=== PATIENT | male | born 1950 | race Two or more races ===

== ENCOUNTER → 2020-09-03 08:54 | Outpatient (BNVA) | payer MEDICARE, SELFPAY | PROVIDERS: PCP Internal Medicine; Referring Provider Internal Medicine; Visit Provider Internal Medicine | DX: I48.0 Paroxysmal atrial fibrillation (principal); Z51.81 Encounter for therapeutic drug level monitoring; Z79.01 Long term (current) use of anticoagulants | CPT/HCPCS: 85610 ==

== ENCOUNTER 2020-09-26 08:20 | Outpatient (REF) | payer MEDICARE, SELFPAY ==
[2020-09-26 09:14] LABS: MANUAL DIFF FLAG NO
[2020-09-26 09:18] LABS: Basophils Percent Auto 0.3 % (0-2); Eosinophils Absolute Auto 0.4 X10*3/uL (0.0-0.4); Eosinophils Percent Auto 4.9 % (0-4); Hematocrit 44.6 % (42-52); Hemoglobin 14.6 g/dl (14.0-18.0); Imm Gran Abs Auto 0.01 X10*3/uL (0.00-0.03); Imm Gran Pct Auto 0.1 % (0.0-0.4); Lymphocytes Absolute Auto 3.2 X10*3/uL (1.2-4.9); Lymphocytes Percent Auto 44.6 % (20-40); Mean Corpuscular HGB Conc 32.7 g/dl (31.0-36.0); Mean Corpuscular Hemoglobin 27.2 pg (27.0-33.0); Mean Corpuscular Volume 83.1 fL (80-98); Mean Platelet Volume 11.1 fL (9.4-12.4); Monocytes Absolute Auto 0.5 X10*3/uL (0.1-1.2); Monocytes Percent Auto 7.1 % (2-11); Neutrophils Absolute Auto 3.1 X10*3/uL (2.0-8.3); Platelet Count 200 X10*3/uL (160-400); Red Blood Count 5.37 X10*6/uL (4.60-5.80); Red Cell Distribution Width 12.7 % (11.0-16.0); White Blood Count 7.2 X10*3/uL (4.8-10.8)
[2020-09-26 09:30] LABS: Glucose Urine UA NEG (NEG); Leukocyte Esterase Urine NEG (NEG); Nitrite Urine NEG (NEG); Urine Blood TRACE (NEG); Urine Ketones NEG (NEG); Urine Protein NEG (NEG-TRACE)
[2020-09-26 09:32] LABS: Appearance Urine HAZY; Color Urine YELLOW
[2020-09-26 09:39] LABS: RBC Urine 0-2 /HPF (0); Squamous Epithelial Cell Urine TRACE /LPF; WBC Urine 0 /HPF (0-4)
[2020-09-26 09:53] LABS: Alanine Aminotransferase 16 U/L (0-40); Albumin Level 4.1 g/dL (3.5-5.0); Alkaline Phosphatase 46 U/L (39-117); Anion Gap 13 (12-20); Aspartate Amino Transferase 18 U/L (5-37); Bilirubin Total 0.6 mg/dL (0.0-1.0); Blood Urea Nitrogen 11 mg/dL (9-16); Carbon Dioxide 27 mmol/L (22-29); Chloride 99 mmol/L (96-108); Cholesterol 171 mg/dL; Estimated Glomerular Filt Rate > 60; Glucose Fasting 129 mg/dL (60-99); HDL Cholesterol 35 mg/dL; LDL Cholesterol Calculated 97 mg/dl; Potassium 3.9 mmol/l (3.3-5.1); Sodium 135 mmol/L (135-145); Total Protein 7.2 g/dL (6.5-8.0); Triglycerides 197 mg/dL; Uric Acid 4.8 mg/dL (3.4-7.0)
[2020-09-26 09:58] LABS: Creatinine Urine 131.08 mg/dL; Microalbum/Creatinine Ratio Ur 3.8 ug/mg cr
[2020-09-26 13:22] LABS: Thyroid Stimulating Hormone 1.38 uIU/mL (0.32-4.0); Vitamin D 25-OH Total 32.5 ng/mL (>30)
== END 2020-09-26 08:21 | disposition home or self-care (01) ==
LOC: HO.LAB 08:20
PROVIDERS: PCP Internal Medicine; Visit Provider Internal Medicine
DX: E78.5 Hyperlipidemia, unspecified (principal); E11.9 Type 2 diabetes mellitus without complications; I10 Essential (primary) hypertension; M10.9 Gout, unspecified; E03.9 Hypothyroidism, unspecified; E66.9 Obesity, unspecified; E55.9 Vitamin D deficiency, unspecified; K21.9 Gastro-esophageal reflux disease without esophagitis
CPT/HCPCS: 36415; 80053; 80061; 81001; 82043; 82306; 84439; 84443; 84550; 85025

== ENCOUNTER → 2020-10-01 08:58 | Outpatient (BNVA) | payer MEDICARE, SELFPAY | PROVIDERS: PCP Internal Medicine; Visit Provider Internal Medicine | DX: I48.0 Paroxysmal atrial fibrillation (principal); Z51.81 Encounter for therapeutic drug level monitoring; Z79.01 Long term (current) use of anticoagulants | CPT/HCPCS: 85610; 99211 ==

== ENCOUNTER → 2020-10-04 08:36 | Outpatient (BNVA) | payer MEDICARE, SELFPAY | PROVIDERS: PCP Internal Medicine; Visit Provider Internal Medicine | DX: I48.0 Paroxysmal atrial fibrillation (principal); Z51.81 Encounter for therapeutic drug level monitoring; Z79.01 Long term (current) use of anticoagulants | CPT/HCPCS: 85610; 99211 ==

== ENCOUNTER → 2020-10-10 09:39 | Outpatient (BNVA) | payer MEDICARE, SELFPAY | PROVIDERS: PCP Internal Medicine; Visit Provider Internal Medicine | DX: I48.0 Paroxysmal atrial fibrillation (principal); Z51.81 Encounter for therapeutic drug level monitoring; Z79.01 Long term (current) use of anticoagulants | CPT/HCPCS: 85610; 99211 ==

== ENCOUNTER → 2020-10-24 08:41 | Outpatient (BNVA) | payer MEDICARE, SELFPAY | PROVIDERS: PCP Internal Medicine; Visit Provider Internal Medicine | DX: I48.0 Paroxysmal atrial fibrillation (principal); Z51.81 Encounter for therapeutic drug level monitoring; Z79.01 Long term (current) use of anticoagulants | CPT/HCPCS: 85610; 99211 ==

== ENCOUNTER → 2020-11-13 09:08 | Outpatient (BNVA) | payer MEDICARE, SELFPAY | PROVIDERS: PCP Internal Medicine; Visit Provider Internal Medicine | DX: I48.0 Paroxysmal atrial fibrillation (principal); Z51.81 Encounter for therapeutic drug level monitoring; Z79.01 Long term (current) use of anticoagulants | CPT/HCPCS: 85610; 99211 ==

== ENCOUNTER → 2020-12-11 08:36 | Outpatient (BNVA) | payer MEDICARE, SELFPAY | PROVIDERS: PCP Internal Medicine; Visit Provider Internal Medicine | DX: I48.0 Paroxysmal atrial fibrillation (principal); Z51.81 Encounter for therapeutic drug level monitoring; Z79.01 Long term (current) use of anticoagulants | CPT/HCPCS: 85610; 99211 ==

== ENCOUNTER 2020-12-25 08:26 | Outpatient (REF) | payer MEDICARE, SELFPAY ==
[2020-12-25 09:19] LABS: MANUAL DIFF FLAG NO
[2020-12-25 09:41] LABS: Glucose Urine UA NEG (NEG); Leukocyte Esterase Urine NEG (NEG); Nitrite Urine NEG (NEG); PH 5.5 (5.0-8.0); Specific Gravity - Urine 1.025 (1.005-1.025); Urine Blood TRACE (NEG); Urine Ketones NEG (NEG); Urine Protein NEG (NEG-TRACE)
[2020-12-25 09:43] LABS: Basophils Percent Auto 0.6 % (0-2); Eosinophils Absolute Auto 0.4 X10*3/uL (0.0-0.4); Eosinophils Percent Auto 5.4 % (0-4); Hematocrit 44.7 % (42-52); Hemoglobin 13.9 g/dl (14.0-18.0); Imm Gran Abs Auto 0.02 X10*3/uL (0.00-0.03); Imm Gran Pct Auto 0.3 % (0.0-0.4); Lymphocytes Absolute Auto 3.2 X10*3/uL (1.2-4.9); Lymphocytes Percent Auto 45.6 % (20-40); Mean Corpuscular HGB Conc 31.1 g/dl (31.0-36.0); Mean Corpuscular Hemoglobin 25.8 pg (27.0-33.0); Mean Corpuscular Volume 82.9 fL (80-98); Mean Platelet Volume 11.2 fL (9.4-12.4); Monocytes Absolute Auto 0.5 X10*3/uL (0.1-1.2); Monocytes Percent Auto 7.6 % (2-11); Neutrophils Absolute Auto 2.8 X10*3/uL (2.0-8.3); Neutrophils Percent Auto 40.5 % (45-73); Platelet Count 229 X10*3/uL (160-400); Red Blood Count 5.39 X10*6/uL (4.60-5.80); Red Cell Distribution Width 13.2 % (11.0-16.0)
[2020-12-25 09:44] LABS: Appearance Urine CLEAR; Color Urine YELLOW
[2020-12-25 10:01] LABS: RBC Urine 0-2 /HPF (0); Squamous Epithelial Cell Urine TRACE /LPF; WBC Urine 0 /HPF (0-4)
[2020-12-25 10:09] LABS: Alanine Aminotransferase 14 U/L (0-40); Albumin Level 4.3 g/dL (3.5-5.0); Alkaline Phosphatase 47 U/L (39-117); Anion Gap 14 (12-20); Aspartate Amino Transferase 18 U/L (5-37); Bilirubin Total 0.6 mg/dL (0.0-1.0); Blood Urea Nitrogen 13 mg/dL (9-16); Calcium 8.9 mg/dL (8.4-10.2); Carbon Dioxide 27 mmol/L (22-29); Chloride 102 mmol/L (96-108); Cholesterol 164 mg/dL; Estimated Glomerular Filt Rate > 60; Glucose Fasting 123 mg/dL (60-99); HDL Cholesterol 36 mg/dL; LDL Cholesterol Calculated 101 mg/dl; Potassium 4.2 mmol/L (3.3-5.1); Sodium 139 mmol/L (135-145); Total Protein 7.4 g/dL (6.5-8.0); Triglycerides 137 mg/dL; Uric Acid 5.2 mg/dL (3.4-7.0)
[2020-12-25 10:11] LABS: Creatinine Urine 173.45 mg/dL
[2020-12-25 10:31] LABS: Free T4 (Free Thyroxine) 1.06 ng/dL (0.71-1.85); Thyroid Stimulating Hormone 0.41 uIU/mL (0.32-4.0); Vitamin D 25-OH Total 41.7 ng/mL (>30)
== END 2020-12-25 08:27 | disposition home or self-care (01) ==
LOC: HO.LAB 08:26
PROVIDERS: PCP Internal Medicine; Visit Provider Internal Medicine
DX: E55.9 Vitamin D deficiency, unspecified (principal); M10.9 Gout, unspecified; E66.9 Obesity, unspecified; E03.9 Hypothyroidism, unspecified; E78.00 Pure hypercholesterolemia, unspecified; I48.0 Paroxysmal atrial fibrillation; K29.30 Chronic superficial gastritis without bleeding; I10 Essential (primary) hypertension; E11.9 Type 2 diabetes mellitus without complications
CPT/HCPCS: 36415; 80053; 80061; 81001; 82043; 82306; 84439; 84443; 84550; 85025

== ENCOUNTER → 2021-01-08 08:40 | Outpatient (BNVA) | payer MEDICARE, SELFPAY | PROVIDERS: PCP Internal Medicine; Visit Provider Internal Medicine | DX: I48.0 Paroxysmal atrial fibrillation (principal); Z51.81 Encounter for therapeutic drug level monitoring; Z79.01 Long term (current) use of anticoagulants | CPT/HCPCS: 85610; 99211 ==

== ENCOUNTER → 2021-02-05 08:40 | Outpatient (BNVA) | payer MEDICARE, SELFPAY | PROVIDERS: PCP Internal Medicine; Visit Provider Internal Medicine | DX: I48.0 Paroxysmal atrial fibrillation (principal); Z51.81 Encounter for therapeutic drug level monitoring; Z79.01 Long term (current) use of anticoagulants | CPT/HCPCS: 85610; 99211 ==

== ENCOUNTER → 2021-03-05 09:20 | Outpatient (BNVA) | payer MEDICARE, SELFPAY | PROVIDERS: PCP Internal Medicine; Visit Provider Internal Medicine | DX: I48.0 Paroxysmal atrial fibrillation (principal); Z79.01 Long term (current) use of anticoagulants; Z51.81 Encounter for therapeutic drug level monitoring | CPT/HCPCS: 85610; 99211 ==

== ENCOUNTER → 2021-04-02 08:57 | Outpatient (BNVA) | payer MEDICARE, SELFPAY | PROVIDERS: PCP Internal Medicine; Visit Provider Internal Medicine | DX: I48.0 Paroxysmal atrial fibrillation (principal); Z51.81 Encounter for therapeutic drug level monitoring; Z79.01 Long term (current) use of anticoagulants | CPT/HCPCS: 85610; 99211 ==

== ENCOUNTER 2021-04-09 08:58 | Outpatient (REF) | payer MEDICARE, SELFPAY ==
[2021-04-09 09:34] LABS: MANUAL DIFF FLAG NO
[2021-04-09 09:54] LABS: Basophils Percent Auto 0.5 % (0-2); Eosinophils Absolute Auto 0.3 X10*3/uL (0.0-0.4); Eosinophils Percent Auto 4.9 % (0-4); Glucose Urine UA NEG (NEG); Imm Gran Abs Auto 0.02 X10*3/uL (0.00-0.03); Imm Gran Pct Auto 0.3 % (0.0-0.4); Leukocyte Esterase Urine NEG (NEG); Lymphocytes Absolute Auto 2.9 X10*3/uL (1.2-4.9); Mean Corpuscular HGB Conc 31.8 g/dl (31.0-36.0); Mean Corpuscular Hemoglobin 26.3 pg (27.0-33.0); Mean Corpuscular Volume 82.6 fL (80-98); Mean Platelet Volume 10.6 fL (9.4-12.4); Monocytes Absolute Auto 0.4 X10*3/uL (0.1-1.2); Monocytes Percent Auto 6.4 % (2-11); Neutrophils Absolute Auto 2.4 X10*3/uL (2.0-8.3); Neutrophils Percent Auto 39.9 % (45-73); Nitrite Urine NEG (NEG); Platelet Count 223 X10*3/uL (160-400); Red Blood Count 5.33 X10*6/uL (4.60-5.80); Red Cell Distribution Width 13.2 % (11.0-16.0); Urine Blood TRACE (NEG); Urine Ketones NEG (NEG); Urine Protein NEG (NEG-TRACE); White Blood Count 6.1 X10*3/uL (4.8-10.8)
[2021-04-09 09:55] LABS: Appearance Urine CLEAR; Color Urine YELLOW
[2021-04-09 10:10] LABS: RBC Urine 0-2 /HPF (0); Squamous Epithelial Cell Urine TRACE /LPF; WBC Urine 0 /HPF (0-4)
[2021-04-09 10:18] LABS: Alanine Aminotransferase 18 U/L (0-40); Albumin Level 4.2 g/dL (3.5-5.0); Alkaline Phosphatase 43 U/L (39-117); Anion Gap 12 (12-20); Aspartate Amino Transferase 17 U/L (5-37); Bilirubin Total 0.6 mg/dL (0.0-1.0); Blood Urea Nitrogen 12 mg/dL (9-16); Calcium 9.1 mg/dL (8.4-10.2); Carbon Dioxide 27 mmol/L (22-29); Chloride 102 mmol/L (96-108); Cholesterol 168 mg/dL; Estimated Glomerular Filt Rate > 60; Glucose Fasting 131 mg/dL (60-99); HDL Cholesterol 43 mg/dL; LDL Cholesterol Calculated 102 mg/dl; Potassium 4.1 mmol/L (3.3-5.1); Sodium 137 mmol/L (135-145); Total Protein 7.2 g/dL (6.5-8.0); Triglycerides 115 mg/dL; Uric Acid 4.7 mg/dL (3.4-7.0)
[2021-04-09 10:25] LABS: Creatinine Urine 147.72 mg/dL; Microalbum/Creatinine Ratio Ur 5.4 ug/mg cr
[2021-04-09 10:39] LABS: Free T4 (Free Thyroxine) 1.01 ng/dL (0.71-1.85); Thyroid Stimulating Hormone 0.77 uIU/mL (0.32-4.0); Vitamin D 25-OH Total 42.8 ng/mL (>30)
== END 2021-04-09 08:59 | disposition home or self-care (01) ==
LOC: HO.LAB 08:58
PROVIDERS: PCP Internal Medicine; Visit Provider Internal Medicine
DX: E78.00 Pure hypercholesterolemia, unspecified (principal); E11.9 Type 2 diabetes mellitus without complications; I10 Essential (primary) hypertension; I48.0 Paroxysmal atrial fibrillation; E03.9 Hypothyroidism, unspecified; E66.9 Obesity, unspecified; E55.9 Vitamin D deficiency, unspecified; M10.9 Gout, unspecified; K29.30 Chronic superficial gastritis without bleeding
CPT/HCPCS: 36415; 80053; 80061; 81001; 82043; 82306; 84439; 84443; 84550; 85025

== ENCOUNTER → 2021-04-30 09:18 | Outpatient (BNVA) | payer MEDICARE, SELFPAY | PROVIDERS: PCP Internal Medicine; Visit Provider Internal Medicine | DX: I48.0 Paroxysmal atrial fibrillation (principal); Z51.81 Encounter for therapeutic drug level monitoring; Z79.01 Long term (current) use of anticoagulants | CPT/HCPCS: 85610; 99211 ==

== ENCOUNTER → 2021-05-28 08:52 | Outpatient (BNVA) | payer MEDICARE, SELFPAY | PROVIDERS: PCP Internal Medicine; Visit Provider Internal Medicine | DX: I48.0 Paroxysmal atrial fibrillation (principal); Z51.81 Encounter for therapeutic drug level monitoring; Z79.01 Long term (current) use of anticoagulants | CPT/HCPCS: 85610; 99211 ==

== ENCOUNTER → 2021-06-25 08:49 | Outpatient (BNVA) | payer MEDICARE, SELFPAY | PROVIDERS: PCP Internal Medicine; Visit Provider Internal Medicine | DX: I48.0 Paroxysmal atrial fibrillation (principal); Z79.01 Long term (current) use of anticoagulants; Z51.81 Encounter for therapeutic drug level monitoring | CPT/HCPCS: 85610; 99211 ==

== ENCOUNTER 2021-07-09 08:56 | Outpatient (REF) | payer MEDICARE, SELFPAY ==
[2021-07-09 09:41] LABS: MANUAL DIFF FLAG NO
[2021-07-09 09:46] LABS: Glucose Urine UA NEG (NEG); Leukocyte Esterase Urine NEG (NEG); Nitrite Urine NEG (NEG); UACC Culture Trigger NO; Urine Blood TRACE (NEG); Urine Ketones NEG (NEG); Urine Protein NEG (NEG-TRACE)
[2021-07-09 09:49] LABS: Appearance Urine CLEAR; Basophils Percent Auto 0.6 % (0-2); Color Urine YELLOW; Eosinophils Absolute Auto 0.4 X10*3/uL (0.0-0.4); Eosinophils Percent Auto 5.3 % (0-4); Hematocrit 42.7 % (42-52); Hemoglobin 13.4 g/dl (14.0-18.0); Imm Gran Abs Auto 0.02 X10*3/uL (0.00-0.03); Imm Gran Pct Auto 0.3 % (0.0-0.4); Lymphocytes Absolute Auto 2.9 X10*3/uL (1.2-4.9); Lymphocytes Percent Auto 43.8 % (20-40); Mean Corpuscular HGB Conc 31.4 g/dl (31.0-36.0); Mean Corpuscular Hemoglobin 25.5 pg (27.0-33.0); Mean Corpuscular Volume 81.3 fL (80-98); Mean Platelet Volume 10.5 fL (9.4-12.4); Monocytes Absolute Auto 0.5 X10*3/uL (0.1-1.2); Monocytes Percent Auto 6.8 % (2-11); Neutrophils Absolute Auto 2.8 X10*3/uL (2.0-8.3); Neutrophils Percent Auto 43.2 % (45-73); Platelet Count 201 X10*3/uL (160-400); Red Blood Count 5.25 X10*6/uL (4.60-5.80); Red Cell Distribution Width 13.4 % (11.0-16.0); White Blood Count 6.6 X10*3/uL (4.8-10.8)
[2021-07-09 10:03] LABS: Estimated Average Glucose 146 mg/dL; Hemoglobin A1c % 6.7 %
[2021-07-09 10:11] LABS: RBC Urine 0-2 /HPF (0); Squamous Epithelial Cell Urine 1+ /LPF; WBC Urine 0 /HPF (0-4)
[2021-07-09 10:23] LABS: Alanine Aminotransferase 19 U/L (0-40); Albumin Level 4.3 g/dL (3.5-5.0); Alkaline Phosphatase 39 U/L (39-117); Anion Gap 14 (12-20); Aspartate Amino Transferase 24 U/L (5-37); Bilirubin Total 0.6 mg/dL (0.0-1.0); Blood Urea Nitrogen 13 mg/dL (9-16); Calcium 9.3 mg/dL (8.4-10.2); Carbon Dioxide 25 mmol/L (22-29); Chloride 105 mmol/L (96-108); Cholesterol 157 mg/dL; Estimated Glomerular Filt Rate > 60; Glucose Fasting 117 mg/dL (60-99); HDL Cholesterol 40 mg/dL; LDL Cholesterol Calculated 94 mg/dl; Potassium 4.1 mmol/L (3.3-5.1); Sodium 140 mmol/L (135-145); Total Protein 7.1 g/dL (6.5-8.0); Triglycerides 116 mg/dL; Uric Acid 5.3 mg/dL (3.4-7.0)
[2021-07-09 10:27] LABS: Creatinine Urine 123.06 mg/dL; Microalbum/Creatinine Ratio Ur 4.8 ug/mg cr
[2021-07-09 10:47] LABS: Free T4 (Free Thyroxine) 1.02 ng/dL (0.71-1.85); Thyroid Stimulating Hormone 2.05 uIU/mL (0.32-4.0); Vitamin D 25-OH Total 44.5 ng/mL (>30)
== END 2021-07-09 08:57 | disposition home or self-care (01) ==
LOC: HO.LAB 08:56
PROVIDERS: PCP Internal Medicine; Visit Provider Internal Medicine
DX: I10 Essential (primary) hypertension (principal); E55.9 Vitamin D deficiency, unspecified; M10.9 Gout, unspecified; E11.9 Type 2 diabetes mellitus without complications; E03.9 Hypothyroidism, unspecified; E78.00 Pure hypercholesterolemia, unspecified; E66.9 Obesity, unspecified; K29.30 Chronic superficial gastritis without bleeding
CPT/HCPCS: 36415; 80053; 80061; 81001; 82043; 82306; 83036; 84439; 84443; 84550; 85025

== ENCOUNTER → 2021-07-23 09:01 | Outpatient (BNVA) | payer MEDICARE, SELFPAY | PROVIDERS: PCP Internal Medicine; Visit Provider Internal Medicine | DX: I48.0 Paroxysmal atrial fibrillation (principal); Z51.81 Encounter for therapeutic drug level monitoring; Z79.01 Long term (current) use of anticoagulants | CPT/HCPCS: 85610; 99211 ==

== ENCOUNTER → 2021-08-06 08:59 | Outpatient (BNVA) | payer MEDICARE, SELFPAY | PROVIDERS: PCP Internal Medicine; Visit Provider Internal Medicine | DX: I48.0 Paroxysmal atrial fibrillation (principal); Z51.81 Encounter for therapeutic drug level monitoring; Z79.01 Long term (current) use of anticoagulants | CPT/HCPCS: 85610; 99211 ==

== ENCOUNTER → 2021-08-20 08:53 | Outpatient (BNVA) | payer MEDICARE, SELFPAY | PROVIDERS: PCP Internal Medicine; Visit Provider Internal Medicine | DX: I48.0 Paroxysmal atrial fibrillation (principal); Z51.81 Encounter for therapeutic drug level monitoring; Z79.01 Long term (current) use of anticoagulants | CPT/HCPCS: 85610; 99211 ==

== ENCOUNTER 2021-09-10 08:39 | Outpatient (REF) | payer MEDICARE, SELFPAY ==
[2021-09-10 09:18] LABS: Prothrombin Time 87.6 SEC (9.9-13.0)
[2021-09-10 09:20] LABS: INTERNATIONAL NORM RATIO 7.4 (0.9-1.1)
== END 2021-09-10 08:40 | disposition home or self-care (01) ==
LOC: HO.LAB 08:39
PROVIDERS: PCP Internal Medicine; Visit Provider Internal Medicine
DX: Z79.01 Long term (current) use of anticoagulants (principal)
CPT/HCPCS: 36415; 85610; 99212

== ENCOUNTER → 2021-09-11 08:34 | Outpatient (BNVA) | payer MEDICARE, SELFPAY | PROVIDERS: PCP Internal Medicine; Visit Provider Internal Medicine | DX: I48.0 Paroxysmal atrial fibrillation (principal); Z51.81 Encounter for therapeutic drug level monitoring; Z79.01 Long term (current) use of anticoagulants | CPT/HCPCS: 85610; 99211 ==

== ENCOUNTER → 2021-09-12 09:24 | Outpatient (BNVA) | payer MEDICARE, SELFPAY | PROVIDERS: PCP Internal Medicine; Visit Provider Internal Medicine | DX: I48.0 Paroxysmal atrial fibrillation (principal); Z51.81 Encounter for therapeutic drug level monitoring; Z79.01 Long term (current) use of anticoagulants | CPT/HCPCS: 85610; 99211 ==

== ENCOUNTER → 2021-09-17 09:11 | Outpatient (BNVA) | payer MEDICARE, SELFPAY | PROVIDERS: PCP Internal Medicine; Visit Provider Internal Medicine | DX: I48.0 Paroxysmal atrial fibrillation (principal); Z51.81 Encounter for therapeutic drug level monitoring; Z79.01 Long term (current) use of anticoagulants | CPT/HCPCS: 85610; 99211 ==

== ENCOUNTER → 2021-09-23 09:14 | Outpatient (BNVA) | payer MEDICARE, SELFPAY | PROVIDERS: PCP Internal Medicine; Visit Provider Internal Medicine | DX: I48.0 Paroxysmal atrial fibrillation (principal); Z51.81 Encounter for therapeutic drug level monitoring; Z79.01 Long term (current) use of anticoagulants | CPT/HCPCS: 85610; 99211 ==

== ENCOUNTER → 2021-10-08 09:28 | Outpatient (BNVA) | payer MEDICARE, SELFPAY | PROVIDERS: PCP Internal Medicine; Visit Provider Internal Medicine | DX: I48.0 Paroxysmal atrial fibrillation (principal); Z51.81 Encounter for therapeutic drug level monitoring; Z79.01 Long term (current) use of anticoagulants | CPT/HCPCS: 85610; 99211 ==

== ENCOUNTER 2021-10-12 08:57 | Outpatient (REF) | payer MEDICARE, SELFPAY ==
[2021-10-12 09:08] LABS: MANUAL DIFF FLAG NO
[2021-10-12 09:28] LABS: Basophils Percent Auto 0.3 % (0-2); Eosinophils Absolute Auto 0.2 X10*3/uL (0.0-0.4); Eosinophils Percent Auto 1.7 % (0-4); Hemoglobin 14.9 g/dl (14.0-18.0); Imm Gran Abs Auto 0.04 X10*3/uL (0.00-0.03); Imm Gran Pct Auto 0.4 % (0.0-0.4); Lymphocytes Absolute Auto 3.9 X10*3/uL (1.2-4.9); Lymphocytes Percent Auto 36.8 % (20-40); Mean Corpuscular HGB Conc 32.4 g/dl (31.0-36.0); Mean Corpuscular Hemoglobin 26.5 pg (27.0-33.0); Mean Corpuscular Volume 81.7 fL (80.0-98.0); Mean Platelet Volume 10.1 fL (9.4-12.4); Monocytes Absolute Auto 0.7 X10*3/uL (0.1-1.2); Monocytes Percent Auto 6.9 % (2-11); Neutrophils Absolute Auto 5.7 x10*3/uL (2.0-8.3); Neutrophils Percent Auto 53.9 % (45-73); Platelet Count 222 X10*3/uL (160-400); Red Blood Count 5.63 X10*6/uL (4.60-5.80); Red Cell Distribution Width 13.3 % (11.0-16.0); White Blood Count 10.5 X10*3/uL (4.8-10.8)
[2021-10-12 09:42] LABS: Estimated Average Glucose 157 mg/dL; Hemoglobin A1c % 7.1 %
[2021-10-12 09:47] LABS: Appearance Urine CLEAR; Color Urine YELLOW; Glucose Urine UA NEG (NEG); Leukocyte Esterase Urine NEG (NEG); Nitrite Urine NEG (NEG); UACC Culture Trigger NO; Urine Blood TRACE (NEG); Urine Ketones NEG (NEG); Urine Protein NEG (NEG-TRACE)
[2021-10-12 09:48] LABS: Creatinine Urine 195.89 mg/dL; Microalbum/Creatinine Ratio Ur 9.6 ug/mg cr
[2021-10-12 09:56] LABS: Alanine Aminotransferase 21 U/L (0-40); Albumin Level 4.5 g/dL (3.5-5.0); Alkaline Phosphatase 47 U/L (39-117); Anion Gap 11 (12-20); Aspartate Amino Transferase 20 U/L (5-37); Bilirubin Total 0.5 mg/dL (0.0-1.0); Blood Urea Nitrogen 13 mg/dL (9-16); Calcium 9.6 mg/dL (8.4-10.2); Carbon Dioxide 32 mmol/L (22-29); Chloride 103 mmol/L (96-108); Cholesterol 190 mg/dL; Estimated Glomerular Filt Rate > 60; Glucose Fasting 99 mg/dL (60-99); HDL Cholesterol 44 mg/dL; LDL Cholesterol Calculated 109 mg/dl; Potassium 3.9 mmol/L (3.3-5.1); Sodium 142 mmol/L (135-145); Total Protein 7.8 g/dL (6.5-8.0); Triglycerides 187 mg/dL
[2021-10-12 10:09] LABS: Uric Acid 4.8 mg/dL (3.4-7.0)
[2021-10-12 10:15] LABS: Free T4 (Free Thyroxine) 0.96 ng/dL (0.71-1.85); Thyroid Stimulating Hormone 2.49 uIU/mL (0.32-4.0); Vitamin D 25-OH Total 43.4 ng/mL (>30)
[2021-10-12 10:59] LABS: WBC Urine 0 /HPF (0-4)
[2021-10-15 13:57] LABS: Testosterone, Free 40.4 pg/mL (30.0-135.0); Testosterone, Total 439 ng/dL (250-1100)
== END 2021-10-12 08:58 | disposition home or self-care (01) ==
LOC: HO.LAB 08:57
PROVIDERS: PCP Internal Medicine; Visit Provider Internal Medicine
DX: I10 Essential (primary) hypertension (principal); E55.9 Vitamin D deficiency, unspecified; E11.9 Type 2 diabetes mellitus without complications; E03.9 Hypothyroidism, unspecified; E78.00 Pure hypercholesterolemia, unspecified; N52.9 Male erectile dysfunction, unspecified; M10.9 Gout, unspecified
CPT/HCPCS: 36415; 80053; 80061; 81001; 82043; 82306; 83036; 84402; 84403; 84439; 84443; 84550; 85025

== ENCOUNTER 2021-10-19 09:35 | Outpatient (REF) | payer MEDICARE, SELFPAY ==
--- NOTE | ~2021-10-19 | XR_ITS ---
EXAMINATION: XR FOOT, LEFT CLINICAL INFORMATION: Pain in the left foot COMPARISON: None TECHNIQUE: AP, lateral, and oblique views of the left foot. FINDINGS: No fracture or dislocation. Alignment is anatomic. Joint spaces are maintained with small marginal osteophytes seen at the first metatarsophalangeal joint. There is moderate hypertrophic spurring at the plantar aponeurosis and Achilles insertion to the calcaneus. No ankle joint effusion. Small osteophytes at the talonavicular joint. XR/XR foot LT min 3V IMPRESSION: Mild degenerative changes with heel spurs noted.
== END 2021-10-19 09:36 | disposition home or self-care (01) ==
LOC: HO.XRAY 09:35
PROVIDERS: PCP Internal Medicine; Visit Provider Internal Medicine
DX: M79.672 Pain in left foot (principal)
CPT/HCPCS: 73630

== ENCOUNTER → 2021-10-29 09:30 | Outpatient (BNVA) | payer MEDICARE, SELFPAY | PROVIDERS: PCP Internal Medicine; Visit Provider Internal Medicine | DX: I48.0 Paroxysmal atrial fibrillation (principal); Z51.81 Encounter for therapeutic drug level monitoring; Z79.01 Long term (current) use of anticoagulants | CPT/HCPCS: 85610; 99211 ==

== ENCOUNTER → 2021-11-12 09:52 | Outpatient (BNVA) | payer MEDICARE, SELFPAY | PROVIDERS: PCP Internal Medicine; Visit Provider Internal Medicine | DX: I48.0 Paroxysmal atrial fibrillation (principal); Z51.81 Encounter for therapeutic drug level monitoring; Z79.01 Long term (current) use of anticoagulants | CPT/HCPCS: 85610; 99211 ==

== ENCOUNTER → 2021-12-10 09:53 | Outpatient (BNVA) | payer MEDICARE, SELFPAY | PROVIDERS: PCP Internal Medicine; Visit Provider Internal Medicine | DX: I48.0 Paroxysmal atrial fibrillation (principal); Z51.81 Encounter for therapeutic drug level monitoring; Z79.01 Long term (current) use of anticoagulants | CPT/HCPCS: 85610; 99211 ==

== ENCOUNTER → 2021-12-31 10:06 | Outpatient (BNVA) | payer MEDICARE, SELFPAY | PROVIDERS: PCP Internal Medicine; Visit Provider Internal Medicine | DX: I48.0 Paroxysmal atrial fibrillation (principal); Z51.81 Encounter for therapeutic drug level monitoring; Z79.01 Long term (current) use of anticoagulants | CPT/HCPCS: 85610; 99211 ==

== ENCOUNTER → 2022-01-28 10:01 | Outpatient (BNVA) | payer MEDICARE, SELFPAY | PROVIDERS: PCP Internal Medicine; Visit Provider Internal Medicine | DX: I48.0 Paroxysmal atrial fibrillation (principal); Z51.81 Encounter for therapeutic drug level monitoring; Z79.01 Long term (current) use of anticoagulants | CPT/HCPCS: 85610; 99211 ==

== ENCOUNTER 2022-02-08 09:45 | Outpatient (REF) | payer MEDICARE, SELFPAY ==
[2022-02-08 10:02] LABS: MANUAL DIFF FLAG NO
[2022-02-08 10:26] LABS: Basophils Percent Auto 0.6 % (0-2); Eosinophils Absolute Auto 0.4 X10*3/uL (0.0-0.4); Eosinophils Percent Auto 5.6 % (0-4); Hematocrit 44.4 % (42.0-52.0); Hemoglobin 13.8 g/dl (14.0-18.0); Imm Gran Abs Auto 0.02 X10*3/uL (0.00-0.03); Imm Gran Pct Auto 0.3 % (0.0-0.4); Lymphocytes Absolute Auto 2.9 X10*3/uL (1.2-4.9); Lymphocytes Percent Auto 42.4 % (20-40); Mean Corpuscular HGB Conc 31.1 g/dl (31.0-36.0); Mean Corpuscular Hemoglobin 25.7 pg (27.0-33.0); Mean Corpuscular Volume 82.8 fL (80.0-98.0); Mean Platelet Volume 10.4 fL (9.4-12.4); Monocytes Absolute Auto 0.5 X10*3/uL (0.1-1.2); Monocytes Percent Auto 6.8 % (2-11); Neutrophils Absolute Auto 3.1 x10*3/uL (2.0-8.3); Neutrophils Percent Auto 44.3 % (45-73); Platelet Count 207 X10*3/uL (160-400); Red Blood Count 5.36 X10*6/uL (4.60-5.80); Red Cell Distribution Width 13.1 % (11.0-16.0); White Blood Count 6.9 X10*3/uL (4.8-10.8)
[2022-02-08 10:37] LABS: Estimated Average Glucose 154 mg/dL
[2022-02-08 10:39] LABS: Alanine Aminotransferase 18 U/L (0-40); Albumin Level 4.2 g/dL (3.5-5.0); Alkaline Phosphatase 45 U/L (39-117); Anion Gap 13 (12-20); Aspartate Amino Transferase 17 U/L (5-37); Bilirubin Total 0.5 mg/dL (0.0-1.0); Blood Urea Nitrogen 11 mg/dL (9-16); Calcium 9.3 mg/dL (8.4-10.2); Carbon Dioxide 29 mmol/L (22-29); Chloride 105 mmol/L (96-108); Cholesterol 157 mg/dL; Estimated Glomerular Filt Rate > 60; Glucose Fasting 135 mg/dL (60-99); HDL Cholesterol 36 mg/dL; LDL Cholesterol Calculated 100 mg/dl; Potassium 4.5 mmol/L (3.3-5.1); Sodium 142 mmol/L (135-145); Total Protein 7.2 g/dL (6.5-8.0); Triglycerides 106 mg/dL
[2022-02-08 11:01] LABS: Free T4 (Free Thyroxine) 1.15 ng/dL (0.71-1.85); Thyroid Stimulating Hormone 0.58 uIU/mL (0.32-4.0); Vitamin D 25-OH Total 43.5 ng/mL (>30)
[2022-02-08 11:26] LABS: Appearance Urine CLEAR; Color Urine YELLOW; Glucose Urine UA NEG (NEG); Leukocyte Esterase Urine NEG (NEG); Nitrite Urine NEG (NEG); PH 5.5 (5.0-8.0); Specific Gravity - Urine 1.025 (1.005-1.025); UACC Culture Trigger NO; Urine Blood TRACE (NEG); Urine Ketones NEG (NEG); Urine Protein NEG (NEG-TRACE)
[2022-02-08 11:38] LABS: RBC Urine 0-2 /HPF (0); WBC Urine 0-2 /HPF (0-4)
[2022-02-08 11:39] LABS: Squamous Epithelial Cell Urine TRACE /LPF
[2022-02-08 11:44] LABS: Creatinine Urine 189.62 mg/dL; Microalbum/Creatinine Ratio Ur 3.6 ug/mg cr
== END 2022-02-08 09:46 | disposition home or self-care (01) ==
LOC: HO.LAB 09:45
PROVIDERS: PCP Internal Medicine; Visit Provider Internal Medicine
DX: I10 Essential (primary) hypertension (principal); E78.00 Pure hypercholesterolemia, unspecified; E03.9 Hypothyroidism, unspecified; E11.9 Type 2 diabetes mellitus without complications; E55.9 Vitamin D deficiency, unspecified
CPT/HCPCS: 36415; 80053; 80061; 81001; 81003; 82043; 82306; 83036; 84439; 84443; 85025

== ENCOUNTER → 2022-02-25 10:27 | Outpatient (BNVA) | payer MEDICARE, SELFPAY | PROVIDERS: PCP Internal Medicine; Visit Provider Internal Medicine | DX: I48.0 Paroxysmal atrial fibrillation (principal); Z51.81 Encounter for therapeutic drug level monitoring; Z79.01 Long term (current) use of anticoagulants | CPT/HCPCS: 85610; 99211 ==

== ENCOUNTER → 2022-03-18 09:31 | Outpatient (BNVA) | payer MEDICARE, SELFPAY | PROVIDERS: PCP Internal Medicine; Visit Provider Internal Medicine | DX: I48.0 Paroxysmal atrial fibrillation (principal); Z79.01 Long term (current) use of anticoagulants; Z51.81 Encounter for therapeutic drug level monitoring | CPT/HCPCS: 85610; 99211 ==

== ENCOUNTER → 2022-04-08 09:06 | Outpatient (BNVA) | payer MEDICARE, SELFPAY | PROVIDERS: PCP Internal Medicine; Visit Provider Internal Medicine | DX: I48.0 Paroxysmal atrial fibrillation (principal); Z79.01 Long term (current) use of anticoagulants; Z51.81 Encounter for therapeutic drug level monitoring | CPT/HCPCS: 85610; 99211 ==

== ENCOUNTER 2022-04-12 08:56 | Outpatient (REF) | payer OTHER, SELFPAY ==
[2022-04-12 09:10] LABS: MANUAL DIFF FLAG NO
[2022-04-12 09:48] LABS: Basophils Percent Auto 0.6 % (0-2); Eosinophils Absolute Auto 0.3 X10*3/uL (0.0-0.4); Eosinophils Percent Auto 4.4 % (0-4); Hemoglobin 13.3 g/dl (14.0-18.0); Imm Gran Abs Auto 0.02 X10*3/uL (0.00-0.03); Imm Gran Pct Auto 0.3 % (0.0-0.4); Lymphocytes Absolute Auto 2.7 X10*3/uL (1.2-4.9); Lymphocytes Percent Auto 37.8 % (20-40); Mean Corpuscular HGB Conc 31.7 g/dl (31.0-36.0); Mean Corpuscular Hemoglobin 25.8 pg (27.0-33.0); Mean Corpuscular Volume 81.6 fL (80.0-98.0); Monocytes Absolute Auto 0.5 X10*3/uL (0.1-1.2); Monocytes Percent Auto 7.1 % (2-11); Neutrophils Absolute Auto 3.5 x10*3/uL (2.0-8.3); Neutrophils Percent Auto 49.8 % (45-73); Platelet Count 219 X10*3/uL (160-400); Red Blood Count 5.15 X10*6/uL (4.60-5.80); Red Cell Distribution Width 13.3 % (11.0-16.0)
[2022-04-12 09:56] LABS: Appearance Urine CLEAR; Color Urine YELLOW; Glucose Urine UA NEG (NEG); Leukocyte Esterase Urine NEG (NEG); Nitrite Urine NEG (NEG); Specific Gravity - Urine 1.025 (1.005-1.025); UACC Culture Trigger NO; Urine Blood 1+ (NEG); Urine Ketones NEG (NEG); Urine Protein NEG (NEG-TRACE)
[2022-04-12 10:10] LABS: Estimated Average Glucose 157 mg/dL; Hemoglobin A1c % 7.1 %
[2022-04-12 10:14] LABS: Squamous Epithelial Cell Urine TRACE /LPF
[2022-04-12 10:14] LABS: Alanine Aminotransferase 13 U/L (0-40); Albumin Level 4.1 g/dL (3.5-5.0); Alkaline Phosphatase 45 U/L (39-117); Anion Gap 12 (12-20); Aspartate Amino Transferase 15 U/L (5-37); Bilirubin Total 0.5 mg/dL (0.0-1.0); Blood Urea Nitrogen 11 mg/dL (9-16); Calcium 9.5 mg/dL (8.4-10.2); Carbon Dioxide 27 mmol/L (22-29); Chloride 104 mmol/L (96-108); Cholesterol 155 mg/dL; Estimated Glomerular Filt Rate > 60; Glucose Fasting 124 mg/dL (60-99); HDL Cholesterol 37 mg/dL; LDL Cholesterol Calculated 96 mg/dl; Potassium 4.2 mmol/L (3.3-5.1); Sodium 139 mmol/L (135-145); Total Protein 7.3 g/dL (6.5-8.0); Triglycerides 114 mg/dL
[2022-04-12 10:22] LABS: Creatinine Urine 183.94 mg/dL; Microalbum/Creatinine Ratio Ur 5.9 ug/mg cr
[2022-04-12 10:30] LABS: Uric Acid 5.3 mg/dL (3.4-7.0)
[2022-04-12 10:35] LABS: Free T4 (Free Thyroxine) 1.03 ng/dL (0.71-1.85); Vitamin D 25-OH Total 45.1 ng/mL (>30)
== END 2022-04-12 08:57 | disposition home or self-care (01) ==
LOC: HO.LAB 08:56
PROVIDERS: PCP Internal Medicine; Visit Provider Internal Medicine
DX: E03.9 Hypothyroidism, unspecified (principal); M10.9 Gout, unspecified; E78.00 Pure hypercholesterolemia, unspecified; E11.9 Type 2 diabetes mellitus without complications; E55.9 Vitamin D deficiency, unspecified; I10 Essential (primary) hypertension
CPT/HCPCS: 36415; 80053; 80061; 81001; 82043; 82306; 83036; 84439; 84443; 84550; 85025

== ENCOUNTER → 2022-04-23 13:23 | Outpatient (BNVA) | payer OTHER, SELFPAY | PROVIDERS: PCP Internal Medicine; Referring Provider Internal Medicine; Visit Provider Internal Medicine Cardiovascular Disease | DX: I48.0 Paroxysmal atrial fibrillation (principal); I10 Essential (primary) hypertension | CPT/HCPCS: 93005; 99202 ==

== ENCOUNTER → 2022-05-06 09:16 | Outpatient (BNVA) | payer OTHER, SELFPAY | PROVIDERS: PCP Internal Medicine; Visit Provider Internal Medicine | DX: I48.0 Paroxysmal atrial fibrillation (principal); Z79.01 Long term (current) use of anticoagulants; Z51.81 Encounter for therapeutic drug level monitoring | CPT/HCPCS: 85610; 99211 ==

== ENCOUNTER → 2022-06-03 09:09 | Outpatient (BNVA) | payer OTHER, SELFPAY | PROVIDERS: PCP Internal Medicine; Visit Provider Internal Medicine | DX: I48.0 Paroxysmal atrial fibrillation (principal); Z79.01 Long term (current) use of anticoagulants; Z51.81 Encounter for therapeutic drug level monitoring | CPT/HCPCS: 85610; 99211 ==

== ENCOUNTER → 2022-06-05 08:56 | Outpatient (BNVA) | payer OTHER, SELFPAY | PROVIDERS: PCP Internal Medicine; Visit Provider Nurse Practitioner | DX: Z12.11 Encounter for screening for malignant neoplasm of colon (principal); R14.0 Abdominal distension (gaseous); D12.6 Benign neoplasm of colon, unspecified; I48.0 Paroxysmal atrial fibrillation; Z79.01 Long term (current) use of anticoagulants | CPT/HCPCS: 99202 ==

== ENCOUNTER → 2022-06-20 07:09 | Outpatient (REF) | payer OTHER, SELFPAY ==
--- NOTE | 2022-06-20 07:15 | CA_ITS ---
Transthoracic Echocardiogram Patient (Last, First, Middle): Corey Cornejo, Gender: Male Date of : 1950 Age: 72 Procedure Date: 06/20/2022 Procedure Type: Transthoracic Echocardiogram Location: OP Height: 157.48 cm Weight: 92.99 kg BSA: 1.93 m2 Heart Rate: bpm BP: 110 / 65 mmHg [place] Tier: TO Referring MD: Rakan Rosenbaum MD Invoice Machine Operator: Julien Shay MD Symptoms: I48.0 - Paroxysmal atrial fibrillation Study Quality: Adequate ECG Rhythm: Sinus with frequent PACs Conclusions: - 1. Normal LV systolic function 2. Mild mitral regurgitation 3. Normal RV systolic pressure 4. No pericardial effusion Findings Left Ventricle Normal left ventricular size, thickness, and systolic function. The visually estimated ejection fraction is between 60-65%. Spectral Doppler is indicative of a pseudonormal filling pattern. Right Ventricle Normal right ventricular cavity size and systolic function. Atria The left atrium is likely dilated. Interatrial shunt cannot be excluded. The right atrium is normal in size. Aortic Valve Normal aortic valve structure and function. There is no aortic valve stenosis. There is no aortic valve regurgitation. Mitral Valve There is mild anterior mitral leaflet thickening. There is mild mitral valve regurgitation. There is no mitral valve stenosis. Pulmonic Valve The pulmonic valve is likely normal. There is trace pulmonic valve regurgitation. Tricuspid Valve Normal tricuspid valve structure. There is trace tricuspid valve regurgitation. The right ventricular systolic pressure is normal. The right ventricular systolic pressure is 25 mmHg. Normal right atrial pressure. There is no evidence of pulmonary hypertension. Great Vessels All visible segments of the aorta are normal in size. The pulmonary artery was not well visualized. Venous The inferior vena cava is normal in size and collapses greater than 50% with inspiration. Pericardium/Pleural There is no evidence of pericardial effusion. Prior Study Comparison No significant change compared to prior study dated: 03/18/2016. Measurements 2D Linear Measurements IVSd: 0.95 0.6-0.9/0.6-1.0 cm LVIDd: 4.78 3.9-5.3/4.2-5.9 cm LVIDd Index: 2.48 2.4-3.2/2.2-3.1 cm/m2 LVIDs: 2.94 2.0-3.6 cm LVPWd: 0.99 0.7-1.1 cm LA Diam: 3.80 2.7-3.8/3.0-4.0 cm LAIDs Index: 1.97 1.5-2.3 cm/m2 LV Mass: 200.61 67-162/88-224 g LV Mass Index: 103.94 43-95/49-115 g/m2 LVOT Diam: 2.30 3.0+(-)1.3 cm 2D Systolic Function EF 4C: 55.30 >55% EF 2C: 58.20 >55% EF BiP: 55.50 >55% Mitral Valve MV Pk E: 0.80 MV PK A: 0.70 MV Decel Time: 276.00 E/A: 1.10 E'Lateral: 10.70 E'Medial: 8.49 E/E' Med: 9.40 E/E' Lat: 7.50 PHT: 81.00 MVA PHT: 2.72 Decel Dare: 2.90 Aortic Valve AoV Pk Chacho: 0.95 AoV Mn Chacho: 0.64 AoV VTI: 0.20 AoV Pk Grad: 4.00 Aov Mn Grad: 2.00 YARELI Cont.VTI: 3.62 LVOT LVOT Pk Chacho: 0.82 LVOT Mn [place]acho: 0.51 LVOT VTI: 0.18 LVOT Pk Grad: 3.00 LVOT Mn Grad: 1.00 LVOT Diam: 2.30 LVOT Area: 4.15 Diastolic Function MV Pk E: 0.80 MV Pk A: 0.70 E/A: 1.10 E'Medial: 8.49 E/E' Med: 9.40 E' Laterial: 10.70 E/E' Lat: 7.50 Right Ventricle TAPSE (mm): 31.70 TVS' Chacho: 12.20 Tricuspid Valve TR Pk Chacho: 2.35 TR Pk Grad: 22.00 RA Press: 3.00 RVSP: 25.00 Great Vessels Aorta Sinus of Valsalva: 3.47 2.0-3.[address] [place]: 2.32 1.7-3.4 cm Ao Asc: 3.10 2.1-3.4 cm Updated in Other Vendor System with Status of Final Julien Shay MD electronically signed on 06/21/2022 1:19:27 PM with status of Final
--- NOTE | 2022-06-20 07:15 | HM_ITS ---
* Total monitoring time 7 days. * Underlying rhythm is sinus. Average rate 72/Min. Range 52 to 110/Min. * About 0.9% the time, rhythm was atrial fibrillation. Longest episode 29 minutes. During atrial fibrillation, fastest rate about 126/Min. * No significant pauses/AV blocks. * Frequent supraventricular ectopy. Crawley of 9%. * Occasional ventricular ectopy. Crawley of less than 1%. * No patient events. MTDD
== END ==
LOC: HO.CARD 07:09
PROVIDERS: Visit Provider Internal Medicine Cardiovascular Disease
DX: I48.0 Paroxysmal atrial fibrillation (principal)
CPT/HCPCS: 93242; 93306

== ENCOUNTER → 2022-07-01 09:15 | Outpatient (BNVA) | payer OTHER, SELFPAY | PROVIDERS: PCP Internal Medicine; Visit Provider Internal Medicine | DX: I48.0 Paroxysmal atrial fibrillation (principal); Z79.01 Long term (current) use of anticoagulants; Z51.81 Encounter for therapeutic drug level monitoring | CPT/HCPCS: 85610; 99211 ==

== ENCOUNTER 2022-07-28 08:51 | Outpatient (REF) | payer OTHER, SELFPAY ==
[2022-07-28 09:15] LABS: MANUAL DIFF FLAG NO
[2022-07-28 09:37] LABS: Basophils Percent Auto 0.4 % (0-2); Eosinophils Absolute Auto 0.5 X10*3/uL (0.0-0.4); Eosinophils Percent Auto 5.8 % (0-4); Hematocrit 43.9 % (42.0-52.0); Hemoglobin 13.9 g/dl (14.0-18.0); Imm Gran Abs Auto 0.03 X10*3/uL (0.00-0.03); Imm Gran Pct Auto 0.4 % (0.0-0.4); Lymphocytes Absolute Auto 3.1 X10*3/uL (1.2-4.9); Lymphocytes Percent Auto 39.8 % (20-40); Mean Corpuscular HGB Conc 31.7 g/dl (31.0-36.0); Mean Corpuscular Hemoglobin 25.5 pg (27.0-33.0); Mean Corpuscular Volume 80.6 fL (80.0-98.0); Mean Platelet Volume 10.3 fL (9.4-12.4); Monocytes Absolute Auto 0.6 X10*3/uL (0.1-1.2); Neutrophils Absolute Auto 3.6 x10*3/uL (2.0-8.3); Neutrophils Percent Auto 46.6 % (45-73); Platelet Count 211 X10*3/uL (160-400); Red Blood Count 5.45 X10*6/uL (4.60-5.80); Red Cell Distribution Width 13.6 % (11.0-16.0); White Blood Count 7.8 X10*3/uL (4.8-10.8)
[2022-07-28 09:40] LABS: Appearance Urine Clear; Color Urine Yellow; Glucose Urine UA Negative (Negative); Leukocyte Esterase Urine Negative (Negative); Nitrite Urine Negative (Negative); PH 5.5 (5.0-9.0); Specific Gravity - Urine 1.025 (1.005-1.025); Urine Blood Negative (Negative); Urine Ketones Trace mg/dL (Negative); Urine Protein Negative (Neg-Trace)
[2022-07-28 10:04] LABS: Alanine Aminotransferase 18 U/L (0-40); Albumin Level 4.4 g/dL (3.5-5.0); Alkaline Phosphatase 48 U/L (39-117); Anion Gap 15 (12-20); Aspartate Amino Transferase 21 U/L (5-37); Bilirubin Total 0.6 mg/dL (0.0-1.0); Blood Urea Nitrogen 15 mg/dL (9-16); Calcium 9.3 mg/dL (8.4-10.2); Carbon Dioxide 26 mmol/L (22-29); Chloride 103 mmol/L (96-108); Cholesterol 161 mg/dL; Estimated Glomerular Filt Rate > 60; Glucose Fasting 125 mg/dL (60-99); HDL Cholesterol 38 mg/dL; LDL Cholesterol Calculated 98 mg/dl; Potassium 4.4 mmol/L (3.3-5.1); Sodium 140 mmol/L (135-145); Total Protein 7.4 g/dL (6.5-8.0); Triglycerides 126 mg/dL; Uric Acid 5.5 mg/dL (3.4-7.0)
[2022-07-28 10:12] LABS: Creatinine Urine 229.26 mg/dL; Microalbum/Creatinine Ratio Ur 4.7 ug/mg cr
[2022-07-28 10:15] LABS: Estimated Average Glucose 143 mg/dL; Hemoglobin A1c % 6.6 %
[2022-07-28 10:30] LABS: Free T4 (Free Thyroxine) 1.11 ng/dL (0.71-1.85); Prostate Specific Antigen 0.43 ng/mL (<0.05-4.0)
[2022-07-28 11:01] LABS: Thyroid Stimulating Hormone 1.05 uIU/mL (0.32-4.0); Vitamin D 25-OH Total 56.8 ng/mL (>30)
== END 2022-07-28 08:52 | disposition home or self-care (01) ==
LOC: HO.LAB 08:51
PROVIDERS: PCP Internal Medicine; Visit Provider Internal Medicine
DX: Z12.5 Encounter for screening for malignant neoplasm of prostate (principal); E78.00 Pure hypercholesterolemia, unspecified; E03.9 Hypothyroidism, unspecified; M10.9 Gout, unspecified; N40.0 Benign prostatic hyperplasia without lower urinary tract symptoms; R35.1 Nocturia; E11.9 Type 2 diabetes mellitus without complications; I10 Essential (primary) hypertension; E55.9 Vitamin D deficiency, unspecified
CPT/HCPCS: 36415; 80053; 80061; 81003; 82043; 82306; 83036; 84153; 84439; 84443; 84550; 85025

== ENCOUNTER → 2022-07-29 09:05 | Outpatient (BNVA) | payer OTHER, SELFPAY | PROVIDERS: PCP Internal Medicine; Visit Provider Internal Medicine | DX: I48.0 Paroxysmal atrial fibrillation (principal); Z79.01 Long term (current) use of anticoagulants; Z51.81 Encounter for therapeutic drug level monitoring | CPT/HCPCS: 85610; 99211 ==

== ENCOUNTER → 2022-08-20 15:00 | Outpatient (BNVA) | payer OTHER, SELFPAY | PROVIDERS: PCP Internal Medicine; Referring Provider Internal Medicine; Visit Provider Internal Medicine Cardiovascular Disease | DX: I48.0 Paroxysmal atrial fibrillation (principal); I10 Essential (primary) hypertension; G47.30 Sleep apnea, unspecified; Z79.01 Long term (current) use of anticoagulants | CPT/HCPCS: 99212 ==

== ENCOUNTER → 2022-08-26 09:14 | Outpatient (BNVA) | payer OTHER, SELFPAY | PROVIDERS: PCP Internal Medicine; Visit Provider Internal Medicine | DX: I48.0 Paroxysmal atrial fibrillation (principal); Z79.01 Long term (current) use of anticoagulants; Z51.81 Encounter for therapeutic drug level monitoring | CPT/HCPCS: 85610; 99211 ==

== ENCOUNTER 2022-09-18 12:57 | Outpatient (REF) | payer OTHER, SELFPAY ==
[2022-09-18 14:36] LABS: Vitamin B12 451 pg/mL (200-900)
== END 2022-09-18 12:58 | disposition home or self-care (01) ==
LOC: HO.LAB 12:57
PROVIDERS: PCP Internal Medicine; Visit Provider Psychiatry & Neurology Neurology
DX: G31.84 Mild cognitive impairment of uncertain or unknown etiology (principal)
CPT/HCPCS: 36415; 82607

== ENCOUNTER → 2022-09-24 19:30 | Outpatient (REF) | payer OTHER, SELFPAY | LOC: HO.SL 19:30 | PROVIDERS: PCP Internal Medicine; Visit Provider Internal Medicine Cardiovascular Disease | DX: G47.30 Sleep apnea, unspecified (principal) | CPT/HCPCS: 95810 ==

== ENCOUNTER → 2022-10-02 09:17 | Outpatient (BNVA) | payer OTHER, SELFPAY | PROVIDERS: PCP Internal Medicine; Visit Provider Internal Medicine | DX: I48.0 Paroxysmal atrial fibrillation (principal); Z79.01 Long term (current) use of anticoagulants; Z51.81 Encounter for therapeutic drug level monitoring | CPT/HCPCS: 85610; 99211 ==

== ENCOUNTER → 2022-10-28 08:55 | Outpatient (BNVA) | payer OTHER, SELFPAY | PROVIDERS: PCP Internal Medicine; Visit Provider Internal Medicine | DX: I48.0 Paroxysmal atrial fibrillation (principal); Z79.01 Long term (current) use of anticoagulants; Z51.81 Encounter for therapeutic drug level monitoring | CPT/HCPCS: 85610; 99211 ==

== ENCOUNTER 2022-11-05 08:43 | Outpatient (REF) | payer OTHER, SELFPAY ==
[2022-11-05 08:55] LABS: MANUAL DIFF FLAG NO
[2022-11-05 09:26] LABS: Basophils Percent Auto 0.4 % (0-2); Eosinophils Absolute Auto 0.5 X10*3/uL (0.0-0.4); Eosinophils Percent Auto 6.9 % (0-4); Hematocrit 43.3 % (42.0-52.0); Hemoglobin 13.8 g/dl (14.0-18.0); Imm Gran Abs Auto 0.01 X10*3/uL (0.00-0.03); Imm Gran Pct Auto 0.1 % (0.0-0.4); Lymphocytes Absolute Auto 3.5 X10*3/uL (1.2-4.9); Lymphocytes Percent Auto 47.8 % (20-40); Mean Corpuscular HGB Conc 31.9 g/dl (31.0-36.0); Mean Corpuscular Hemoglobin 26.3 pg (27.0-33.0); Mean Corpuscular Volume 82.5 fL (80.0-98.0); Mean Platelet Volume 10.6 fL (9.4-12.4); Monocytes Absolute Auto 0.6 X10*3/uL (0.1-1.2); Monocytes Percent Auto 8.1 % (2-11); Neutrophils Absolute Auto 2.7 x10*3/uL (2.0-8.3); Neutrophils Percent Auto 36.7 % (45-73); Platelet Count 235 X10*3/uL (160-400); Red Blood Count 5.25 X10*6/uL (4.60-5.80); Red Cell Distribution Width 13.4 % (11.0-16.0); White Blood Count 7.3 X10*3/uL (4.8-10.8)
[2022-11-05 09:37] LABS: Estimated Average Glucose 157 mg/dL; Hemoglobin A1c % 7.1 %
[2022-11-05 09:48] LABS: Appearance Urine Clear; Color Urine Yellow; Glucose Urine UA Negative (Negative); Leukocyte Esterase Urine Negative (Negative); Nitrite Urine Negative (Negative); Specific Gravity - Urine 1.025 (1.005-1.025); Urine Blood Negative (Negative); Urine Ketones Trace mg/dL (Negative); Urine Protein Negative (Neg-Trace)
[2022-11-05 10:23] LABS: Alanine Aminotransferase 16 U/L (0-40); Albumin Level 4.2 g/dL (3.5-5.0); Alkaline Phosphatase 51 U/L (39-117); Anion Gap 11 (12-20); Aspartate Amino Transferase 19 U/L (5-37); Bilirubin Total 0.5 mg/dL (0.0-1.0); Blood Urea Nitrogen 17 mg/dL (9-16); Calcium 9.3 mg/dL (8.4-10.2); Carbon Dioxide 29 mmol/L (22-29); Chloride 103 mmol/L (96-108); Cholesterol 166 mg/dL; Estimated Glomerular Filt Rate > 60; Free T4 (Free Thyroxine) 1.06 ng/dL (0.71-1.85); Glucose Fasting 114 mg/dL (60-99); HDL Cholesterol 35 mg/dL; LDL Cholesterol Calculated 100 mg/dl; Potassium 4.4 mmol/L (3.3-5.1); Sodium 139 mmol/L (135-145); Thyroid Stimulating Hormone 1.53 uIU/mL (0.32-4.0); Total Protein 7.2 g/dL (6.5-8.0); Triglycerides 155 mg/dL; Uric Acid 5.6 mg/dL (3.4-7.0); Vitamin D 25-OH Total 44.4 ng/mL (>30)
[2022-11-05 10:26] LABS: Creatinine Urine 229.95 mg/dL; Microalbum/Creatinine Ratio Ur 3.9 ug/mg cr
== END 2022-11-05 08:44 | disposition home or self-care (01) ==
LOC: HO.LAB 08:43
PROVIDERS: PCP Internal Medicine; Visit Provider Internal Medicine
DX: M10.9 Gout, unspecified (principal); E55.9 Vitamin D deficiency, unspecified; E78.00 Pure hypercholesterolemia, unspecified; E11.9 Type 2 diabetes mellitus without complications; E03.9 Hypothyroidism, unspecified; I10 Essential (primary) hypertension
CPT/HCPCS: 36415; 80053; 80061; 81003; 82043; 82306; 83036; 84439; 84443; 84550; 85025

== ENCOUNTER → 2022-11-13 09:26 | Outpatient (BNVA) | payer OTHER, SELFPAY | PROVIDERS: PCP Internal Medicine; Visit Provider Internal Medicine | DX: I48.0 Paroxysmal atrial fibrillation (principal); Z79.01 Long term (current) use of anticoagulants; Z51.81 Encounter for therapeutic drug level monitoring | CPT/HCPCS: 85610; 99211 ==

== ENCOUNTER → 2022-12-02 09:21 | Outpatient (BNVA) | payer OTHER, MEDICAID, SELFPAY | PROVIDERS: PCP Internal Medicine; Visit Provider Internal Medicine | DX: I48.0 Paroxysmal atrial fibrillation (principal); Z79.01 Long term (current) use of anticoagulants; Z51.81 Encounter for therapeutic drug level monitoring | CPT/HCPCS: 85610; 99211 ==

== ENCOUNTER → 2022-12-30 09:14 | Outpatient (BNVA) | payer OTHER, MEDICAID, SELFPAY | PROVIDERS: PCP Internal Medicine; Visit Provider Internal Medicine | DX: I48.0 Paroxysmal atrial fibrillation (principal); Z51.81 Encounter for therapeutic drug level monitoring; Z79.01 Long term (current) use of anticoagulants | CPT/HCPCS: 85610; 99211 ==

== ENCOUNTER → 2023-01-28 10:41 | Outpatient (BNVA) | payer OTHER, MEDICAID, SELFPAY | PROVIDERS: PCP Internal Medicine; Visit Provider Internal Medicine | DX: I48.0 Paroxysmal atrial fibrillation (principal); Z79.01 Long term (current) use of anticoagulants; Z51.81 Encounter for therapeutic drug level monitoring | CPT/HCPCS: 85610; 99211 ==

== ENCOUNTER 2023-02-07 08:53 | Outpatient (REF) | payer OTHER, MEDICAID, SELFPAY ==
[2023-02-07 09:09] LABS: MANUAL DIFF FLAG NO
[2023-02-07 09:30] LABS: Basophils Percent Auto 0.6 % (0-2); Eosinophils Absolute Auto 0.4 X10*3/uL (0.0-0.4); Eosinophils Percent Auto 6.2 % (0-4); Hematocrit 43.1 % (42.0-52.0); Hemoglobin 13.7 g/dl (14.0-18.0); Imm Gran Abs Auto 0.01 X10*3/uL (0.00-0.03); Imm Gran Pct Auto 0.2 % (0.0-0.4); Lymphocytes Absolute Auto 3.1 X10*3/uL (1.2-4.9); Lymphocytes Percent Auto 46.6 % (20-40); Mean Corpuscular HGB Conc 31.8 g/dl (31.0-36.0); Mean Corpuscular Volume 81.9 fL (80.0-98.0); Mean Platelet Volume 10.5 fL (9.4-12.4); Monocytes Absolute Auto 0.6 X10*3/uL (0.1-1.2); Monocytes Percent Auto 8.5 % (2-11); Neutrophils Absolute Auto 2.5 x10*3/uL (2.0-8.3); Neutrophils Percent Auto 37.9 % (45-73); Platelet Count 229 X10*3/uL (160-400); Red Blood Count 5.26 X10*6/uL (4.60-5.80); Red Cell Distribution Width 13.4 % (11.0-16.0); White Blood Count 6.6 X10*3/uL (4.8-10.8)
[2023-02-07 10:04] LABS: Appearance Urine Clear; Color Urine Yellow; Glucose Urine UA Negative (Negative); Leukocyte Esterase Urine Negative (Negative); Nitrite Urine Negative (Negative); PH 5.5 (5.0-9.0); Urine Blood Negative (Negative); Urine Ketones Trace mg/dL (Negative); Urine Protein Negative (Neg-Trace)
[2023-02-07 10:06] LABS: Estimated Average Glucose 169 mg/dL; Hemoglobin A1c % 7.5 %
[2023-02-07 10:10] LABS: Alanine Aminotransferase 18 U/L (0-40); Albumin Level 4.1 g/dL (3.5-5.0); Alkaline Phosphatase 47 U/L (39-117); Anion Gap 12 (12-20); Aspartate Amino Transferase 20 U/L (5-37); Bilirubin Total 0.5 mg/dL (0.0-1.0); Blood Urea Nitrogen 9 mg/dL (9-16); Carbon Dioxide 28 mmol/L (22-29); Chloride 104 mmol/L (96-108); Cholesterol 153 mg/dL; Estimated Glomerular Filt Rate > 60; Glucose Fasting 123 mg/dL (60-99); HDL Cholesterol 36 mg/dL; LDL Cholesterol Calculated 93 mg/dl; Potassium 4.3 mmol/L (3.3-5.1); Sodium 140 mmol/L (135-145); Total Protein 6.9 g/dL (6.5-8.0); Triglycerides 122 mg/dL
[2023-02-07 10:30] LABS: Free T4 (Free Thyroxine) 1.31 ng/dL (0.71-1.85); Thyroid Stimulating Hormone 1.21 uIU/mL (0.32-4.0); Vitamin D 25-OH Total 47.1 ng/mL (>30)
[2023-02-07 11:02] LABS: Creatinine Urine 217.41 mg/dL; Microalbum/Creatinine Ratio Ur 5.9 ug/mg cr
== END 2023-02-07 08:54 | disposition home or self-care (01) ==
LOC: HO.LAB 08:53
PROVIDERS: PCP Internal Medicine; Visit Provider Internal Medicine
DX: I10 Essential (primary) hypertension (principal); E11.9 Type 2 diabetes mellitus without complications; E03.9 Hypothyroidism, unspecified; E55.9 Vitamin D deficiency, unspecified; R30.0 Dysuria; E78.00 Pure hypercholesterolemia, unspecified
CPT/HCPCS: 36415; 80053; 80061; 81003; 82043; 82306; 83036; 84439; 84443; 85025

== ENCOUNTER → 2023-02-11 12:58 | Outpatient (BNVA) | payer OTHER, MEDICAID, SELFPAY | PROVIDERS: PCP Internal Medicine; Referring Provider Internal Medicine; Visit Provider Internal Medicine Cardiovascular Disease | DX: I10 Essential (primary) hypertension (principal); I48.0 Paroxysmal atrial fibrillation; E78.00 Pure hypercholesterolemia, unspecified | CPT/HCPCS: 93005; 99212 ==

== ENCOUNTER → 2023-02-12 09:49 | Outpatient (BNVA) | payer OTHER, MEDICAID, SELFPAY | PROVIDERS: PCP Internal Medicine; Visit Provider Internal Medicine | DX: I48.0 Paroxysmal atrial fibrillation (principal); Z79.01 Long term (current) use of anticoagulants; Z51.81 Encounter for therapeutic drug level monitoring | CPT/HCPCS: 85610; 99211 ==

== ENCOUNTER → 2023-02-13 10:32 | Outpatient (BNVA) | payer OTHER, MEDICAID, SELFPAY | PROVIDERS: PCP Internal Medicine; Visit Provider Internal Medicine | DX: I48.0 Paroxysmal atrial fibrillation (principal); Z79.01 Long term (current) use of anticoagulants; Z51.81 Encounter for therapeutic drug level monitoring | CPT/HCPCS: 85610; 99211 ==

== ENCOUNTER → 2023-02-19 12:45 | Outpatient (REF) | payer OTHER, MEDICAID, SELFPAY ==
--- NOTE | 2023-02-19 12:48 | HM_ITS ---
Conclusion: 1. Patient was monitored for total period of 6 days and 23 hours 2. Baseline was normal sinus rhythm with average heart of 74 beats per minute 3. Intermittent atrial fibrillation with total burden of 7.9% with longest episode of 1 hour and 47 minutes with fastest at 131 beats per minute 4. Total of 16,582 PACs accounting for 2.7% total beats account for frequent PACs 5. Total of 8968 PVCs accounting for 1.5% of total beats account for frequent PVCs 6. No significant pauses 7. No patient reported events MTDD
== END ==
LOC: HO.CARD 12:45
PROVIDERS: PCP Internal Medicine; Visit Provider Internal Medicine Cardiovascular Disease
DX: I48.0 Paroxysmal atrial fibrillation (principal)
CPT/HCPCS: 93242

== ENCOUNTER → 2023-02-27 09:20 | Outpatient (BNVA) | payer OTHER, MEDICAID, SELFPAY | PROVIDERS: PCP Internal Medicine; Visit Provider Internal Medicine | DX: I48.0 Paroxysmal atrial fibrillation (principal); Z79.01 Long term (current) use of anticoagulants; Z51.81 Encounter for therapeutic drug level monitoring | CPT/HCPCS: 85610; 99211 ==

== ENCOUNTER → 2023-03-11 15:49 | Outpatient (BNVA) | payer OTHER, MEDICAID, SELFPAY | PROVIDERS: PCP Internal Medicine; Visit Provider Internal Medicine ==

== ENCOUNTER → 2023-03-16 09:58 | Outpatient (BNVA) | payer OTHER, MEDICAID, SELFPAY | PROVIDERS: PCP Internal Medicine; Visit Provider Internal Medicine | DX: I48.0 Paroxysmal atrial fibrillation (principal); Z79.01 Long term (current) use of anticoagulants; Z51.81 Encounter for therapeutic drug level monitoring | CPT/HCPCS: 85610; 99211 ==

== ENCOUNTER → 2023-03-23 08:48 | Outpatient (BNVA) | payer OTHER, MEDICAID, SELFPAY | PROVIDERS: PCP Internal Medicine; Visit Provider Internal Medicine | DX: I48.0 Paroxysmal atrial fibrillation (principal); Z79.01 Long term (current) use of anticoagulants; Z51.81 Encounter for therapeutic drug level monitoring | CPT/HCPCS: 85610; 99211 ==

== ENCOUNTER → 2023-03-31 09:07 | Outpatient (BNVA) | payer OTHER, MEDICAID, SELFPAY | PROVIDERS: PCP Internal Medicine; Visit Provider Internal Medicine | DX: I48.0 Paroxysmal atrial fibrillation (principal); Z79.01 Long term (current) use of anticoagulants; Z51.81 Encounter for therapeutic drug level monitoring | CPT/HCPCS: 85610; 99211 ==

== ENCOUNTER → 2023-04-01 08:57 | Outpatient (BNVA) | payer OTHER, MEDICAID, SELFPAY | PROVIDERS: PCP Internal Medicine; Referring Provider Internal Medicine; Visit Provider Internal Medicine Cardiovascular Disease | DX: I48.91 Unspecified atrial fibrillation (principal); Z79.01 Long term (current) use of anticoagulants; Z79.899 Other long term (current) drug therapy | CPT/HCPCS: 93005 ==

== ENCOUNTER → 2023-04-07 09:25 | Outpatient (BNVA) | payer OTHER, MEDICAID, SELFPAY | PROVIDERS: PCP Internal Medicine; Visit Provider Internal Medicine | DX: I48.0 Paroxysmal atrial fibrillation (principal); Z79.01 Long term (current) use of anticoagulants; Z51.81 Encounter for therapeutic drug level monitoring | CPT/HCPCS: 85610; 99211 ==

== ENCOUNTER → 2023-04-14 08:59 | Outpatient (BNVA) | payer OTHER, MEDICAID, SELFPAY | PROVIDERS: PCP Internal Medicine; Visit Provider Internal Medicine | DX: I48.0 Paroxysmal atrial fibrillation (principal); Z79.01 Long term (current) use of anticoagulants; Z51.81 Encounter for therapeutic drug level monitoring | CPT/HCPCS: 85610; 99211 ==

== ENCOUNTER 2023-04-18 08:38 | Outpatient (REF) | payer MEDICARE, MEDICAID, SELFPAY ==
[2023-04-18 09:01] LABS: MANUAL DIFF FLAG NO
[2023-04-18 09:34] LABS: Basophils Percent Auto 0.4 % (0-2); Eosinophils Absolute Auto 0.5 X10*3/uL (0.0-0.4); Eosinophils Percent Auto 6.3 % (0-4); Hemoglobin 13.1 g/dl (14.0-18.0); Imm Gran Abs Auto 0.01 X10*3/uL (0.00-0.03); Imm Gran Pct Auto 0.1 % (0.0-0.4); Lymphocytes Absolute Auto 2.7 X10*3/uL (1.2-4.9); Lymphocytes Percent Auto 37.9 % (20-40); Mean Corpuscular HGB Conc 31.2 g/dl (31.0-36.0); Mean Corpuscular Hemoglobin 26.3 pg (27.0-33.0); Mean Corpuscular Volume 84.2 fL (80.0-98.0); Mean Platelet Volume 10.9 fL (9.4-12.4); Monocytes Absolute Auto 0.5 X10*3/uL (0.1-1.2); Monocytes Percent Auto 6.6 % (2-11); Neutrophils Absolute Auto 3.5 x10*3/uL (2.0-8.3); Neutrophils Percent Auto 48.7 % (45-73); Platelet Count 230 X10*3/uL (160-400); Red Blood Count 4.99 X10*6/uL (4.60-5.80); Red Cell Distribution Width 13.6 % (11.0-16.0); White Blood Count 7.2 X10*3/uL (4.8-10.8)
[2023-04-18 09:54] LABS: Estimated Average Glucose 151 mg/dL; Hemoglobin A1c % 6.9 %
[2023-04-18 10:12] LABS: Alanine Aminotransferase 21 U/L (0-40); Albumin Level 4.1 g/dL (3.5-5.0); Alkaline Phosphatase 49 U/L (39-117); Anion Gap 12 (12-20); Aspartate Amino Transferase 17 U/L (5-37); Bilirubin Total 1.2 mg/dL (0.0-1.0); Blood Urea Nitrogen 12 mg/dL (9-16); Calcium 9.2 mg/dL (8.4-10.2); Carbon Dioxide 27 mmol/L (22-29); Chloride 106 mmol/L (96-108); Cholesterol 114 mg/dL; Estimated Glomerular Filt Rate > 60; Glucose Fasting 114 mg/dL (60-99); HDL Cholesterol 30 mg/dL; LDL Cholesterol Calculated 69 mg/dl; Potassium 4.3 mmol/L (3.3-5.1); Sodium 141 mmol/L (135-145); Triglycerides 79 mg/dL
[2023-04-18 10:18] LABS: Appearance Urine Clear; Color Urine Yellow; Glucose Urine UA Negative (Negative); Leukocyte Esterase Urine Negative (Negative); Nitrite Urine Negative (Negative); PH 5.5 (5.0-9.0); Urine Blood Negative (Negative); Urine Ketones Trace mg/dL (Negative); Urine Protein Negative (Neg-Trace)
[2023-04-18 10:28] LABS: Creatinine Urine 206.63 mg/dL; Microalbum/Creatinine Ratio Ur 3.8 ug/mg cr
[2023-04-18 10:29] LABS: Free T4 (Free Thyroxine) 0.96 ng/dL (0.71-1.85); Thyroid Stimulating Hormone 1.23 uIU/mL (0.32-4.0); Vitamin D 25-OH Total 48.3 ng/mL (>30)
== END 2023-04-18 08:39 | disposition home or self-care (01) ==
LOC: HO.LAB 08:38
PROVIDERS: PCP Internal Medicine; Visit Provider Internal Medicine
DX: E03.9 Hypothyroidism, unspecified (principal); E11.9 Type 2 diabetes mellitus without complications; I10 Essential (primary) hypertension; R30.0 Dysuria; E55.9 Vitamin D deficiency, unspecified; E78.00 Pure hypercholesterolemia, unspecified
CPT/HCPCS: 36415; 80053; 80061; 81003; 82043; 82306; 83036; 84439; 84443; 85025

== ENCOUNTER 2023-04-23 08:02 | Day surgery (SDC) | payer MEDICARE, MEDICAID, SELFPAY ==
[2023-04-22 08:31] VITALS: BMI 36.0
--- NOTE | 2023-04-22 12:02 | HO.ANESPROP2 ---
Documented by User: Ambika Higgins NP 04/22/23 12:05 HPI - Anesthesia Eval Consult details Narrative: 73yo M for Colonoscopy Coumadin for afib PMFSH Active Problems Active Problems: All Active Problems (Updated 08/20/22 @ 15:46 by Rakan Rosenbaum MD) Sleep disorder breathing (Acute) Memory impairment (Acute) Abdominal bloating (Acute) Tubulovillous adenoma of colon (Acute) Colon cancer screening (Acute) Benign prostatic hyperplasia with nocturia (Acute) Nocturia (Acute) Pain of left heel (Acute) Annual physical exam (Acute) Lumbar degenerative disc disease (Acute) Obesity (BMI 30-39.9) (Acute) Vitamin D deficiency (Acute) Gout (Acute) Superficial gastritis (Acute) GERD without esophagitis (Acute) Acquired hypothyroidism (Acute) Pure hypercholesterolemia (Acute) Benign essential hypertension (Acute) Diabetes mellitus (Acute) Paroxysmal atrial fibrillation (Acute) Current use of anticoagulant therapy (Acute) Past Medical History Medical History Acquired hypothyroidism Benign essential hypertension Benign prostatic hyperplasia with nocturia Diabetes mellitus Gastric ulcer GERD without esophagitis Gout Lumbar degenerative disc disease Obesity (BMI 30-39.9) Paroxysmal atrial fibrillation Pure hypercholesterolemia Superficial gastritis Vitamin D deficiency Family History Family History Father Medical history unknown Mother Medical history unknown Surgical History Surgical History (Updated 04/21/23 @ 09:34 by Matheus Salgado MD) History of appendectomy History of esophagogastroduodenoscopy (EGD) Hx of colonoscopy Social History Social History Housing: House Alcohol intake: former Patient Tobacco Use Status: Former Tobacco user e-Cigarette/Vaping Use: Never Used Second Hand Smoke Exposure: Yes Advance Directives: No Advance Directives Information Provided: Yes service: No Current occupational status: disabled Cognitive needs: No Hearing needs: No Vision needs: No Meds Allergies Allergy/AdvReac Type Severity Reaction Status Date / Time No Known Allergies Allergy Unknown U Verified 04/21/23 09:12 [No Known Allergies*] Home Medications Medication Instructions Recorded Confirmed Last Taken Type tizanidine 4 mg tablet 4 mg PO Q8H PRN Muscle Spasm 09/28/20 04/22/23 Unknown History fluoxetine 20 mg capsule 20 mg PO DAILY 10/28/22 04/22/23 Unknown History Exam Exam Date and Time: April 22, 2023 1202 Height,Weight and Vital Signs: Height 5 ft 3 in Weight 92.079 kg Pertinent Lab Results Pertinent Lab Results: Laboratory Tests 04/18/23 04/18/23 09:00 09:00 WBC 7.2 Hgb 13.1 L Hct 42.0 Plt Count 230 Sodium 141 Potassium 4.3 Chloride 106 Carbon Dioxide 27 BUN 12 Creatinine 0.87 Narrative Narrative: Holter 01/2023 Conclusion: 1. Patient was monitored for total period of 6 days and 23 hours 2. Baseline was normal sinus rhythm with average heart of 74 beats per minute 3. Intermittent atrial fibrillation with total burden of 7.9% with longest episode of 1 hour and 47 minutes with fastest at 131 beats per minute 4. Total of 16,582 PACs accounting for 2.7% total beats account for frequent PACs 5. Total of 8968 PVCs accounting for 1.5% of total beats account for frequent PVCs 6. No significant pauses 7. No patient reported events EKG 01/2023 SB 1st degree AV block ECHO 06/2022 Conclusions: - 1.? Normal LV systolic function? 2.? Mild mitral regurgitation? 3.? Normal RV systolic pressure? 4.? No pericardial effusion?? Assessment and Plan Assessment Anesthesia Assessment: Chart Reviewed Documented by User: Wayne Gonzalez MD 04/23/23 10:11 [facility] Past Medical History Medical History Acquired hypothyroidism Benign essential hypertension Benign prostatic hyperplasia with nocturia Diabetes mellitus Gastric ulcer GERD without esophagitis Gout Lumbar degenerative disc disease Obesity (BMI 30-39.9) Paroxysmal atrial fibrillation Pure hypercholesterolemia Superficial gastritis Vitamin D deficiency Functional capacity: independent ambulation Family History Family History Father Medical history unknown Mother Medical history unknown Family history of problems with anesthesia: No Surgical History Surgical History (Updated 04/21/23 @ 09:34 by Matheus Salgado MD) History of appendectomy History of esophagogastroduodenoscopy (EGD) Hx of colonoscopy History of Problems with Anesthesia: No Social History Social History Housing: House Alcohol intake: former Patient Tobacco Use Status: Former Tobacco user e-Cigarette/Vaping Use: Never Used Second Hand Smoke Exposure: Yes Advance Directives: No Advance Directives Information Provided: Yes service: No Current occupational status: disabled Cognitive needs: No Hearing needs: No Vision needs: No Meds Allergies Allergy/AdvReac Type Severity Reaction Status Date / Time No Known Allergies Allergy Unknown U Verified 04/21/23 09:12 [No Known Allergies*] Home Medications Medication Instructions Recorded Confirmed Last Taken Type tizanidine 4 mg tablet 4 mg PO Q8H PRN Muscle Spasm 09/28/20 04/22/23 Unknown History fluoxetine 20 mg capsule 20 mg PO DAILY 10/28/22 04/22/23 Unknown History Exam Airway Mallampati Class: I TM Dist: >3cm Neck ROM: Full Denture: Upper and Lower Loose/Missing/Broken Teeth: Yes Heart: ok Lungs: ok Assessment and Plan Assessment Anesthesia Assessment: Anesthesia Plan Discussed Final Anesthetic Review Family History of Problems with Anesthesia: No History of Problems with Anesthesia: No NPO: Yes ASA Class: III Final Preanesthetic Review: No Changes in Pt Med Stat, Meds/Allgs Chart Reviewed, Consent Obtained/Reviewed and Anes Risks/Benef Reviewed Patient Risk: Intermediate Procedure Risk: Low Anesthetic Plan Anesthetic Plan: MAC: and Agree w/ Assess. and Plan Disposition: Standard PACU
[2023-04-23] MEDS: Lactated Ringers 1,000 ML 100 ML IVCONT (09:22)
[2023-04-23 09:30] VITALS: BP 153/68; PULSE 63; RESP 18; TEMP 36.2; O2SAT 95
[2023-04-23 09:37] LABS: Glucose, Whole Blood 124 mg/dL (60-115)
[2023-04-23 09:38] LABS: INTERNATIONAL NORM RATIO 1.2 (0.9-1.1); Prothrombin Time 13.8 SEC (10.0-13.1)
--- NOTE | 2023-04-23 09:49 | P.HPSUR_ITS ---
Pre-Procedural Eval Section A Date of Service: 04/23/23 Section B Chief Complaint: Abdominal distension (gaseous) Relevant Family History (Specify if Yes): No Relevant Social History: None Present Medications: see Short Stay Collaborative assessment Medical History: Significant History (Acquired hypothyroidism Benign essential hypertension Benign prostatic hyperplasia with nocturia Diabetes mellitus [place] ulcer GERD without esophagitis Gout Lumbar degenerative disc disease Obesity (BMI 30-39.9) Paroxysmal atrial fibrillation Pure hypercholesterolemia Superficial gastritis Vitamin) History of Previous Operations: Relevant previous surgery/procedure and date(s) (Appendectomy) Allergies: Allergies Allergy/AdvReac Type Severity Reaction Status Date / Time No Known Allergies Allergy Unknown U Verified 04/21/23 09:12 [No Known Allergies*] Review of Systems Sugical H&P ROS: Negative: Constitution, Cardiovascular, Respiratory, Neurological, Psychiatric, Hem-Onc, Allergic/Immunologic, Gastrointestinal, Genitourinary, Musculoskeletal, Integumentary, Endocrine and Eyes/Ears/Nose/Throat Exam Surgical H&P Exam: Normal: HEENT, Normal: Heart, Normal: Lungs, Normal: Extremities, Normal: Abdomen, Normal: Skin and Normal: Neurological Plan Diagnosis/Plan: Unchanged I have reviewed the history and physical and performed a pertinent physical examination on my patient. No changes have occurred unless specified. Time Spent With Patient Time: Total time managing care of this patient today ____ minutes.
--- NOTE | 2023-04-23 10:34 | P.OP_ITS ---
Operative Note Operative Note Date of Service: 04/23/23 Narrative: Operative Information Procedure Description: Colonoscopy Indication: screening, hx of colon polyps Anesthesia: MAC COLONOSCOPY Instrument: Olympus variable stiffness pediatric scope 190L Colonoscopy Monitoring: Vital signs and clinical assessment, continuous EKG monitoring, Pulse oximetry, Carbon Dioxide monitoring and blood pressure monitoring were done throughout the procedure. Colon withdrawal time was 8 minutes. Procedure: The patient was placed in the left lateral decubitis position and pre-procedure medications were administered. After a digital rectal examination of the ano-rectum, the video colonoscope was inserted into the rectum and advanced through the colon to the cecum/TI. The colonoscope was slowly withdrawn in a retrograde panoramic fashion and the colon mucosa was carefully examined including a retroflexed view of the rectum. Findings and interventions are described below. Procedure Difficulty: moderate Findings: Terminal Ileum-normal Cecum:normal Ascending Colon: normal Hepatic flexure- 5-7 mm sessile polyp removed with cold snare Transverse Colon -normal Descending Colon:normal Sigmoid Colon: moderate diverticulosis Rectum: Retroflexion with moderate sized internal hemorrhoids, grade I Anorectum - normal Colon preparation: [place] Bowel Preparation Scale Right colon; 3 Transverse colon: 3 Left colon; 3 (0 = Unprepared colon segment with mucosa not seen due to solid stool that cannot be cleared. 1 = Portion of mucosa of the colon segment seen, but other areas of the colon segment not well seen due to staining, residual stool and/or opaque liquid. 2 = Minor amount of residual staining, small fragments of stool and/or opaque liquid, but mucosa of colon segment seen well. 3 = Entire mucosa of colon segment seen well with no residual staining, small f ragments of stool or opaque liquid) Impression and Post Procedure Diagnosis: polyp internal hemorrhoids diverticular disease redundant colon Plan: High fiber diet leaflet Avoid straining at stool, epsom salts and sitz bath, anusol supps or cream Repeat Colonoscopy in 5 years or earlier if clinically indicated Above findings were reviewed with the patient and relevant handouts were provided if indicated.
[2023-04-23 10:41] VITALS: BP 144/78; PULSE 60; RESP 18; TEMP 36.1; O2SAT 94
[2023-04-23 10:56] VITALS: BP 150/84; PULSE 66; RESP 18; TEMP 36.7; O2SAT 96
== END 2023-04-23 11:31 | disposition home or self-care (01) ==
PROVIDERS: Nurse Practitioner; PCP Internal Medicine; Visit Provider Internal Medicine Gastroenterology
PROC: 0DJD8ZZ Inspection of Lower Intestinal Tract, Via Natural or Artificial Opening Endoscopic (ICD-10-PCS; CPT 45378; principal; 2023-04-23 10:10)
DX: R14.0 Abdominal distension (gaseous) (principal); Z86.010 Personal history of colon polyps; K63.5 Polyp of colon; K57.30 Diverticulosis of large intestine without perforation or abscess without bleeding; K64.0 First degree hemorrhoids; Q43.8 Other specified congenital malformations of intestine; K21.9 Gastro-esophageal reflux disease without esophagitis; K25.9 Gastric ulcer, unspecified as acute or chronic, without hemorrhage or perforation; K29.30 Chronic superficial gastritis without bleeding; I10 Essential (primary) hypertension; I48.0 Paroxysmal atrial fibrillation; E66.9 Obesity, unspecified; Z68.36 Body mass index [BMI] 36.0-36.9, adult; E78.00 Pure hypercholesterolemia, unspecified; N40.1 Benign prostatic hyperplasia with lower urinary tract symptoms; R35.1 Nocturia; E03.9 Hypothyroidism, unspecified; E11.9 Type 2 diabetes mellitus without complications; Z79.01 Long term (current) use of anticoagulants; Z79.899 Other long term (current) drug therapy; Z87.891 Personal history of nicotine dependence
CPT/HCPCS: 45385; 36415; 82947; 85610; 88305

== ENCOUNTER → 2023-04-28 09:23 | Outpatient (BNVA) | payer MEDICARE, MEDICAID, SELFPAY | PROVIDERS: PCP Internal Medicine; Visit Provider Internal Medicine | DX: I48.0 Paroxysmal atrial fibrillation (principal); Z79.01 Long term (current) use of anticoagulants; Z51.81 Encounter for therapeutic drug level monitoring | CPT/HCPCS: 85610; 99211 ==

== ENCOUNTER → 2023-05-01 10:34 | Outpatient (BNVA) | payer MEDICARE, MEDICAID, SELFPAY | PROVIDERS: PCP Internal Medicine; Visit Provider Internal Medicine | DX: I48.0 Paroxysmal atrial fibrillation (principal); Z79.01 Long term (current) use of anticoagulants; Z51.81 Encounter for therapeutic drug level monitoring | CPT/HCPCS: 85610; 99211 ==

== ENCOUNTER → 2023-05-05 11:29 | Outpatient (BNVA) | payer OTHER, MEDICAID, SELFPAY | PROVIDERS: PCP Internal Medicine; Visit Provider Nurse Practitioner | DX: D12.6 Benign neoplasm of colon, unspecified (principal); K57.30 Diverticulosis of large intestine without perforation or abscess without bleeding; K64.0 First degree hemorrhoids; Z98.890 Other specified postprocedural states | CPT/HCPCS: 99212 ==

== ENCOUNTER → 2023-05-12 08:57 | Outpatient (BNVA) | payer OTHER, MEDICAID, SELFPAY | PROVIDERS: PCP Internal Medicine; Visit Provider Internal Medicine | DX: I48.0 Paroxysmal atrial fibrillation (principal); Z51.81 Encounter for therapeutic drug level monitoring; Z79.01 Long term (current) use of anticoagulants | CPT/HCPCS: 85610; 99211 ==

== ENCOUNTER → 2023-05-18 14:23 | Outpatient (BNVA) | payer OTHER, MEDICAID, SELFPAY | PROVIDERS: Visit Provider Internal Medicine Cardiovascular Disease | DX: I48.0 Paroxysmal atrial fibrillation (principal); I10 Essential (primary) hypertension; E78.00 Pure hypercholesterolemia, unspecified | CPT/HCPCS: 93005; 99212 ==

== ENCOUNTER 2023-05-26 09:22 | Outpatient (AMB) | payer OTHER, MEDICAID, SELFPAY ==
[2023-05-26 09:44] LABS: Prothrombin Time Whole Bld POC 36.1 sec (11.1-13.5)
--- NOTE | 2023-05-26 09:46 | MHC.OFFVISCO ---
Intake Intake Visit Reasons: Anticoagulation Allergies No Known Allergies [No Known Allergies*] Allergy (Unknown, Verified 05/26/23 09:39) U Medication List - Last Reconciled 05/26/23 by Genet Hough RN allopurinol TAKE 2 TABLETS IN THE MORNING AND 1 TABLET IN THE EVENING atorvastatin 80 mg PO BEDTIME blood sugar diagnostic ([employer] Ultra Test strips) 1 strip miscellaneous DAILY blood-glucose meter ([employer] Ultra2 Meter kit) As directed daily cholecalciferol (vitamin D3) (Vitamin D3) 50 mcg PO DAILY 90 days cyanocobalamin (vitamin B-12) 1,000 mcg PO DAILY 90 days dronedarone (Multaq) 400 mg PO BID fluoxetine 20 mg PO DAILY indomethacin 50 mg PO TID PRN lancets (iLumen UltraSoft Lancets) As directed levothyroxine 100 mcg PO DAILY 90 days losartan 50 mg PO DAILY metformin ER 500 mg PO BID 90 days metoprolol succinate ER 25 mg PO DAILY 90 days omeprazole 20 mg PO DAILY 90 days oxycodone-acetaminophen 5-325 mg 1 tab PO Q6H PRN 28 days simethicone 180 mg PO BID 30 days tamsulosin 0.4 mg PO BEDTIME 90 days tizanidine 4 mg PO Q8H PRN warfarin 3.75 mg See Protocol PO DAILY Nursing Note DELAYED VISIT DUE TO INTERFACING RESULT INR: 3.0 in therapeutic range Medications and supplements reviewed No changes in health, diet, medications, or supplements, Denies any signs and symptoms of bleeding or bruising or clotting. Bleeding, bruising, clotting discussed Nutritional guidance given GREENKarena TODAY AND WEEKLY Dose: 3.75MG DAILY F/U INR: 3 WEEKS Patient verbalizes understanding of instructions given Anti-Coag Initial Assessment Social Hx Patient Tobacco Use Status: Former Tobacco user alcohol intake: former Coding Level of Care Code Est Patient Level 1 Diagnoses Current use of anticoagulant therapy Z79.01 Results AMB INR Fingerstick AMB INR Fingerstick 3.0 Last Edit by Genet Hough RN on 05/26/23 09:47 INTERFACING DELAY ONGOING Assessment & Plan Assessment & Plan (1) Current use of anticoagulant therapy: Code(s): 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
== END 2023-05-26 09:58 | disposition home or self-care (01) ==
LOC: HO.ACS 09:22
PROVIDERS: PCP Internal Medicine; Visit Provider Internal Medicine
DX: Z79.01 Long term (current) use of anticoagulants (principal)

== ENCOUNTER → 2023-05-26 09:22 | Outpatient (BNVA) | payer OTHER, MEDICAID, SELFPAY | PROVIDERS: PCP Internal Medicine; Visit Provider Internal Medicine | DX: I48.0 Paroxysmal atrial fibrillation (principal); Z79.01 Long term (current) use of anticoagulants; Z51.81 Encounter for therapeutic drug level monitoring | CPT/HCPCS: 85610; 99211 ==

== ENCOUNTER 2023-06-16 09:08 | Outpatient (AMB) | payer OTHER, MEDICAID, SELFPAY ==
--- NOTE | 2023-06-16 09:33 | MHC.OFFVISCO ---
Intake Intake Visit Reasons: Anticoagulation Allergies No Known Allergies [No Known Allergies*] Allergy (Unknown, Verified 06/16/23 09:30) U Medication List - Last Reconciled 06/16/23 by Yesica Spencer RN allopurinol TAKE 2 TABLETS IN THE MORNING AND 1 TABLET IN THE EVENING atorvastatin 80 mg PO BEDTIME blood sugar diagnostic (Fur and Mask Ultra Test strips) 1 strip miscellaneous DAILY blood-glucose meter (Fur and Mask Ultra2 Meter kit) As directed daily cholecalciferol (vitamin D3) (Vitamin D3) 50 mcg PO DAILY 90 days cyanocobalamin (vitamin B-12) 1,000 mcg PO DAILY 90 days dronedarone (Multaq) 400 mg PO BID fluoxetine 20 mg PO DAILY indomethacin 50 mg PO TID PRN lancets (Fur and Mask UltraSoft Lancets) As directed levothyroxine 100 mcg PO DAILY 90 days losartan 50 mg PO DAILY metformin ER 500 mg PO BID 90 days metoprolol succinate ER 25 mg PO DAILY 90 days omeprazole 20 mg PO DAILY 90 days oxycodone-acetaminophen 5-325 mg 1 tab PO Q6H PRN 28 days simethicone 180 mg PO BID 30 days tamsulosin 0.4 mg PO BEDTIME 90 days tizanidine 4 mg PO Q8H PRN warfarin 3.75 mg See Protocol PO DAILY Nursing Note INR: 2.3- in therapeutic range Medications and supplements reviewed No changes in health, diet, medications, or supplements, Denies any signs and symptoms of bleeding or bruising or clotting. 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
[2023-06-16 09:34] LABS: ~PT, ~INR - Anti Coag Clinic 2.3 (0.9-1.1)
== END 2023-06-16 09:39 | disposition home or self-care (01) ==
LOC: HO.ACS 09:08
PROVIDERS: PCP Internal Medicine; Visit Provider Internal Medicine
DX: Z79.01 Long term (current) use of anticoagulants (principal)

== ENCOUNTER → 2023-06-16 09:08 | Outpatient (BNVA) | payer OTHER, MEDICAID, SELFPAY | PROVIDERS: PCP Internal Medicine; Visit Provider Internal Medicine | DX: I48.0 Paroxysmal atrial fibrillation (principal); Z51.81 Encounter for therapeutic drug level monitoring; Z79.01 Long term (current) use of anticoagulants | CPT/HCPCS: 85610; 99211 ==

== ENCOUNTER 2023-07-07 09:03 | Outpatient (AMB) | payer OTHER, MEDICAID, SELFPAY ==
[2023-07-07 09:28] LABS: Prothrombin Time Whole Bld POC 34.7 sec (11.1-13.5); ~PT, ~INR - Anti Coag Clinic 2.9 (0.9-1.1)
--- NOTE | 2023-07-07 09:32 | MHC.OFFVISCO ---
Intake Intake Visit Reasons: Anticoagulation Allergies No Known Allergies [No Known Allergies*] Allergy (Unknown, Verified 07/07/23 09:21) U Medication List - Last Reconciled 07/07/23 by Genet Hough RN allopurinol TAKE 2 TABLETS IN THE MORNING AND 1 TABLET IN THE EVENING atorvastatin 80 mg PO BEDTIME blood sugar diagnostic ([employer] Ultra Test strips) 1 strip miscellaneous DAILY blood-glucose meter ([employer] Ultra2 Meter kit) As directed daily cholecalciferol (vitamin D3) (Vitamin D3) 50 mcg PO DAILY 90 days cyanocobalamin (vitamin B-12) 1,000 mcg PO DAILY 90 days dronedarone (Multaq) 400 mg PO BID fluoxetine 20 mg PO DAILY indomethacin 50 mg PO TID PRN lancets ([employer] UltraSoft Lancets) As directed levothyroxine 100 mcg PO DAILY 90 days losartan 50 mg PO DAILY metformin ER 500 mg PO BID 90 days metoprolol succinate ER 25 mg PO DAILY 90 days omeprazole 20 mg PO DAILY 90 days oxycodone-acetaminophen 5-325 mg 1 tab PO Q6H PRN 28 days simethicone 180 mg PO BID 30 days tamsulosin 0.4 mg PO BEDTIME 90 days tizanidine 4 mg PO Q8H PRN warfarin 3.75 mg See Protocol PO DAILY Nursing Note INR: 2.9 in therapeutic range Medications and supplements reviewed No changes in health, diet, medications, or supplements, Denies any signs and symptoms of bleeding or bruising or clotting. Bleeding, bruising, clotting discussed Nutritional guidance given - EAT A MIX OF FRUITS AND VEGETABLES AND REMEMBER YOUR GREENS Dose: 3.75MG DAILY F/U INR: 1 MONTH Patient verbalizes understanding of instructions given Anti-Coag Initial Assessment Social Hx Patient Tobacco Use Status: Former Tobacco user alcohol intake: former Coding Level of Care Code Est Patient Level 1 Diagnoses Current use of anticoagulant therapy Z79.01 Assessment & Plan Assessment & Plan (1) Current use of anticoagulant therapy: Code(s): Z79.01 - half-way (current) use of anticoagulants Category: Medical
== END 2023-07-07 09:36 | disposition home or self-care (01) ==
LOC: HO.ACS 09:03
PROVIDERS: PCP Internal Medicine; Visit Provider Internal Medicine
DX: Z79.01 Long term (current) use of anticoagulants (principal)

== ENCOUNTER → 2023-07-07 09:03 | Outpatient (BNVA) | payer OTHER, MEDICAID, SELFPAY | PROVIDERS: PCP Internal Medicine; Visit Provider Internal Medicine | DX: I48.0 Paroxysmal atrial fibrillation (principal); Z79.01 Long term (current) use of anticoagulants; Z51.81 Encounter for therapeutic drug level monitoring | CPT/HCPCS: 85610; 99211 ==

== ENCOUNTER 2023-08-04 09:23 | Outpatient (AMB) | payer OTHER, MEDICAID, SELFPAY ==
--- NOTE | 2023-08-04 09:36 | MHC.OFFVISCO ---
Intake Intake Visit Reasons: Anticoagulation Allergies No Known Allergies [No Known Allergies*] Allergy (Unknown, Verified 08/04/23 09:32) U Medication List - Last Reconciled 08/04/23 by Yesica Spencer RN allopurinol TAKE 2 TABLETS IN THE MORNING AND 1 TABLET IN THE EVENING atorvastatin 80 mg PO BEDTIME blood sugar diagnostic ([employer] Ultra Test strips) 1 strip miscellaneous DAILY blood-glucose meter ([employer] Ultra2 Meter kit) As directed daily cholecalciferol (vitamin D3) (Vitamin D3) 50 mcg PO DAILY 90 days cyanocobalamin (vitamin B-12) 1,000 mcg PO DAILY 90 days dronedarone (Multaq) 400 mg PO BID fluoxetine 20 mg PO DAILY indomethacin 50 mg PO TID PRN lancets ([employer] UltraSoft Lancets) As directed levothyroxine 100 mcg PO DAILY 90 days losartan 50 mg PO DAILY metformin ER 500 mg PO BID 90 days metoprolol succinate ER 25 mg PO DAILY 90 days omeprazole 20 mg PO DAILY 90 days oxycodone-acetaminophen 5-325 mg 1 tab PO Q6H PRN 28 days simethicone 180 mg PO BID 30 days tamsulosin 0.4 mg PO BEDTIME 90 days tizanidine 4 mg PO Q8H PRN warfarin 3.75 mg See Protocol PO DAILY Nursing Note INR: 2.2- in therapeutic range Medications and supplements reviewed- no changes No changes in health, diet, medications, or supplements, Denies any signs and symptoms of bleeding or bruising or clotting. 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
[2023-08-04 09:37] LABS: Prothrombin Time Whole Bld POC 26.4 sec (11.1-13.5); ~PT, ~INR - Anti Coag Clinic 2.2 (0.9-1.1)
== END 2023-08-04 10:40 | disposition home or self-care (01) ==
LOC: HO.ACS 09:23
PROVIDERS: PCP Internal Medicine; Visit Provider Internal Medicine
DX: Z79.01 Long term (current) use of anticoagulants (principal)

== ENCOUNTER → 2023-08-04 09:23 | Outpatient (BNVA) | payer OTHER, MEDICAID, SELFPAY | PROVIDERS: PCP Internal Medicine; Visit Provider Internal Medicine | DX: I48.0 Paroxysmal atrial fibrillation (principal); Z79.01 Long term (current) use of anticoagulants; Z51.81 Encounter for therapeutic drug level monitoring | CPT/HCPCS: 85610; 99211 ==

== ENCOUNTER 2023-08-15 08:54 | Outpatient (REF) | payer OTHER, SELFPAY ==
[2023-08-15 09:19] LABS: MANUAL DIFF FLAG NO
[2023-08-15 09:44] LABS: Basophils Absolute Auto 0.1 X10*3/uL (0.0-0.2); Basophils Percent Auto 0.6 % (0-2); Eosinophils Absolute Auto 0.4 X10*3/uL (0.0-0.4); Eosinophils Percent Auto 4.2 % (0-4); Hematocrit 45.5 % (42.0-52.0); Hemoglobin 14.5 g/dl (14.0-18.0); Imm Gran Abs Auto 0.02 X10*3/uL (0.00-0.03); Imm Gran Pct Auto 0.2 % (0.0-0.4); Lymphocytes Absolute Auto 2.6 X10*3/uL (1.2-4.9); Lymphocytes Percent Auto 30.2 % (20-40); Mean Corpuscular HGB Conc 31.9 g/dl (31.0-36.0); Mean Corpuscular Hemoglobin 26.4 pg (27.0-33.0); Mean Corpuscular Volume 82.7 fL (80.0-98.0); Monocytes Absolute Auto 0.5 X10*3/uL (0.1-1.2); Neutrophils Absolute Auto 5.1 x10*3/uL (2.0-8.3); Neutrophils Percent Auto 58.8 % (45-73); Platelet Count 215 X10*3/uL (160-400); Red Cell Distribution Width 14.5 % (11.0-16.0); White Blood Count 8.7 X10*3/uL (4.8-10.8)
[2023-08-15 09:45] LABS: Estimated Average Glucose 134 mg/dL; Hemoglobin A1C 148.3873 umol/L; Hemoglobin A1c % 6.3 % (<6.0)
[2023-08-15 10:06] LABS: Appearance Urine Clear; Color Urine Dark Yellow; Glucose Urine UA Negative (Negative); Leukocyte Esterase Urine Trace (Negative); Nitrite Urine Negative (Negative); PH 5.5 (5.0-9.0); Specific Gravity - Urine 1.025 (1.005-1.025); UMIC TRIGGER UACC YES; Urine Blood Negative (Negative); Urine Ketones Trace mg/dL (Negative); Urine Protein Negative (Neg-Trace)
[2023-08-15 10:12] LABS: Bacteria Urine None Seen (None Seen); Hyaline Casts Urine 0-2 /LPF (0-2); Squamous Epithelial Cell Urine 0-2 /HPF (0-2); WBC Urine 0-5 /HPF (0-5)
[2023-08-15 10:36] LABS: Creatinine Urine 274.98 mg/dL; Microalbum/Creatinine Ratio Ur 6.1 ug/mg cr (<30)
[2023-08-15 10:43] LABS: Alanine Aminotransferase 35 U/L (0-40); Albumin Level 4.3 g/dL (3.5-5.0); Alkaline Phosphatase 51 U/L (39-117); Anion Gap 14 (12-20); Aspartate Amino Transferase 32 U/L (5-37); Bilirubin Total 1.3 mg/dL (0.0-1.0); Blood Urea Nitrogen 11 mg/dL (9-16); Calcium 9.2 mg/dL (8.4-10.2); Chloride 103 mmol/L (96-108); Cholesterol 148 mg/dL (<200); Estimated Glomerular Filt Rate > 60; Glucose Fasting 124 mg/dL (60-99); HDL Cholesterol 49 mg/dL (>40); LDL Cholesterol Calculated 78 mg/dL (<100); Potassium 4.2 mmol/L (3.3-5.1); Sodium 140 mmol/L (135-145); Total Protein 7.7 g/dL (6.5-8.0); Triglycerides 107 mg/dL (<150); Uric Acid 5.2 mg/dL (3.4-7.0)
[2023-08-15 11:11] LABS: Carbon Dioxide 27 mmol/L (22-29)
[2023-08-15 13:47] LABS: Folate 14.2 ng/mL (> or = 4.0); Prostate Specific Antigen 0.44 ng/mL (<0.05-4.0); Vitamin B12 694 pg/mL (200-900)
== END 2023-08-15 08:55 | disposition home or self-care (01) ==
LOC: HO.LAB 08:54
PROVIDERS: PCP Internal Medicine; Visit Provider Internal Medicine
DX: Z00.00 Encounter for general adult medical examination without abnormal findings (principal); Z12.5 Encounter for screening for malignant neoplasm of prostate; E55.9 Vitamin D deficiency, unspecified; M10.9 Gout, unspecified; I10 Essential (primary) hypertension; I48.0 Paroxysmal atrial fibrillation; E11.9 Type 2 diabetes mellitus without complications; E53.8 Deficiency of other specified B group vitamins; N40.0 Benign prostatic hyperplasia without lower urinary tract symptoms; E78.00 Pure hypercholesterolemia, unspecified
CPT/HCPCS: 36415; 80053; 80061; 81001; 81003; 82043; 82306; 82570; 82607; 82746; 83036; 84153; 84443; 84550; 85025

== ENCOUNTER 2023-08-19 11:19 | Outpatient (AMB) | payer OTHER, MEDICAID, SELFPAY ==
[2023-08-19 12:44] VITALS: BP 130/82; PULSE 100; O2SAT 96; BMI 35.8
--- NOTE | 2023-08-19 12:44 | MHC.PC.OV ---
Vital Signs 08/19/23 12:44 Height 5 ft 3 in Weight 202 lb BMI 35.8 BP 130/82 Blood Pressure Location Lt brachial Position Sitting Pulse 100 Pulse Source Pulse Oximeter Pulse Oximetry (%) 96 Oxygen Delivery Method Room Air Intake Visit Reasons: PAF, hyperlipidemia, DM, lumbar DDD Event Marketing Representative Required: No Accompanied by: Self / Same As Patient Allergies No Known Allergies [No Known Allergies*] Allergy (Unknown, Verified 08/19/23 13:25) U Medication List - Last Reconciled 08/19/23 by Matheus Salgado MD allopurinol TAKE 2 TABLETS IN THE MORNING AND 1 TABLET IN THE EVENING atorvastatin 80 mg PO BEDTIME blood sugar diagnostic ([employer] Ultra Test strips) 1 strip miscellaneous DAILY blood-glucose meter ([employer] Ultra2 Meter kit) As directed daily cholecalciferol (vitamin D3) (Vitamin D3) 50 mcg PO DAILY 90 days cyanocobalamin (vitamin B-12) 1,000 mcg PO DAILY 90 days dronedarone (Multaq) 400 mg PO BID fluoxetine 20 mg PO DAILY indomethacin 50 mg PO TID PRN lancets ([employer] UltraSoft Lancets) As directed levothyroxine 100 mcg PO DAILY 90 days losartan 50 mg PO DAILY metformin ER 500 mg PO BID 90 days metoprolol succinate ER 25 mg PO DAILY 90 days omeprazole 20 mg PO DAILY 90 days oxycodone-acetaminophen 5-325 mg 1 tab PO Q6H PRN 28 days simethicone 180 mg PO BID 30 days tamsulosin 0.4 mg PO BEDTIME 90 days tizanidine 4 mg PO Q8H PRN warfarin 3.75 mg See Protocol PO DAILY Tobacco use date assessed: 08/19/23 Fall risk assessment: No Falls in past year Last assessed Fall Risk: 08/19/23 Dental Screening Dental Screen Date: 08/19/23 Did you have a dental visit in the last 12 months?: Yes Did you have a dental problem in the last 6 months where you did not have access to dental care?: No Was dental information given to patient?: Patient has dentist HPI PAF, hyperlipidemia, DM, lumbar DDD HPI Details Patient comes in today for his follow up visit States that he feels okay He denies any headaches or dizziness Denies any chest pains, no SOB No nausea/vomiting, no abdominal pain No change in bowel habits noted States that his chronic low back pain and joint pains remain adequately controlled on his current medications Had his follow up labs done a few days ago - to discuss his results [facility] Medical History Benign prostatic hyperplasia with nocturia Lumbar degenerative disc disease Obesity (BMI 30-39.9) Vitamin D deficiency Gout Gastric ulcer Superficial gastritis GERD without esophagitis Acquired hypothyroidism Pure hypercholesterolemia Benign essential hypertension Diabetes mellitus Paroxysmal atrial fibrillation Surgical History Hx of colonoscopy History of esophagogastroduodenoscopy (EGD) History of appendectomy Family History Father Medical history unknown Mother Medical history unknown Social History (Reviewed 08/19/23 @ 13: by Matheus Salgado MD) Housing: House Alcohol intake: former Patient Tobacco Use Status: Former Tobacco user e-Cigarette/Vaping Use: Never Used Second Hand Smoke Exposure: Yes service: No Current occupational status: disabled Cognitive needs: No Hearing needs: No Vision needs: No Questionnaire PHQ-9 Over the last 2 weeks, how often have you been bothered by any of the following problems? 1. Little interest or pleasure in doing things: not at all 2. Feeling down, depressed, or hopeless: not at all 3. Trouble falling or staying asleep, or sleeping too much: not at all 4. Feeling tired or having little energy: not at all 5. Poor appetite or overeating: not at all 6. Feeling bad about yourself - or that you are a failure or have let yourself or your family down: not at all 7. Trouble concentrating on things, such as reading the newspaper or watching television: not at all 8. Moving or speaking so slowly that other people could have noticed. Or the opposite - being so fidgety or restless that you have been moving around a lot more than usual: not at all 9. Thoughts that you would be better off or of hurting yourself in some way: not at all Total score: 0 Depression Screening Interpretation: Negative Depression Screening Done: Yes 87120 - PHQ-9 Billing: Yes Source: Developed by Drs. Rikki Murry, Sangita Mays, Matthew Devi and colleagues, with an educational yonas from [employer]. Thrive Questionnaire Date Thrive assessed: 08/19/23 I am a: Patient What is your living situation today?: I have a steady place to live Within the past 12 months, did the food you bought not last and you didn't have the money to get more?: Never true Within the past 12 months, did you worry whether your food would run out before you got money to buy more?: Never true Do you have trouble paying for medicines?: No Do you have trouble getting transportation to medical appointments?: No Do you have trouble paying your heating and electricity bill?: No Do you have trouble taking care of your child, family member or friend?: No Do you have trouble with day-to-day activities such as bathing, preparing meals, shopping, managing finances, etc.?: No Are you currently unemployed and looking for a job?: No Are you interested in more education?: No Please select the resources that you would like help with: None Currently or been in a relationship where the following occur: no concerns reported AUDIT C Alcohol Use Questionnaire (AUDIT-C) 1. How often do you have a drink containing alcohol?: Never 3. How often do you have six or more drinks on one occasion?: Never Total Score: 0 Score Reviewed/Action Taken: Yes ZAY-7 AMB Questionnaire ZAY-7 Date ZAY - 7 assessed: 08/19/23 Feeling nervous, anxious, or on edge: 0 = Not at all Not being able to stop or control worryin = Not at all Worrying too much about different things: 0 = Not at all Trouble relaxin = Not at all Being so restless that it is hard to sit still: 0 = Not at all Becoming easily annoyed or irritable: 0 = Not at all Feeling afraid as if something awful might happen: 0 = Not at all Total ZAY-7 score (0-4 normal; 5-9 mild; 10-14 moderate; 15-21 severe): 0 Source: Developed by Drs. Rikki Murry, Sangita Mays, Matthew Devi and colleagues, with an educational yonas from [employer]. Review of Systems Const Denies chills, Denies fatigue, Denies fever(s) and Denies headache(s) ENT Denies dysphagia, Denies dizziness, Denies otalgia, Denies headache(s), Denies neck pain, Denies odynophagia and Denies sore throat Card Denies chest pain, Denies irregular heart rhythm, Denies palpitations and Denies dyspnea Resp Denies chest congestion, Denies cough, Denies dyspnea and Denies wheezing GI Denies abdominal pain, Denies constipation, Denies dysphagia, Denies heartburn, Denies diarrhea, Denies nausea, Denies odynophagia and Denies vomiting Denies hematuria, Denies difficulty urinating, Denies dysuria, Denies urinary frequency and Denies urinary urgency Musc Reports back pain (over the lower back - chronic), Reports arthralgias (involving multiple joints, on and off, including shoulder and knees), Denies joint swelling and Denies neck pain Skin/Breast Denies lesions and Denies rash Neuro Denies dizziness, Denies headache(s) and Denies paresthesias Endo Denies fatigue and Denies palpitations Aller/Immun Denies wheezing Physical exam (Primary Care) Vital Signs: Last Vital Signs Pulse 100 08/19/23 12:44 BP 130/82 08/19/23 12:44 Pulse Ox 96 08/19/23 12:44 Oxygen Delivery Method Room Air 08/19/23 12:44 BMI result Body Mass Index 35.8 Tobacco/Smoking Status: Tobacco use Status Tobacco use date assessed 08/19/23 08/19/23 12:52 Patient Tobacco Use Status Former Tobacco user 08/19/23 12:52 e-Cigarette/Vaping Use Never Used 08/19/23 12:52 PHQ-9: PHQ-9 Score PHQ-9: Total score 0 08/19/23 13:31 Depression Screening Interpretation: Negative Thrive Assessment: Date of Thrive Assessment Date Thrive assessed 08/19/23 08/19/23 12:52 Currently or been in a relationship where the following occur: no concerns reported Const General: no acute distress and alert HENMT Ears: TM's normal bilaterally and EAC's normal Throat: Yes posterior oropharynx normal and Yes tonsils normal (no TP congestion) Neck Neck: Yes no lymphadenopathy and Yes supple Thyroid: Thyroid normal Resp Auscultation: clear to auscultation bilaterally, no rales and no wheezes Cardio Rate: regular rate Rhythm: regular rhythm Heart sounds: no murmurs GI Palpation (GI): Soft to palpation and nontender Auscultation: normal bowel sounds General: Yes no CVA tenderness Back/Spine/Pelvis Back: no CVA tenderness Thoracic/Lumbar Spine: lumbar spinal tenderness Skin Rashes: no rashes Extrem General: Yes no clubbing, cyanosis or edema Results Reviewed Results Reviewed: Laboratory Tests 08/15/23 08/15/23 08/15/23 09:13 09:18 09:18 WBC 8.7 Hgb 14.5 Hct 45.5 Plt Count 215 Sodium 140 Potassium 4.2 Creatinine 0.78 Estimated GFR > 60 Fasting Glucose 124 H Hemoglobin A1c % 6.3 H Uric Acid 5.2 Calcium 9.2 AST 32 ALT 35 Triglycerides 107 Cholesterol 148 LDL Cholesterol, Calc 78 HDL Cholesterol 49 Prostate Specific Ag 0.44 Vitamin B12 694 25-OH Vitamin D Total 56.0 Folate 14.2 TSH 1.90 Urine pH 5.5 Ur Specific [place] 1.025 Urine Protein Negative Urine Glucose (UA) Negative Urine Blood Negative Microalb/Creat Ratio 6.1 Assessment and Plan Assessment & Plan (1) Paroxysmal atrial fibrillation: Code(s): I48.0 - Paroxysmal atrial fibrillation Plan: Patient currently remains in sinus rhythm and is anticoagulated on Coumadin - follow up with the Coumadin clinic as scheduled for PT/INR monitoring Continue Metoprolol ER 25 mg QD and Multaq 400 mg BID - was started on Multaq by Dr. Rosenbaum a few months ago Follow up with cardiology as scheduled (2) Diabetes mellitus: Code(s): E11.9 - Type 2 diabetes mellitus without complications Qualifiers: Diabetes mellitus complication status: without complication Diabetes mellitus extermination supervisor insulin use: without extermination supervisor use Diabetes mellitus type: type 2 Qualified Code(s): E11.9 - Type 2 diabetes mellitus without complications Plan: HgbA1c was at 6.3% on his labs done a few days ago (was at 6.9% previously) - goal is <7.0% Reinforced diabetic diet Continue Metformin ER 500 mg BID (3) Benign essential hypertension: Code(s): I10 - Essential (primary) hypertension Plan: Reinforced low sodium diet - goal is systolic BP of at least 130 to 140 mm or less Continue Metoprolol ER 25 mg QD and Losartan 50 mg QD (4) Pure hypercholesterolemia: Code(s): E78.00 - Pure hypercholesterolemia, unspecified Plan: Results of his labs done a few days ago reviewed and discussed with patient Reinforced low cholesterol diet Continue Atorvastatin 80 mg QD Will recheck his labs and fasting lipids in 3 months for follow-up (5) Acquired hypothyroidism: Code(s): E03.9 - Hypothyroidism, unspecified Plan: TFTs remain normal on his recent labs Continue Levothyroxine 100 mcg QD (6) Superficial gastritis: Comment: seen on EGD on 06/23/2017 Code(s): K29.60 - Other gastritis without bleeding Qualifiers: Chronicity: unspecified Gastritis bleeding: without bleeding Qualified Code(s): K29.30 - Chronic superficial gastritis without bleeding Plan: Dietary restrictions reinforced Continue Prilosec OTC 20 mg 2 tablets QD He had repeat colonoscopy done in April 2023 - recommend repeat colonoscopy in 5 years Follow up with GI as scheduled (7) Lumbar degenerative disc disease: Code(s): M51.36 - Other intervertebral disc degeneration, lumbar region Plan: Reinforced activity and weight-lifting restrictions Continue Oxycodone-acetaminophen 5-325 mg every 6 hours as needed for pain (8) Gout: Code(s): M10.9 - Gout, unspecified Qualifiers: Chronicity: unspecified Gout etiology: idiopathic Gout site: unspecified site Qualified Code(s): M10.00 - Idiopathic gout, unspecified site Plan: Asymptomatic with no acute gout flare ups since his last visit Serum uric acid level remains normal on his recent labs Reinforced low purine diet (9) Vitamin D deficiency: Code(s): E55.9 - Vitamin D deficiency, unspecified Plan: Continue Vitamin D3 2000 units QD (10) Benign prostatic hyperplasia with nocturia: Code(s): N40.1 - Benign prostatic hyperplasia with lower urinary tract symptoms; R35.1 - Nocturia Plan: PSA was normal on his labs done a few days ago Continue Tamsulosin 0.4 mg Q HS - Rx has helped a lot with his nocturia (11) Memory impairment: Code(s): R41.3 - Other amnesia Plan: Was seen by neurology a few months ago and started on Fluoxetine for MCI and depression but patient could not tolerate Rx at 20 mg QD Follow up with neurology as scheduled (12) Obesity (BMI 30-39.9): Code(s): E66.9 - Obesity, unspecified Plan: Reinforced diet/exercise as tolerated/lose weight Plan Follow up in 3 months Orders: Orders Complete Blood Count Auto Diff 3 Months I10 - Essential (primary) hypertension Comprehensive [place]. Panel Fast 3 Months E78.00 - Pure hypercholesterolemia, unspecified Microalbumin, Random (w Creat) 3 Months E11.9 - Type 2 diabetes mellitus without complications Thyroid Stimulating Hormone 3 Months E03.9 - Hypothyroidism, unspecified Uric Acid 3 Months M10.9 - Gout, unspecified Hemoglobin A1c 3 Months E11.9 - Type 2 diabetes mellitus without complications Lipid Panel 3 Months E78.00 - Pure hypercholesterolemia, unspecified Free T4 (Free Thyroxine) 3 Months E03.9 - Hypothyroidism, unspecified UA CC w/rflx Micro + Cult 3 Months R30.0 - Dysuria Vitamin D 25-OH Total 3 Months E55.9 - Vitamin D deficiency, unspecified Coding Level of Care Code Est Pt Level 4 (65655) Diagnoses Paroxysmal atrial fibrillation I48.0 Type 2 diabetes mellitus without complication, without long-term current use of insulin E11.9 Diabetes mellitus complication status: without complication Diabetes mellitus fdc insulin use: without extermination supervisor use Diabetes mellitus type: type 2 Benign essential hypertension I10 Pure hypercholesterolemia E78.00 Acquired hypothyroidism E03.9 Superficial gastritis without hemorrhage, unspecified chronicity K29.30 Chronicity: unspecified Gastritis bleeding: without bleeding Lumbar degenerative disc disease M51.36 Idiopathic gout, unspecified chronicity, unspecified site M10.00 Chronicity: unspecified Gout etiology: idiopathic Gout site: unspecified site Vitamin D deficiency E55.9 Benign prostatic hyperplasia with nocturia N40.1; R35.1 Memory impairment R41.3 Obesity (BMI 30-39.9) E66.9
== END 2023-08-19 13:36 | disposition home or self-care (01) ==
PROVIDERS: PCP Internal Medicine; Visit Provider Internal Medicine
DX: I48.0 Paroxysmal atrial fibrillation (principal); E11.9 Type 2 diabetes mellitus without complications; I10 Essential (primary) hypertension; E78.00 Pure hypercholesterolemia, unspecified; E03.9 Hypothyroidism, unspecified; K29.30 Chronic superficial gastritis without bleeding; M51.36 Other intervertebral disc degeneration, lumbar region; M10.00 Idiopathic gout, unspecified site; E55.9 Vitamin D deficiency, unspecified; N40.1 Benign prostatic hyperplasia with lower urinary tract symptoms; R35.1 Nocturia; R41.3 Other amnesia
CPT/HCPCS: 99214

== ENCOUNTER 2023-09-01 09:12 | Outpatient (AMB) | payer OTHER, SELFPAY ==
--- NOTE | 2023-09-01 09:18 | MHC.OFFVISCO ---
Intake Intake Visit Reasons: Anticoagulation Allergies No Known Allergies [No Known Allergies*] Allergy (Unknown, Verified 09/01/23 09:14) U Medication List - Last Reconciled 09/01/23 by Yesica Spencer RN allopurinol TAKE 2 TABLETS IN THE MORNING AND 1 TABLET IN THE EVENING atorvastatin 80 mg PO BEDTIME blood sugar diagnostic ([employer] Ultra Test strips) 1 strip miscellaneous DAILY blood-glucose meter ([employer] Ultra2 Meter kit) As directed daily cholecalciferol (vitamin D3) (Vitamin D3) 50 mcg PO DAILY 90 days cyanocobalamin (vitamin B-12) 1,000 mcg PO DAILY 90 days dronedarone (Multaq) 400 mg PO BID fluoxetine 20 mg PO DAILY indomethacin 50 mg PO TID PRN lancets ([employer] UltraSoft Lancets) As directed levothyroxine 100 mcg PO DAILY 90 days losartan 50 mg PO DAILY metformin ER 500 mg PO BID 90 days metoprolol succinate ER 25 mg PO DAILY 90 days omeprazole 20 mg PO DAILY 90 days oxycodone-acetaminophen 5-325 mg 1 tab PO Q6H PRN 28 days simethicone 180 mg PO BID 30 days tamsulosin 0.4 mg PO BEDTIME 90 days tizanidine 4 mg PO Q8H PRN warfarin 3.75 mg See Protocol PO DAILY Nursing Note INR 4.2-?? out of therapeutic range Medications and supplements reviewed Patient status: pt states cut middle finger left with knife- pt states significant bleeding, none at present. s/o states pt ref to go to ed or call md. frias to report to pcp and to monitor area for redness/edema Medications or supplements: no changes Diet: same Denies any signs and symptoms of bleeding or clotting or unusual bruising Bleeding, bruising, clotting discussed - aware at risk for bleeding Nutritional guidance given: eat greens for 2-3 days, no reds for 3 days Dose: already took warfarin today so hold tomm then cont 3.75mg x 7 pt states he took 7.5mg on thursday in error F/U INR Date : 1 week? Patient verbalizing understanding of instructions given. s/o present for visit Anti-Coag Initial Assessment Social Hx Patient Tobacco Use Status: Former Tobacco user alcohol intake: former Coding Level of Care Code Est Patient Level 1 Diagnoses Current use of anticoagulant therapy Z79.01 Assessment & Plan Assessment & Plan (1) Current use of anticoagulant therapy: Code(s): Z79.01 - residential (current) use of anticoagulants Category: Medical
[2023-09-01 09:19] LABS: Prothrombin Time Whole Bld POC 49.8 sec (11.1-13.5); ~PT, ~INR - Anti Coag Clinic 4.2 (0.9-1.1)
== END 2023-09-01 09:39 | disposition home or self-care (01) ==
LOC: HO.ACS 09:12
PROVIDERS: PCP Internal Medicine; Visit Provider Internal Medicine
DX: Z79.01 Long term (current) use of anticoagulants (principal)

== ENCOUNTER → 2023-09-01 09:12 | Outpatient (BNVA) | payer OTHER, SELFPAY | PROVIDERS: PCP Internal Medicine; Visit Provider Internal Medicine | DX: I48.0 Paroxysmal atrial fibrillation (principal); Z79.01 Long term (current) use of anticoagulants; Z51.81 Encounter for therapeutic drug level monitoring | CPT/HCPCS: 85610; 99211 ==

== ENCOUNTER 2023-09-06 07:17 | Emergency (ER) | payer OTHER, SELFPAY ==
--- NOTE | ~2023-09-06 | XR_ITS ---
EXAMINATION: XR RIBS, LEFT CLINICAL INFORMATION: Fall pain COMPARISON: Chest radiograph from 09/07/2017 TECHNIQUE: 4 views of the left ribs were obtained. FINDINGS: Stable elevation the right hemidiaphragm. Left basilar radiopacity may reflect atelectasis versus evolving infectious/inflammatory etiology. Slight right basilar atelectasis. No pneumothorax. Trachea is midline. Cardiac mediastinal silhouette is not enlarged. Aorta demonstrates atherosclerotic calcifications. No large pleural effusion. Soft tissues are unremarkable. Degenerative changes of the thoracolumbar spine. No acute visualized left-sided rib fractures. XR/XR ribs LT min 3V w CXR1V IMPRESSION: 1. Stable elevation the right hemidiaphragm. 2. Left basilar radiopacity may reflect atelectasis versus evolving infectious/inflammatory etiology. 3. Slight right basilar atelectasis. 4. No acute visualized left-sided rib fractures.
--- NOTE | ~2023-09-06 | CT_ITS ---
EXAMINATION: CT CHEST WITH CONTRAST CLINICAL INFORMATION: Question inflammatory/infectious process left lung. COMPARISON: Rib x-ray 07/07/2023. CT chest 08/06/2015. TECHNIQUE: Multidetector volumetric CT imaging of the chest was obtained after the administration of 65 mL of Omnipaque 350 intravenous contrast without immediate adverse reactions. Axial MIP volume rendering provided. Sagittal and coronal reformatted images were obtained. This CT examination was performed using dose optimization techniques as appropriate, variously including the following: *Automated exposure control *Adjustment of mA and/or kV according to patient size (this includes techniques or standardized protocols for targeted exams where dose is matched to indication/reason for exam; i.e. extremities or head) *Use of iterative reconstruction technique DLP: 370 mGy-cm FINDINGS: LUNGS: No suspicious lung nodules. Mild atelectasis in the middle lobe, lingula, and bilateral lower lobes. No consolidative disease. There is airway wall thickening and mosaic attenuation consistent with air trapping. MEDIASTINUM: No adenopathy. No pericardial effusion. No aortic aneurysm. PLEURA: There is no pleural effusion. No pleural mass or thickening. AXILLA: No adenopathy. No chest wall mass. UPPER ABDOMEN: Simple cysts in the left kidney. No follow-up imaging is recommended. OSSEOUS STRUCTURES: No rib fractures. Degenerative changes in the spine. CT/CT chest w IV con IMPRESSION: Mild atelectasis corresponds to the finding on recent rib series. No suspicious pulmonary nodule. No rib fracture, pleural effusion, or pneumothorax. Fleischner guidelines were followed.
[2023-09-06 07:22] VITALS: BP 140/79; PULSE 61; RESP 16; TEMP 35.9; O2SAT 97; BMI 33.5
--- NOTE | 2023-09-06 08:59 | ED.FALL ---
HPI - Fall General Chief Complaint: Fall Stated Complaint: Fall L rib pain Time Seen by Provider: 09/06/23 08:56 Source: patient and family Mode of arrival: ambulatory Limitations: no limitations History of Present Illness HPI Narrative: 73 year old male with pmhx significant for paroxysmal afib (on coumadin), diabetes, HTN, HDL, hypothyroidism, GERD, gastritis, gout, DDD, BPH presents to the ED today with complaint of left rib pain s/p mechanical fall 2 days ago. States he was doing laundry in his basement when he slipped on water, causing him to fall forward into his washing machine, hitting his left ribs. Denies fall to ground, head strike, or LOC. Patient reports pain onset yesterday. Pain is described as an aching sensation, worse with deep inspiration. No radiation of pain. Denies fever, chills, dizziness, headache, chest pain, SOB, abdominal pain, N/V, diarrhea, constipation, LE pain/ swealling. Related Data Home Medications Medication Instructions Recorded Confirmed tizanidine 4 mg tablet 4 mg PO Q8H PRN Muscle Spasm 09/28/20 08/19/23 fluoxetine 20 mg capsule 20 mg PO DAILY 10/28/22 08/19/23 Previous Rx's Medication Instructions Recorded blood-glucose meter (OneTouch #1 ea 10/31/20 Ultra2 Meter kit) lancets (OneTouch UltraSoft #100 ea 10/31/20 Lancets) indomethacin 50 mg capsule 50 mg PO TID PRN pain #10 caps 10/16/21 blood sugar diagnostic (OneTouch 1 strip miscellaneous DAILY #50 03/26/22 Ultra Test strips) strips simethicone 180 mg capsule 180 mg PO BID 30 days #60 caps 06/05/22 cyanocobalamin (vitamin B-12) 1,000 mcg PO DAILY 90 days #90 tabs 01/12/23 1,000 mcg tablet atorvastatin 80 mg tablet 80 mg PO BEDTIME #60 tabs 02/11/23 allopurinol 100 mg tablet 100 mg PO .COMPLEX #270 tabs 04/08/23 tamsulosin 0.4 mg capsule 0.4 mg PO BEDTIME 90 days #90 caps 04/14/23 cholecalciferol (vitamin D3) 50 50 mcg PO DAILY 90 days #90 caps 04/21/23 mcg (2,000 unit) capsule (Vitamin D3) omeprazole 20 mg capsule,delayed 20 mg PO DAILY 90 days #90 caps 04/21/23 release metoprolol succinate 25 mg 25 mg PO DAILY 90 days #90 tabs 04/22/23 tablet,extended release 24 hr warfarin 7.5 mg tablet 3.75 mg PO DAILY #45 tabs 05/08/23 dronedarone 400 mg tablet (Multaq) 400 mg PO BID #60 tabs 05/18/23 metformin 500 mg tablet,extended 500 mg PO BID 90 days #180 tabs 05/26/23 release 24 hr levothyroxine 100 mcg tablet 100 mcg PO DAILY 90 days #90 tabs 08/07/23 oxycodone-acetaminophen 5 mg-325 1 tab PO Q6H PRN pain 28 days #112 08/07/23 mg tablet tabs losartan 50 mg tablet 50 mg PO DAILY #90 tabs 08/31/23 lidocaine 5 % topical patch 1 patch topical DAILY #15 ea 09/06/23 (Lidoderm) Allergies Allergy/AdvReac Type Severity Reaction Status Date / Time No Known Allergies Allergy Unknown U Verified 09/01/23 09:14 [No Known Allergies*] Review of Systems Review of Systems: Constitutional: No fever, chills, fatigue, night sweats, weight changes ENT/Mouth: No ear pain, hearing loss, nasal congestion, sinus pain, rhinorrhea, sore throat Eyes: No eye pain, swelling, redness, vision changes, discharge Cardio: No chest pain, palpitations, LUGO, orthopnea, peripheral edema Pulm: No SOB, cough, sputum, wheezing, dyspnea, hemoptysis GI: No nausea, vomiting, hematemesis, abdominal pain, diarrhea, constipation, hematochezia, melena : No irregular bleeding, dysuria, frequency, urgency, hesitancy, hematuria, flank pain, urinary flow changes MSK: No back pain, neck pain, joint pain, myalgias, +left rib pain Skin: No lesions, rashes Neuro: No weakness, numbness, paresthesias, LOC, dizziness, headache All other systems reviewed and are negative. [facility] Past Medical History Attestation statement: The following information was validated with the patient. Source: old records reviewed and nursing notes reviewed Medical History Benign prostatic hyperplasia with nocturia Lumbar degenerative disc disease Obesity (BMI 30-39.9) Vitamin D deficiency Gout Gastric ulcer Superficial gastritis GERD without esophagitis Acquired hypothyroidism Pure hypercholesterolemia Benign essential hypertension Diabetes mellitus Paroxysmal atrial fibrillation Surgical History Hx of colonoscopy History of esophagogastroduodenoscopy (EGD) History of appendectomy Family History Family History Father Medical history unknown Mother Medical history unknown Social History Social History Housing: House Alcohol intake: former Patient Tobacco Use Status: Former Tobacco user e-Cigarette/Vaping Use: Never Used Second Hand Smoke Exposure: Yes Advance Directives: No Advance Directives Information Provided: Yes service: No Current occupational status: disabled Cognitive needs: No Hearing needs: No Vision needs: No Physical Exam Vital Signs: Vital Signs: Last Vital Signs Temp 96.7 F L 09/06/23 07:22 Pulse 61 09/06/23 07:22 Resp 16 09/06/23 07:22 BP 140/79 H 09/06/23 07:22 Pulse Ox 97 09/06/23 07:22 O2 Del Method Room Air 09/06/23 07:22 BMI result Body Mass Index 33.5 Vital signs stable. Const: General: cooperative, comfortable, no acute distress, alert and awake Orientation/consciousness: patient oriented x3 Limitations: no limitations HEENT: Head: Yes normal to inspection, Yes No palpable skull fracture present, Yes normocephalic, Yes atraumatic, No Perkins's sign, No raccoon eyes and No periorbital ecchymosis Ears: hearing grossly normal bilaterally General nose exam: Normal external nose present and Normal septum present Mouth: Normal oral and palatal mucosa present Eyes: General: appearance normal, both eyes and all related structures Conjunctivae: conjunctivae normal Sclerae: sclerae normal Pupils: Equal, round and reactive pupils present EOM: EOMs intact bilaterally Neck: Neck: Yes normal visual inspection, Yes no lymphadenopathy and Yes no meningeal signs Chest: Other: There is no overlying rash or ecchymosis noted to the anterior, lateral or posterior chest wall. + Tender to palpation over the 8th, 9th, and 10th left ribs without crepitus or palpable deformity. Chest palpation & inspection: normal inspection of the chest Resp: Other: No respiratory distress. There is symmetric chest movement. There is no segmental paradoxical chest wall movement to suggest flail chest + Crackles to bilateral lung bases. No rales, rhonchi or wheezes. Effort & Inspection: normal respiratory effort and able to speak in complete sentences Cardio: Jugular venous distension: no JVD Rate: regular rate Rhythm: regular rhythm Peripheral pulses: radial pulses present, posterior tibial pulses present and dorsalis pedis present GI: Other: + Abdomen is soft, nondistended, midly tender to palpation of LUQ, no rebound tenderness or guarding. Normoactive BS x4. Inspection: Yes normal to inspection and No abdominal wall ecchymosis Palpation (GI): No hepatosplenomegaly present : General: Yes no CVA tenderness Back/Spine/Pelvis: Back: no CVA tenderness and No Taylor-Moe sign present Skin: General skin exam: no rashes or lesions noted Neuro: General: patient oriented x3, gait normal, moves all extremities and no meningeal signs Cranial nerves: Yes CN's II-XII intact bilaterally and Yes Equal, round and reactive pupils present Extrem: General: Yes normal to inspection and Yes no clubbing, cyanosis or edema Course Course Course Narrative: 929-- XR of left ribs without acute fracture. There is atelectasis noted to b/l lung bases likely secondary to contusion however there is question of an infectious/inflammatory process of the left lung base. As the patient is on Coumadin, CT chest with contrast will be ordered to rule out hemothorax vs pneumonia vs atelectasis. Labs will be obtained to check renal function. IV fluids are ordered. Tylenol given for pain control. Plan for re-evaluation. 1050-- CBC without leukocytosis or anemia. Chemistry without acute electrolyte abnormalities requiring intervention. Renal function wnl. Liver enzymes wnl. Pending CT chest. 1330-- Chest CT showing mild atelectasis corresponding to findings on rib series. No acute rib fracture. No hemothorax. No suspicious pulmonary nodules, consolidations or infiltrates to suggest pneumonia. I personally reviewed chest CT and note an enlarged liver causing elevation of the right diaphragm. I discussed this finding with my attending, Dr. Henry who does not appreciate any liver mass. Liver enzymes are within normal limits. I also compared today's cxr to cxr from 2017. Both show elevation of the right diaphragm, likely chronically enlarged liver. > I had a discussion with the patient and his family using lithographic press feeder. I informed them of unremarkable workup. Atelectasis is likely secondary to contusion. I also informed patient of the enlarged liver noted on CT scan and advised him to follow-up with his primary care provider. Will provide him with additional referral to GI specialist for follow up. Patient expresses understanding of discussion and findings. > Discussed strict return precautions. All questions answered at this time. Patient is agreeable disposition and stable for discharge. Medications Administered Discontinued Medications Generic Name Dose Route Start Last Admin Trade Name Freq PRN Reason Stop Dose Admin Acetaminophen 975 mg 09/06/23 09:36 09/06/23 09:54 Acetaminophen 325 Mg Tablet PO 09/06/23 09:37 975 mg ONCE ONE Administration Sodium Chloride 1,000 mls @ 999 mls/hr 09/06/23 09:30 09/06/23 12:35 Ns IV 09/06/23 10:30 Infused .Q1H1M TAWNYA Infusion Iohexol 100 ml 09/06/23 11:36 09/06/23 11:36 Iohexol 350 Mg/Ml 100 Ml Infus..Btl IV 09/06/23 11:37 65 ml ONCE ONE Administration Medical Decision Making Medical Decision Making [facility] Narrative: 73 year old male with pmhx significant for paroxysmal afib (on coumadin), diabetes, HTN, HDL, hypothyroidism, GERD, gastritis, gout, DDD, BPH presents to the ED today with complaint of left rib pain s/p mechanical fall 2 days ago. Vital signs are stable. Patient is nontoxic appearing and in NAD. There is no overlying rash or ecchymosis noted to the chest wall. There is tenderness to palpation over the 8th, 9th, and 10th left ribs without crepitus or palpable deformity. RRR. No JVD. Crackles to bilateral lung bases. Abdomen soft, nondistended, mildly tender to palpation of the left upper quadrant. No splenomegaly. Clinical concern for rib fracture, pneumothorax, hemothorax, msk spran/ strain. Unlikely intra-abdominal bleeding/ pathology, splenic laceration. No concern for intracranial hemorrhage, CVA / TIA / cerebellar stroke. X-ray ordered by morning provider. Will plan for CT chest with contrast, labs, IV fluids and pain control. Differential Diagnosis Differential Diagnoses: The differential diagnosis associated with the presentation includes As above. Admission/Observation Consideration of admission/observation: Escalation of care including admission/observation considered In this 73 yo patient on anticoagulation s/p mechanical fall, admission was considered. Lab Data MDM Lab Attestation statement: I reviewed the patient's lab results. As above. 09/06/23 10:00 09/06/23 10:00 Labs: Lab Results 09/06/23 Range/Units 10:00 WBC 10.1 (4.8-10.8) X10*3/uL RBC 5.11 (4.60-5.80) X10*6/uL Hgb 13.9 L (14.0-18.0) g/dl Hct 43.4 (42.0-52.0) % MCV 84.9 (80.0-98.0) fL MCH 27.2 (27.0-33.0) pg MCHC 32.0 (31.0-36.0) g/dl RDW 14.5 (11.0-16.0) % Plt Count 220 (160-400) X10*3/uL MPV 10.6 (9.4-12.4) fL Immature Gran % (Auto) 0.3 (0.0-0.4) % Neut % (Auto) 63.0 (45-73) % Lymph % (Auto) 26.3 (20-40) % [place] % (Auto) 6.0 (2-11) % Eos % (Auto) 4.0 (0-4) % Baso % (Auto) 0.4 (0-2) % Lymph # (Auto) 2.7 (1.2-4.9) X10*3/uL [place] # (Auto) 0.6 (0.1-1.2) X10*3/uL Eos # (Auto) 0.4 (0.0-0.4) X10*3/uL Baso # (Auto) 0.0 (0.0-0.2) X10*3/uL Abs Immat Gran (auto) 0.03 (0.00-0.03) X10*3/uL Absolute Neuts (auto) 6.4 (2.0-8.3) x10*3/uL Absolute Nucleated RBC 0.000 (0.0-0.012) X10*3/uL Nucleated RBC % (auto) 0.0 (0.0-0.2) /100WBC PT 14.6 H (11.1-13.3) SEC INR 1.2 H (0.9-1.1) Sodium 140 (135-145) mmol/L Potassium 4.5 (3.3-5.1) mmol/L Chloride 102 (96-108) mmol/L Carbon Dioxide 28 (22-29) mmol/L Anion Gap 15 (12-20) BUN 11 (9-16) mg/dL Creatinine 0.76 (0.5-1.4) mg/dL Estim Creat Clear Calc 94.3 Estimated GFR > 60 Random Glucose 126 H (60-115) mg/dL Calcium 9.7 (8.4-10.2) mg/dL Magnesium 1.7 (1.6-2.6) mg/dL Total Bilirubin 0.8 (0.0-1.0) mg/dL AST 30 (5-37) U/L ALT 28 (0-40) U/L Alkaline Phosphatase 49 (39-117) U/L Total Protein 7.7 (6.5-8.0) g/dL Albumin 4.3 (3.5-5.0) g/dL Lipase 17 (8-78) U/L Independent Interpretation I performed an independent interpretation of an: Plain X-Ray Interpretation: X-ray of the left ribs without acute fracture, agree with radiologist's interpretation. CT chest showing bibasilar atelectasis, no consolidation or infiltrate to suggest pneumonia. Liver is enlarged causing elevation of the right diaphragm. Findings compared to chest x-ray 2017 show elevation of the right diaphragm, likely chronic in nature. Radiology Impression Discussion of test interpretation with radiology: I have reviewed the radiologist's reading. Radiologist Impression: XR ribs LT min 3V w CXR1V IMPRESSION: 1. Stable elevation the right hemidiaphragm. 2. Left basilar radiopacity may reflect atelectasis versus evolving infectious/inflammatory etiology. 3. Slight right basilar atelectasis. 4. No acute visualized left-sided rib fractures. CT chest w IV con IMPRESSION: Mild atelectasis corresponds to the finding on recent rib series. No suspicious pulmonary nodule. No rib fracture, pleural effusion, or pneumothorax. Fleischner guidelines were followed. Independent Historian Clinical information obtained from an independent historian. History obtained from or confirmed by: Spouse External Record Review External record reviewed: Inpatient record Prescription Management I considered prescription management with: Pain Medication Chronic Conditions Patient?s care impacted by: Diabetes, Hypertension and Other (afib, gastritis) Social Determinants Patient?s care significantly limited by Social Determinants of Health including: Other Social Determinant of Health Critical Care Time Critical Care Time Critical Care Time: No Discharge Plan Discharge Clinical Impression: Atelectasis of both lungs Patient Disposition: Home, Self-Care Instructions: Atelectasis (ED) Additional Instructions: The x-ray of her ribs did not show acute fracture. The CT scan of your chest showed atelectasis of both lungs, more prominent on the left side. This is likely secondary to contusion to your left ribs. You may take Tylenol and ibuprofen as needed for pain and discomfort. Additionally I sent Lidoderm patches to your pharmacy. You can apply these to your left rib area to relieve pain. Please follow-up with your primary care provider for findings of enlarged liver on CT scan. I have also provided your referral to a GI specialist for follow-up. Return to the emergency department if symptoms persist or worsen. The case of an emergency call 911. La radiograf?a de felicity costillas no mostr? fractura aguda. La tomograf?a computarizada de wallace t?rax mostr? atelectasia de ambos pulmones, m?s prominente en el lado sushila. Es probable que esto sea secundario a jocelin contusi?n en las costillas izquierdas. Puede radha Tylenol e ibuprofeno seg?n sea necesario para el dolor y el malestar. Adem?s envi? parches de Lidoderm a wallace farmacia. Puede aplicarlos en el ?jarrett de la heaven izquierda para aliviar el dolor. Britany un seguimiento con wallace proveedor de atenci?n primaria para detectar hallazgos de agrandamiento del h?gado en la tomograf?a computarizada. Tambi?n le proporcion? wallace derivaci?n a un especialista gastrointestinal para seguimiento. Regrese al departamento de emergencias si los s?ntomas persisten o empeoran. El adelina de jocelin llamada de emergencia al 91. Prescriptions: New lidocaine [Lidoderm] 5 % adhesive patch,medicated 1 patch topical DAILY Qty: 15 0RF Rx Instructions: leave on most painful area for up to 12 hrs No Action (DME) blood-glucose meter [OneTouch Ultra2 Meter] Kit See Rx Instructions .ROUTE .MEDSUPPLY Qty: 1 0RF Rx Instructions: As directed daily (DME) lancets [OneTouch UltraSoft Lancets] Misc See Rx Instructions .ROUTE .MEDSUPPLY Qty: 100 3RF Rx Instructions: As directed OneTouch Ultra Test Strip 1 strip miscellaneous DAILY Qty: 50 4RF cyanocobalamin (vitamin B-12) 1,000 mcg tablet 1,000 mcg PO DAILY 90 Days Qty: 90 3RF allopurinol 100 mg tablet 100 mg PO .COMPLEX Qty: 270 1RF Rx Instructions: TAKE 2 TABLETS IN THE MORNING AND 1 TABLET IN THE EVENING tamsulosin 0.4 mg capsule 0.4 mg PO BEDTIME 90 Days Qty: 90 1RF metoprolol succinate 25 mg tablet extended release 24 hr 25 mg PO DAILY 90 Days Qty: 90 1RF warfarin 7.5 mg tablet 3.75 mg PO DAILY Qty: 45 7RF Protocol: Dose Management Condition: Thursday (Week One) Dose/Route: 7.5 mg Instruction: 1 x 7.5 mg tablet Condition: Thursday Dose/Route: 3.75 mg Instruction: 0.5 x 7.5 mg tablets Condition: Thursday Dose/Route: 3.75 mg Instruction: 0.5 x 7.5 mg tablets Condition: Thursday Dose/Route: 0 mg Instruction: 0 tablets Condition: Dose/Route: 3.75 mg Instruction: 0.5 x 7.5 mg tablets Condition: Thursday Dose/Route: 3.75 mg Instruction: 0.5 x 7.5 mg tablets Condition: Thursday Dose/Route: 3.75 mg Instruction: 0.5 x 7.5 mg tablets Condition: Thursday (Week Two) Dose/Route: 3.75 mg Instruction: 0.5 x 7.5 mg tablets Condition: Thursday Dose/Route: 3.75 mg Instruction: 0.5 x 7.5 mg tablets Condition: Thursday Dose/Route: 3.75 mg Instruction: 0.5 x 7.5 mg tablets Condition: Thursday Dose/Route: 3.75 mg Instruction: 0.5 x 7.5 mg tablets Condition: Dose/Route: 3.75 mg Instruction: 0.5 x 7.5 mg tablets Condition: Thursday Dose/Route: 3.75 mg Instruction: 0.5 x 7.5 mg tablets Condition: Thursday Dose/Route: 3.75 mg Instruction: 0.5 x 7.5 mg tablets Protocol Text: Adjustment Start Date: Thursday09/01/23 INR Value: 4.2 INR Date: 09/01/23 Recheck Date: 09/08/23 Additional Instructions: hold warfarin tomm eat greens to lower inr, no reds for 2 days metformin 500 mg tablet extended release 24 hr 500 mg PO BID 90 Days Qty: 180 1RF levothyroxine 100 mcg tablet 100 mcg PO DAILY 90 Days Qty: 90 1RF oxycodone-acetaminophen 5-325 mg tablet 1 tab PO Q6H PRN (Reason: pain) 28 Days Qty: 112 0RF Rx Instructions: partial refill upon request losartan 50 mg tablet 50 mg PO DAILY Qty: 90 1RF indomethacin 50 mg capsule 50 mg PO TID PRN (Reason: pain) Qty: 10 0RF Rx Instructions: administer with food or milk tizanidine 4 mg tablet 4 mg PO Q8H PRN (Reason: Muscle Spasm) cholecalciferol (vitamin D3) [Vitamin D3] 50 mcg (2,000 unit) capsule 50 mcg PO DAILY 90 Days Qty: 90 3RF omeprazole 20 mg capsule,delayed release(DR/EC) 20 mg PO DAILY 90 Days Qty: 90 3RF fluoxetine 20 mg capsule 20 mg PO DAILY simethicone 180 mg capsule 180 mg PO BID 30 Days Qty: 60 3RF Rx Instructions: after meals atorvastatin 80 mg tablet 80 mg PO BEDTIME Qty: 60 3RF Multaq 400 mg tablet 400 mg PO BID Qty: 60 4RF Rx Instructions: must administer with a meal/food Referrals: [facility] [Provider Group] Matheus Salgado MD [Primary Care Provider] - Interventions: ED Discharge Assessment Last Done: 09/06/23 14:44 Discharge Date/Time: 09/06/23 14:45 Print Language: Croatian
[2023-09-06] MEDS: Acetaminophen 325 MG TABLET 975 MG PO (09:54)
[2023-09-06] MEDS: 0.9 % Sodium Chloride 1,000 ML 999 ML IV (10:03)
--- NOTE | 2023-09-06 10:08 | PC.NURSE ---
labs sent. pt in bed talks w/o distress. breathing well. +CMS.
[2023-09-06 10:14] LABS: MANUAL DIFF FLAG NO
[2023-09-06 10:18] LABS: Basophils Percent Auto 0.4 % (0-2); Eosinophils Absolute Auto 0.4 X10*3/uL (0.0-0.4); Hematocrit 43.4 % (42.0-52.0); Hemoglobin 13.9 g/dl (14.0-18.0); Imm Gran Abs Auto 0.03 X10*3/uL (0.00-0.03); Imm Gran Pct Auto 0.3 % (0.0-0.4); Lymphocytes Absolute Auto 2.7 X10*3/uL (1.2-4.9); Lymphocytes Percent Auto 26.3 % (20-40); Mean Corpuscular Hemoglobin 27.2 pg (27.0-33.0); Mean Corpuscular Volume 84.9 fL (80.0-98.0); Mean Platelet Volume 10.6 fL (9.4-12.4); Monocytes Absolute Auto 0.6 X10*3/uL (0.1-1.2); Neutrophils Absolute Auto 6.4 x10*3/uL (2.0-8.3); Platelet Count 220 X10*3/uL (160-400); Red Blood Count 5.11 X10*6/uL (4.60-5.80); Red Cell Distribution Width 14.5 % (11.0-16.0); White Blood Count 10.1 X10*3/uL (4.8-10.8)
[2023-09-06 10:27] LABS: INTERNATIONAL NORM RATIO 1.2 (0.9-1.1); Prothrombin Time 14.6 SEC (11.1-13.3)
[2023-09-06 10:35] LABS: Alanine Aminotransferase 28 U/L (0-40); Albumin Level 4.3 g/dL (3.5-5.0); Alkaline Phosphatase 49 U/L (39-117); Anion Gap 15 (12-20); Aspartate Amino Transferase 30 U/L (5-37); Bilirubin Total 0.8 mg/dL (0.0-1.0); Blood Urea Nitrogen 11 mg/dL (9-16); Calcium 9.7 mg/dL (8.4-10.2); Carbon Dioxide 28 mmol/L (22-29); Chloride 102 mmol/L (96-108); Creatinine Clr Calc Pharmacy 94.3; Estimated Glomerular Filt Rate > 60; Glucose Random 126 mg/dL (60-115); Lipase 17 U/L (8-78); Magnesium 1.7 mg/dL (1.6-2.6); Potassium 4.5 mmol/L (3.3-5.1); Sodium 140 mmol/L (135-145); Total Protein 7.7 g/dL (6.5-8.0)
[2023-09-06] MEDS: iohexoL 350 MG/ML 100 ML INFUS..BTL IV (11:36)
== END 2023-09-06 14:45 | disposition home or self-care (01) ==
PROVIDERS: Physician Assistant Medical; Emergency Provider Emergency Medicine; PCP Internal Medicine
DX: J98.11 Atelectasis (principal); R07.81 Pleurodynia; M54.6 Pain in thoracic spine; I48.91 Unspecified atrial fibrillation; R10.12 Left upper quadrant pain; Z79.01 Long term (current) use of anticoagulants; Z79.899 Other long term (current) drug therapy
CPT/HCPCS: 36415; 71101; 71260; 80053; 83690; 83735; 85025; 85610; 96360; 96361; 99283; 99284; Q9967

== ENCOUNTER 2023-09-08 09:14 | Outpatient (AMB) | payer OTHER, SELFPAY ==
[2023-09-08 09:31] LABS: Prothrombin Time Whole Bld POC 17.3 sec (11.1-13.5); ~PT, ~INR - Anti Coag Clinic 1.4 (0.9-1.1)
--- NOTE | 2023-09-08 09:37 | MHC.OFFVISCO ---
Intake Intake Visit Reasons: Anticoagulation Allergies No Known Allergies [No Known Allergies*] Allergy (Unknown, Verified 09/08/23 09:16) U Medication List - Last Reconciled 09/08/23 by Genet Hough RN allopurinol TAKE 2 TABLETS IN THE MORNING AND 1 TABLET IN THE EVENING atorvastatin 80 mg PO BEDTIME blood sugar diagnostic ([employer] Ultra Test strips) 1 strip miscellaneous DAILY blood-glucose meter ([email or web address] Ultra2 Meter kit) As directed daily cholecalciferol (vitamin D3) (Vitamin D3) 50 mcg PO DAILY 90 days cyanocobalamin (vitamin B-12) 1,000 mcg PO DAILY 90 days dronedarone (Multaq) 400 mg PO BID fluoxetine 20 mg PO DAILY lancets ([email or web address] UltraSoft Lancets) As directed levothyroxine 100 mcg PO DAILY 90 days lidocaine 5% (Lidoderm) 1 patch topical DAILY losartan 50 mg PO DAILY metformin ER 500 mg PO BID 90 days metoprolol succinate ER 25 mg PO DAILY 90 days omeprazole 20 mg PO DAILY 90 days oxycodone-acetaminophen 5-325 mg 1 tab PO Q6H PRN 28 days simethicone 180 mg PO BID 30 days tamsulosin 0.4 mg PO BEDTIME 90 days tizanidine 4 mg PO Q8H PRN warfarin 3.75 mg See Protocol PO DAILY Nursing Note Pt fell at home thursday while cleaning the basement floor, it was wet and he slipped, he went to the ER. He did not hit his head, he did bruise his ribs, fracture ruled out, he was found to have fluid around bases of his lungs per his , he was given tylenol in ER and rx lidocaine patches which he has not picked up. INR 1.4 out of therapeutic range- 1.2 thursday in ER, previous INR was 4.2 on 09/01/23 possibly r/t ETOH - which he occassionaly indulges - pt aware of risks invloved Medications and supplements reviewed Patient status: s/p fall, not taking tylenol Medications or supplements: to start lidocain patch prn pain Diet: good Denies any signs and symptoms of bleeding or clotting or unusual bruising Bleeding, bruising, clotting discussed and he will go to the ER with any headaches or stroke symptoms or chest pain Nutritional guidance given: avoid greens x 3 days, eat foods to raise it but not to over compensate Dose: due to cardiac hx boost dose today 7.5mg then resume 3.75mg other days and recheck Thursday F/U INR Date: 09/11/23 ?? Patient verbalizing understanding of instructions given. call place to PCP spoke with nurse Ceja to convey msg to PCP Anti-Coag Initial Assessment Social Hx Patient Tobacco Use Status: Former Tobacco user alcohol intake: former Coding Level of Care Code Est Patient Level 1 Diagnoses Current use of anticoagulant therapy Z79.01 Results AMB INR Fingerstick AMB INR Fingerstick 1.4 Last Edit by Genet Hough RN on 09/08/23 09:30 delayed interfacing manual entry Assessment & Plan Assessment & Plan (1) Current use of anticoagulant therapy: Code(s): Z79.01 - pin or clip fastener (current) use of anticoagulants Category: Medical
== END 2023-09-08 09:49 | disposition home or self-care (01) ==
LOC: HO.ACS 09:14
PROVIDERS: PCP Internal Medicine; Visit Provider Internal Medicine
DX: Z79.01 Long term (current) use of anticoagulants (principal)

== ENCOUNTER → 2023-09-08 09:14 | Outpatient (BNVA) | payer OTHER, SELFPAY | PROVIDERS: PCP Internal Medicine; Visit Provider Internal Medicine | DX: I48.0 Paroxysmal atrial fibrillation (principal); Z79.01 Long term (current) use of anticoagulants; Z51.81 Encounter for therapeutic drug level monitoring | CPT/HCPCS: 85610; 99211 ==

== ENCOUNTER 2023-09-11 09:18 | Outpatient (AMB) | payer OTHER, SELFPAY ==
[2023-09-11 09:34] LABS: ~PT, ~INR - Anti Coag Clinic 2.3 (0.9-1.1)
--- NOTE | 2023-09-11 09:38 | MHC.OFFVISCO ---
Intake Intake Visit Reasons: Anticoagulation Allergies No Known Allergies [No Known Allergies*] Allergy (Unknown, Verified 09/11/23 09:30) U Medication List - Last Reconciled 09/11/23 by Simi Leon RN allopurinol TAKE 2 TABLETS IN THE MORNING AND 1 TABLET IN THE EVENING atorvastatin 80 mg PO BEDTIME blood sugar diagnostic ([employer] Ultra Test strips) 1 strip miscellaneous DAILY blood-glucose meter ([employer] Ultra2 Meter kit) As directed daily cholecalciferol (vitamin D3) (Vitamin D3) 50 mcg PO DAILY 90 days cyanocobalamin (vitamin B-12) 1,000 mcg PO DAILY 90 days dronedarone (Multaq) 400 mg PO BID fluoxetine 20 mg PO DAILY lancets ([employer] UltraSoft Lancets) As directed levothyroxine 100 mcg PO DAILY 90 days lidocaine 5% (Lidoderm) 1 patch topical DAILY losartan 50 mg PO DAILY metformin ER 500 mg PO BID 90 days metoprolol succinate ER 25 mg PO DAILY 90 days omeprazole 20 mg PO DAILY 90 days oxycodone-acetaminophen 5-325 mg 1 tab PO Q6H PRN 28 days simethicone 180 mg PO BID 30 days tamsulosin 0.4 mg PO BEDTIME 90 days tizanidine 4 mg PO Q8H PRN warfarin 3.75 mg See Protocol PO DAILY Nursing Note NO CP,SOB,DIET/MED CHANGES,FALLS OR SX OF BLEEDING. PT.STATES THAT RIB PAIN IS IMPROVING. CONTINUE 3.75MGM DAILY AND FOLLOW-UP IN 2 WEEKS. GOOD UNDERSTANDING OF DOSING INSTR. Anti-Coag Initial Assessment Social Hx Patient Tobacco Use Status: Former Tobacco user alcohol intake: former Coding Level of Care Code Est Patient Level 1 Diagnoses Current use of anticoagulant therapy Z79.01 Assessment & Plan Assessment & Plan (1) Current use of anticoagulant therapy: Code(s): Z79.01 - residential (current) use of anticoagulants Category: Medical
== END 2023-09-11 09:41 | disposition home or self-care (01) ==
LOC: HO.ACS 09:18
PROVIDERS: PCP Internal Medicine; Visit Provider Internal Medicine
DX: Z79.01 Long term (current) use of anticoagulants (principal)

== ENCOUNTER → 2023-09-11 09:18 | Outpatient (BNVA) | payer OTHER, SELFPAY | PROVIDERS: PCP Internal Medicine; Visit Provider Internal Medicine | DX: I48.0 Paroxysmal atrial fibrillation (principal); Z79.01 Long term (current) use of anticoagulants; Z51.81 Encounter for therapeutic drug level monitoring | CPT/HCPCS: 85610; 99211 ==

== ENCOUNTER 2023-09-25 09:03 | Outpatient (AMB) | payer OTHER, SELFPAY ==
--- NOTE | 2023-09-25 09:20 | MHC.OFFVISCO ---
Intake Intake Visit Reasons: Anticoagulation Allergies No Known Allergies [No Known Allergies*] Allergy (Unknown, Verified 09/25/23 09:07) U Medication List - Last Reconciled 09/25/23 by Genet Hough RN allopurinol TAKE 2 TABLETS IN THE MORNING AND 1 TABLET IN THE EVENING atorvastatin 80 mg PO BEDTIME blood sugar diagnostic ([employer] Ultra Test strips) 1 strip miscellaneous DAILY blood-glucose meter ([employer] Ultra2 Meter kit) As directed daily cholecalciferol (vitamin D3) (Vitamin D3) 50 mcg PO DAILY 90 days cyanocobalamin (vitamin B-12) 1,000 mcg PO DAILY 90 days dronedarone (Multaq) 400 mg PO BID fluoxetine 20 mg PO DAILY lancets ([employer] UltraSoft Lancets) As directed levothyroxine 100 mcg PO DAILY 90 days lidocaine 5% (Lidoderm) 1 patch topical DAILY losartan 50 mg PO DAILY metformin ER 500 mg PO BID 90 days metoprolol succinate ER 25 mg PO DAILY 90 days omeprazole 20 mg PO DAILY 90 days oxycodone-acetaminophen 5-325 mg 1 tab PO Q6H PRN 28 days simethicone 180 mg PO BID 30 days tamsulosin 0.4 mg PO BEDTIME 90 days tizanidine 4 mg PO Q8H PRN warfarin 3.75 mg See Protocol PO DAILY Nursing Note INR: 2.2 in therapeutic range Medications and supplements reviewed No changes in health, diet, medications, or supplements, Denies any signs and symptoms of bleeding or bruising or clotting. Bleeding, bruising, clotting discussed Nutritional guidance given EAT A BALANCE Dose: 3.75MG DAILY F/U INR: 10/13/23 Patient verbalizes understanding of instructions given Anti-Coag Initial Assessment Social Hx Patient Tobacco Use Status: Former Tobacco user alcohol intake: former Coding Level of Care Code Est Patient Level 1 Diagnoses Current use of anticoagulant therapy Z79.01 Results AMB INR Fingerstick AMB INR Fingerstick 2.2 Last Edit by Genet Hough RN on 09/25/23 09:17 POOR INTERFACE WITH EXPANSE AND METER MAJOSE M YENIE CONTINUE TO DELAY PT CARE Assessment & Plan Assessment & Plan (1) Current use of anticoagulant therapy: Code(s): Z79.01 - extermination supervisor (current) use of anticoagulants Category: Medical
[2023-09-25 09:36] LABS: Prothrombin Time Whole Bld POC 26.7 sec (11.1-13.5); ~PT, ~INR - Anti Coag Clinic 2.2 (0.9-1.1)
== END 2023-09-25 09:22 | disposition home or self-care (01) ==
LOC: HO.ACS 09:03
PROVIDERS: PCP Internal Medicine; Visit Provider Internal Medicine
DX: Z79.01 Long term (current) use of anticoagulants (principal)

== ENCOUNTER → 2023-09-25 09:03 | Outpatient (BNVA) | payer OTHER, SELFPAY | PROVIDERS: PCP Internal Medicine; Visit Provider Internal Medicine | DX: I48.0 Paroxysmal atrial fibrillation (principal); Z79.01 Long term (current) use of anticoagulants; Z51.81 Encounter for therapeutic drug level monitoring | CPT/HCPCS: 85610; 99211 ==

== ENCOUNTER 2023-09-28 08:54 | Outpatient (AMB) | payer OTHER, MEDICAID, SELFPAY ==
[2023-09-28 09:27] VITALS: BP 120/72; PULSE 66; BMI 32.7
--- NOTE | 2023-09-28 09:27 | A.OFFVIS_ITS ---
Intake Vital Signs 09/28/23 09:27 Height 5 ft 6 in Weight 202 lb 13.204 oz BMI 32.7 BP 120/72 Blood Pressure Location Lt brachial Position Sitting Pulse 66 Intake Visit Reasons: 4 month f/u Clinical Nutrition Manager Required: No Allergies No Known Allergies [No Known Allergies*] Allergy (Unknown, Verified 09/28/23 09:33) U Medication List - Last Reconciled 09/28/23 by Rakan Rosenbaum MD allopurinol TAKE 2 TABLETS IN THE MORNING AND 1 TABLET IN THE EVENING atorvastatin 80 mg PO BEDTIME blood sugar diagnostic ([employer] Ultra Test strips) 1 strip miscellaneous DAILY blood-glucose meter ([employer] Ultra2 Meter kit) As directed daily cholecalciferol (vitamin D3) (Vitamin D3) 50 mcg PO DAILY 90 days cyanocobalamin (vitamin B-12) 1,000 mcg PO DAILY 90 days dronedarone (Multaq) 400 mg PO BID fluoxetine 20 mg PO DAILY lancets ([employer] UltraSoft Lancets) As directed levothyroxine 100 mcg PO DAILY 90 days lidocaine 5% (Lidoderm) 1 patch topical DAILY losartan 50 mg PO DAILY metformin ER 500 mg PO BID 90 days metoprolol succinate ER 25 mg PO DAILY 90 days omeprazole 20 mg PO DAILY 90 days oxycodone-acetaminophen 5-325 mg 1 tab PO Q6H PRN 28 days simethicone 180 mg PO BID 30 days tamsulosin 0.4 mg PO BEDTIME 90 days tizanidine 4 mg PO Q8H PRN warfarin 3.75 mg See Protocol PO DAILY HPI HPI Comments History of Present Illness Details Pleasant 73-year-old gentleman who is referred to us for paroxysmal atrial fibrillation. He has known history of atrial fibrillation in the past. He has history of gout, GERD, hypothyroidism, hyperlipidemia, hypertension and diabetes. Referred him for echocardiography and Holter monitor. ECHO showed normal biventricular function. Holter showed that he had 29 minutes episodes of atrial fibrillation. His shared that he stops breathing in his sleep. He has snoring and apneic episodes. This goes along with his nighttime palpitations as sleep apnea can trigger atrial fibrillation at nighttime. He was referred for sleep study where snoring was noticed but he did not have any apneic spells. He returned for follow-up accompanied by his . He has been noticing some palpitations during the daytime. After discussion we started him on multaq. 05/18/23: He returns for follow-up. He h as been using Multaq 400 mg twice a day. He is saying he has no palpitations. He is feeling great. No other concerns currently. Taking Coumadin for anticoagulation. 09/28/2023: He returns for follow-up. Anne ortiz has been doing well. He was referred for electrophysiology assessment and will be seeing EP. He is saying he has been doing well with Multaq and has no palpitations. He was previously getting nighttime palpitations due to atrial fibrillation. Blood pressure control is good. [facility] Medical History Benign prostatic hyperplasia with nocturia Lumbar degenerative disc disease Obesity (BMI 30-39.9) Vitamin D deficiency Gout Gastric ulcer Superficial gastritis GERD without esophagitis Acquired hypothyroidism Pure hypercholesterolemia Benign essential hypertension Diabetes mellitus Paroxysmal atrial fibrillation Surgical History Hx of colonoscopy History of esophagogastroduodenoscopy (EGD) History of appendectomy Family History Father Medical history unknown Mother Medical history unknown Social History Housing: House Alcohol intake: former Patient Tobacco Use Status: Former Tobacco user e-Cigarette/Vaping Use: Never Used Second Hand Smoke Exposure: Yes service: No Current occupational status: disabled Cognitive needs: No Hearing needs: No Vision needs: No Review of Systems ENT Reports dizziness Card Denies chest pain, Denies chest pain at rest, Denies chest pain with activity, Denies rapid heart rate, Denies pedal edema, Denies edema, Denies leg edema, Denies lightheadedness, Denies palpitations, Denies dyspnea, Denies dyspnea on exertion and Denies orthopnea Resp Denies cough, Denies dyspnea and Denies dyspnea on exertion GI Denies hematochezia and Denies change in stool character Musc Denies abnormal gait, Reports limited range of motion, Reports muscle cramps, Denies muscle weakness, Denies numbness, Denies radiating pain into limb, Denies stiffness and Denies tingling Neuro Denies abnormal gait, Reports dizziness, Denies numbness and Denies tingling Endo Denies palpitations Physical Exam Vital Signs: Last Vital Signs Pulse 66 09/28/23 09:27 BP 120/72 09/28/23 09:27 BMI result Body Mass Index 32.7 GENERAL APPEARANCE: in no acute distress, pleasant. NECK: no carotid bruit, no jugular venous distention. SKIN: no suspicious lesions, warm and dry. HEART: no murmurs, regular rate and rhythm. LUNGS: clear to auscultation bilaterally. ABDOMEN: soft, nontender. EXTREMITIES: no edema. PERIPHERAL PULSES: equal. NEUROLOGIC: No gross deficits, AAO X 3 Office Procedures EKG Details: Sinus rhythm 66 beats per minute, premature atrial complexes, first-degree AV block with DE interval 224 milliseconds, normal axis, QTC 421 milliseconds. [id number], Complete Assessment & Plan Assessment & Plan (1) Benign essential hypertension: Code(s): I10 - Essential (primary) hypertension (2) Paroxysmal atrial fibrillation: Code(s): I48.0 - Paroxysmal atrial fibrillation Plan Pleasant 73 year gentleman is here for follow-up. He has background history of paroxysmal atrial fibrillation. He has been taking Multaq and is doing well. EKG in the office is again showing sinus rhythm. His denying palpitations. He is on Coumadin for anticoagulation. Blood pressure control is good. He is seeing electrophysiology for discussion about ablation. He is saying he is doing well with Multaq currently and may not consider ablation but still wants to talk to EP. Thank you for allowing me to participate in the care of your patient. Please feel free to contact me if you have any questions. Coding Level of Care Code Est Pt Level 3 (03149) Diagnoses Benign essential hypertension I10 Paroxysmal atrial fibrillation I48.0 CPT Codes EKG - CPT: 89918-[id number], Complete ([id number])
== END 2023-09-28 09:45 | disposition home or self-care (01) ==
PROVIDERS: PCP Internal Medicine; Visit Provider Internal Medicine Cardiovascular Disease
DX: I10 Essential (primary) hypertension (principal); I48.0 Paroxysmal atrial fibrillation
CPT/HCPCS: 93010; 99213

== ENCOUNTER → 2023-09-28 08:54 | Outpatient (BNVA) | payer OTHER, MEDICAID, SELFPAY | PROVIDERS: PCP Internal Medicine; Visit Provider Internal Medicine Cardiovascular Disease | DX: I48.0 Paroxysmal atrial fibrillation (principal); I10 Essential (primary) hypertension | CPT/HCPCS: 93005; 99212 ==

== ENCOUNTER 2023-09-30 10:22 | Outpatient (AMB) | payer OTHER, SELFPAY ==
[2023-09-30 10:24] VITALS: BP 138/80; PULSE 68; O2SAT 98; BMI 32.7
--- NOTE | 2023-09-30 10:24 | MHC.PC.OV ---
Vital Signs 09/30/23 10:24 Height 5 ft 6 in Weight 202 lb 6 oz BMI 32.7 BP 138/80 Blood Pressure Location Lt brachial Position Sitting Pulse 68 Pulse Source Pulse Oximeter Pulse Oximetry (%) 98 Oxygen Delivery Method Room Air Intake Visit Reasons: [facility] [place] 09/06 Fell at home Hog Worker Required: No Accompanied by: Self / Same As Patient Allergies No Known Allergies [No Known Allergies*] Allergy (Unknown, Verified 09/30/23 11:37) U Medication List - Last Reconciled 09/30/23 by Matheus Salgado MD allopurinol TAKE 2 TABLETS IN THE MORNING AND 1 TABLET IN THE EVENING atorvastatin 80 mg PO BEDTIME blood sugar diagnostic ([employer] Ultra Test strips) 1 strip miscellaneous DAILY blood-glucose meter ([employer] Ultra2 Meter kit) As directed daily cholecalciferol (vitamin D3) (Vitamin D3) 50 mcg PO DAILY 90 days cyanocobalamin (vitamin B-12) 1,000 mcg PO DAILY 90 days dronedarone (Multaq) 400 mg PO BID fluoxetine 20 mg PO DAILY lancets ([employer] UltraSoft Lancets) As directed levothyroxine 100 mcg PO DAILY 90 days lidocaine 5% (Lidoderm) 1 patch topical DAILY losartan 50 mg PO DAILY metformin ER 500 mg PO BID 90 days metoprolol succinate ER 25 mg PO DAILY 90 days omeprazole 20 mg PO DAILY 90 days oxycodone-acetaminophen 5-325 mg 1 tab PO Q6H PRN 28 days simethicone 180 mg PO BID 30 days tamsulosin 0.4 mg PO BEDTIME 90 days tizanidine 4 mg PO Q8H PRN warfarin 3.75 mg See Protocol PO DAILY Tobacco use date assessed: 09/30/23 Fall risk assessment: 1 Fall in past year Last assessed Fall Risk: 09/30/23 Dental Screening Dental Screen Date: 09/30/23 Did you have a dental visit in the last 12 months?: Yes Did you have a dental problem in the last 6 months where you did not have access to dental care?: No Was dental information given to patient?: Patient has dentist HPI [facility] [place] 09/06 Fell at home HPI Details Patient comes in today for his HDF follow up visit He went to the ER about 6 weeks ago following a fall at home that occurred 2 days prior to his arrival at the ER Recalls that he slipped on wet ground that day while doing laundry and fell onto his washing machine, hitting the left side of his chest wall/ribs on the edge of the machine States that the pain over his left chest wall/rib area first started out as a dull ache but gradually got worse over the next couple of days, prompting him to go to the ER to get this checked out He denies any head trauma or LOC or any other injuries during his fall He denies any headaches or dizziness States that the pain over his left chest wall feels worse with deep inspiration or exertion but denies any SOB Had rib x-rays and chest CT done at the ER for further evaluation, both of which revealed NO rib fractures States that his left rib/chest wall pain has gotten a lot better over the past 3 weeks and the pain is now mostly tolerable and only bothers him when he starts doing some exertional physical activity No other acute issues are noted at this time He would like to get his flu shot today and needs his Atorvastatin Rx refilled PFSH Medical History Benign prostatic hyperplasia with nocturia Lumbar degenerative disc disease Obesity (BMI 30-39.9) Vitamin D deficiency Gout Gastric ulcer Superficial gastritis GERD without esophagitis Acquired hypothyroidism Pure hypercholesterolemia Benign essential hypertension Diabetes mellitus Paroxysmal atrial fibrillation Surgical History Hx of colonoscopy History of esophagogastroduodenoscopy (EGD) History of appendectomy Family History Father Medical history unknown Mother Medical history unknown Social History Housing: House Alcohol intake: former Patient Tobacco Use Status: Former Tobacco user e-Cigarette/Vaping Use: Never Used Second Hand Smoke Exposure: Yes service: No Current occupational status: disabled Cognitive needs: No Hearing needs: No Vision needs: No Questionnaire PHQ-9 Over the last 2 weeks, how often have you been bothered by any of the following problems? 1. Little interest or pleasure in doing things: not at all 2. Feeling down, depressed, or hopeless: not at all 3. Trouble falling or staying asleep, or sleeping too much: not at all 4. Feeling tired or having little energy: not at all 5. Poor appetite or overeating: not at all 6. Feeling bad about yourself - or that you are a failure or have let yourself or your family down: not at all 7. Trouble concentrating on things, such as reading the newspaper or watching television: not at all 8. Moving or speaking so slowly that other people could have noticed. Or the opposite - being so fidgety or restless that you have been moving around a lot more than usual: not at all 9. Thoughts that you would be better off or of hurting yourself in some way: not at all Total score: 0 Depression Screening Interpretation: Negative Depression Screening Done: Yes [id number] - PHQ-9 Billing: Yes Source: Developed by Drs. Rikki Murry, Sangita Mays, Matthew Devi and colleagues, with an educational yonas from [employer]. Thrive Questionnaire Date Thrive assessed: 09/30/23 I am a: Patient What is your living situation today?: I have a steady place to live Within the past 12 months, did the food you bought not last and you didn't have the money to get more?: Never true Within the past 12 months, did you worry whether your food would run out before you got money to buy more?: Never true Do you have trouble paying for medicines?: No Do you have trouble getting transportation to medical appointments?: No Do you have trouble paying your heating and electricity bill?: No Do you have trouble taking care of your child, family member or friend?: No Do you have trouble with day-to-day activities such as bathing, preparing meals, shopping, managing finances, etc.?: No Are you currently unemployed and looking for a job?: No Are you interested in more education?: No Please select the resources that you would like help with: None Currently or been in a relationship where the following occur: no concerns reported AUDIT C Alcohol Use Questionnaire (AUDIT-C) 1. How often do you have a drink containing alcohol?: Never 3. How often do you have six or more drinks on one occasion?: Never Total Score: 0 Score Reviewed/Action Taken: Yes ZAY-7 AMB Questionnaire ZAY-7 Date ZAY - 7 assessed: 09/30/23 Feeling nervous, anxious, or on edge: 0 = Not at all Not being able to stop or control worryin = Not at all Worrying too much about different things: 0 = Not at all Trouble relaxin = Not at all Being so restless that it is hard to sit still: 0 = Not at all Becoming easily annoyed or irritable: 0 = Not at all Feeling afraid as if something awful might happen: 0 = Not at all Total ZAY-7 score (0-4 normal; 5-9 mild; 10-14 moderate; 15-21 severe): 0 Source: Developed by Drs. Rikki Murry, Sangita Mays, Matthew Devi and colleagues, with an educational yonas from [employer]. Review of Systems Const Denies fatigue, Denies fever(s) and Denies headache(s) ENT Denies dysphagia, Denies dizziness, Denies headache(s), Denies neck pain and Denies sore throat Card Reports chest pain (mild pain over the left lower ribs anterolaterally, mostly with exertion), Denies palpitations and Denies dyspnea Resp Denies cough and Denies dyspnea GI Denies abdominal pain, Denies constipation, Denies dysphagia, Denies heartburn, Denies diarrhea, Denies nausea and Denies vomiting Denies dysuria, Denies nocturia and Denies urinary frequency Musc Denies neck pain Skin/Breast Denies rash Neuro Denies dizziness and Denies headache(s) Endo Denies fatigue and Denies palpitations Physical exam (Primary Care) Vital Signs: Last Vital Signs Pulse 68 09/30/23 10:24 BP 138/80 09/30/23 10:24 Pulse Ox 98 09/30/23 10:24 Oxygen Delivery Method Room Air 09/30/23 10:24 BMI result Body Mass Index 32.7 Tobacco/Smoking Status: Tobacco use Status Tobacco use date assessed 09/30/23 09/30/23 10:27 Patient Tobacco Use Status Former Tobacco user 09/30/23 10:27 e-Cigarette/Vaping Use Never Used 09/30/23 10:27 PHQ-9: PHQ-9 Score PHQ-9: Total score 0 09/30/23 11:20 Depression Screening Interpretation: Negative Thrive Assessment: Date of Thrive Assessment Date Thrive assessed 09/30/23 09/30/23 10:27 Currently or been in a relationship where the following occur: no concerns reported Const General: no acute distress and alert Neck Neck: Yes no lymphadenopathy and Yes supple Chest Other: (+) mild tenderness on palpation over the left lower ribs anterolaterally Resp Auscultation: clear to auscultation bilaterally, no rales and no wheezes Cardio Rate: regular rate Rhythm: regular rhythm Heart sounds: no murmurs GI Palpation (GI): Soft to palpation and nontender Auscultation: normal bowel sounds Extrem General: Yes no clubbing, cyanosis or edema Office Procedures Flu Questionnaire Does the patient have a severe egg allergy?: No Does the patient have severe life threatening allergies?: No Does the patient have a fever or illness today?: No Has the patient ever had Guillain-Rose Syndrome?: No Has the patient ever had any past reaction to a flu shot?: No Immunizations flu vacc [id number] 6mos up(PF) 60 mcg(15 mcgx4)/0.5 mL IM syringe Performing Provider: Matheus Salgado MD Performing Location: [facility] Administered by: Eulalio [place] on 09/30/23 11:36 Dose Route Admin Location Dispensed Lot Number Expiration Date NDC Ship Scaler 0.5 mL IM Right Deltoid 0.5 mL [id number] 05/15/24 55700-558-08 [employer] VIS Given Date VIS Provided VIS Publication Date 09/30/23 Single Vaccine 21 Eligibility Eligibility Date Funding Source Not [facility] Eligible 09/30/23 Private Assessment and Plan Assessment & Plan (1) Rib pain on left side: Code(s): R07.81 - Pleurodynia Plan: Advised that his injuries are most likely just bruising on his ribs and chest wall and no further intervention is required, especially since his symptoms have been gradually improving lately Rib x-rays and chest CT done at the ER 3 weeks ago revealed no rib fractures CT revealed (+) mild atelectasis corresponding to the finding on recent rib series. No suspicious pulmonary nodules and no rib fracture, pleural effusion, or pneumothorax noted Is advised that based on his CT findings, he does not need any follow up chest CT Plan Flu vaccine given today, per request Follow up as scheduled in November 2023 Orders: Orders Influenza [id number] Immunization Today Z23 - Encounter for immunization Medications: Refilled atorvastatin 80 mg PO BEDTIME 60 tabs 3RF I48.0 - Paroxysmal atrial fibrillation Coding Level of Care Code Est Pt Level 3 (82546) Diagnoses Rib pain on left side R07.81
== END 2023-09-30 12:42 | disposition home or self-care (01) ==
PROVIDERS: PCP Internal Medicine; Visit Provider Internal Medicine
DX: R07.81 Pleurodynia (principal); Z23 Encounter for immunization
CPT/HCPCS: 90471; 90686; 99213

== ENCOUNTER 2023-10-10 09:20 | Emergency (ER) | payer OTHER, SELFPAY ==
--- NOTE | ~2023-10-10 | XR_ITS ---
EXAMINATION: XR CHEST CLINICAL INFORMATION: Cough and SOB. COMPARISON: None available. TECHNIQUE: 2 views of the chest were obtained. FINDINGS: The lungs are well expanded with platelike atelectasis left lung base. Rest of the lungs are clear. The heart size and pulmonary vascularity is normal. No gross bony abnormality seen. XR/XR chest 2V IMPRESSION: Unremarkable chest examination.
[2023-10-10 09:30] VITALS: BP 135/75; PULSE 89; RESP 16; TEMP 37; O2SAT 94; BMI 34.4
--- NOTE | 2023-10-10 09:37 | ED_ITS ---
HPI - URI/Sore Throat General Chief Complaint: Upper Respiratory Symptoms Stated Complaint: cough fever headache Time Seen by Provider: 10/10/23 09:35 Source: patient, RN notes reviewed and old records reviewed Mode of arrival: ambulatory History of Present Illness HPI Narrative: 73-year-old male with a past medical history of gout, gastric ulcer, GERD, HLD, diabetes, proximal AFib on Coumadin, presenting to the ED complaining of headac he, chills, dry cough, chest tightness with cough x yesterday. Admits with similar symptoms. Denies fever, chills, ear pain, sore throat, recent travel, pedal edema, SOB MD elicited complaint: cough and nasal congestion Related Data Home Medications Medication Instructions Recorded Confirmed tizanidine 4 mg tablet 4 mg PO Q8H PRN Muscle Spasm 09/28/20 09/30/23 fluoxetine 20 mg capsule 20 mg PO DAILY 10/28/22 09/30/23 Previous Rx's Medication Instructions Recorded blood-glucose meter (OneTouch #1 ea 10/31/20 Ultra2 Meter kit) lancets (OneTouch UltraSoft #100 ea 10/31/20 Lancets) blood sugar diagnostic (OneTouch 1 strip miscellaneous DAILY #50 03/26/22 Ultra Test strips) strips simethicone 180 mg capsule 180 mg PO BID 30 days #60 caps 06/05/22 cyanocobalamin (vitamin B-12) 1,000 mcg PO DAILY 90 days #90 tabs 01/12/23 1,000 mcg tablet allopurinol 100 mg tablet 100 mg PO .COMPLEX #270 tabs 04/08/23 tamsulosin 0.4 mg capsule 0.4 mg PO BEDTIME 90 days #90 caps 04/14/23 cholecalciferol (vitamin D3) 50 50 mcg PO DAILY 90 days #90 caps 04/21/23 mcg (2,000 unit) capsule (Vitamin D3) omeprazole 20 mg capsule,delayed 20 mg PO DAILY 90 days #90 caps 04/21/23 release metoprolol succinate 25 mg 25 mg PO DAILY 90 days #90 tabs 04/22/23 tablet,extended release 24 hr dronedarone 400 mg tablet (Multaq) 400 mg PO BID #60 tabs 05/18/23 metformin 500 mg tablet,extended 500 mg PO BID 90 days #180 tabs 05/26/23 release 24 hr levothyroxine 100 mcg tablet 100 mcg PO DAILY 90 days #90 tabs 08/07/23 losartan 50 mg tablet 50 mg PO DAILY #90 tabs 08/31/23 lidocaine 5 % topical patch 1 patch topical DAILY #15 ea 09/06/23 (Lidoderm) warfarin 7.5 mg tablet 3.75 mg PO DAILY #45 tabs 09/07/23 atorvastatin 80 mg tablet 80 mg PO BEDTIME #60 tabs 09/30/23 oxycodone-acetaminophen 5 mg-325 1 tab PO Q6H PRN pain 28 days #112 10/06/23 mg tablet tabs benzonatate 100 mg capsule 100 mg PO TID PRN cough #14 caps 10/10/23 fluticasone propionate 50 2 spray intranasal DAILY #16 grams 10/10/23 mcg/actuation nasal spray,suspension (Flonase Allergy Relief) Allergies Allergy/AdvReac Type Severity Reaction Status Date / Time No Known Allergies Allergy Unknown U Verified 10/10/23 09:33 [No Known Allergies*] Review of Systems Review of Systems: Constitutional: No Fever, + Chills ENT/Mouth: No Ear Pain, No Nasal Congestion, No Sinus Pain, No Hoarseness, No sore throat, + Rhinorrhea, No Swallowing Difficulty Cardiovascular: No Chest Pain, No SOB Respiratory: + Cough, No Sputum, No Wheezing Gastrointestinal: No Nausea, No Vomiting, No Diarrhea, No Constipation, No Abdominal pain Musculoskeletal: No joint pain, No Myalgias, No Joint Swelling Skin: No Skin Lesions, No rash Neuro: No Weakness, +MOORE Yes all other systems are reviewed and are negative Constitutional: Constitutional: Reports as per [facility] Past Medical History Attestation statement: The following information was validated with the patient. Source: old records reviewed Medical History Benign prostatic hyperplasia with nocturia Lumbar degenerative disc disease Obesity (BMI 30-39.9) Vitamin D deficiency Gout Gastric ulcer Superficial gastritis GERD without esophagitis Acquired hypothyroidism Pure hypercholesterolemia Benign essential hypertension Diabetes mellitus Paroxysmal atrial fibrillation Surgical History Hx of colonoscopy History of esophagogastroduodenoscopy (EGD) History of appendectomy Family History Family History Father Medical history unknown Mother Medical history unknown Social History Housing: House Alcohol intake: former Patient Tobacco Use Status: Former Tobacco user e-Cigarette/Vaping Use: Never Used Second Hand Smoke Exposure: Yes Advance Directives: Yes Advance Directives Information Provided: No Advance Directives on File: No service: No Current occupational status: disabled Cognitive needs: No Hearing needs: No Vision needs: No Physical Exam Vital Signs: Vital Signs: Last Vital Signs Temp 98.6 F 10/10/23 09:30 Pulse 89 10/10/23 09:30 Resp 16 10/10/23 09:30 BP 135/75 10/10/23 09:30 Pulse Ox 94 10/10/23 09:30 O2 Del Method Room Air 10/10/23 09:30 BMI result Body Mass Index 34.4 Const: General: cooperative, healthy appearing and no acute distress Orientation/consciousness: patient oriented x3 Limitations: no limitations HEENT: Head: Yes normal to inspection and Yes atraumatic Ears: hearing grossly normal bilaterally, external ears normal and TM's normal bilaterally General nose exam: Normal external nose present Face and sinus: Yes normal facial exam Mouth: Normal oral and palatal mucosa present Throat: Yes posterior oropharynx normal, Yes tonsils normal, Yes uvula midline, No uvula laterally displaced and No uvular edema Eyes: General: appearance normal, both eyes and all related structures EOM: EOMs intact bilaterally Neck: Neck: Yes normal visual inspection and Yes no meningeal signs Resp: Effort & Inspection: normal respiratory effort and no respiratory distress Auscultation: clear to auscultation bilaterally, no rales, no rhonchi and no wheezes Cardio: Rate: regular rate Heart sounds: S1 normal heart sound present and S2 normal heart sound present GI: Inspection: Yes normal to inspection Palpation (GI): Soft to palpation, nontender, no guarding and not rigid Skin: Rashes: no rashes Wounds: no wounds Neuro: General: patient oriented x3, tone normal and no meningeal signs Cranial nerves: Yes CN's II-XII intact bilaterally Gait exam (Neuro): Normal gait present Extrem: General: Yes normal to inspection Course Course Course Narrative: -1107--chest x-ray unremarkable. COVID/flu/RSV negative Results discussed with patient including worrisome signs and symptoms and strict return precautions, and when to return to the emergency department. They verbalized understanding and feel safe for discharge at this time. Medical Decision Making Medical Decision Making [facility] Narrative: 73-year-old male with a past medical history of gout, gastric ulcer, GERD, HLD, diabetes, proximal AFib on Coumadin, presenting to the ED complaining of headache, chills, dry cough, chest tightness with cough x yesterday. On exam vital signs stable, NAD, nontoxic appearing, lungs CTA, exam otherwise unremarkable. Concern for viral illness. Lower suspicion for pneumonia, ACS/PE or CHF Plan: Viral testing, CXR Please refer to course for remaining clinical decision making, interpretation of labs/imaging results, and discussions with consultants and/or family members. Differential Diagnosis Differential Diagnoses: The differential diagnosis associated with the presentation includes As above Admission/Observation Consideration of admission/observation: Escalation of care including admis miguel/observation considered Lab Data [facility] Lab Attestation statement: I reviewed the patient's lab results. Labs: Lab Results 10/10/23 Range/Units 09:44 Influenza Type A (PCR) NEGATIVE (Negative) Influenza Type B (PCR) NEGATIVE (Negative) RSV RNA Qual (PCR) NEGATIVE (Negative) SARS-CoV-2 RNA (RT-PCR) NEGATIVE (Negative) Independent Interpretation I performed an independent interpretation of an: Plain X-Ray Radiology Impression Discussion of test interpretation with radiology: I have reviewed the radiologist's reading. Independent Historian Clinical information obtained from an independent historian. History obtained from or confirmed by: Other (Son) External Record Review External record reviewed: Inpatient record, Office record, Outpatient record, Prior outpatient labs, Prior outpatient radiology, Primary care record and Outside ED record Tests considered The following testing was considered but not selected: As above Chronic Conditions Patient?s care impacted by: Other (AFib on Coumadin) Discharge Plan Discharge Clinical Impression: Acute viral syndrome Patient Disposition: Home, Self-Care Instructions: Viral Syndrome (ED) Additional Instructions: Your x-ray is unremarkable. He tested negative for COVID, flu, RSV Please stay hydrated Continue home prescribed medications Follow-up with your doctor Vianney Cohen for cough, take as needed Flonase 2 nasal decongestion If symptoms persist or worsen return to the ED Prescriptions: New benzonatate 100 mg capsule 100 mg PO TID PRN (Reason: cough) Qty: 14 0RF fluticasone propionate [Flonase Allergy Relief] 50 mcg/actuation spray,suspension 2 spray intranasal DAILY Qty: 16 0RF Rx Instructions: administer into each nostril No Action (DME) blood-glucose meter [[employer] Ultra2 Meter] Kit See Rx Instructions .ROUTE .MEDSUPPLY Qty: 1 0RF Rx Instructions: As directed daily (DME) lancets [OneTouch UltraSoft Lancets] Misc See Rx Instructions .ROUTE .MEDSUPPLY Qty: 100 3RF Rx Instructions: As directed [employer] Ultra Test Strip 1 strip miscellaneous DAILY Qty: 50 4RF cyanocobalamin (vitamin B-12) 1,000 mcg tablet 1,000 mcg PO DAILY 90 Days Qty: 90 3RF allopurinol 100 mg tablet 100 mg PO .COMPLEX Qty: 270 1RF Rx Instructions: TAKE 2 TABLETS IN THE MORNING AND 1 TABLET IN THE EVENING tamsulosin 0.4 mg capsule 0.4 mg PO BEDTIME 90 Days Qty: 90 1RF metoprolol succinate 25 mg tablet extended release 24 hr 25 mg PO DAILY 90 Days Qty: 90 1RF metformin 500 mg tablet extended release 24 hr 500 mg PO BID 90 Days Qty: 180 1RF levothyroxine 100 mcg tablet 100 mcg PO DAILY 90 Days Qty: 90 1RF losartan 50 mg tablet 50 mg PO DAILY Qty: 90 1RF warfarin 7.5 mg tablet 3.75 mg PO DAILY Qty: 45 7RF Protocol: Dose Management Condition: Thursday (Week One) Dose/Route: 3.75 mg Instruction: 0.5 x 7.5 mg tablets Condition: Thursday Dose/Route: 3.75 mg Instruction: 0.5 x 7.5 mg tablets Condition: Thursday Dose/Route: 3.75 mg Instruction: 0.5 x 7.5 mg tablets Condition: Thursday Dose/Route: 3.75 mg Instruction: 0.5 x 7.5 mg tablets Condition: Dose/Route: 3.75 mg Instruction: 0.5 x 7.5 mg tablets Condition: Thursday Dose/Route: 3.75 mg Instruction: 0.5 x 7.5 mg tablets Condition: Thursday Dose/Route: 3.75 mg Instruction: 0.5 x 7.5 mg tablets Condition: Thursday (Week Two) Dose/Route: 3.75 mg Instruction: 0.5 x 7.5 mg tablets Condition: Thursday Dose/Route: 3.75 mg Instruction: 0.5 x 7.5 mg tablets Condition: Thursday Dose/Route: 3.75 mg Instruction: 0.5 x 7.5 mg tablets Condition: Thursday Dose/Route: 3.75 mg Instruction: 0.5 x 7.5 mg tablets Condition: Dose/Route: 3.75 mg Instruction: 0.5 x 7.5 mg tablets Condition: Thursday Dose/Route: 3.75 mg Instruction: 0.5 x 7.5 mg tablets Condition: Thursday Dose/Route: 3.75 mg Instruction: 0.5 x 7.5 mg tablets Protocol Text: Adjustment Start Date: Thursday09/25/23 INR Value: 2.2 INR Date: 09/25/23 Recheck Date: 10/13/23 oxycodone-acetaminophen 5-325 mg tablet 1 tab PO Q6H PRN (Reason: pain) 28 Days Qty: 112 0RF Rx Instructions: partial refill upon request lidocaine [Lidoderm] 5 % adhesive patch,medicated 1 patch topical DAILY Qty: 15 0RF Rx Instructions: leave on most painful area for up to 12 hrs tizanidine 4 mg tablet 4 mg PO Q8H PRN (Reason: Muscle Spasm) cholecalciferol (vitamin D3) [Vitamin D3] 50 mcg (2,000 unit) capsule 50 mcg PO DAILY 90 Days Qty: 90 3RF omeprazole 20 mg capsule,delayed release(DR/EC) 20 mg PO DAILY 90 Days Qty: 90 3RF atorvastatin 80 mg tablet 80 mg PO BEDTIME Qty: 60 3RF fluoxetine 20 mg capsule 20 mg PO DAILY simethicone 180 mg capsule 180 mg PO BID 30 Days Qty: 60 3RF Rx Instructions: after meals Multaq 400 mg tablet 400 mg PO BID Qty: 60 4RF Rx Instructions: must administer with a meal/food Referrals: Matheus Salgado MD [Primary Care Provider] - Interventions: ED Discharge Assessment Last Done: 10/10/23 11:15 Discharge Date/Time: 10/10/23 11:16
--- NOTE | 2023-10-10 09:58 | PC.NURSE ---
awaiting results from swab, taken to xray
[2023-10-10 10:59] LABS: Influenza A PCR NEGATIVE (Negative); Influenza B PCR NEGATIVE (Negative); Resp Syncy Virus RNA Qual PCR NEGATIVE (Negative); SARS COV2 PCR INHOUSE NEGATIVE (Negative)
== END 2023-10-10 11:16 | disposition home or self-care (01) ==
PROVIDERS: Emergency Provider Emergency Medicine; PCP Internal Medicine
DX: B34.9 Viral infection, unspecified (principal); R05.9 Cough, unspecified; R51.9 Headache, unspecified; Z20.822 Contact with and (suspected) exposure to COVID-19; Z20.828 Contact with and (suspected) exposure to other viral communicable diseases; E11.9 Type 2 diabetes mellitus without complications; I10 Essential (primary) hypertension; E78.00 Pure hypercholesterolemia, unspecified; I48.0 Paroxysmal atrial fibrillation; Z79.01 Long term (current) use of anticoagulants; Z79.84 Long term (current) use of oral hypoglycemic drugs; Z79.899 Other long term (current) drug therapy; Z87.891 Personal history of nicotine dependence
CPT/HCPCS: 0241U; 71046; 99282; 99283

== ENCOUNTER 2023-10-26 09:27 | Outpatient (AMB) | payer OTHER, SELFPAY ==
[2023-10-26 10:11] LABS: Prothrombin Time Whole Bld POC 30.5 sec (11.1-13.5); ~PT, ~INR - Anti Coag Clinic 2.5 (0.9-1.1)
--- NOTE | 2023-10-26 10:15 | MHC.OFFVISCO ---
Intake Intake Visit Reasons: Anticoagulation Allergies No Known Allergies [No Known Allergies*] Allergy (Unknown, Verified 10/26/23 10:06) U Medication List - Last Reconciled 10/26/23 by Genet Hough RN allopurinol TAKE 2 TABLETS IN THE MORNING AND 1 TABLET IN THE EVENING atorvastatin 80 mg PO BEDTIME benzonatate 100 mg PO TID PRN blood sugar diagnostic ([facility] Ultra Test strips) 1 strip miscellaneous DAILY blood-glucose meter ([facility] Ultra2 Meter kit) As directed daily cholecalciferol (vitamin D3) (Vitamin D3) 50 mcg PO DAILY 90 days cyanocobalamin (vitamin B-12) 1,000 mcg PO DAILY 90 days dronedarone (Multaq) 400 mg PO BID fluoxetine 20 mg PO DAILY fluticasone propionate 50 mcg/actuation (Flonase Allergy Relief) 2 sprays intranasal DAILY lancets ([facility] UltraSoft Lancets) As directed levothyroxine 100 mcg PO DAILY 90 days lidocaine 5% (Lidoderm) 1 patch topical DAILY losartan 50 mg PO DAILY metformin ER 500 mg PO BID 90 days metoprolol succinate ER 25 mg PO DAILY 90 days omeprazole 20 mg PO DAILY 90 days oxycodone-acetaminophen 5-325 mg 1 tab PO Q6H PRN 28 days simethicone 180 mg PO BID 30 days tamsulosin 0.4 mg PO BEDTIME 90 days tizanidine 4 mg PO Q8H PRN warfarin 3.75 mg See Protocol PO DAILY Nursing Note INR: 2.5 in therapeutic range Medications and supplements reviewed recovered from upper resp virus - took tylenol - feeling better now Denies any signs and symptoms of bleeding or bruising or clotting. 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
== END 2023-10-26 10:16 | disposition home or self-care (01) ==
LOC: HO.ACS 09:27
PROVIDERS: PCP Internal Medicine; Visit Provider Internal Medicine
DX: Z79.01 Long term (current) use of anticoagulants (principal)

== ENCOUNTER → 2023-10-26 09:27 | Outpatient (BNVA) | payer OTHER, SELFPAY | PROVIDERS: PCP Internal Medicine; Visit Provider Internal Medicine | DX: I48.0 Paroxysmal atrial fibrillation (principal); Z79.01 Long term (current) use of anticoagulants; Z51.81 Encounter for therapeutic drug level monitoring | CPT/HCPCS: 85610; 99211 ==

== ENCOUNTER 2023-11-17 09:12 | Outpatient (AMB) | payer OTHER, SELFPAY ==
--- NOTE | 2023-11-17 09:33 | MHC.OFFVISCO ---
Intake Intake Visit Reasons: Anticoagulation Allergies No Known Allergies [No Known Allergies*] Allergy (Unknown, Verified 11/17/23 09:30) U Medication List - Last Reconciled 11/17/23 by Yesica Spencer RN allopurinol TAKE 2 TABLETS IN THE MORNING AND 1 TABLET IN THE EVENING atorvastatin 80 mg PO BEDTIME benzonatate 100 mg PO TID PRN blood sugar diagnostic ([facility] Ultra Test strips) 1 strip miscellaneous DAILY blood-glucose meter ([facility] Ultra2 Meter kit) As directed daily cholecalciferol (vitamin D3) (Vitamin D3) 50 mcg PO DAILY 90 days cyanocobalamin (vitamin B-12) 1,000 mcg PO DAILY 90 days dronedarone (Multaq) 400 mg PO BID fluoxetine 20 mg PO DAILY fluticasone propionate 50 mcg/actuation (Flonase Allergy Relief) 2 sprays intranasal DAILY lancets ([facility] UltraSoft Lancets) As directed levothyroxine 100 mcg PO DAILY 90 days lidocaine 5% (Lidoderm) 1 patch topical DAILY losartan 50 mg PO DAILY metformin ER 500 mg PO BID 90 days metoprolol succinate ER 25 mg PO DAILY 90 days omeprazole 20 mg PO DAILY 90 days oxycodone-acetaminophen 5-325 mg 1 tab PO Q6H PRN 28 days simethicone 180 mg PO BID 30 days tamsulosin 0.4 mg PO BEDTIME 90 days tizanidine 4 mg PO Q8H PRN warfarin 3.75 mg See Protocol PO DAILY Nursing Note INR: 2.4- in therapeutic range of 2-3 Medications and supplements reviewed- no changes No changes in health, diet, medications, or supplements, Denies any signs and symptoms of bleeding or bruising or clotting. Bleeding, bruising, clotting discussed Nutritional guidance given Dose: 3.75mg x 7 F/U INR: 3 weeks Patient verbalizes understanding of instructions given Anti-Coag Initial Assessment Social Hx Patient Tobacco Use Status: Former Tobacco user alcohol intake: former Coding Level of Care Code Est Patient Level 1 Diagnoses Current use of anticoagulant therapy Z79.01 Results AMB INR Fingerstick AMB INR Fingerstick 2.4 Last Edit by Yesica Spencer RN on 11/17/23 09:35 Assessment & Plan Assessment & Plan (1) Current use of anticoagulant therapy: Code(s): Z79.01 - [facility] (current) use of anticoagulants Category: Medical
[2023-11-17 09:34] LABS: Prothrombin Time Whole Bld POC 28.5 sec (11.1-13.5); ~PT, ~INR - Anti Coag Clinic 2.4 (0.9-1.1)
== END 2023-11-17 09:38 | disposition home or self-care (01) ==
LOC: HO.ACS 09:12
PROVIDERS: PCP Internal Medicine; Visit Provider Internal Medicine
DX: Z79.01 Long term (current) use of anticoagulants (principal)

== ENCOUNTER → 2023-11-17 09:12 | Outpatient (BNVA) | payer OTHER, SELFPAY | PROVIDERS: PCP Internal Medicine; Visit Provider Internal Medicine | DX: I48.0 Paroxysmal atrial fibrillation (principal); Z51.81 Encounter for therapeutic drug level monitoring; Z79.01 Long term (current) use of anticoagulants | CPT/HCPCS: 85610; 99211 ==

== ENCOUNTER 2023-11-30 08:37 | Outpatient (REF) | payer OTHER, SELFPAY ==
[2023-11-30 08:52] LABS: MANUAL DIFF FLAG NO
[2023-11-30 09:56] LABS: Basophils Percent Auto 0.5 % (0-2); Eosinophils Absolute Auto 0.2 X10*3/uL (0.0-0.4); Eosinophils Percent Auto 1.9 % (0-4); Hematocrit 43.2 % (42.0-52.0); Hemoglobin 13.9 g/dl (14.0-18.0); Imm Gran Abs Auto 0.03 X10*3/uL (0.00-0.03); Imm Gran Pct Auto 0.4 % (0.0-0.4); Lymphocytes Absolute Auto 2.8 X10*3/uL (1.2-4.9); Lymphocytes Percent Auto 32.2 % (20-40); Mean Corpuscular HGB Conc 32.2 g/dl (31.0-36.0); Mean Platelet Volume 10.9 fL (9.4-12.4); Monocytes Absolute Auto 0.4 X10*3/uL (0.1-1.2); Monocytes Percent Auto 5.1 % (2-11); Neutrophils Absolute Auto 5.1 x10*3/uL (2.0-8.3); Neutrophils Percent Auto 59.9 % (45-73); Platelet Count 273 X10*3/uL (160-400); Red Blood Count 5.14 X10*6/uL (4.60-5.80); Red Cell Distribution Width 13.6 % (11.0-16.0); White Blood Count 8.6 X10*3/uL (4.8-10.8)
[2023-11-30 10:01] LABS: Estimated Average Glucose 137 mg/dL; Hemoglobin A1c % 6.4 % (<6.0)
[2023-11-30 10:46] LABS: Alanine Aminotransferase 20 U/L (0-40); Albumin Level 4.1 g/dL (3.5-5.0); Alkaline Phosphatase 52 U/L (39-117); Anion Gap 12 (12-20); Aspartate Amino Transferase 20 U/L (5-37); Bilirubin Total 0.5 mg/dL (0.0-1.0); Blood Urea Nitrogen 12 mg/dL (9-16); Calcium 9.5 mg/dL (8.4-10.2); Carbon Dioxide 29 mmol/L (22-29); Chloride 103 mmol/L (96-108); Cholesterol 182 mg/dL (<200); Estimated Glomerular Filt Rate > 60; Glucose Fasting 113 mg/dL (60-99); HDL Cholesterol 35 mg/dL (>40); LDL Cholesterol Calculated 125 mg/dL (<100); Potassium 4.2 mmol/L (3.3-5.1); Sodium 140 mmol/L (135-145); Total Protein 7.7 g/dL (6.5-8.0); Triglycerides 111 mg/dL (<150); Uric Acid 5.8 mg/dL (3.4-7.0)
[2023-11-30 11:05] LABS: Thyroid Stimulating Hormone 0.84 uIU/mL (0.32-4.0); Vitamin D 25-OH Total 43.2 ng/mL (>30)
[2023-11-30 11:30] LABS: Appearance Urine Clear; Color Urine Yellow; Glucose Urine UA Negative (Negative); Leukocyte Esterase Urine Trace (Negative); Nitrite Urine Negative (Negative); PH 5.5 (5.0-9.0); UMIC TRIGGER UACC YES; Urine Blood Negative (Negative); Urine Ketones Negative (Negative); Urine Protein Negative (Neg-Trace)
[2023-11-30 11:34] LABS: Bacteria Urine None Seen (None Seen); Hyaline Casts Urine 0-2 /LPF (0-2); RBC Urine 0-2 /HPF (0-2); Squamous Epithelial Cell Urine 0-2 /HPF (0-2); WBC Urine 0-5 /HPF (0-5)
[2023-11-30 11:51] LABS: Creatinine Urine 171.74 mg/dL; Microalbum/Creatinine Ratio Ur 5.8 ug/mg cr (<30)
== END 2023-11-30 08:38 | disposition home or self-care (01) ==
LOC: HO.LAB 08:37
PROVIDERS: PCP Internal Medicine; Visit Provider Internal Medicine
DX: I10 Essential (primary) hypertension (principal); E11.9 Type 2 diabetes mellitus without complications; E03.9 Hypothyroidism, unspecified; M10.9 Gout, unspecified; E78.00 Pure hypercholesterolemia, unspecified; E55.9 Vitamin D deficiency, unspecified
CPT/HCPCS: 36415; 80053; 80061; 81001; 82043; 82306; 82570; 83036; 84439; 84443; 84550; 85025

== ENCOUNTER 2023-12-04 09:13 | Outpatient (AMB) | payer OTHER, SELFPAY ==
--- NOTE | 2023-12-04 09:17 | MHC.PC.OV ---
Vital Signs 12/04/23 09:21 Height 5 ft 6 in Weight 201 lb BMI 32.4 BP 126/66 Blood Pressure Location Lt brachial Position Sitting Pulse 102 H Pulse Source Pulse Oximeter Pulse Oximetry (%) 98 Oxygen Delivery Method Room Air Intake Visit Reasons: Follow Up Intake Note: Patient is here to follow up on DM, Lumbar degenerative disc disease, GERD, Hypothyroidism. Workforce Advisor Required: Yes Workforce Advisor Language: Husbandry Technician Name: Lyle (Spouse) Information Interpreted: non-clinical & clinical Instructional Developer: Present Accompanied by: Spouse Allergies No Known Allergies [No Known Allergies*] Allergy (Unknown, Verified 12/04/23 09:51) U Medication List - Last Reconciled 12/04/23 by Matheus Salgado MD allopurinol TAKE 2 TABLETS IN THE MORNING AND 1 TABLET IN THE EVENING atorvastatin 80 mg PO BEDTIME blood sugar diagnostic (Neofonieuch Ultra Test strips) 1 strip miscellaneous DAILY blood-glucose meter (Neof[employer]uch Ultra2 Meter kit) As directed daily cholecalciferol (vitamin D3) (Vitamin D3) 50 mcg PO DAILY 90 days cyanocobalamin (vitamin B-12) 1,000 mcg PO DAILY 90 days dronedarone (Multaq) 400 mg PO BID fluoxetine 20 mg PO DAILY fluticasone propionate 50 mcg/actuation (Flonase Allergy Relief) 2 sprays intranasal DAILY lancets ([employer] UltraSoft Lancets) As directed levothyroxine 100 mcg PO DAILY 90 days lidocaine 5% (Lidoderm) 1 patch topical DAILY losartan 50 mg PO DAILY metformin ER 500 mg PO BID 90 days metoprolol succinate ER 25 mg PO DAILY 90 days omeprazole 20 mg PO DAILY 90 days oxycodone-acetaminophen 5-325 mg 1 tab PO Q6H PRN 28 days simethicone 180 mg PO BID 30 days tamsulosin 0.4 mg PO BEDTIME 90 days tizanidine 4 mg PO Q8H PRN warfarin 3.75 mg See Protocol PO DAILY Tobacco use date assessed: 12/04/23 Fall risk assessment: No Falls in past year Last assessed Fall Risk: 12/04/23 Dental Screening Dental Screen Date: 12/04/23 Did you have a dental visit in the last 12 months?: Yes Did you have a dental problem in the last 6 months where you did not have access to dental care?: No Was dental information given to patient?: Patient has dentist HPI Follow Up HPI Details Patient comes in today for his follow up visit States that he feels okay He denies any headaches or dizziness Denies any chest pains, no SOB No nausea/vomiting, no abdominal pain No change in bowel habits noted States that his chronic low back pain and joint pains remain adequately controlled on his current Rx - needs his pain med Rx refilled Also needs his Atorvastatin Rx refilled States that he could not get his cholesterol Rx refilled for about a month and was off his med for over a month recently but he is now back on it Adds that he's had a small area of scaling and itchy rash on his left hand for a while now and would like to get something to get this cleared up Had his follow up labs done a few days ago - to discuss his results [facility] Medical History Benign prostatic hyperplasia with nocturia Lumbar degenerative disc disease Obesity (BMI 30-39.9) Vitamin D deficiency Gout Gastric ulcer Superficial gastritis GERD without esophagitis Acquired hypothyroidism Pure hypercholesterolemia Benign essential hypertension Diabetes mellitus Paroxysmal atrial fibrillation Surgical History Hx of colonoscopy History of esophagogastroduodenoscopy (EGD) History of appendectomy Family History Father Medical history unknown Mother Medical history unknown Social History Housing: House Alcohol intake: former Patient Tobacco Use Status: Former Tobacco user e-Cigarette/Vaping Use: Never Used Second Hand Smoke Exposure: Yes service: No Current occupational status: disabled Cognitive needs: No Hearing needs: No Vision needs: No Questionnaire PHQ-9 Over the last 2 weeks, how often have you been bothered by any of the following problems? 1. Little interest or pleasure in doing things: not at all 2. Feeling down, depressed, or hopeless: not at all 3. Trouble falling or staying asleep, or sleeping too much: not at all 4. Feeling tired or having little energy: not at all 5. Poor appetite or overeating: not at all 6. Feeling bad about yourself - or that you are a failure or have let yourself or your family down: not at all 7. Trouble concentrating on things, such as reading the newspaper or watching television: not at all 8. Moving or speaking so slowly that other people could have noticed. Or the opposite - being so fidgety or restless that you have been moving around a lot more than usual: not at all 9. Thoughts that you would be better off or of hurting yourself in some way: not at all Total score: 0 Depression Screening Interpretation: Negative Depression Screening Done: Yes [id number] - PHQ-9 Billing: Yes Source: Developed by Drs. Rikki Murry, Sangita Mays, Matthew Devi and colleagues, with an educational yonas from [employer]. Thrive Questionnaire Date Thrive assessed: 12/04/23 I am a: Patient What is your living situation today?: I have a steady place to live Within the past 12 months, did the food you bought not last and you didn't have the money to get more?: Never true Within the past 12 months, did you worry whether your food would run out before you got money to buy more?: Never true Do you have trouble paying for medicines?: No Do you have trouble getting transportation to medical appointments?: No Do you have trouble paying your heating and electricity bill?: No Do you have trouble taking care of your child, family member or friend?: No Do you have trouble with day-to-day activities such as bathing, preparing meals, shopping, managing finances, etc.?: No Are you currently unemployed and looking for a job?: No Are you interested in more education?: No Currently or been in a relationship where the following occur: no concerns reported THRIVE Score: 0 AUDIT C Alcohol Use Questionnaire (AUDIT-C) 1. How often do you have a drink containing alcohol?: Never Total Score: 0 Score Reviewed/Action Taken: Yes ZAY-7 AMB Questionnaire ZAY-7 Date ZAY - 7 assessed: 12/04/23 Feeling nervous, anxious, or on edge: 0 = Not at all Not being able to stop or control worryin = Not at all Worrying too much about different things: 0 = Not at all Trouble relaxin = Not at all Being so restless that it is hard to sit still: 0 = Not at all Becoming easily annoyed or irritable: 0 = Not at all Feeling afraid as if something awful might happen: 0 = Not at all Total ZAY-7 score (0-4 normal; 5-9 mild; 10-14 moderate; 15-21 severe): 0 Source: Developed by Drs. Rikki Murry, Sangita Mays, Matthew Devi and colleagues, with an educational yonas from [employer]. Review of Systems Const Denies chills, Denies fatigue, Denies fever(s) and Denies headache(s) ENT Denies dysphagia, Denies dizziness, Denies otalgia, Denies headache(s), Denies neck pain, Denies odynophagia and Denies sore throat Card Denies chest pain, Denies palpitations and Denies dyspnea Resp Denies cough, Denies dyspnea and Denies wheezing GI Denies abdominal pain, Denies constipation, Denies dysphagia, Denies heartburn, Denies diarrhea, Denies nausea, Denies odynophagia and Denies vomiting Denies dysuria, Denies nocturia and Denies urinary frequency Musc Reports back pain (over the lower back - chronic) and Denies neck pain Skin/Breast Reports rash ((+) small patch of scaling rash on the dorsum of the left hand) Neuro Denies dizziness and Denies headache(s) Endo Denies fatigue and Denies palpitations Aller/Immun Denies wheezing Physical exam (Primary Care) Vital Signs: Last Vital Signs Pulse 102 H 12/04/23 09:21 BP 126/66 12/04/23 09:21 Pulse Ox 98 12/04/23 09:21 Oxygen Delivery Method Room Air 12/04/23 09:21 BMI result Body Mass Index 32.4 Tobacco/Smoking Status: Tobacco use Status Tobacco use date assessed 12/04/23 12/04/23 09:28 Patient Tobacco Use Status Former Tobacco user 12/04/23 09:28 e-Cigarette/Vaping Use Never Used 12/04/23 09:28 PHQ-9: PHQ-9 Score PHQ-9: Total score 0 12/04/23 09:28 Depression Screening Interpretation: Negative Thrive Assessment: Date of Thrive Assessment Date Thrive assessed 12/04/23 12/04/23 09:28 Currently or been in a relationship where the following occur: no concerns reported Const General: no acute distress and alert Neck Neck: Yes no lymphadenopathy and Yes supple Resp Auscultation: clear to auscultation bilaterally, no rales and no wheezes Cardio Rate: regular rate Rhythm: regular rhythm Heart sounds: no murmurs GI Palpation (GI): Soft to palpation and nontender Auscultation: normal bowel sounds Back/Spine/Pelvis Thoracic/Lumbar Spine: lumbar spinal tenderness Skin Other: (+) small patchy scaling rash on the dorsum of the left hand near the base of the 5th finger Extrem General: Yes no clubbing, cyanosis or edema Results Reviewed Results Reviewed: Laboratory Tests 11/30/23 08:50 WBC 8.6 Hgb 13.9 L Hct 43.2 Plt Count 273 Sodium 140 Potassium 4.2 Creatinine 0.89 Estimated GFR > 60 Fasting Glucose 113 H Hemoglobin A1c % 6.4 H Uric Acid 5.8 Calcium 9.5 AST 20 ALT 20 Triglycerides 111 Cholesterol 182 LDL Cholesterol, Calc 125 H HDL Cholesterol 35 L 25-OH Vitamin D Total 43.2 TSH 0.84 Free T4 1.20 Ur Specific [place] 1.020 Urine Protein Negative Urine Glucose (UA) Negative Urine Blood Negative Urine Nitrite Negative Ur Leukocyte Esterase Trace H Microalb/Creat Ratio 5.8 Assessment and Plan Assessment & Plan (1) Paroxysmal atrial fibrillation: Code(s): I48.0 - Paroxysmal atrial fibrillation Plan: Patient currently remains in sinus rhythm and is anticoagulated on Coumadin - follows up with the Coumadin clinic regularly for PT/INR monitoring Continue Metoprolol ER 25 mg QD and Multaq 400 mg BID Follow up with cardiology as scheduled (2) Benign essential hypertension: Code(s): I10 - Essential (primary) hypertension Plan: Reinforced low sodium diet - goal is systolic BP of at least 130 to 140 mm or less Continue Metoprolol ER 25 mg QD and Losartan 50 mg QD (3) Diabetes mellitus: Code(s): E11.9 - Type 2 diabetes mellitus without complications Qualifiers: Diabetes mellitus type: type 2 Diabetes mellitus correction insulin use: without correction use Diabetes mellitus complication status: without complication Qualified Code(s): E11.9 - Type 2 diabetes mellitus without complications Plan: HgbA1c was at 6.4% on his labs done a few days ago (was at 6.3% previously) - goal is <7.0% Reinforced diabetic diet Continue Metformin ER 500 mg BID (4) Pure hypercholesterolemia: Code(s): E78.00 - Pure hypercholesterolemia, unspecified Plan: Results of his labs done a few days ago reviewed and discussed with patient - his cholesterol has gone up significantly from previous Patient relates that he was NOT taking his Atorvastatin for over a month recently as he apparently could not get his Rx refilled but is now back on it Reinforced low cholesterol diet Continue Atorvastatin 80 mg QD - Rx refilled x 3 months' supply Will recheck his labs and fasting lipids in 3 months for follow-up (5) Acquired hypothyroidism: Code(s): E03.9 - Hypothyroidism, unspecified Plan: TFTs remain normal on his recent labs Continue Levothyroxine 100 mcg QD (6) Superficial gastritis: Comment: seen on EGD on 06/23/2017 Code(s): K29.60 - Other gastritis without bleeding Qualifiers: Chronicity: unspecified Gastritis bleeding: without bleeding Qualified Code(s): K29.30 - Chronic superficial gastritis without bleeding Plan: Dietary restrictions reinforced Continue Prilosec OTC 20 mg 2 tablets QD He had repeat colonoscopy done in April 2023 - recommend repeat colonoscopy in 5 years Follow up with GI as scheduled (7) Lumbar degenerative disc disease: Code(s): M51.36 - Other intervertebral disc degeneration, lumbar region Plan: Reinforced activity and weight-lifting restrictions Continue Oxycodone-acetaminophen 5-325 mg every 6 hours as needed for pain - RX refilled (8) Gout: Code(s): M10.9 - Gout, unspecified Qualifiers: Gout site: unspecified site Gout etiology: idiopathic Chronicity: unspecified Qualified Code(s): M10.00 - Idiopathic gout, unspecified site Plan: Asymptomatic with no acute gout flare ups since his last visit Serum uric acid level remains normal on his recent labs Reinforced low purine diet (9) Vitamin D deficiency: Code(s): E55.9 - Vitamin D deficiency, unspecified Plan: Continue Vitamin D3 2000 units QD (10) Dermatitis: Code(s): L30.9 - Dermatitis, unspecified Plan: (+) rash on the dorsum of the left hand Will start patient on Mometasone 1% cream apply to rash on hand QD until rash clears up completely (11) Benign prostatic hyperplasia with nocturia: Code(s): N40.1 - Benign prostatic hyperplasia with lower urinary tract symptoms; R35.1 - Nocturia Plan: PSA was normal on his labs done a few days ago Continue Tamsulosin 0.4 mg Q HS - Rx has helped a lot with his nocturia (12) Memory impairment: Code(s): R41.3 - Other amnesia Plan: Was started on Fluoxetine for MCI and depression by neurology last year but patient could not tolerate Rx at 20 mg QD Follow up with neurology as scheduled (13) Obesity (BMI 30-39.9): Code(s): E66.9 - Obesity, unspecified Plan: Reinforced diet/exercise as tolerated/lose weight Plan Follow up in 3 months Orders: Orders Complete Blood Count Auto Diff 3 Months D64.9 - Anemia, unspecified Comprehensive [place]. Panel Fast 3 Months E78.00 - Pure hypercholesterolemia, unspecified Lipid Panel 3 Months E78.00 - Pure hypercholesterolemia, unspecified Hemoglobin A1c 3 Months E11.9 - Type 2 diabetes mellitus without complications Microalbumin, Random (w Creat) 3 Months E11.9 - Type 2 diabetes mellitus without complications Free T4 (Free Thyroxine) 3 Months E03.9 - Hypothyroidism, unspecified Vitamin D 25-OH Total 3 Months E55.9 - Vitamin D deficiency, unspecified Vitamin B12 and Folate 3 Months E53.8 - Deficiency of other specified B group vitamins UA CC w/rflx Micro + Cult 3 Months R30.0 - Dysuria Thyroid Stimulating Hormone 3 Months E03.9 - Hypothyroidism, unspecified Medications: New mometasone 0.1% 1 appl topical DAILY PRN 45 grams 1RF rash Changed From atorvastatin 80 mg PO BEDTIME 60 tabs 3RF I48.0 - Paroxysmal atrial fibrillation To atorvastatin 80 mg PO BEDTIME 90 days 90 tabs 3RF I48.0 - Paroxysmal atrial fibrillation Refilled oxycodone-acetaminophen 5-325 mg partial refill upon request 1 tab PO Q6H 28 days PRN 112 tabs 0RF pain levothyroxine 100 mcg PO DAILY 90 days 90 tabs 1RF Coding Level of Care Code Est Pt Level 4 (40052) Diagnoses Paroxysmal atrial fibrillation I48.0 Benign essential hypertension I10 Type 2 diabetes mellitus without complication, without long-term current use of insulin E11.9 Diabetes mellitus type: type 2 Diabetes mellitus terminologist insulin use: without correction use Diabetes mellitus complication status: without complication Pure hypercholesterolemia E78.00 Acquired hypothyroidism E03.9 Superficial gastritis without hemorrhage, unspecified chronicity K29.30 Chronicity: unspecified Gastritis bleeding: without bleeding Lumbar degenerative disc disease M51.36 Idiopathic gout, unspecified chronicity, unspecified site M10.00 Gout site: unspecified site Gout etiology: idiopathic Chronicity: unspecified Vitamin D deficiency E55.9 Dermatitis L30.9 Benign prostatic hyperplasia with nocturia N40.1; R35.1 Memory impairment R41.3 Obesity (BMI 30-39.9) E66.9
[2023-12-04 09:21] VITALS: BP 126/66; PULSE 102; O2SAT 98; BMI 32.4
== END 2023-12-04 10:10 | disposition home or self-care (01) ==
PROVIDERS: PCP Internal Medicine; Visit Provider Internal Medicine
DX: I48.0 Paroxysmal atrial fibrillation (principal); I10 Essential (primary) hypertension; E11.9 Type 2 diabetes mellitus without complications; E78.00 Pure hypercholesterolemia, unspecified; E03.9 Hypothyroidism, unspecified; K29.30 Chronic superficial gastritis without bleeding; M51.36 Other intervertebral disc degeneration, lumbar region; M10.00 Idiopathic gout, unspecified site; E55.9 Vitamin D deficiency, unspecified; N40.1 Benign prostatic hyperplasia with lower urinary tract symptoms; R35.1 Nocturia; R41.3 Other amnesia
CPT/HCPCS: 99214

== ENCOUNTER 2023-12-08 09:27 | Outpatient (AMB) | payer OTHER, SELFPAY ==
--- NOTE | 2023-12-08 09:36 | MHC.OFFVISCO ---
Intake Intake Visit Reasons: Anticoagulation Allergies No Known Allergies [No Known Allergies*] Allergy (Unknown, Verified 12/08/23 09:33) U Medication List - Last Reconciled 12/08/23 by Yesica Spencer RN allopurinol TAKE 2 TABLETS IN THE MORNING AND 1 TABLET IN THE EVENING atorvastatin 80 mg PO BEDTIME 90 days blood sugar diagnostic (Keduouch Ultra Test strips) 1 strip miscellaneous DAILY blood-glucose meter ([employer] Ultra2 Meter kit) As directed daily cholecalciferol (vitamin D3) (Vitamin D3) 50 mcg PO DAILY 90 days cyanocobalamin (vitamin B-12) 1,000 mcg PO DAILY 90 days dronedarone (Multaq) 400 mg PO BID fluoxetine 20 mg PO DAILY fluticasone propionate 50 mcg/actuation (Flonase Allergy Relief) 2 sprays intranasal DAILY lancets ([employer] UltraSoft Lancets) As directed levothyroxine 100 mcg PO DAILY 90 days lidocaine 5% (Lidoderm) 1 patch topical DAILY losartan 50 mg PO DAILY metformin ER 500 mg PO BID 90 days metoprolol succinate ER 25 mg PO DAILY 90 days mometasone 0.1% 1 appl topical DAILY PRN omeprazole 20 mg PO DAILY 90 days oxycodone-acetaminophen 5-325 mg 1 tab PO Q6H PRN 28 days simethicone 180 mg PO BID 30 days tamsulosin 0.4 mg PO BEDTIME 90 days tizanidine 4 mg PO Q8H PRN warfarin 3.75 mg See Protocol PO DAILY Nursing Note INR 3.2-?? out of therapeutic range Medications and supplements reviewed Patient status: no c/o Medications or supplements: no changes Diet: had more reds Denies any signs and symptoms of bleeding or clotting or unusual bruising Bleeding, bruising, clotting discussed Nutritional guidance given: eat cooked greens to lower, no reds for 2 days Dose: cont 3.75mg x 7 F/U INR Date : 2 weeks? Patient verbalizing understanding of instructions given. 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
[2023-12-08 09:37] LABS: Prothrombin Time Whole Bld POC 38.1 sec (11.1-13.5); ~PT, ~INR - Anti Coag Clinic 3.2 (0.9-1.1)
== END 2023-12-08 09:43 | disposition home or self-care (01) ==
LOC: HO.ACS 09:27
PROVIDERS: PCP Internal Medicine; Visit Provider Internal Medicine
DX: Z79.01 Long term (current) use of anticoagulants (principal)

== ENCOUNTER → 2023-12-08 09:27 | Outpatient (BNVA) | payer OTHER, SELFPAY | PROVIDERS: PCP Internal Medicine; Visit Provider Internal Medicine | DX: I48.0 Paroxysmal atrial fibrillation (principal); Z79.01 Long term (current) use of anticoagulants; Z51.81 Encounter for therapeutic drug level monitoring | CPT/HCPCS: 85610; 99211 ==

== ENCOUNTER 2023-12-22 09:09 | Outpatient (AMB) | payer OTHER, SELFPAY ==
--- NOTE | 2023-12-22 09:25 | MHC.OFFVISCO ---
Intake Intake Visit Reasons: Anticoagulation Allergies No Known Allergies [No Known Allergies*] Allergy (Unknown, Verified 12/22/23 09:17) U Medication List - Last Reconciled 12/22/23 by Dee Lin RN allopurinol TAKE 2 TABLETS IN THE MORNING AND 1 TABLET IN THE EVENING atorvastatin 80 mg PO BEDTIME 90 days blood sugar diagnostic ([employer]ouch Ultra Test strips) 1 strip miscellaneous DAILY blood-glucose meter ([employer] Ultra2 Meter kit) As directed daily cholecalciferol (vitamin D3) (Vitamin D3) 50 mcg PO DAILY 90 days cyanocobalamin (vitamin B-12) 1,000 mcg PO DAILY 90 days dronedarone (Multaq) 400 mg PO BID fluoxetine 20 mg PO DAILY fluticasone propionate 50 mcg/actuation (Flonase Allergy Relief) 2 sprays intranasal DAILY lancets ([employer] UltraSoft Lancets) As directed levothyroxine 100 mcg PO DAILY 90 days lidocaine 5% (Lidoderm) 1 patch topical DAILY losartan 50 mg PO DAILY metformin ER 500 mg PO BID 90 days metoprolol succinate ER 25 mg PO DAILY 90 days mometasone 0.1% 1 appl topical DAILY PRN omeprazole 20 mg PO DAILY 90 days oxycodone-acetaminophen 5-325 mg 1 tab PO Q6H PRN 28 days simethicone 180 mg PO BID 30 days tamsulosin 0.4 mg PO BEDTIME 90 days tizanidine 4 mg PO Q8H PRN warfarin 3.75 mg See Protocol PO DAILY Nursing Note Amb to ACS feeling well Medications and supplements reviewed No changes in health, diet, medications, or supplements Denies any unusual signs and symptoms of bruising, bleeding Denies any new Chest pain, SOB, or clotting INR: 2.2 in therapeutic range Nutritional guidance given: balance greens and reds in diet Dose: continue usual dosing;3.75mg daily F/U INR:3 weeks Patient verbalizes understanding of instructions given with accurate read back/ teach back of dosing Anti-Coag Initial Assessment Social Hx Patient Tobacco Use Status: Former Tobacco user alcohol intake: former Questionnaires HAS-BLED Does the patient had uncontrolled Hypertension?: No Does the patient have renal disease?: No Does the patient have liver disease?: No Does the patient have a history of stroke?: No Has the patient had major bleeding or predisposition to bleeding?: Yes Does the patient have labile INRs?: No Is the patient over 65 years of age?: Yes Is the patient on medications that gives them a predisposition to bleeding?: Yes Does the patient use alcohol?: No HAS-BLED Score: 3 CHADSVASC Age: 66-74 Gender: Male Does the patient have a history of CHF?: No Does the patient have a history of Hypertension?: Yes Does the patient have a history of Stroke/TIA/Thromboembolism?: No Does the patient have a history of Vascular Disease (prior CT, PAD or aortic plaque)?: Yes Does the patient have a history of Diabetes?: Yes CHADS VACS Score: 4 Stephen Prediction Score Rsk VTE Active Cancer: No Previous VTE, excluding superficial vein thrombosis: No Reduced mobility: No Already known Thrombophilic Condition: Yes With-in last month Trauma and/or Surgery: No Elderly 70 year or older: Yes Heart and/or Respiratory Failure: No Acute Myocardial infarction and/or Ischemic Stroke: No Acute Infection and/or Rheumatologic Disorder: No Obesity (BMI 30 or greater): No Ongoing Hormonal Treatment: No Score: 4 Stephen Score less than 4; Low Risk of VTE Stephen Score 4 or greater; High Risk of VTE Coding Level of Care Code Est Patient Level 1 Diagnoses Current use of anticoagulant therapy Z79.01 Time Spent (min) 15 Results AMB INR Fingerstick AMB INR Fingerstick 2.2 Last Edit by Dee Lin RN on 12/22/23 09:24 interface failure Assessment & Plan Assessment & Plan (1) Current use of anticoagulant therapy: Code(s): Z79.01 - correction (current) use of anticoagulants Category: Medical
[2023-12-23 08:16] LABS: Prothrombin Time Whole Bld POC 26.4 sec (11.1-13.5); ~PT, ~INR - Anti Coag Clinic 2.2 (0.9-1.1)
== END 2023-12-22 09:33 | disposition home or self-care (01) ==
LOC: HO.ACS 09:09
PROVIDERS: PCP Internal Medicine; Visit Provider Internal Medicine
DX: Z79.01 Long term (current) use of anticoagulants (principal)

== ENCOUNTER → 2023-12-22 09:09 | Outpatient (BNVA) | payer OTHER, SELFPAY | PROVIDERS: PCP Internal Medicine; Visit Provider Internal Medicine | DX: I48.0 Paroxysmal atrial fibrillation (principal); Z79.01 Long term (current) use of anticoagulants; Z51.81 Encounter for therapeutic drug level monitoring | CPT/HCPCS: 85610; 99211 ==

== ENCOUNTER 2024-01-12 08:47 | Outpatient (AMB) | payer OTHER, SELFPAY ==
[2024-01-12 09:02] LABS: Prothrombin Time Whole Bld POC 19.1 sec (11.1-13.5); ~PT, ~INR - Anti Coag Clinic 1.6 (0.9-1.1)
--- NOTE | 2024-01-12 09:02 | MHC.OFFVISCO ---
Intake Intake Visit Reasons: Anticoagulation Allergies No Known Allergies [No Known Allergies*] Allergy (Unknown, Verified 01/12/24 08:56) U Medication List - Last Reconciled 01/12/24 by Yesica Spencer RN allopurinol TAKE 2 TABLETS IN THE MORNING AND 1 TABLET IN THE EVENING atorvastatin 80 mg PO BEDTIME 90 days blood sugar diagnostic (ImaCorTouch Ultra Test strips) 1 strip miscellaneous DAILY blood-glucose meter ([employer] Ultra2 Meter kit) As directed daily cholecalciferol (vitamin D3) (Vitamin D3) 50 mcg PO DAILY 90 days cyanocobalamin (vitamin B-12) 1,000 mcg PO DAILY 90 days dronedarone (Multaq) 400 mg PO BID fluoxetine 20 mg PO DAILY fluticasone propionate 50 mcg/actuation (Flonase Allergy Relief) 2 sprays intranasal DAILY lancets ([employer] UltraSoft Lancets) As directed levothyroxine 100 mcg PO DAILY 90 days lidocaine 5% (Lidoderm) 1 patch topical DAILY losartan 50 mg PO DAILY metformin ER 500 mg PO BID 90 days metoprolol succinate ER 25 mg PO DAILY 90 days mometasone 0.1% 1 appl topical DAILY PRN omeprazole 20 mg PO DAILY 90 days oxycodone-acetaminophen 5-325 mg 1 tab PO Q6H PRN 28 days simethicone 180 mg PO BID 30 days tamsulosin 0.4 mg PO BEDTIME 90 days tizanidine 4 mg PO Q8H PRN warfarin 3.75 mg See Protocol PO DAILY Nursing Note INR 1.6-?? out of therapeutic range of 2-3 pt denies missed dose Medications and supplements reviewed Patient status: pt states one episode of rectal bleed approx 4 days ago, denies post BM or straining pt states history of rectal bleed but many years ago pt instructed to call acs and/or pcp with any bleeding Medications or supplements: no changes Diet: same Denies any signs and symptoms of bleeding or clotting or unusual bruising Bleeding, bruising, clotting discussed- one episode rectal bleed Nutritional guidance given: no greens for 2 days Dose: 7.5mg today then 3.75mg x 7 F/U INR Date : 1 week?? Patient and s/o desmaris verbalizing understanding of instructions given. composed note to pcp -notified of episode of rectal bleed Anti-Coag Initial Assessment Social Hx Patient Tobacco Use Status: Former Tobacco user alcohol intake: former Coding Level of Care Code Est Patient Level 1 Diagnoses Current use of anticoagulant therapy Z79.01 Assessment & Plan Assessment & Plan (1) Current use of anticoagulant therapy: Code(s): Z79.01 - jail (current) use of anticoagulants Category: Medical
== END 2024-01-12 09:27 | disposition home or self-care (01) ==
LOC: HO.ACS 08:47
PROVIDERS: PCP Internal Medicine; Visit Provider Internal Medicine
DX: Z79.01 Long term (current) use of anticoagulants (principal)

== ENCOUNTER → 2024-01-12 08:47 | Outpatient (BNVA) | payer OTHER, SELFPAY | PROVIDERS: PCP Internal Medicine; Visit Provider Internal Medicine | DX: I48.0 Paroxysmal atrial fibrillation (principal); Z79.01 Long term (current) use of anticoagulants; Z51.81 Encounter for therapeutic drug level monitoring | CPT/HCPCS: 85610; 99211 ==

== ENCOUNTER 2024-01-18 08:44 | Outpatient (AMB) | payer OTHER, SELFPAY ==
--- NOTE | 2024-01-18 08:47 | MHC.OFFVISCO ---
Intake Intake Visit Reasons: Anticoagulation Allergies No Known Allergies [No Known Allergies*] Allergy (Unknown, Verified 01/18/24 08:46) U Medication List - Last Reconciled 01/18/24 by Genet Hough RN allopurinol TAKE 2 TABLETS IN THE MORNING AND 1 TABLET IN THE EVENING atorvastatin 80 mg PO BEDTIME 90 days blood sugar diagnostic ([employer] Ultra Test strips) 1 strip miscellaneous DAILY blood-glucose meter ([employer] Ultra2 Meter kit) As directed daily cholecalciferol (vitamin D3) (Vitamin D3) 50 mcg PO DAILY 90 days cyanocobalamin (vitamin B-12) 1,000 mcg PO DAILY 90 days dronedarone (Multaq) 400 mg PO BID fluoxetine 20 mg PO DAILY fluticasone propionate 50 mcg/actuation (Flonase Allergy Relief) 2 sprays intranasal DAILY lancets ([employer]nox UltraSoft Lancets) As directed levothyroxine 100 mcg PO DAILY 90 days lidocaine 5% (Lidoderm) 1 patch topical DAILY losartan 50 mg PO DAILY metformin ER 500 mg PO BID 90 days metoprolol succinate ER 25 mg PO DAILY 90 days mometasone 0.1% 1 appl topical DAILY PRN omeprazole 20 mg PO DAILY 90 days oxycodone-acetaminophen 5-325 mg 1 tab PO Q6H PRN 28 days simethicone 180 mg PO BID 30 days tamsulosin 0.4 mg PO BEDTIME 90 days tizanidine 4 mg PO Q8H PRN warfarin 3.75 mg See Protocol PO DAILY Nursing Note INR: 2.0 in therapeutic range Pt had an episode of rectal bleeding 4 days prior to previous visit, he denies any rectal bleeding, bowels are normal color, he states he has occ contispation, he was enc to drink plenty of fluids and eat a mix of fruits and vegetables, and exercise to help prevent constipation and to discuss OTC stool softner or lazatives prn constipation Medications and supplements reviewed No changes in diet, medications, or supplements, Denies any signs and symptoms of bleeding or bruising or clotting. 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
== END 2024-01-18 09:05 | disposition home or self-care (01) ==
LOC: HO.ACS 08:44
PROVIDERS: PCP Internal Medicine; Visit Provider Internal Medicine
DX: Z79.01 Long term (current) use of anticoagulants (principal)

== ENCOUNTER → 2024-01-18 08:44 | Outpatient (BNVA) | payer OTHER, SELFPAY | PROVIDERS: PCP Internal Medicine; Visit Provider Internal Medicine | DX: I48.0 Paroxysmal atrial fibrillation (principal); Z79.01 Long term (current) use of anticoagulants; Z51.81 Encounter for therapeutic drug level monitoring | CPT/HCPCS: 85610; 99211 ==

== ENCOUNTER 2024-02-03 09:42 | Outpatient (AMB) | payer OTHER, SELFPAY ==
--- NOTE | 2024-02-03 10:17 | MHC.OFFVISCO ---
Intake Intake Visit Reasons: Anticoagulation Allergies No Known Allergies [No Known Allergies*] Allergy (Unknown, Verified 02/03/24 10:13) U Medication List - Last Reconciled 02/03/24 by Yesica Spencer RN allopurinol TAKE 2 TABLETS IN THE MORNING AND 1 TABLET IN THE EVENING atorvastatin 80 mg PO BEDTIME 90 days blood sugar diagnostic (Fwd: [employer] Ultra Test strips) 1 strip miscellaneous DAILY blood-glucose meter ([employer] Ultra2 Meter kit) As directed daily cholecalciferol (vitamin D3) (Vitamin D3) 50 mcg PO DAILY 90 days cyanocobalamin (vitamin B-12) 1,000 mcg PO DAILY 90 days dronedarone (Multaq) 400 mg PO BID fluoxetine 20 mg PO DAILY fluticasone propionate 50 mcg/actuation (Flonase Allergy Relief) 2 sprays intranasal DAILY lancets ([employer] UltraSoft Lancets) As directed levothyroxine 100 mcg PO DAILY 90 days lidocaine 5% (Lidoderm) 1 patch topical DAILY losartan 50 mg PO DAILY metformin ER 500 mg PO BID 90 days metoprolol succinate ER 25 mg PO DAILY 90 days mometasone 0.1% 1 appl topical DAILY PRN omeprazole 20 mg PO DAILY 90 days oxycodone-acetaminophen 5-325 mg 1 tab PO Q6H PRN 28 days simethicone 180 mg PO BID 30 days tamsulosin 0.4 mg PO BEDTIME 90 days tizanidine 4 mg PO Q8H PRN warfarin 3.75 mg See Protocol PO DAILY Nursing Note INR 4.8-?? out of therapeutic range of 2-3 Medications and supplements reviewed Patient status: no c.o, denies etoh Medications or supplements: no changes Diet: appetite good Denies any signs and symptoms of bleeding or clotting or unusual bruising Bleeding, bruising, clotting discussed - aware at risk for bleeding Nutritional guidance given: eat greens to lower, no reds Dose: hold dose today then cont 3.75mg daily F/U INR Date : ?thu02/08/24 Patient verbalizing understanding of instructions given. foreign language interpreter [id number] used for this acs visit, pt states took double dose of warfarin on thursday due to not feeling well Anti-Coag Initial Assessment Social Hx Patient Tobacco Use Status: Former Tobacco user alcohol intake: former Coding Level of Care Code Est Patient Level 1 Diagnoses Current use of anticoagulant therapy Z79.01 Assessment & Plan Assessment & Plan (1) Current use of anticoagulant therapy: Code(s): Z79.01 - [facility] (current) use of anticoagulants Category: Medical
[2024-02-03 10:19] LABS: ~PT, ~INR - Anti Coag Clinic 4.8 (0.9-1.1)
== END 2024-02-03 10:37 | disposition home or self-care (01) ==
LOC: HO.ACS 09:42
PROVIDERS: PCP Internal Medicine; Visit Provider Internal Medicine
DX: Z79.01 Long term (current) use of anticoagulants (principal)

== ENCOUNTER → 2024-02-03 09:42 | Outpatient (BNVA) | payer OTHER, SELFPAY | PROVIDERS: PCP Internal Medicine; Visit Provider Internal Medicine | DX: I48.0 Paroxysmal atrial fibrillation (principal); Z79.01 Long term (current) use of anticoagulants; Z51.81 Encounter for therapeutic drug level monitoring | CPT/HCPCS: 85610; 99211 ==

== ENCOUNTER 2024-02-08 09:26 | Outpatient (AMB) | payer OTHER, SELFPAY ==
[2024-02-08 09:57] LABS: Prothrombin Time Whole Bld POC 21.9 sec (11.1-13.5); ~PT, ~INR - Anti Coag Clinic 1.8 (0.9-1.1)
--- NOTE | 2024-02-08 10:10 | MHC.OFFVISCO ---
Intake Intake Visit Reasons: Anticoagulation Allergies No Known Allergies [No Known Allergies*] Allergy (Unknown, Verified 02/08/24 09:52) U Nursing Note INR: 1.8 in therapeutic range of 2-3 Medications and supplements reviewed: no changes No changes in health, diet, medications, or supplements, Denies any signs and symptoms of bleeding or bruising or clotting. 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
== END 2024-02-08 10:17 | disposition home or self-care (01) ==
LOC: HO.ACS 09:26
PROVIDERS: PCP Internal Medicine; Visit Provider Internal Medicine
DX: Z79.01 Long term (current) use of anticoagulants (principal)

== ENCOUNTER → 2024-02-08 09:26 | Outpatient (BNVA) | payer OTHER, SELFPAY | PROVIDERS: PCP Internal Medicine; Visit Provider Internal Medicine | DX: I48.0 Paroxysmal atrial fibrillation (principal); Z79.01 Long term (current) use of anticoagulants; Z51.81 Encounter for therapeutic drug level monitoring | CPT/HCPCS: 85610; 99211 ==

== ENCOUNTER 2024-02-23 09:12 | Outpatient (AMB) | payer OTHER, SELFPAY ==
[2024-02-23 09:17] LABS: Prothrombin Time Whole Bld POC 35.5 sec (11.1-13.5)
--- NOTE | 2024-02-23 09:25 | MHC.OFFVISCO ---
Intake Intake Visit Reasons: Anticoagulation Allergies No Known Allergies [No Known Allergies*] Allergy (Unknown, Verified 02/23/24 09:13) U Medication List - Last Reconciled 02/23/24 by Yesica Spencer RN allopurinol TAKE 2 TABLETS IN THE MORNING AND 1 TABLET IN THE EVENING atorvastatin 80 mg PO BEDTIME 90 days blood sugar diagnostic ([employer] Ultra Test strips) 1 strip miscellaneous DAILY blood-glucose meter ([employer] Ultra2 Meter kit) As directed daily cholecalciferol (vitamin D3) (Vitamin D3) 50 mcg PO DAILY 90 days cyanocobalamin (vitamin B-12) 1,000 mcg PO DAILY 90 days dronedarone (Multaq) 400 mg PO BID fluoxetine 20 mg PO DAILY fluticasone propionate 50 mcg/actuation (Flonase Allergy Relief) 2 sprays intranasal DAILY lancets ([employer] UltraSoft Lancets) As directed levothyroxine 100 mcg PO DAILY 90 days lidocaine 5% (Lidoderm) 1 patch topical DAILY losartan 50 mg PO DAILY metformin ER 500 mg PO BID 90 days metoprolol succinate ER 25 mg PO DAILY 90 days mometasone 0.1% 1 appl topical DAILY PRN omeprazole 20 mg PO DAILY 90 days oxycodone-acetaminophen 5-325 mg 1 tab PO Q6H PRN 28 days simethicone 180 mg PO BID 30 days tamsulosin 0.4 mg PO BEDTIME 90 days tizanidine 4 mg PO Q8H PRN warfarin 3.75 mg See Protocol PO DAILY Nursing Note INR: 3.0- in therapeutic range of 2-3 Medications and supplements reviewed No changes in health, diet, medications, or supplements, Denies any signs and symptoms of bleeding or bruising or clotting. Bleeding, bruising, clotting discussed Nutritional guidance given - eat greens to lower Dose: 3.75mg x 7 F/U INR: 2 weeks Patient verbalizes understanding of instructions given Anti-Coag Initial Assessment Social Hx Patient Tobacco Use Status: Former Tobacco user alcohol intake: former Coding Level of Care Code Est Patient Level 1 Diagnoses Current use of anticoagulant therapy Z79.01 Assessment & Plan Assessment & Plan (1) Current use of anticoagulant therapy: Code(s): Z79.01 - prison (current) use of anticoagulants Category: Medical
== END 2024-02-23 09:27 | disposition home or self-care (01) ==
LOC: HO.ACS 09:12
PROVIDERS: PCP Internal Medicine; Visit Provider Internal Medicine
DX: Z79.01 Long term (current) use of anticoagulants (principal)

== ENCOUNTER → 2024-02-23 09:12 | Outpatient (BNVA) | payer OTHER, SELFPAY | PROVIDERS: PCP Internal Medicine; Visit Provider Internal Medicine | DX: I48.0 Paroxysmal atrial fibrillation (principal); Z79.01 Long term (current) use of anticoagulants; Z51.81 Encounter for therapeutic drug level monitoring | CPT/HCPCS: 85610; 99211 ==

== ENCOUNTER 2024-03-08 09:00 | Outpatient (AMB) | payer OTHER, SELFPAY ==
--- NOTE | 2024-03-08 09:20 | MHC.OFFVISCO ---
Intake Intake Visit Reasons: Anticoagulation Allergies No Known Allergies [No Known Allergies*] Allergy (Unknown, Verified 03/08/24 09:16) U Medication List - Last Reconciled 03/08/24 by Yesica Spencer RN allopurinol TAKE 2 TABLETS IN THE MORNING AND 1 TABLET IN THE EVENING atorvastatin 80 mg PO BEDTIME 90 days blood sugar diagnostic ([employer] Ultra Test strips) 1 strip miscellaneous DAILY blood-glucose meter ([employer] Ultra2 Meter kit) As directed daily cholecalciferol (vitamin D3) (Vitamin D3) 50 mcg PO DAILY 90 days cyanocobalamin (vitamin B-12) 1,000 mcg PO DAILY 90 days dronedarone (Multaq) 400 mg PO BID fluoxetine 20 mg PO DAILY fluticasone propionate 50 mcg/actuation (Flonase Allergy Relief) 2 sprays intranasal DAILY lancets ([employer] UltraSoft Lancets) As directed levothyroxine 100 mcg PO DAILY 90 days lidocaine 5% (Lidoderm) 1 patch topical DAILY losartan 50 mg PO DAILY metformin ER 500 mg PO BID 90 days metoprolol succinate ER 25 mg PO DAILY 90 days mometasone 0.1% 1 appl topical DAILY PRN omeprazole 20 mg PO DAILY 90 days oxycodone-acetaminophen 5-325 mg 1 tab PO Q6H PRN 28 days simethicone 180 mg PO BID 30 days tamsulosin 0.4 mg PO BEDTIME 90 days tizanidine 4 mg PO Q8H PRN warfarin 3.75 mg See Protocol PO DAILY Nursing Note INR: 2.7- in therapeutic range of 2-3 Medications and supplements reviewed- no changes No changes in health, diet, medications, or supplements, Denies any signs and symptoms of bleeding or bruising or clotting. 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
[2024-03-08 09:21] LABS: Prothrombin Time Whole Bld POC 32.1 sec (11.1-13.5); ~PT, ~INR - Anti Coag Clinic 2.7 (0.9-1.1)
== END 2024-03-08 09:25 | disposition home or self-care (01) ==
LOC: HO.ACS 09:00
PROVIDERS: PCP Internal Medicine; Visit Provider Internal Medicine
DX: Z79.01 Long term (current) use of anticoagulants (principal)

== ENCOUNTER → 2024-03-08 09:00 | Outpatient (BNVA) | payer OTHER, SELFPAY | PROVIDERS: PCP Internal Medicine; Visit Provider Internal Medicine | DX: I48.0 Paroxysmal atrial fibrillation (principal); Z51.81 Encounter for therapeutic drug level monitoring; Z79.01 Long term (current) use of anticoagulants | CPT/HCPCS: 85610; 99211 ==

== ENCOUNTER 2024-03-11 08:15 | Outpatient (REF) | payer OTHER, SELFPAY ==
[2024-03-11 08:27] LABS: MANUAL DIFF FLAG NO
[2024-03-11 08:38] LABS: Basophils Percent Auto 0.5 % (0-2); Eosinophils Absolute Auto 0.4 X10*3/uL (0.0-0.4); Eosinophils Percent Auto 4.4 % (0-4); Hemoglobin 13.8 g/dl (14.0-18.0); Imm Gran Abs Auto 0.03 X10*3/uL (0.00-0.03); Imm Gran Pct Auto 0.4 % (0.0-0.4); Lymphocytes Absolute Auto 2.8 X10*3/uL (1.2-4.9); Mean Corpuscular HGB Conc 32.1 g/dl (31.0-36.0); Mean Corpuscular Hemoglobin 26.8 pg (27.0-33.0); Mean Corpuscular Volume 83.7 fL (80.0-98.0); Mean Platelet Volume 10.2 fL (9.4-12.4); Monocytes Absolute Auto 0.6 X10*3/uL (0.1-1.2); Neutrophils Absolute Auto 4.6 x10*3/uL (2.0-8.3); Neutrophils Percent Auto 54.7 % (45-73); Platelet Count 233 X10*3/uL (160-400); Red Blood Count 5.14 X10*6/uL (4.60-5.80); Red Cell Distribution Width 13.4 % (11.0-16.0); White Blood Count 8.3 X10*3/uL (4.8-10.8)
[2024-03-11 08:51] LABS: Appearance Urine Clear; Color Urine Dark Yellow; Glucose Urine UA Negative (Negative); Leukocyte Esterase Urine Trace (Negative); Nitrite Urine Negative (Negative); PH 5.5 (5.0-9.0); Specific Gravity - Urine 1.025 (1.005-1.025); UMIC TRIGGER UACC YES; Urine Blood Negative (Negative); Urine Ketones Trace mg/dL (Negative); Urine Protein Negative (Neg-Trace)
[2024-03-11 08:52] LABS: Estimated Average Glucose 146 mg/dL; Hemoglobin A1c % 6.7 % (<6.0)
[2024-03-11 08:57] LABS: Bacteria Urine None Seen (None Seen); Hyaline Casts Urine 0-2 /LPF (0-2); RBC Urine 0-2 /HPF (0-2); WBC Urine 0-5 /HPF (0-5)
[2024-03-11 09:09] LABS: Creatinine Urine 296.34 mg/dL; Microalbum/Creatinine Ratio Ur 4.3 ug/mg cr (<30)
[2024-03-11 09:18] LABS: Alanine Aminotransferase 20 U/L (0-40); Albumin Level 4.1 g/dL (3.5-5.0); Alkaline Phosphatase 48 U/L (39-117); Anion Gap 12 (12-20); Aspartate Amino Transferase 21 U/L (5-37); Bilirubin Total 0.8 mg/dL (0.0-1.0); Blood Urea Nitrogen 12 mg/dL (9-16); Calcium 9.1 mg/dL (8.4-10.2); Carbon Dioxide 30 mmol/L (22-29); Chloride 103 mmol/L (96-108); Cholesterol 125 mg/dL (<200); Estimated Glomerular Filt Rate > 60; Glucose Fasting 118 mg/dL (60-99); HDL Cholesterol 39 mg/dL (>40); LDL Cholesterol Calculated 66 mg/dL (<100); Potassium 4.4 mmol/L (3.3-5.1); Sodium 141 mmol/L (135-145); Total Protein 7.4 g/dL (6.5-8.0); Triglycerides 102 mg/dL (<150)
[2024-03-11 09:37] LABS: Free T4 (Free Thyroxine) 1.11 ng/dL (0.71-1.85); Thyroid Stimulating Hormone 0.51 uIU/mL (0.32-4.0); Vitamin D 25-OH Total 41.5 ng/mL (>30)
[2024-03-11 12:33] LABS: Folate 9.4 ng/mL (> or = 4.0); Vitamin B12 386 pg/mL (200-900)
== END 2024-03-11 08:16 | disposition home or self-care (01) ==
LOC: HO.LAB 08:15
PROVIDERS: PCP Internal Medicine; Visit Provider Internal Medicine
DX: D64.9 Anemia, unspecified (principal); E78.00 Pure hypercholesterolemia, unspecified; E53.8 Deficiency of other specified B group vitamins; E03.9 Hypothyroidism, unspecified; E11.9 Type 2 diabetes mellitus without complications; E55.9 Vitamin D deficiency, unspecified; R30.0 Dysuria
CPT/HCPCS: 36415; 80053; 80061; 81001; 82043; 82306; 82570; 82607; 82746; 83036; 84439; 84443; 85025

== ENCOUNTER 2024-03-16 09:59 | Outpatient (AMB) | payer OTHER, SELFPAY ==
[2024-03-16 10:05] VITALS: BP 126/78; PULSE 53; O2SAT 96; BMI 31.8
--- NOTE | 2024-03-16 10:05 | MHC.PC.OV ---
Vital Signs 03/16/24 10:05 Height 5 ft 6 in Weight 197 lb 0.6 oz BMI 31.8 BP 126/78 Blood Pressure Location Lt brachial Position Sitting Pulse 53 Pulse Source Pulse Oximeter Pulse Oximetry (%) 96 Oxygen Delivery Method Room Air Intake Visit Reasons: hyperlipidemia, DM, HTN, lumbar DDD Intake Note: Patient is here to follow up on hyperlipidemia, DM, HTN, lumbarDDD Tourism Radio Presenter Required: No Allergies No Known Allergies [No Known Allergies*] Allergy (Unknown, Verified 03/16/24 10:49) U Medication List - Last Reconciled 03/16/24 by Matheus Salgado MD allopurinol TAKE 2 TABLETS IN THE MORNING AND 1 TABLET IN THE EVENING atorvastatin 80 mg PO BEDTIME 90 days blood sugar diagnostic ([employer] Ultra Test strips) 1 strip miscellaneous DAILY blood-glucose meter ([employer] Ultra2 Meter kit) As directed daily cholecalciferol (vitamin D3) (Vitamin D3) 50 mcg PO DAILY 90 days cyanocobalamin (vitamin B-12) 1,000 mcg PO DAILY 90 days dronedarone (Multaq) 400 mg PO BID fluoxetine 20 mg PO DAILY fluticasone propionate 50 mcg/actuation (Flonase Allergy Relief) 2 sprays intranasal DAILY lancets ([employer] UltraSoft Lancets) As directed levothyroxine 100 mcg PO DAILY 90 days lidocaine 5% (Lidoderm) 1 patch topical DAILY losartan 50 mg PO DAILY metformin ER 500 mg PO BID 90 days metoprolol succinate ER 25 mg PO DAILY 90 days mometasone 0.1% 1 appl topical DAILY PRN omeprazole 20 mg PO DAILY 90 days oxycodone-acetaminophen 5-325 mg 1 tab PO Q6H PRN 28 days simethicone 180 mg PO BID 30 days tamsulosin 0.4 mg PO BEDTIME 90 days tizanidine 4 mg PO Q8H PRN warfarin 3.75 mg See Protocol PO DAILY Tobacco use date assessed: 03/16/24 Fall risk assessment: No Falls in past year Last assessed Fall Risk: 03/16/24 Dental Screening Dental Screen Date: 12/04/23 HPI hyperlipidemia, DM, HTN, lumbar DDD HPI Details Patient comes in today for his follow up visit States that he feels okay He denies any headaches or dizziness Denies any chest pains, no SOB No nausea/vomiting, no abdominal pain No change in bowel habits noted States that his chronic low back pain remains adequately controlled on his current Rx Had his follow up labs done a few days ago - to discuss his results [facility] Medical History Benign prostatic hyperplasia with nocturia Lumbar degenerative disc disease Obesity (BMI 30-39.9) Vitamin D deficiency Gout Gastric ulcer Superficial gastritis GERD without esophagitis Acquired hypothyroidism Pure hypercholesterolemia Benign essential hypertension Diabetes mellitus Paroxysmal atrial fibrillation Surgical History Hx of colonoscopy History of esophagogastroduodenoscopy (EGD) History of appendectomy Family History Father Medical history unknown Mother Medical history unknown Social History Housing: House Alcohol intake: former Patient Tobacco Use Status: Former Tobacco user e-Cigarette/Vaping Use: Never Used Second Hand Smoke Exposure: Yes service: No Current occupational status: disabled Cognitive needs: No Hearing needs: No Vision needs: No Questionnaire PHQ-9 Over the last 2 weeks, how often have you been bothered by any of the following problems? 1. Little interest or pleasure in doing things: not at all 2. Feeling down, depressed, or hopeless: not at all 3. Trouble falling or staying asleep, or sleeping too much: not at all 4. Feeling tired or having little energy: not at all 5. Poor appetite or overeating: not at all 6. Feeling bad about yourself - or that you are a failure or have let yourself or your family down: not at all 7. Trouble concentrating on things, such as reading the newspaper or watching television: not at all 8. Moving or speaking so slowly that other people could have noticed. Or the opposite - being so fidgety or restless that you have been moving around a lot more than usual: not at all 9. Thoughts that you would be better off or of hurting yourself in some way: not at all Total score: 0 Depression Screening Interpretation: Negative Depression Screening Done: Yes [id number] - PHQ-9 Billing: Yes Source: Developed by Drs. Rikki Murry, Sangita Mays, Matthew Devi and colleagues, with an educational yonas from [email or web address]. Thrive Questionnaire Date Thrive assessed: 12/04/23 I am a: Patient What is your living situation today?: I have a steady place to live Within the past 12 months, did the food you bought not last and you didn't have the money to get more?: Never true Within the past 12 months, did you worry whether your food would run out before you got money to buy more?: Never true Do you have trouble paying for medicines?: No Do you have trouble getting transportation to medical appointments?: No Do you have trouble paying your heating and electricity bill?: No Do you have trouble taking care of your child, family member or friend?: No Do you have trouble with day-to-day activities such as bathing, preparing meals, shopping, managing finances, etc.?: No Are you currently unemployed and looking for a job?: No Are you interested in more education?: No Currently or been in a relationship where the following occur: no concerns reported THRIVE Score: 0 AUDIT C Alcohol Use Questionnaire (AUDIT-C) 1. How often do you have a drink containing alcohol?: Never 3. How often do you have six or more drinks on one occasion?: Never Total Score: 0 Score Reviewed/Action Taken: Yes ZAY-7 AMB Questionnaire ZAY-7 Date ZAY - 7 assessed: 12/04/23 Source: Developed by Drs. Rikki Murry, Sangita Mays, Matthew Devi and colleagues, with an educational yonas from [email or web address]. Review of Systems Const Denies chills, Denies fatigue, Denies fever(s) and Denies headache(s) ENT Denies dysphagia, Denies dizziness, Denies otalgia, Denies headache(s), Denies neck pain, Denies odynophagia and Denies sore throat Card Denies chest pain, Denies palpitations and Denies dyspnea Resp Denies cough, Denies dyspnea and Denies wheezing GI Denies abdominal pain, Denies constipation, Denies dysphagia, Denies diarrhea, Denies nausea, Denies odynophagia and Denies vomiting Denies dysuria, Denies nocturia and Denies urinary frequency Musc Reports back pain (over the lower back - chronic) and Denies neck pain Skin/Breast Denies rash Neuro Denies dizziness and Denies headache(s) Endo Denies fatigue and Denies palpitations Aller/Immun Denies wheezing Physical exam (Primary Care) Vital Signs: Last Vital Signs Pulse 53 03/16/24 10:05 BP 126/78 03/16/24 10:05 Pulse Ox 96 03/16/24 10:05 Oxygen Delivery Method Room Air 03/16/24 10:05 BMI result Body Mass Index 31.8 Tobacco/Smoking Status: Tobacco use Status Tobacco use date assessed 03/16/24 03/16/24 10:07 Patient Tobacco Use Status Former Tobacco user 03/16/24 10:07 e-Cigarette/Vaping Use Never Used 03/16/24 10:07 PHQ-9: PHQ-9 Score PHQ-9: Total score 0 03/16/24 10:19 Depression Screening Interpretation: Negative Thrive Assessment: Date of Thrive Assessment Date Thrive assessed 12/04/23 03/16/24 10:07 Currently or been in a relationship where the following occur: no concerns reported Const General: no acute distress and alert HENMT Ears: TM's normal bilaterally and EAC's normal Throat: Yes posterior oropharynx normal and Yes tonsils normal Neck Neck: Yes no lymphadenopathy and Yes supple Thyroid: Thyroid normal Resp Auscultation: clear to auscultation bilaterally, no rales and no wheezes Cardio Rate: regular rate Rhythm: regular rhythm Heart sounds: no murmurs GI Palpation (GI): Soft to palpation and nontender Auscultation: normal bowel sounds General: Yes no CVA tenderness Back/Spine/Pelvis Back: no CVA tenderness Thoracic/Lumbar Spine: lumbar spinal tenderness Skin Rashes: no rashes Extrem General: Yes no clubbing, cyanosis or edema Results Reviewed Results Reviewed: Laboratory Tests 03/11/24 03/11/24 08:25 08:26 WBC 8.3 Hgb 13.8 L Hct 43.0 Plt Count 233 Sodium 141 Potassium 4.4 Creatinine 0.83 Estimated GFR > 60 Fasting Glucose 118 H Hemoglobin A1c % 6.7 H Calcium 9.1 AST 21 ALT 20 Triglycerides 102 Cholesterol 125 LDL Cholesterol, Calc 66 HDL Cholesterol 39 L Vitamin B12 386 25-OH Vitamin D Total 41.5 TSH 0.51 Free T4 1.11 Ur Specific [place] 1.025 Urine Protein Negative Urine Glucose (UA) Negative Urine Blood Negative Urine Nitrite Negative Ur Leukocyte Esterase Trace H Microalb/Creat Ratio 4.3 Assessment and Plan Assessment & Plan (1) Paroxysmal atrial fibrillation: Code(s): I48.0 - Paroxysmal atrial fibrillation Plan: Patient currently remains in sinus rhythm and is anticoagulated on Coumadin - he follows up with the Coumadin clinic regularly for PT/INR monitoring Continue Metoprolol ER 25 mg QD and Multaq 400 mg BID Follow up with cardiology as scheduled (2) Benign essential hypertension: Code(s): I10 - Essential (primary) hypertension Plan: Reinforced low sodium diet - goal is systolic BP of at least 130 to 140 mm or less Continue Metoprolol ER 25 mg QD and Losartan 50 mg QD (3) Diabetes mellitus: Code(s): E11.9 - Type 2 diabetes mellitus without complications Qualifiers: Diabetes mellitus type: type 2 Diabetes mellitus terminal carman insulin use: without residential use Diabetes mellitus complication status: without complication Qualified Code(s): E11.9 - Type 2 diabetes mellitus without complications Plan: HgbA1c was at 6.7% on his labs done a few days ago (was previously at 6.4% a few months ago) - goal is <7.0% Reinforced diabetic diet Continue Metformin ER 500 mg BID (4) Pure hypercholesterolemia: Code(s): E78.00 - Pure hypercholesterolemia, unspecified Plan: Results of his labs done a few days ago reviewed and discussed with patient Reinforced low cholesterol diet Continue Atorvastatin 80 mg QD Will recheck his labs and fasting lipids in 3 months for follow-up (5) Acquired hypothyroidism: Code(s): E03.9 - Hypothyroidism, unspecified Plan: His TFTs remain normal on his recent labs Continue Levothyroxine 100 mcg QD (6) Superficial gastritis: Comment: seen on EGD on 06/23/2017 Code(s): K29.60 - Other gastritis without bleeding Qualifiers: Chronicity: unspecified Gastritis bleeding: without bleeding Qualified Code(s): K29.30 - Chronic superficial gastritis without bleeding Plan: Dietary restrictions reinforced Continue Prilosec OTC 20 mg 2 tablets QD He had repeat colonoscopy done in April 2023 - recommend repeat colonoscopy in 5 years Follow up with GI as scheduled (7) Lumbar degenerative disc disease: Code(s): M51.36 - Other intervertebral disc degeneration, lumbar region Plan: Reinforced activity and weight-lifting restrictions Continue Oxycodone-acetaminophen 5-325 mg Q 6 hours as needed for pain (8) Gout: Code(s): M10.9 - Gout, unspecified Qualifiers: Gout site: unspecified site Gout etiology: idiopathic Chronicity: unspecified Qualified Code(s): M10.00 - Idiopathic gout, unspecified site Plan: He remains asymptomatic with no acute gout flare ups since his last visit His serum uric acid level remains normal on his recent labs Reinforced low purine diet (9) Vitamin D deficiency: Code(s): E55.9 - Vitamin D deficiency, unspecified Plan: Continue Vitamin D3 2000 units QD (10) Benign prostatic hyperplasia with nocturia: Code(s): N40.1 - Benign prostatic hyperplasia with lower urinary tract symptoms; R35.1 - Nocturia Plan: His PSA was normal when last checked in July 2023 Continue Tamsulosin 0.4 mg Q HS - states that his Rx has helped a lot with his nocturia (11) Memory impairment: Code(s): R41.3 - Other amnesia Plan: He was started on Fluoxetine for MCI and depression by neurology last year but patient could not tolerate Rx at 20 mg QD Follow up with neurology as scheduled (12) Obesity (BMI 30-39.9): Code(s): E66.9 - Obesity, unspecified Plan: Reinforced diet/exercise as tolerated/lose weight Plan Follow up in 4 months To also return as scheduled next month for his annual physical examination Orders: Orders Complete Blood Count Auto Diff 4 Months D64.9 - Anemia, unspecified Thyroid Stimulating Hormone 4 Months E03.9 - Hypothyroidism, unspecified Lipid Panel 4 Months E78.00 - Pure hypercholesterolemia, unspecified UA CC w/rflx Micro + Cult 4 Months R30.0 - Dysuria Comprehensive [place]. Panel Fast 4 Months E78.00 - Pure hypercholesterolemia, unspecified Free T4 (Free Thyroxine) 4 Months E03.9 - Hypothyroidism, unspecified Hemoglobin A1c 4 Months E11.9 - Type 2 diabetes mellitus without complications Microalbumin, Random (w Creat) 4 Months E11.9 - Type 2 diabetes mellitus without complications Coding Level of Care Code Est Pt Level 4 (03674) Diagnoses Paroxysmal atrial fibrillation I48.0 Benign essential hypertension I10 Type 2 diabetes mellitus without complication, without long-term current use of insulin E11.9 Diabetes mellitus type: type 2 Diabetes mellitus residential insulin use: without terminal carman use Diabetes mellitus complication status: without complication Pure hypercholesterolemia E78.00 Acquired hypothyroidism E03.9 Superficial gastritis without hemorrhage, unspecified chronicity K29.30 Chronicity: unspecified Gastritis bleeding: without bleeding Lumbar degenerative disc disease M51.36 Idiopathic gout, unspecified chronicity, unspecified site M10.00 Gout site: unspecified site Gout etiology: idiopathic Chronicity: unspecified Vitamin D deficiency E55.9 Benign prostatic hyperplasia with nocturia N40.1; R35.1 Memory impairment R41.3 Obesity (BMI 30-39.9) E66.9
== END 2024-03-16 11:00 | disposition home or self-care (01) ==
PROVIDERS: PCP Internal Medicine; Visit Provider Internal Medicine
DX: I48.0 Paroxysmal atrial fibrillation (principal); I10 Essential (primary) hypertension; E11.9 Type 2 diabetes mellitus without complications; E78.00 Pure hypercholesterolemia, unspecified; E03.9 Hypothyroidism, unspecified; K29.30 Chronic superficial gastritis without bleeding; M51.36 Other intervertebral disc degeneration, lumbar region; M10.00 Idiopathic gout, unspecified site; E55.9 Vitamin D deficiency, unspecified; N40.1 Benign prostatic hyperplasia with lower urinary tract symptoms; R35.1 Nocturia; R41.3 Other amnesia
CPT/HCPCS: 99214

== ENCOUNTER 2024-03-31 09:32 | Outpatient (AMB) | payer OTHER, SELFPAY ==
[2024-03-31 09:40] LABS: Prothrombin Time Whole Bld POC 31.6 sec (11.1-13.5); ~PT, ~INR - Anti Coag Clinic 2.6 (0.9-1.1)
--- NOTE | 2024-03-31 09:41 | MHC.OFFVISCO ---
Intake Intake Visit Reasons: Anticoagulation Allergies No Known Allergies [No Known Allergies*] Allergy (Unknown, Verified 03/31/24 09:33) U Medication List - Last Reconciled 03/31/24 by Dee Lin RN allopurinol TAKE 2 TABLETS IN THE MORNING AND 1 TABLET IN THE EVENING atorvastatin 80 mg PO BEDTIME 90 days blood sugar diagnostic ([employer] Ultra Test strips) 1 strip miscellaneous DAILY blood-glucose meter ([employer] Ultra2 Meter kit) As directed daily cholecalciferol (vitamin D3) (Vitamin D3) 50 mcg PO DAILY 90 days cyanocobalamin (vitamin B-12) 1,000 mcg PO DAILY 90 days dronedarone (Multaq) 400 mg PO BID fluoxetine 20 mg PO DAILY fluticasone propionate 50 mcg/actuation (Flonase Allergy Relief) 2 sprays intranasal DAILY lancets ([employer] UltraSoft Lancets) As directed levothyroxine 100 mcg PO DAILY 90 days lidocaine 5% (Lidoderm) 1 patch topical DAILY losartan 50 mg PO DAILY metformin ER 500 mg PO BID 90 days metoprolol succinate ER 25 mg PO DAILY 90 days mometasone 0.1% 1 appl topical DAILY PRN omeprazole 20 mg PO DAILY 90 days oxycodone-acetaminophen 5-325 mg 1 tab PO Q6H PRN 28 days simethicone 180 mg PO BID 30 days tamsulosin 0.4 mg PO BEDTIME 90 days tizanidine 4 mg PO Q8H PRN warfarin 3.75 mg See Protocol PO DAILY Nursing Note TC from pt SO, missed appt on 03/29 able to RS to today presents amb to [facility] feeling well Medications and supplements reviewed No changes in health, diet, medications, or supplements, Denies any signs and symptoms of bleeding or bruising or clotting. INR: 2.6 in therapeutic range continue 3.75 mg daily Nutritional guidance given, balance greens and reds in diet and be consistent F/U INR: 3 weeks on preferred Thursday Patient verbalizes understanding of instructions given Anti-Coag Initial Assessment Social Hx Patient Tobacco Use Status: Former Tobacco user alcohol intake: former Coding Level of Care Code Est Patient Level 1 Diagnoses Current use of anticoagulant therapy Z79.01 Time Spent (min) 15 Assessment & Plan Assessment & Plan (1) Current use of anticoagulant therapy: Code(s): Z79.01 - ad terminal makeup operator (current) use of anticoagulants Category: Medical
== END 2024-03-31 09:45 | disposition home or self-care (01) ==
LOC: HO.ACS 09:32
PROVIDERS: PCP Internal Medicine; Visit Provider Internal Medicine
DX: Z79.01 Long term (current) use of anticoagulants (principal)

== ENCOUNTER → 2024-03-31 09:32 | Outpatient (BNVA) | payer OTHER, SELFPAY | PROVIDERS: PCP Internal Medicine; Visit Provider Internal Medicine | DX: I48.0 Paroxysmal atrial fibrillation (principal); Z51.81 Encounter for therapeutic drug level monitoring; Z79.01 Long term (current) use of anticoagulants | CPT/HCPCS: 85610; 99211 ==

== ENCOUNTER 2024-04-13 08:55 | Outpatient (AMB) | payer OTHER, SELFPAY ==
[2024-04-13 09:11] VITALS: BP 119/60; PULSE 61; BMI 32.0
--- NOTE | 2024-04-13 09:11 | MHC.OFFVIS ---
Vital Signs 04/13/24 09:11 Height 5 ft 6 in Weight 198 lb 6.656 oz BMI 32.0 BP 119/60 Blood Pressure Location Lt brachial Position Sitting Pulse 61 Intake Visit Reasons: r/s 02/01/24 4 mos followup Film Casting Operator Required: Yes Film Casting Operator Name: [id number]/sylvia Bulgarian Accompanied by: Spouse Allergies No Known Allergies [No Known Allergies*] Allergy (Unknown, Verified 03/31/24 09:33) U Medication List - Last Reconciled 04/13/24 by Rakan Rosenbaum MD allopurinol TAKE 2 TABLETS IN THE MORNING AND 1 TABLET IN THE EVENING atorvastatin 80 mg PO BEDTIME 90 days blood sugar diagnostic ([employer] Ultra Test strips) 1 strip miscellaneous DAILY blood-glucose meter ([employer] Ultra2 Meter kit) As directed daily cholecalciferol (vitamin D3) (Vitamin D3) 50 mcg PO DAILY 90 days cyanocobalamin (vitamin B-12) 1,000 mcg PO DAILY 90 days dronedarone (Multaq) 400 mg PO BID fluoxetine 20 mg PO DAILY fluticasone propionate 50 mcg/actuation (Flonase Allergy Relief) 2 sprays intranasal DAILY lancets ([employer] UltraSoft Lancets) As directed levothyroxine 100 mcg PO DAILY 90 days lidocaine 5% (Lidoderm) 1 patch topical DAILY losartan 50 mg PO DAILY metformin ER 500 mg PO BID 90 days metoprolol succinate ER 25 mg PO DAILY 90 days mometasone 0.1% 1 appl topical DAILY PRN omeprazole 20 mg PO DAILY 90 days oxycodone-acetaminophen 5-325 mg 1 tab PO Q6H PRN 28 days simethicone 180 mg PO BID 30 days tamsulosin 0.4 mg PO BEDTIME 90 days tizanidine 4 mg PO Q8H PRN warfarin 3.75 mg See Protocol PO DAILY HPI Comments Details: Pleasant 73-year-old gentleman who is referred to us for paroxysmal atrial fibrillation. He has known history of atrial fibrillation in the past. He has history of gout, GERD, hypothyroidism, hyperlipidemia, hypertension and diabetes. Referred him for echocardiography and Holter monitor. ECHO showed normal biventricular function. Holter showed that he had 29 minutes episodes of atrial fibrillation. His shared that he stops breathing in his sleep. He has snoring and apneic episodes. This goes along with his nighttime palpitations as sleep apnea can trigger atrial fibrillation at nighttime. He was referred for sleep study where snoring was noticed but he did not have any apneic spells. He returned for follow-up accompanied by his . He has been noticing some palpitations during the daytime. After discussion we started him on multaq. 05/18/23: He returns for follow-up. He has been using Multaq 400 mg twice a day. He is saying he has no palpitations. He is feeling great. No other concerns currently. Taking Coumadin for anticoagulation. 09/28/2023: He returns for follow-up. He has been doing well. He was referred for electrophysiology assessment and will be seeing EP. He is saying he has been doing well with Multaq and has no palpitations. He was previously getting nighttime palpitations due to atrial fibrillation. Blood pressure control is good. 04/13/24: He returns for follow-up. He has been doing well. No palpitations. Taking medications regularly. No bleeding concerns. Blood pressure is well controlled. [facility] Medical History Benign prostatic hyperplasia with nocturia Lumbar degenerative disc disease Obesity (BMI 30-39.9) Vitamin D deficiency Gout Gastric ulcer Superficial gastritis GERD without esophagitis Acquired hypothyroidism Pure hypercholesterolemia Benign essential hypertension Diabetes mellitus Paroxysmal atrial fibrillation Surgical History Hx of colonoscopy History of esophagogastroduodenoscopy (EGD) History of appendectomy Family History Father Medical history unknown Mother Medical history unknown Social History Housing: House Alcohol intake: former Patient Tobacco Use Status: Former Tobacco user e-Cigarette/Vaping Use: Never Used Second Hand Smoke Exposure: Yes service: No Current occupational status: disabled Cognitive needs: No Hearing needs: No Vision needs: No Review of Systems Const Denies chills, Denies fatigue, Denies fever(s), Denies frequent falls, Denies weakness, Denies weight gain and Denies weight loss ENT Denies dizziness Card Denies chest pain, Denies leg edema, Denies lightheadedness, Denies palpitations, Denies dyspnea and Denies dyspnea on exertion Resp Denies cough, Denies dyspnea and Denies dyspnea on exertion GI Denies hematochezia Musc Denies abnormal gait, Denies muscle weakness, Denies numbness, Denies radiating pain into limb and Denies tingling Neuro Denies abnormal gait, Denies dizziness, Denies frequent falls, Denies numbness, Denies tingling and Denies weakness Endo Denies fatigue and Denies palpitations Physical Exam Vital Signs: Last Vital Signs Pulse 61 04/13/24 09:11 BP 119/60 04/13/24 09:11 BMI result Body Mass Index 32.0 GENERAL APPEARANCE: in no acute distress, pleasant. NECK: no carotid bruit, no jugular venous distention. SKIN: no suspicious lesions, warm and dry. HEART: no murmurs, regular rate and rhythm. LUNGS: clear to auscultation bilaterally. ABDOMEN: soft, nontender. EXTREMITIES: no edema. PERIPHERAL PULSES: equal. NEUROLOGIC: No gross deficits, AAO X 3 Office Procedures EKG Details: Sinus rhythm 61 beats per minute, normal axis, first-degree AV block with CA interval 224 milliseconds, septal infarct, QTC 428 milliseconds [id number], Complete Assessment & Plan Assessment & Plan (1) Benign essential hypertension: Code(s): I10 - Essential (primary) hypertension Category: Medical (2) Paroxysmal atrial fibrillation: Code(s): I48.0 - Paroxysmal atrial fibrillation Category: Medical Plan Pleasant 73 year gentleman is here for follow-up. He has background history of paroxysmal atrial fibrillation. He has been taking Multaq and is doing well. EKG in the office is again showing sinus rhythm with first-degree AV block. His denying palpitations. He is on Coumadin for anticoagulation. No bleeding concerns. Clinically stable and will see us back in 6 months. Thank you for allowing me to participate in the care of your patient. Please feel free to contact me if you have any questions. Coding Level of Care Code Est Pt Level 4 (32488) Diagnoses Benign essential hypertension I10 Paroxysmal atrial fibrillation I48.0 CPT Codes EKG - CPT: 66899-[id number], Complete ([id number])
== END 2024-04-13 09:36 | disposition home or self-care (01) ==
PROVIDERS: PCP Internal Medicine; Visit Provider Internal Medicine Cardiovascular Disease
DX: I10 Essential (primary) hypertension (principal); I48.0 Paroxysmal atrial fibrillation
CPT/HCPCS: 93010; 99214

== ENCOUNTER → 2024-04-13 08:55 | Outpatient (BNVA) | payer OTHER, SELFPAY | PROVIDERS: PCP Internal Medicine; Visit Provider Internal Medicine Cardiovascular Disease | DX: I10 Essential (primary) hypertension (principal); I48.0 Paroxysmal atrial fibrillation; I44.0 Atrioventricular block, first degree; R94.31 Abnormal electrocardiogram [ECG] [EKG] | CPT/HCPCS: 93005; 99212 ==

== ENCOUNTER 2024-04-19 08:57 | Outpatient (AMB) | payer OTHER, SELFPAY ==
[2024-04-19 09:10] LABS: Prothrombin Time Whole Bld POC 24.5 sec (11.1-13.5)
--- NOTE | 2024-04-19 09:12 | MHC.OFFVISCO ---
Intake Intake Visit Reasons: Anticoagulation Allergies No Known Allergies [No Known Allergies*] Allergy (Unknown, Verified 04/19/24 09:04) U Medication List - Last Reconciled 04/19/24 by Dee Blanco RN allopurinol TAKE 2 TABLETS IN THE MORNING AND 1 TABLET IN THE EVENING atorvastatin 80 mg PO BEDTIME 90 days blood sugar diagnostic ([employer] Ultra Test strips) 1 strip miscellaneous DAILY blood-glucose meter ([employer] Ultra2 Meter kit) As directed daily cholecalciferol (vitamin D3) (Vitamin D3) 50 mcg PO DAILY 90 days cyanocobalamin (vitamin B-12) 1,000 mcg PO DAILY 90 days dronedarone (Multaq) 400 mg PO BID fluoxetine 20 mg PO DAILY fluticasone propionate 50 mcg/actuation (Flonase Allergy Relief) 2 sprays intranasal DAILY lancets ([employer] UltraSoft Lancets) As directed levothyroxine 100 mcg PO DAILY 90 days losartan 50 mg PO DAILY metformin ER 500 mg PO BID 90 days metoprolol succinate ER 25 mg PO DAILY 90 days mometasone 0.1% 1 appl topical DAILY PRN omeprazole 20 mg PO DAILY 90 days oxycodone-acetaminophen 5-325 mg 1 tab PO Q6H PRN 28 days simethicone 180 mg PO BID 30 days tamsulosin 0.4 mg PO BEDTIME 90 days tizanidine 4 mg PO Q8H PRN warfarin 3.75 mg See Protocol PO DAILY Nursing Note INR: 2.0 in therapeutic range of 2-3 Medications and supplements reviewed No changes in health, diet, medications, or supplements, Denies any signs and symptoms of bleeding or bruising or clotting. Bleeding, bruising, clotting discussed Nutritional guidance given to avoid greens today and to have fruits such as melon, addison, strawberries etc. Dose: 3.75mg daily F/U INR: 3 weeks Patient verbalizes understanding of instructions given Anti-Coag Initial Assessment Social Hx Patient Tobacco Use Status: Former Tobacco user alcohol intake: former Coding Level of Care Code Est Patient Level 1 Diagnoses Current use of anticoagulant therapy Z79.01 Assessment & Plan Assessment & Plan (1) Current use of anticoagulant therapy: Code(s): Z79.01 - terminal make up operator (current) use of anticoagulants Category: Medical
== END 2024-04-19 09:16 | disposition home or self-care (01) ==
LOC: HO.ACS 08:57
PROVIDERS: PCP Internal Medicine; Visit Provider Internal Medicine
DX: Z79.01 Long term (current) use of anticoagulants (principal)

== ENCOUNTER → 2024-04-19 08:57 | Outpatient (BNVA) | payer OTHER, SELFPAY | PROVIDERS: PCP Internal Medicine; Visit Provider Internal Medicine | DX: I48.0 Paroxysmal atrial fibrillation (principal); Z79.01 Long term (current) use of anticoagulants; Z51.81 Encounter for therapeutic drug level monitoring | CPT/HCPCS: 85610; 99211 ==

== ENCOUNTER 2024-04-25 08:40 | Outpatient (AMB) | payer MEDICARE, MEDICAID, SELFPAY ==
--- NOTE | 2024-04-25 08:44 | A.OFFPC_ITS ---
Vital Signs 04/25/24 08:46 Height 5 ft 6 in Weight 197 lb 4 oz BMI 31.8 BP 130/80 Blood Pressure Location Lt brachial Position Sitting Pulse 77 Pulse Source Pulse Oximeter Pulse Oximetry (%) 96 Oxygen Delivery Method Room Air Intake Visit Reasons: Annual Exam - see comments Intake Note: Patient is here today for a physical. Paper Folding Machine Operator Required: Yes Paper Folding Machine Operator Language: Mechanic Insulator Name: Radha (spouse) Information Interpreted: non-clinical & clinical Medical Supervisor: Present Accompanied by: Spouse Allergies No Known Allergies [No Known Allergies*] Allergy (Unknown, Verified 04/25/24 10:13) U Medication List - Last Reconciled 04/25/24 by Matheus Salgado MD allopurinol TAKE 2 TABLETS IN THE MORNING AND 1 TABLET IN THE EVENING atorvastatin 80 mg PO BEDTIME 90 days blood sugar diagnostic ([employer] Ultra Test strips) 1 strip miscellaneous DAILY blood-glucose meter ([employer] Ultra2 Meter kit) As directed daily cholecalciferol (vitamin D3) (Vitamin D3) 50 mcg PO DAILY 90 days cyanocobalamin (vitamin B-12) 1,000 mcg PO DAILY 90 days dronedarone (Multaq) 400 mg PO BID fluoxetine 20 mg PO DAILY fluticasone propionate 50 mcg/actuation (Flonase Allergy Relief) 2 sprays intranasal DAILY lancets ([employer] UltraSoft Lancets) As directed levothyroxine 100 mcg PO DAILY 90 days losartan 50 mg PO DAILY metformin ER 500 mg PO BID 90 days metoprolol succinate ER 25 mg PO DAILY 90 days mometasone 0.1% 1 appl topical DAILY PRN omeprazole 20 mg PO DAILY 90 days oxycodone-acetaminophen 5-325 mg 1 tab PO Q6H PRN 28 days simethicone 180 mg PO BID 30 days tamsulosin 0.4 mg PO BEDTIME 90 days tizanidine 4 mg PO Q8H PRN warfarin 3.75 mg See Protocol PO DAILY Tobacco use date assessed: 04/25/24 Fall risk assessment: 1 Fall in past year Last assessed Fall Risk: 04/25/24 Dental Screening Dental Screen Date: 12/04/23 HPI Annual Exam - see comments HPI Details Patient comes in today for his annual physical examination States that he feels okay He denies any headaches or dizziness Denies any chest pains, no SOB No nausea/vomiting, no abdominal pain No change in bowel habits noted He denies any acute urinary symptoms States that he just needs his Mometasone cream Rx refilled He had his repeat colonoscopy done last year on 04/23/[address] Fisher - was recommended to get a repeat colonoscopy in 5 years (2027) [facility] Medical History Benign prostatic hyperplasia with nocturia Lumbar degenerative disc disease Obesity (BMI 30-39.9) Vitamin D deficiency Gout Gastric ulcer Superficial gastritis GERD without esophagitis Acquired hypothyroidism Pure hypercholesterolemia Benign essential hypertension Diabetes mellitus Paroxysmal atrial fibrillation Surgical History (Updated 04/25/24 @ 10:12 by Matheus Salgado MD) Hx of colonoscopy History of esophagogastroduodenoscopy (EGD) History of appendectomy Family History Father Medical history unknown Mother Medical history unknown Social History Housing: House Alcohol intake: former Patient Tobacco Use Status: Former Tobacco user e-Cigarette/Vaping Use: Never Used Second Hand Smoke Exposure: Yes service: No Current occupational status: disabled Cognitive needs: No Hearing needs: No Vision needs: No Questionnaire Thrive Questionnaire Date Thrive assessed: 12/04/23 ZAY-7 AMB Questionnaire ZAY-7 Date ZAY - 7 assessed: 12/04/23 Source: Developed by Drs. Rikki Murry, Sangita Mays, Matthew Devi and colleagues, with an educational yonas from [employer]. Review of Systems Const Denies chills, Denies fatigue, Denies fever(s), Denies headache(s), Denies malaise and Denies weakness Eyes Denies blurry vision, Denies change in vision, Denies irritation and Denies itchy eyes ENT Denies dysphagia, Denies dizziness, Denies otalgia, Denies headache(s), Denies nasal congestion, Denies neck pain, Denies odynophagia and Denies sore throat Card Denies chest pain, Denies rapid heart rate, Denies irregular heart rhythm, Denies palpitations and Denies dyspnea Resp Denies chest congestion, Denies cough, Denies dyspnea and Denies wheezing GI Denies abdominal pain, Denies bloating, Denies constipation, Denies dysphagia, Denies heartburn, Denies diarrhea, Denies nausea, Denies odynophagia and Denies vomiting Denies hematuria, Denies difficulty urinating, Denies dysuria, Reports nocturia, Reports urinary frequency and Denies urinary urgency Musc Reports back pain (over the lower back - chronic), Denies arthralgias, Denies joint swelling, Denies muscle weakness and Denies neck pain Skin/Breast Denies change in pigmentation, Denies lesions, Denies rash and Denies unusual bruising Neuro Denies dizziness, Denies headache(s), Denies paresthesias and Denies weakness Endo Denies fatigue and Denies palpitations Aller/Immun Denies itchy eyes and Denies wheezing Physical exam (Primary Care) Vital Signs: Last Vital Signs Pulse 77 04/25/24 08:46 BP 130/80 04/25/24 08:46 Pulse Ox 96 04/25/24 08:46 Oxygen Delivery Method Room Air 04/25/24 08:46 BMI result Body Mass Index 31.8 Tobacco/Smoking Status: Tobacco use Status Tobacco use date assessed 04/25/24 04/25/24 09:02 Patient Tobacco Use Status Former Tobacco user 04/25/24 09:02 e-Cigarette/Vaping Use Never Used 04/25/24 09:02 Thrive Assessment: Date of Thrive Assessment Date Thrive assessed 12/04/23 04/25/24 09:02 Const General: no acute distress, alert and awake Orientation/consciousness: patient oriented x3 HENMT Head: Yes normocephalic and Yes atraumatic Ears: external ears normal, TM's normal bilaterally and EAC's normal General nose exam: No nasal discharge present Face and sinus: Yes normal facial exam and Yes sinuses nontender Teeth and gingiva: dentition normal Throat: Yes posterior oropharynx normal and Yes tonsils normal (no TP congestion) Eyes Eyelids: Yes eyelids normal Conjunctivae: conjunctivae normal Pupils: Equal, round and reactive pupils present EOM: EOMs intact bilaterally Neck Neck: Yes no lymphadenopathy and Yes supple Thyroid: Thyroid normal Resp Auscultation: clear to auscultation bilaterally, no rales and no wheezes Cardio Rate: regular rate Rhythm: regular rhythm Heart sounds: no murmurs GI Palpation (GI): Soft to palpation, nontender and No hepatosplenomegaly present Auscultation: normal bowel sounds General: Yes no CVA tenderness Back/Spine/Pelvis Back: no CVA tenderness Thoracic/Lumbar Spine: lumbar spinal tenderness (chronic) Skin Lesions: no lesions Rashes: no rashes Neuro General: patient oriented x3, moves all extremities, no focal motor deficits and CN's II-XI intact bilaterally Cranial nerves: Yes Equal, round and reactive pupils present Cognition (Neuro): normal cognition Gait exam (Neuro): Normal gait present Extrem General: Yes no clubbing, cyanosis or edema Results Reviewed Results Reviewed: Laboratory Tests 03/11/24 03/11/24 08:25 08:26 WBC 8.3 Hgb 13.8 L Hct 43.0 Plt Count 233 Sodium 141 Potassium 4.4 Creatinine 0.83 Estimated GFR > 60 Fasting Glucose 118 H Hemoglobin A1c % 6.7 H Calcium 9.1 AST 21 ALT 20 Triglycerides 102 Cholesterol 125 LDL Cholesterol, Calc 66 HDL Cholesterol 39 L Vitamin B12 386 25-OH Vitamin D Total 41.5 TSH 0.51 Free T4 1.11 Ur Specific [place] 1.025 Urine Protein Negative Urine Glucose (UA) Negative Urine Blood Negative Urine Nitrite Negative Ur Leukocyte Esterase Trace H Microalb/Creat Ratio 4.3 Assessment and Plan Assessment & Plan (1) Annual physical exam: Code(s): Z00.00 - Encounter for general adult medical examination without abnormal findings Plan: Patient's recent labs done a few weeks ago were all within acceptable range He is up-to-date with his screening colonoscopy - was last done on 04/23/2023 and he is due for repeat colonoscopy in 5 years (2) Paroxysmal atrial fibrillation: Code(s): I48.0 - Paroxysmal atrial fibrillation Plan: Patient currently remains in sinus rhythm and is anticoagulated on Coumadin - he follows up with the Coumadin clinic regularly for PT/INR monitoring Continue Metoprolol ER 25 mg QD and Multaq 400 mg BID Follow up with cardiology as scheduled (3) Diabetes mellitus: Code(s): E11.9 - Type 2 diabetes mellitus without complications Qualifiers: Diabetes mellitus type: type 2 Diabetes mellitus terminal supervisor insulin use: without terminal supervisor use Diabetes mellitus complication status: without complication Qualified Code(s): E11.9 - Type 2 diabetes mellitus without complications Plan: HgbA1c was at 6.7% on his labs done a few weeks ago (was previously at 6.4%) - goal is <7.0% Reinforced diabetic diet Continue Metformin ER 500 mg BID States that he has not had an eye exam done in a few years now - he has been referred to ophthalmology every year for the past 2 to 3 years but he has not been able to see ophthalmology Will redo referral - he is advised that as he is a diabetic, he NEEDS to have an eye exam done routinely once a year (4) Benign essential hypertension: Code(s): I10 - Essential (primary) hypertension Plan: Reinforced low sodium diet - goal is systolic BP of at least 130 to 140 mm or less Continue Metoprolol ER 25 mg QD and Losartan 50 mg QD (5) Pure hypercholesterolemia: Code(s): E78.00 - Pure hypercholesterolemia, unspecified Plan: Reinforced low cholesterol diet Continue Atorvastatin 80 mg QD Will recheck his labs and fasting lipids as scheduled in a couple of months for follow-up (6) Acquired hypothyroidism: Code(s): E03.9 - Hypothyroidism, unspecified Plan: His TFTs remain normal on his recent labs Continue Levothyroxine 100 mcg QD (7) Superficial gastritis: Comment: seen on EGD on 06/23/2017 Code(s): K29.60 - Other gastritis without bleeding Qualifiers: Chronicity: unspecified Gastritis bleeding: without bleeding Qualified Code(s): K29.30 - Chronic superficial gastritis without bleeding Plan: Dietary restrictions reinforced Continue Prilosec OTC 20 mg 2 tablets QD He had repeat colonoscopy done in April 2023 - recommend repeat colonoscopy in 5 years Follow up with GI as scheduled (8) Lumbar degenerative disc disease: Code(s): M51.36 - Other intervertebral disc degeneration, lumbar region Plan: Reinforced activity and weight-lifting restrictions Continue Oxycodone-acetaminophen 5-325 mg Q 6 hours as needed for pain (9) Gout: Code(s): M10.9 - Gout, unspecified Qualifiers: Gout site: unspecified site Gout etiology: idiopathic Chronicity: unspecified Qualified Code(s): M10.00 - Idiopathic gout, unspecified site Plan: He remains asymptomatic with no acute gout flare ups since his last visit His serum uric acid level remains normal on his recent labs Reinforced low purine diet (10) Vitamin D deficiency: Code(s): E55.9 - Vitamin D deficiency, unspecified Plan: Continue Vitamin D3 2000 units QD (11) Benign prostatic hyperplasia with nocturia: Code(s): N40.1 - Benign prostatic hyperplasia with lower urinary tract symptoms; R35.1 - Nocturia Plan: His PSA was normal when last checked in July 2023 Continue Tamsulosin 0.4 mg Q HS - states that his Rx has helped a lot with his nocturia Will refer him to urology for further evaluation and management (12) Memory impairment: Code(s): R41.3 - Other amnesia Plan: He was started on Fluoxetine for MCI and depression by neurology last year but patient could not tolerate Rx at 20 mg QD Follow up with neurology as scheduled (13) Obesity (BMI 30-39.9): Code(s): E66.9 - Obesity, unspecified Plan: Reinforced diet/exercise as tolerated/lose weight Plan Follow up as scheduled in June 2024 Orders: Referrals Ophthalmology Referral E11.9 - Type 2 diabetes mellitus without complications Urology Referral N40.1 - Benign prostatic hyperplasia with lower urinary tract symptoms, R35.1 - Nocturia Medications: Refilled mometasone 0.1% 1 appl topical DAILY PRN 45 grams 1RF rash Coding Level of Care Code Est Pt Level 4 (88767) Complex EM visit Add On G2211 Diagnoses Annual physical exam Z00.00 Paroxysmal atrial fibrillation I48.0 Type 2 diabetes mellitus without complication, without long-term current use of insulin E11.9 Diabetes mellitus type: type 2 Diabetes mellitus chcf insulin use: without terminal supervisor use Diabetes mellitus complication status: without complication Benign essential hypertension I10 Pure hypercholesterolemia E78.00 Acquired hypothyroidism E03.9 Superficial gastritis without hemorrhage, unspecified chronicity K29.30 Chronicity: unspecified Gastritis bleeding: without bleeding Lumbar degenerative disc disease M51.36 Idiopathic gout, unspecified chronicity, unspecified site M10.00 Gout site: unspecified site Gout etiology: idiopathic Chronicity: unspecified Vitamin D deficiency E55.9 Benign prostatic hyperplasia with nocturia N40.1; R35.1 Memory impairment R41.3 Obesity (BMI 30-39.9) E66.9
[2024-04-25 08:46] VITALS: BP 130/80; PULSE 77; O2SAT 96; BMI 31.8
== END 2024-04-25 10:24 | disposition home or self-care (01) ==
PROVIDERS: PCP Internal Medicine; Visit Provider Internal Medicine
DX: Z00.00 Encounter for general adult medical examination without abnormal findings (principal); I48.0 Paroxysmal atrial fibrillation; E11.9 Type 2 diabetes mellitus without complications; I10 Essential (primary) hypertension; E78.00 Pure hypercholesterolemia, unspecified; E03.9 Hypothyroidism, unspecified; K29.30 Chronic superficial gastritis without bleeding; M51.36 Other intervertebral disc degeneration, lumbar region; M10.00 Idiopathic gout, unspecified site; E55.9 Vitamin D deficiency, unspecified; N40.1 Benign prostatic hyperplasia with lower urinary tract symptoms; R35.1 Nocturia
CPT/HCPCS: 99397

== ENCOUNTER → 2024-05-10 08:44 | Outpatient (BNVA) | payer OTHER, SELFPAY | PROVIDERS: PCP Internal Medicine; Visit Provider Internal Medicine | DX: I48.0 Paroxysmal atrial fibrillation (principal); Z79.01 Long term (current) use of anticoagulants; Z51.81 Encounter for therapeutic drug level monitoring | CPT/HCPCS: 85610; 99211 ==

== ENCOUNTER 2024-06-07 08:48 | Outpatient (AMB) | payer OTHER, SELFPAY ==
[2024-06-07 08:56] LABS: Prothrombin Time Whole Bld POC 25.7 sec (11.1-13.5); ~PT, ~INR - Anti Coag Clinic 2.1 (0.9-1.1)
--- NOTE | 2024-06-07 09:00 | MHC.OFFVISCO ---
Intake Intake Visit Reasons: Anticoagulation Allergies No Known Allergies [No Known Allergies*] Allergy (Unknown, Verified 06/07/24 08:52) U Medication List - Last Reconciled 06/07/24 by Dee Blanco RN allopurinol TAKE 2 TABLETS IN THE MORNING AND 1 TABLET IN THE EVENING atorvastatin 80 mg PO BEDTIME 90 days blood sugar diagnostic ([employer] Ultra Test strips) 1 strip miscellaneous DAILY blood-glucose meter ([employer] Ultra2 Meter kit) As directed daily cholecalciferol (vitamin D3) (Vitamin D3) 50 mcg PO DAILY 90 days cyanocobalamin (vitamin B-12) 1,000 mcg PO DAILY 90 days dronedarone (Multaq) 400 mg PO BID fluoxetine 20 mg PO DAILY fluticasone propionate 50 mcg/actuation (Flonase Allergy Relief) 2 sprays intranasal DAILY lancets ([employer] UltraSoft Lancets) As directed levothyroxine 100 mcg PO DAILY 90 days losartan 50 mg PO DAILY metformin ER 500 mg PO BID 90 days metoprolol succinate ER 25 mg PO DAILY 90 days mometasone 0.1% 1 appl topical DAILY PRN omeprazole 20 mg PO DAILY 90 days oxycodone-acetaminophen 5-325 mg 1 tab PO Q6H PRN 28 days simethicone 180 mg PO BID 30 days tamsulosin 0.4 mg PO BEDTIME 90 days tizanidine 4 mg PO Q8H PRN warfarin 3.75 mg See Protocol PO DAILY Nursing Note INR: 2.1 in therapeutic range of 2-3 Medications and supplements reviewed No changes in health, diet, medications, or supplements, Denies any signs and symptoms of bleeding or bruising or clotting. Bleeding, bruising, clotting discussed Nutritional guidance given to avoid greens today. Pt states he will have some tomatoes today Dose: usual dose of 3.75mg daily F/U INR: 4 weeks Patient verbalizes understanding of instructions given Anti-Coag Initial Assessment Social Hx Patient Tobacco Use Status: Former Tobacco user alcohol intake: former Coding Level of Care Code Est Patient Level 1 Diagnoses Current use of anticoagulant therapy Z79.01 Assessment & Plan Assessment & Plan (1) Current use of anticoagulant therapy: Code(s): Z79.01 - prison (current) use of anticoagulants Category: Medical
== END 2024-06-07 09:02 | disposition home or self-care (01) ==
LOC: HO.ACS 08:48
PROVIDERS: PCP Internal Medicine; Visit Provider Internal Medicine
DX: Z79.01 Long term (current) use of anticoagulants (principal)

== ENCOUNTER → 2024-06-07 08:48 | Outpatient (BNVA) | payer OTHER, SELFPAY | PROVIDERS: PCP Internal Medicine; Visit Provider Internal Medicine | DX: I48.0 Paroxysmal atrial fibrillation (principal); Z79.01 Long term (current) use of anticoagulants; Z51.81 Encounter for therapeutic drug level monitoring | CPT/HCPCS: 85610; 99211 ==

== ENCOUNTER 2024-06-15 08:34 | Outpatient (REF) | payer OTHER, SELFPAY ==
[2024-06-15 08:56] LABS: MANUAL DIFF FLAG NO
[2024-06-15 09:18] LABS: Basophils Percent Auto 0.5 % (0-2); Eosinophils Absolute Auto 0.3 X10*3/uL (0.0-0.4); Eosinophils Percent Auto 4.2 % (0-4); Hemoglobin 12.7 g/dl (14.0-18.0); Imm Gran Abs Auto 0.02 X10*3/uL (0.00-0.03); Imm Gran Pct Auto 0.3 % (0.0-0.4); Lymphocytes Absolute Auto 2.5 X10*3/uL (1.2-4.9); Lymphocytes Percent Auto 32.6 % (20-40); Mean Corpuscular HGB Conc 31.8 g/dl (31.0-36.0); Mean Corpuscular Hemoglobin 26.5 pg (27.0-33.0); Mean Corpuscular Volume 83.5 fL (80.0-98.0); Mean Platelet Volume 10.5 fL (9.4-12.4); Monocytes Absolute Auto 0.6 X10*3/uL (0.1-1.2); Neutrophils Absolute Auto 4.2 x10*3/uL (2.0-8.3); Neutrophils Percent Auto 54.4 % (45-73); Platelet Count 202 X10*3/uL (160-400); Red Blood Count 4.79 X10*6/uL (4.60-5.80); Red Cell Distribution Width 13.4 % (11.0-16.0); White Blood Count 7.8 X10*3/uL (4.8-10.8)
[2024-06-15 09:34] LABS: Estimated Average Glucose 126 mg/dL
[2024-06-15 09:57] LABS: Appearance Urine Clear; Color Urine Yellow; Glucose Urine UA Negative (Negative); Leukocyte Esterase Urine Trace (Negative); Nitrite Urine Negative (Negative); Specific Gravity - Urine 1.025 (1.005-1.025); UMIC TRIGGER UACC YES; Urine Blood Negative (Negative); Urine Ketones Trace mg/dL (Negative); Urine Protein Negative (Neg-Trace)
[2024-06-15 10:01] LABS: Bacteria Urine None Seen (None Seen); Hyaline Casts Urine 0-2 /LPF (0-2); RBC Urine 0-2 /HPF (0-2); Squamous Epithelial Cell Urine 0-2 /HPF (0-2); WBC Urine 0-5 /HPF (0-5)
[2024-06-15 10:08] LABS: Alanine Aminotransferase 18 U/L (0-40); Albumin Level 4.1 g/dL (3.5-5.0); Alkaline Phosphatase 44 U/L (39-117); Anion Gap 10 (12-20); Aspartate Amino Transferase 21 U/L (5-37); Bilirubin Total 1.1 mg/dL (0.0-1.0); Blood Urea Nitrogen 11 mg/dL (9-16); Carbon Dioxide 30 mmol/L (22-29); Chloride 105 mmol/L (96-108); Cholesterol 110 mg/dL (<200); Estimated Glomerular Filt Rate > 60; Glucose Fasting 93 mg/dL (60-99); HDL Cholesterol 39 mg/dL (>40); LDL Cholesterol Calculated 55 mg/dL (<100); Potassium 3.5 mmol/L (3.3-5.1); Sodium 141 mmol/L (135-145); Total Protein 6.9 g/dL (6.5-8.0); Triglycerides 80 mg/dL (<150)
[2024-06-15 10:19] LABS: Creatinine Urine 228.46 mg/dL; Microalbum/Creatinine Ratio Ur 5.6 ug/mg cr (<30)
[2024-06-15 10:41] LABS: Free T4 (Free Thyroxine) 1.03 ng/dL (0.71-1.85); Thyroid Stimulating Hormone 0.81 uIU/mL (0.32-4.0)
== END 2024-06-15 08:35 | disposition home or self-care (01) ==
LOC: HO.LAB 08:34
PROVIDERS: PCP Internal Medicine; Visit Provider Internal Medicine
DX: D64.9 Anemia, unspecified (principal); E11.9 Type 2 diabetes mellitus without complications; E03.9 Hypothyroidism, unspecified; E78.00 Pure hypercholesterolemia, unspecified
CPT/HCPCS: 36415; 80053; 80061; 81001; 82043; 82570; 83036; 84439; 84443; 85025

== ENCOUNTER 2024-06-16 09:57 | Outpatient (AMB) | payer OTHER, SELFPAY ==
[2024-06-16 10:41] VITALS: BP 120/60; PULSE 53; O2SAT 98; BMI 32.1
--- NOTE | 2024-06-16 10:41 | MHC.PC.OV ---
Vital Signs 06/16/24 10:41 Height 5 ft 6 in Weight 199 lb BMI 32.1 BP 120/60 Blood Pressure Location Lt brachial Position Sitting Pulse 53 Pulse Source Pulse Oximeter Pulse Oximetry (%) 98 Oxygen Delivery Method Room Air Intake Visit Reasons: hyperlipidemia, hypothyroidism - see comment Operations Developer: Not Required per policy Accompanied by: Self / Same As Patient Allergies No Known Allergies [No Known Allergies*] Allergy (Unknown, Verified 06/19/24 03:44) U Medication List - Last Reconciled 06/19/24 by Matheus Salgado MD allopurinol TAKE 2 TABLETS IN THE MORNING AND 1 TABLET IN THE EVENING atorvastatin 80 mg PO BEDTIME 90 days blood sugar diagnostic ([employer] Ultra Test strips) 1 strip miscellaneous DAILY blood-glucose meter ([employer] Ultra2 Meter kit) As directed daily cholecalciferol (vitamin D3) (Vitamin D3) 50 mcg PO DAILY 90 days cyanocobalamin (vitamin B-12) 1,000 mcg PO DAILY 90 days dronedarone (Multaq) 400 mg PO BID fluoxetine 20 mg PO DAILY fluticasone propionate 50 mcg/actuation (Flonase Allergy Relief) 2 sprays intranasal DAILY lancets ([employer] UltraSoft Lancets) As directed levothyroxine 100 mcg PO DAILY 90 days losartan 50 mg PO DAILY metformin ER 500 mg PO BID 90 days metoprolol succinate ER 25 mg PO DAILY 90 days mometasone 0.1% 1 appl topical DAILY PRN omeprazole 20 mg PO DAILY 90 days oxycodone-acetaminophen 5-325 mg 1 tab PO Q6H PRN 28 days simethicone 180 mg PO BID 30 days tamsulosin 0.4 mg PO BEDTIME 90 days tizanidine 4 mg PO Q8H PRN warfarin 3.75 mg See Protocol PO DAILY Tobacco use date assessed: 04/25/24 Fall risk assessment: No Falls in past year Last assessed Fall Risk: 06/16/24 Dental Screening Dental Screen Date: 12/04/23 HPI hyperlipidemia, hypothyroidism - see comment HPI Details Patient comes in today for his follow up visit States that he feels okay He denies any headaches or dizziness Denies any chest pains, no SOB No nausea/vomiting, no abdominal pain No change in bowel habits noted States that his chronic low back pain and joint pains remain adequately controlled on his current Rx Had his follow up labs done a couple of days ago - to discuss his results [facility] Medical History Benign prostatic hyperplasia with nocturia Lumbar degenerative disc disease Obesity (BMI 30-39.9) Vitamin D deficiency Gout Gastric ulcer Superficial gastritis GERD without esophagitis Acquired hypothyroidism Pure hypercholesterolemia Benign essential hypertension Diabetes mellitus Paroxysmal atrial fibrillation Surgical History Hx of colonoscopy History of esophagogastroduodenoscopy (EGD) History of appendectomy Family History Father Medical history unknown Mother Medical history unknown Social History Housing: House Alcohol intake: former Patient Tobacco Use Status: Former Tobacco user e-Cigarette/Vaping Use: Never Used Second Hand Smoke Exposure: Yes service: No Current occupational status: disabled Cognitive needs: No Hearing needs: No Vision needs: No Questionnaire Thrive Questionnaire Date Thrive assessed: 12/04/23 ZAY-7 AMB Questionnaire ZAY-7 Date ZAY - 7 assessed: 12/04/23 Source: Developed by Drs. Rikki Murry, Sangita Mays, Matthew Devi and colleagues, with an educational yonas from [employer]. Review of Systems Const Denies chills, Denies fatigue, Denies fever(s) and Denies headache(s) ENT Denies dysphagia, Denies dizziness, Denies otalgia, Denies headache(s), Denies neck pain, Denies odynophagia and Denies sore throat Card Denies chest pain, Denies palpitations and Denies dyspnea Resp Denies cough, Denies dyspnea and Denies wheezing GI Denies abdominal pain, Denies constipation, Denies dysphagia, Denies diarrhea, Denies nausea, Denies odynophagia and Denies vomiting Denies dysuria, Denies nocturia and Denies urinary frequency Musc Reports back pain (over the lower back - chronic) and Denies neck pain Skin/Breast Denies rash Neuro Denies dizziness and Denies headache(s) Endo Denies fatigue and Denies palpitations Aller/Immun Denies wheezing Physical exam (Primary Care) Vital Signs: Last Vital Signs Pulse 53 06/16/24 10:41 BP 120/60 06/16/24 10:41 Pulse Ox 98 06/16/24 10:41 Oxygen Delivery Method Room Air 06/16/24 10:41 BMI result Body Mass Index 32.1 Tobacco/Smoking Status: Tobacco use Status Tobacco use date assessed 04/25/24 06/16/24 10:42 Patient Tobacco Use Status Former Tobacco user 06/16/24 10:42 e-Cigarette/Vaping Use Never Used 06/16/24 10:42 Thrive Assessment: Date of Thrive Assessment Date Thrive assessed 12/04/23 06/16/24 10:42 Const General: no acute distress and alert HENMT Ears: TM's normal bilaterally and EAC's normal Throat: Yes posterior oropharynx normal and Yes tonsils normal Neck Neck: Yes no lymphadenopathy and Yes supple Thyroid: Thyroid normal Resp Auscultation: clear to auscultation bilaterally, no rales and no wheezes Cardio Rate: regular rate Rhythm: regular rhythm Heart sounds: no murmurs GI Palpation (GI): Soft to palpation and nontender Auscultation: normal bowel sounds General: Yes no CVA tenderness Back/Spine/Pelvis Back: no CVA tenderness Thoracic/Lumbar Spine: lumbar spinal tenderness Skin Rashes: no rashes Extrem General: Yes no clubbing, cyanosis or edema Results Reviewed Results Reviewed: Laboratory Tests 06/15/24 06/15/24 08:50 08:53 WBC 7.8 Hgb 12.7 L Hct 40.0 L Plt Count 202 Sodium 141 Potassium 3.5 D Creatinine 0.82 Estimated GFR > 60 Fasting Glucose 93 Hemoglobin A1c % 6.0 Calcium 9.0 AST 21 ALT 18 Triglycerides 80 Cholesterol 110 LDL Cholesterol, Calc 55 HDL Cholesterol 39 L TSH 0.81 Free T4 1.03 Ur Specific [place] 1.025 Urine Protein Negative Urine Glucose (UA) Negative Urine Blood Negative Urine Nitrite Negative Ur Leukocyte Esterase Trace H Microalb/Creat Ratio 5.6 Assessment and Plan Assessment & Plan (1) Paroxysmal atrial fibrillation: Code(s): I48.0 - Paroxysmal atrial fibrillation Plan: Patient currently remains in sinus rhythm and is anticoagulated on Coumadin - he follows up with the Coumadin clinic regularly for PT/INR monitoring Continue Metoprolol ER 25 mg QD and Multaq 400 mg BID Follow up with cardiology as scheduled (2) Diabetes mellitus: Code(s): E11.9 - Type 2 diabetes mellitus without complications Qualifiers: Diabetes mellitus complication status: without complication Diabetes mellitus custodial insulin use: without vermin exterminator use Diabetes mellitus type: type 2 Qualified Code(s): E11.9 - Type 2 diabetes mellitus without complications Plan: His HgbA1c was at 6.0% on his labs done a couple of days ago (was previously at 6.7%) - goal is <7.0% Reinforced diabetic diet Continue Metformin ER 500 mg BID Have reminded patient that he NEEDS to have an eye exam done routinely once a year as he is a diabetic - he now has an appt with ophthalmology next week on 06/23/2024 (3) Benign essential hypertension: Code(s): I10 - Essential (primary) hypertension Plan: Reinforced low sodium diet - goal is systolic BP of at least 130 to 140 mm or less Continue Metoprolol ER 25 mg QD and Losartan 50 mg QD (4) Pure hypercholesterolemia: Code(s): E78.00 - Pure hypercholesterolemia, unspecified Plan: Results of his labs done a couple of days ago reviewed and discussed with patient Reinforced low cholesterol diet Continue Atorvastatin 80 mg QD Will recheck his labs and fasting lipids in 3 months for follow-up (5) Acquired hypothyroidism: Code(s): E03.9 - Hypothyroidism, unspecified Plan: His TFTs remain normal on his recent labs Continue Levothyroxine 100 mcg QD (6) Superficial gastritis: Comment: seen on EGD on 06/23/2017 Code(s): K29.60 - Other gastritis without bleeding Qualifiers: Chronicity: unspecified Gastritis bleeding: without bleeding Qualified Code(s): K29.30 - Chronic superficial gastritis without bleeding Plan: Dietary restrictions reinforced Continue Prilosec OTC 20 mg 2 tablets QD He had repeat colonoscopy done in April 2023 - recommend repeat colonoscopy in 5 years Follow up with GI as scheduled (7) Lumbar degenerative disc disease: Code(s): M51.36 - Other intervertebral disc degeneration, lumbar region Plan: Reinforced activity and weight-lifting restrictions Continue Oxycodone-acetaminophen 5-325 mg Q 6 hours as needed for pain (8) Gout: Code(s): M10.9 - Gout, unspecified Qualifiers: Chronicity: unspecified Gout etiology: idiopathic Gout site: unspecified site Qualified Code(s): M10.00 - Idiopathic gout, unspecified site Plan: He remains asymptomatic with no acute gout flare ups since his last visit His serum uric acid level remains normal on his recent labs Reinforced low purine diet (9) Vitamin D deficiency: Code(s): E55.9 - Vitamin D deficiency, unspecified Plan: Continue Vitamin D3 2000 units QD (10) Benign prostatic hyperplasia with nocturia: Code(s): N40.1 - Benign prostatic hyperplasia with lower urinary tract symptoms; R35.1 - Nocturia Plan: His PSA was normal when last checked in July 2023 Continue Tamsulosin 0.4 mg Q HS - states that his Rx has helped a lot with his nocturia Follow up with urology as scheduled (11) Memory impairment: Code(s): R41.3 - Other amnesia Plan: He was started on Fluoxetine for MCI and depression by neurology last year but patient could not tolerate Rx at 20 mg QD Follow up with neurology as scheduled (12) Obesity (BMI 30-39.9): Code(s): E66.9 - Obesity, unspecified Plan: Reinforced diet/exercise as tolerated/lose weight Plan Follow up in 3 months Orders: Orders Complete Blood Count Auto Diff 3 Months D64.9 - Anemia, unspecified Comprehensive [place]. Panel Fast 3 Months E78.00 - Pure hypercholesterolemia, unspecified Lipid Panel 3 Months E78.00 - Pure hypercholesterolemia, unspecified Microalbumin, Random (w Creat) 3 Months E11.9 - Type 2 diabetes mellitus without complications Hemoglobin A1c 3 Months E11.9 - Type 2 diabetes mellitus without complications UA CC w/rflx Micro + Cult 3 Months R30.0 - Dysuria Free T4 (Free Thyroxine) 3 Months E03.9 - Hypothyroidism, unspecified Vitamin D 25-OH Total 3 Months E55.9 - Vitamin D deficiency, unspecified Thyroid Stimulating Hormone 3 Months E03.9 - Hypothyroidism, unspecified Coding Level of Care Code Est Pt Level 4 (80053) Diagnoses Paroxysmal atrial fibrillation I48.0 Type 2 diabetes mellitus without complication, without long-term current use of insulin E11.9 Diabetes mellitus complication status: without complication Diabetes mellitus vermin exterminator insulin use: without custodial use Diabetes mellitus type: type 2 Benign essential hypertension I10 Pure hypercholesterolemia E78.00 Acquired hypothyroidism E03.9 Superficial gastritis without hemorrhage, unspecified chronicity K29.30 Chronicity: unspecified Gastritis bleeding: without bleeding Lumbar degenerative disc disease M51.36 Idiopathic gout, unspecified chronicity, unspecified site M10.00 Chronicity: unspecified Gout etiology: idiopathic Gout site: unspecified site Vitamin D deficiency E55.9 Benign prostatic hyperplasia with nocturia N40.1; R35.1 Memory impairment R41.3 Obesity (BMI 30-39.9) E66.9
== END 2024-06-16 11:36 | disposition home or self-care (01) ==
PROVIDERS: PCP Internal Medicine; Visit Provider Internal Medicine
DX: I48.0 Paroxysmal atrial fibrillation (principal); E11.9 Type 2 diabetes mellitus without complications; I10 Essential (primary) hypertension; E78.00 Pure hypercholesterolemia, unspecified; E03.9 Hypothyroidism, unspecified; K29.30 Chronic superficial gastritis without bleeding; M51.36 Other intervertebral disc degeneration, lumbar region; M10.00 Idiopathic gout, unspecified site; E55.9 Vitamin D deficiency, unspecified; N40.1 Benign prostatic hyperplasia with lower urinary tract symptoms; R35.1 Nocturia; R41.3 Other amnesia
CPT/HCPCS: 99214

== ENCOUNTER 2024-06-23 09:32 | Outpatient (AMB) | payer OTHER, SELFPAY ==
--- NOTE | 2024-06-23 09:55 | MHC.OFFVIS ---
Intake Visit Reasons: BPH/Nocturia/PVR Intake Note: New patient is sergio tfor BPH/Nocturia Urology Med: Tamsulosin Antibiotic Allergies: None Blood Thinner: Warfarin Last PSA: 07/2023 0.44 Todays PVR: 25 Receptionist Secretary Required: Yes Receptionist Secretary Language: Customer Experience Manager Name: [place] [id number] Information Interpreted: non-clinical & clinical Accompanied by: Spouse Allergies No Known Allergies [No Known Allergies*] Allergy (Unknown, Verified 06/23/24 10:18) U Medication List - Last Reconciled 06/23/24 by Frankie Longoria MD allopurinol TAKE 2 TABLETS IN THE MORNING AND 1 TABLET IN THE EVENING atorvastatin 80 mg PO BEDTIME 90 days blood sugar diagnostic ([employer] Ultra Test strips) 1 strip miscellaneous DAILY blood-glucose meter ([employer] Ultra2 Meter kit) As directed daily cholecalciferol (vitamin D3) (Vitamin D3) 50 mcg PO DAILY 90 days cyanocobalamin (vitamin B-12) 1,000 mcg PO DAILY 90 days dronedarone (Multaq) 400 mg PO BID fluoxetine 20 mg PO DAILY fluticasone propionate 50 mcg/actuation (Flonase Allergy Relief) 2 sprays intranasal DAILY lancets ([employer] UltraSoft Lancets) As directed levothyroxine 100 mcg PO DAILY 90 days losartan 50 mg PO DAILY metformin ER 500 mg PO BID 90 days metoprolol succinate ER 25 mg PO DAILY 90 days mometasone 0.1% 1 appl topical DAILY PRN omeprazole 20 mg PO DAILY 90 days oxycodone-acetaminophen 5-325 mg 1 tab PO Q6H PRN 28 days simethicone 180 mg PO BID 30 days tamsulosin 0.4 mg PO BEDTIME 90 days tizanidine 4 mg PO Q8H PRN warfarin 3.75 mg See Protocol PO DAILY HPI Comments Details: Corey is a 74-year-old Ethiopian-speaking male. 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 The patient complains of obstructive voiding symptoms. AUA symptom score 32. The patient was started on tamsulosin in May by his PCP. He states that his urinary symptoms have improved somewhat. Comorbidity diabetes. Agree with continue tamsulosin. I will check imaging of the urinary tract. Bladder scan PVR 25 mL. Last PSA: 07/2023 0.44 PFSH Medical History Benign prostatic hyperplasia with nocturia Lumbar degenerative disc disease Obesity (BMI 30-39.9) Vitamin D deficiency Gout Gastric ulcer Superficial gastritis GERD without esophagitis Acquired hypothyroidism Pure hypercholesterolemia Benign essential hypertension Diabetes mellitus Paroxysmal atrial fibrillation Surgical History Hx of colonoscopy History of esophagogastroduodenoscopy (EGD) History of appendectomy Family History Father Medical history unknown Mother Medical history unknown Social History Housing: House Alcohol intake: former Patient Tobacco Use Status: Former Tobacco user e-Cigarette/Vaping Use: Never Used Second Hand Smoke Exposure: Yes service: No Current occupational status: disabled Cognitive needs: No Hearing needs: No Vision needs: No Review of Systems Const All systems reviewed & are unremarkable except as noted in HPI and below Reports no additional complaints Eyes Reports no additional complaints ENT Reports no additional complaints Card Reports no additional complaints Resp Reports no additional complaints GI Reports no additional complaints Reports as per HPI Musc Reports no additional complaints Skin/Breast Reports system reviewed and no additional complaints, except as documented Neuro Reports no additional complaints Psych Reports no additional complaints Endo Reports no additional complaints Marko/Lymph Reports no additional complaints Aller/Immun Reports no additional complaints Physical Exam Const General: healthy appearing, no acute distress and well developed Orientation/consciousness: patient oriented x3 HEENT Head: Yes normocephalic and Yes atraumatic Eyes Conjunctivae: conjunctivae normal Neck Neck: Yes normal visual inspection Chest Chest palpation & inspection: normal inspection of the chest Resp Effort & Inspection: normal respiratory effort Cardio Rate: regular rate GI Inspection: Yes normal to inspection Palpation (GI): Soft to palpation Neuro General: patient oriented x3 Psych Appearance: grossly normal Affect: normal affect Office Procedures Post Void Residual Post Residual Void Post Void Residual (PVR): 25 [id number] Void Residual by ultrasound Results AMB Urinalysis, Automated UA Leukoctes 0 Cleve/uL Last Edit by TARA Dee on 06/23/24 10:20 UA Nitrite Negative Last Edit by TARA Dee on 06/23/24 10:20 UA Urobilinogen 1 mg/dL Last Edit by Aaliyah Arias, RMA on 06/23/24 10:20 UA Protein 15 mg/dL Last Edit by Aaliyah Arias, RMA on 06/23/24 10:20 UA pH 6.0 Last Edit by Aaliyah Arias, RMA on 06/23/24 10:20 UA Blood 0 Jarett/uL Last Edit by Aaliyah Arias, RMA on 06/23/24 10:20 UA Specific [place] 1.020 Last Edit by Aaliyah Arias, RMA on 06/23/24 10:20 UA Ketone Positive Last Edit by Aaliyah Arias, RMA on 06/23/24 10:20 UA Bilirubin 1 mg/dL Last Edit by Aaliyah Arias, RMA on 06/23/24 10:20 UA Glucose 0 mg/dL Last Edit by Aaliyah Arias, RMA on 06/23/24 10:20 Quality Reporting (2019) Benign Prostatic Hyperplasia ([facility] 771) AUA symptom score: 32 Quality of life due to urinary symptoms: If you were to spend the rest of your life with your urinary condition the way it is now, how would you feel about that?: Mostly dissatisfied Results Reviewed Results Reviewed: Laboratory Last Values Urine pH (Auto) 6.0 06/23/24 10:18 Specific [place] (Auto) 1.020 06/23/24 10:18 Urine Protein (Auto) 15 mg/dL 06/23/24 10:18 Glucose (UA)(Auto) 0 mg/dL 06/23/24 10:18 Urine Ketones (Auto) Positive 06/23/24 10:18 Urine Blood (Auto) 0 Jarett/uL 06/23/24 10:18 Urine Nitrite (Auto) Negative 06/23/24 10:18 Urine Bilirubin (Auto) 1 mg/dL 06/23/24 10:18 Urine Urobilinogen (Auto) 1 mg/dL 06/23/24 10:18 Leukocyte Esterase (Auto) 0 Cleve/uL 06/23/24 10:18 Assessment & Plan Assessment & Plan (1) BPH loc w urin obs/LUTS: Code(s): N40.1 - Benign prostatic hyperplasia with lower urinary tract symptoms Category: Medical (2) Urinary frequency: Code(s): R35.0 - Frequency of micturition Category: Medical Plan Comorbidity diabetes. Agree with continue tamsulosin. I will check imaging of the urinary tract. Last PSA: 07/2023 0.44 Orders: Orders AMB Post Void Residual by ultrasound Today N40.1 - Benign prostatic hyperplasia with lower urinary tract symptoms, R35.1 - Nocturia US retroperitoneal comp Today N40.1 - Benign prostatic hyperplasia with lower urinary tract symptoms AMB Urinalysis Automated Today Z13.9 - Encounter for screening, unspecified Patient Instructions: The patient had an opportunity to ask questions regarding treatment plan. The patient expressed understanding and agreement with the above treatment plan. The patient is aware they should contact our office by phone for worsening of their current condition or the appearance of new symptoms. Compliance is encouraged with any medications and followup testing that is ordered. It is a privilege to be allowed the opportunity to participate in the urologic care of your patient. If you have any questions or concerns regarding treatment for the above conditions please do not hesitate to contact me. The office telephone contact is [phone]. This note is constructed in part using voice recognition software. While every effort has been made to ensure accuracy caustic purification operator errors may have been included. Yours sincerely, Frankie Longoria MD Coding Level of Care Code New Pt Level 4 (79511) Diagnoses BPH loc w urin obs/LUTS N40.1 Urinary frequency R35.0 CPT Codes Post Residual Void - PVR CPT Code: 18498-Rbrd Void Residual by ultrasound ([id number]) AUA Symptom Score AUA Incomplete emptying - It does not feel like I empty my bladder all the way.: 5 - Almost always Frequency - I have to go again less than two hours after I finish urinating.: 5 - Almost always Intermittency - I stop and start again several times when I urinate.: 3 - About half the time Urgency - It is hard to wait when I have to urinate.: 5 - Almost always Weak stream - I have a weak urinary stream.: 5 - Almost always Straining - I have to push or strain to begin urination.: 4 - More than half the time Nocturia - I get up to urinate after I go to bed until the time I get up in the morning.: 5 time or more AUA Symptom Score: 32 Quality of life due to urinary symptoms: If you were to spend the rest of your life with your urinary condition the way it is now, how would you feel about that?: Mostly dissatisfied Source: Sid GALVEZ, Cierra ROSAS Jr, O'Cinthia MP, et al, and the Measurement Committee of the [place] [employer]. The [place] [employer] symptom index for benign prostatic hyperplasia. J Urol. 1992; 148: 5845-0328. Copyright 1992 [employer] [place] [employer]
== END 2024-06-23 10:53 | disposition home or self-care (01) ==
PROVIDERS: PCP Internal Medicine; Visit Provider Urology
DX: N40.1 Benign prostatic hyperplasia with lower urinary tract symptoms (principal); R35.0 Frequency of micturition; Z13.9 Encounter for screening, unspecified
CPT/HCPCS: 99204

== ENCOUNTER → 2024-06-23 09:32 | Outpatient (BNVA) | payer OTHER, SELFPAY | PROVIDERS: PCP Internal Medicine; Visit Provider Urology | DX: N40.1 Benign prostatic hyperplasia with lower urinary tract symptoms (principal); R35.0 Frequency of micturition | CPT/HCPCS: 51798; 81003; 99202 ==

== ENCOUNTER 2024-07-05 08:52 | Outpatient (AMB) | payer OTHER, SELFPAY ==
--- NOTE | 2024-07-05 09:07 | MHC.OFFVISCO ---
Intake Intake Visit Reasons: Anticoagulation Allergies No Known Allergies [No Known Allergies*] Allergy (Unknown, Verified 07/05/24 09:03) U Medication List - Last Reconciled 07/05/24 by Yesica Spencer RN allopurinol TAKE 2 TABLETS IN THE MORNING AND 1 TABLET IN THE EVENING atorvastatin 80 mg PO BEDTIME 90 days blood sugar diagnostic ([employer] Ultra Test strips) 1 strip miscellaneous DAILY blood-glucose meter ([employer] Ultra2 Meter kit) As directed daily cholecalciferol (vitamin D3) (Vitamin D3) 50 mcg PO DAILY 90 days cyanocobalamin (vitamin B-12) 1,000 mcg PO DAILY 90 days dronedarone (Multaq) 400 mg PO BID fluoxetine 20 mg PO DAILY fluticasone propionate 50 mcg/actuation (Flonase Allergy Relief) 2 sprays intranasal DAILY lancets ([employer]Soft Lancets) As directed levothyroxine 100 mcg PO DAILY 90 days losartan 50 mg PO DAILY metformin ER 500 mg PO BID 90 days metoprolol succinate ER 25 mg PO DAILY 90 days mometasone 0.1% 1 appl topical DAILY PRN omeprazole 20 mg PO DAILY 90 days oxycodone-acetaminophen 5-325 mg 1 tab PO Q6H PRN 28 days simethicone 180 mg PO BID 30 days tamsulosin 0.4 mg PO BEDTIME 90 days tizanidine 4 mg PO Q8H PRN warfarin 3.75 mg See Protocol PO DAILY Nursing Note INR 1.9-? out of therapeutic range of 2-3 Medications and supplements reviewed Patient status: no c.o Medications or supplements: no changes Diet: same Denies any signs and symptoms of bleeding or clotting or unusual bruising Bleeding, bruising, clotting discussed Nutritional guidance given: no greens for 2 days, eat a red today Dose: already took warfarin this am, take 7.5mg tomm then 3.75mg x7 F/U INR Date : 2 weeks?? Patient verbalizing understanding of instructions given payable manager used [id number] pt states having dental procedure today- filling with no hold on warfarin Anti-Coag Initial Assessment Social Hx Patient Tobacco Use Status: Former Tobacco user alcohol intake: former Coding Level of Care Code Est Patient Level 1 Diagnoses Current use of anticoagulant therapy Z79.01 Assessment & Plan Assessment & Plan (1) Current use of anticoagulant therapy: Code(s): Z79.01 - director long term care (current) use of anticoagulants Category: Medical
[2024-07-05 09:08] LABS: Prothrombin Time Whole Bld POC 22.3 sec (11.1-13.5); ~PT, ~INR - Anti Coag Clinic 1.9 (0.9-1.1)
== END 2024-07-05 09:21 | disposition home or self-care (01) ==
LOC: HO.ACS 08:52
PROVIDERS: PCP Internal Medicine; Visit Provider Internal Medicine
DX: Z79.01 Long term (current) use of anticoagulants (principal)

== ENCOUNTER → 2024-07-05 08:52 | Outpatient (BNVA) | payer OTHER, SELFPAY | PROVIDERS: PCP Internal Medicine; Visit Provider Internal Medicine | DX: I48.0 Paroxysmal atrial fibrillation (principal); Z79.01 Long term (current) use of anticoagulants; Z51.81 Encounter for therapeutic drug level monitoring | CPT/HCPCS: 85610; 99211 ==

== ENCOUNTER 2024-07-19 08:53 | Outpatient (AMB) | payer OTHER, SELFPAY ==
--- NOTE | 2024-07-19 09:31 | MHC.OFFVISCO ---
Intake Intake Visit Reasons: Anticoagulation Allergies No Known Allergies [No Known Allergies*] Allergy (Unknown, Verified 07/19/24 09:22) U Medication List - Last Reconciled 07/19/24 by Dee Blanco RN allopurinol TAKE 2 TABLETS IN THE MORNING AND 1 TABLET IN THE EVENING atorvastatin 80 mg PO BEDTIME 90 days blood sugar diagnostic ([employer] Ultra Test strips) 1 strip miscellaneous DAILY blood-glucose meter ([employer] Ultra2 Meter kit) As directed daily cholecalciferol (vitamin D3) (Vitamin D3) 50 mcg PO DAILY 90 days cyanocobalamin (vitamin B-12) 1,000 mcg PO DAILY 90 days dronedarone (Multaq) 400 mg PO BID fluoxetine 20 mg PO DAILY fluticasone propionate 50 mcg/actuation (Flonase Allergy Relief) 2 sprays intranasal DAILY lancets ([employer] UltraSoft Lancets) As directed levothyroxine 100 mcg PO DAILY 90 days losartan 50 mg PO DAILY metformin ER 500 mg PO BID 90 days metoprolol succinate ER 25 mg PO DAILY 90 days mometasone 0.1% 1 appl topical DAILY PRN omeprazole 20 mg PO DAILY 90 days oxycodone-acetaminophen 5-325 mg 1 tab PO Q6H PRN 28 days simethicone 180 mg PO BID 30 days tamsulosin 0.4 mg PO BEDTIME 90 days tizanidine 4 mg PO Q8H PRN warfarin 3.75 mg See Protocol PO DAILY Nursing Note INR: 2.6 in therapeutic range of 2-3 Medications and supplements reviewed No changes in health, diet, medications, or supplements, Denies any signs and symptoms of bleeding or bruising or clotting. 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
[2024-07-19 09:34] LABS: Prothrombin Time Whole Bld POC 31.1 sec (11.1-13.5); ~PT, ~INR - Anti Coag Clinic 2.6 (0.9-1.1)
== END 2024-07-19 09:32 | disposition home or self-care (01) ==
LOC: HO.ACS 08:53
PROVIDERS: PCP Internal Medicine; Visit Provider Internal Medicine
DX: Z79.01 Long term (current) use of anticoagulants (principal)

== ENCOUNTER → 2024-07-19 08:53 | Outpatient (BNVA) | payer OTHER, SELFPAY | PROVIDERS: PCP Internal Medicine; Visit Provider Internal Medicine | DX: I48.0 Paroxysmal atrial fibrillation (principal); Z79.01 Long term (current) use of anticoagulants; Z51.81 Encounter for therapeutic drug level monitoring | CPT/HCPCS: 85610; 99211 ==

== ENCOUNTER 2024-08-09 08:58 | Outpatient (AMB) | payer OTHER, SELFPAY ==
--- NOTE | 2024-08-09 09:26 | MHC.OFFVISCO ---
Intake Intake Visit Reasons: Anticoagulation Allergies No Known Allergies [No Known Allergies*] Allergy (Unknown, Verified 08/09/24 09:22) U Medication List - Last Reconciled 08/09/24 by Yesica Spencer RN allopurinol TAKE 2 TABLETS IN THE MORNING AND 1 TABLET IN THE EVENING atorvastatin 80 mg PO BEDTIME 90 days blood sugar diagnostic ([employer] Ultra Test strips) 1 strip miscellaneous DAILY blood-glucose meter ([employer] Ultra2 Meter kit) As directed daily cholecalciferol (vitamin D3) (Vitamin D3) 50 mcg PO DAILY 90 days cyanocobalamin (vitamin B-12) 1,000 mcg PO DAILY 90 days dronedarone (Multaq) 400 mg PO BID fluoxetine 20 mg PO DAILY fluticasone propionate 50 mcg/actuation (Flonase Allergy Relief) 2 sprays intranasal DAILY lancets ([employer] UltraSoft Lancets) As directed levothyroxine 100 mcg PO DAILY 90 days losartan 50 mg PO DAILY metformin ER 500 mg PO BID 90 days metoprolol succinate ER 25 mg PO DAILY 90 days mometasone 0.1% 1 appl topical DAILY PRN omeprazole 20 mg PO DAILY 90 days oxycodone-acetaminophen 5-325 mg 1 tab PO Q6H PRN 28 days simethicone 180 mg PO BID 30 days tamsulosin 0.4 mg PO BEDTIME 90 days tizanidine 4 mg PO Q8H PRN warfarin 3.75 mg See Protocol PO DAILY Nursing Note INR: 2.2- in therapeutic range of 2-3 Medications and supplements reviewed No changes in health, diet, medications, or supplements, Denies any signs and symptoms of bleeding or bruising or clotting. 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
[2024-08-09 09:27] LABS: Prothrombin Time Whole Bld POC 26.7 sec (11.1-13.5); ~PT, ~INR - Anti Coag Clinic 2.2 (0.9-1.1)
== END 2024-08-09 09:32 | disposition home or self-care (01) ==
LOC: HO.ACS 08:58
PROVIDERS: PCP Internal Medicine; Visit Provider Internal Medicine
DX: Z79.01 Long term (current) use of anticoagulants (principal)

== ENCOUNTER → 2024-08-09 08:58 | Outpatient (BNVA) | payer OTHER, SELFPAY | PROVIDERS: PCP Internal Medicine; Visit Provider Internal Medicine | DX: I48.0 Paroxysmal atrial fibrillation (principal); Z79.01 Long term (current) use of anticoagulants; Z51.81 Encounter for therapeutic drug level monitoring | CPT/HCPCS: 85610; 99211 ==

== ENCOUNTER 2024-08-30 08:48 | Outpatient (AMB) | payer OTHER, SELFPAY ==
[2024-08-30 08:55] LABS: Prothrombin Time Whole Bld POC 19.4 sec (11.1-13.5); ~PT, ~INR - Anti Coag Clinic 1.6 (0.9-1.1)
--- NOTE | 2024-08-30 09:07 | MHC.OFFVISCO ---
Intake Intake Visit Reasons: Anticoagulation Allergies No Known Allergies [No Known Allergies*] Allergy (Unknown, Verified 08/30/24 08:50) U Medication List - Last Reconciled 08/30/24 by Dee Blanco RN allopurinol TAKE 2 TABLETS IN THE MORNING AND 1 TABLET IN THE EVENING atorvastatin 80 mg PO BEDTIME 90 days blood sugar diagnostic ([employer] Ultra Test strips) 1 strip miscellaneous DAILY blood-glucose meter ([employer] Ultra2 Meter kit) As directed daily cholecalciferol (vitamin D3) (Vitamin D3) 50 mcg PO DAILY 90 days cyanocobalamin (vitamin B-12) 1,000 mcg PO DAILY 90 days dronedarone (Multaq) 400 mg PO BID fluoxetine 20 mg PO DAILY fluticasone propionate 50 mcg/actuation (Flonase Allergy Relief) 2 sprays intranasal DAILY lancets ([employer] UltraSoft Lancets) As directed levothyroxine 100 mcg PO DAILY 90 days losartan 50 mg PO DAILY metformin ER 500 mg PO BID 90 days metoprolol succinate ER 25 mg PO DAILY 90 days mometasone 0.1% 1 appl topical DAILY PRN omeprazole 20 mg PO DAILY 90 days oxycodone-acetaminophen 5-325 mg 1 tab PO Q6H PRN 28 days simethicone 180 mg PO BID 30 days tamsulosin 0.4 mg PO BEDTIME 90 days tizanidine 4 mg PO Q8H PRN warfarin 3.75 mg See Protocol PO DAILY Nursing Note INR: 1.6 in therapeutic range of 2-3 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 Bleeding, bruising, clotting discussed Nutritional guidance given to avoid greens today and to have a serving of foods from the list that raises the INR> Food list reviewed and given to pt. Dose: increase today's dose to 7.5mg (3.75mg) then resume usual dose of 3.75mg daily F/U INR: 1 week Patient verbalizes understanding of instructions given Anti-Coag Initial Assessment Social Hx Patient Tobacco Use Status: Former Tobacco user alcohol intake: former Coding Level of Care Code Est Patient Level 1 Diagnoses Current use of anticoagulant therapy Z79.01 Assessment & Plan Assessment & Plan (1) Current use of anticoagulant therapy: Code(s): Z79.01 - [facility] (current) use of anticoagulants Category: Medical
== END 2024-08-30 09:11 | disposition home or self-care (01) ==
LOC: HO.ACS 08:48
PROVIDERS: PCP Internal Medicine; Visit Provider Internal Medicine
DX: Z79.01 Long term (current) use of anticoagulants (principal)

== ENCOUNTER → 2024-08-30 08:48 | Outpatient (BNVA) | payer OTHER, SELFPAY | PROVIDERS: PCP Internal Medicine; Visit Provider Internal Medicine | DX: I48.0 Paroxysmal atrial fibrillation (principal); Z79.01 Long term (current) use of anticoagulants; Z51.81 Encounter for therapeutic drug level monitoring | CPT/HCPCS: 85610; 99211 ==

== ENCOUNTER 2024-09-06 08:38 | Outpatient (AMB) | payer OTHER, SELFPAY ==
[2024-09-06 08:44] LABS: Prothrombin Time Whole Bld POC 30.2 sec (11.1-13.5); ~PT, ~INR - Anti Coag Clinic 2.5 (0.9-1.1)
--- NOTE | 2024-09-06 08:48 | MHC.OFFVISCO ---
Intake Intake Visit Reasons: Anticoagulation Allergies No Known Allergies [No Known Allergies*] Allergy (Unknown, Verified 09/06/24 08:40) U Medication List - Last Reconciled 09/06/24 by Dee Blanco RN allopurinol TAKE 2 TABLETS IN THE MORNING AND 1 TABLET IN THE EVENING atorvastatin 80 mg PO BEDTIME 90 days blood sugar diagnostic ([employer] Ultra Test strips) 1 strip miscellaneous DAILY blood-glucose meter ([employer] Ultra2 Meter kit) As directed daily cholecalciferol (vitamin D3) (Vitamin D3) 50 mcg PO DAILY 90 days cyanocobalamin (vitamin B-12) 1,000 mcg PO DAILY 90 days dronedarone (Multaq) 400 mg PO BID fluoxetine 20 mg PO DAILY fluticasone propionate 50 mcg/actuation (Flonase Allergy Relief) 2 sprays intranasal DAILY lancets ([employer] UltraSoft Lancets) As directed levothyroxine 100 mcg PO DAILY 90 days losartan 50 mg PO DAILY metformin ER 500 mg PO BID 90 days metoprolol succinate ER 25 mg PO DAILY 90 days mometasone 0.1% 1 appl topical DAILY PRN omeprazole 20 mg PO DAILY 90 days oxycodone-acetaminophen 5-325 mg 1 tab PO Q6H PRN 28 days simethicone 180 mg PO BID 30 days tamsulosin 0.4 mg PO BEDTIME 90 days tizanidine 4 mg PO Q8H PRN warfarin 3.75 mg See Protocol PO DAILY Nursing Note INR: 2.5 in therapeutic range of 2-3 Medications and supplements reviewed No changes in health, diet, medications, or supplements, Denies any signs and symptoms of bleeding or bruising or clotting. 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
== END 2024-09-06 08:49 | disposition home or self-care (01) ==
LOC: HO.ACS 08:38
PROVIDERS: PCP Internal Medicine; Visit Provider Internal Medicine
DX: Z79.01 Long term (current) use of anticoagulants (principal)

== ENCOUNTER → 2024-09-06 08:38 | Outpatient (BNVA) | payer OTHER, SELFPAY | PROVIDERS: PCP Internal Medicine; Visit Provider Internal Medicine | DX: I48.0 Paroxysmal atrial fibrillation (principal); Z79.01 Long term (current) use of anticoagulants; Z51.81 Encounter for therapeutic drug level monitoring | CPT/HCPCS: 85610; 99211 ==

== ENCOUNTER 2024-09-19 09:35 | Outpatient (REF) | payer OTHER, SELFPAY | END 2024-09-19 09:36 | disposition home or self-care (01) | LOC: HO.US 09:35 | PROVIDERS: PCP Internal Medicine; Visit Provider Urology | DX: N40.1 Benign prostatic hyperplasia with lower urinary tract symptoms (principal) | CPT/HCPCS: 76775 ==

== ENCOUNTER 2024-09-21 12:11 | Outpatient (REF) | payer OTHER, SELFPAY | END 2024-09-21 12:12 | disposition home or self-care (01) | LOC: HO.US 12:11 | PROVIDERS: PCP Internal Medicine; Visit Provider Urology | DX: N40.1 Benign prostatic hyperplasia with lower urinary tract symptoms (principal) | CPT/HCPCS: 76857 ==

== ENCOUNTER 2024-09-26 09:04 | Outpatient (AMB) | payer OTHER, SELFPAY ==
--- NOTE | 2024-09-25 20:32 | A.OFFVIS_ITS ---
Intake Visit Reasons: 3m/US/PSA Intake Note: Patient is present for 3M/US.PSA Urology Medication:TAMSULOSIN Antibiotic Allergy:NONE Blood Thinner:WARFARIN Well Reactivator Operator Required: No Allergies No Known Allergies [No Known Allergies*] Allergy (Unknown, Verified 09/26/24 09:49) U Medication List - Last Reconciled 09/26/24 by Frankie Longoria MD allopurinol TAKE 2 TABLETS IN THE MORNING AND 1 TABLET IN THE EVENING atorvastatin 80 mg PO BEDTIME 90 days blood sugar diagnostic ([employer] Ultra Test strips) 1 strip miscellaneous DAILY blood-glucose meter ([employer] Ultra2 Meter kit) As directed daily cholecalciferol (vitamin D3) (Vitamin D3) 50 mcg PO DAILY 90 days cyanocobalamin (vitamin B-12) 1,000 mcg PO DAILY 90 days dronedarone (Multaq) 400 mg PO BID fluoxetine 20 mg PO DAILY fluticasone propionate 50 mcg/actuation (Flonase Allergy Relief) 2 sprays intranasal DAILY lancets ([employer] UltraSoft Lancets) As directed levothyroxine 100 mcg PO DAILY 90 days losartan 50 mg PO DAILY metformin ER 500 mg PO BID 90 days metoprolol succinate ER 25 mg PO DAILY 90 days mometasone 0.1% 1 appl topical DAILY PRN omeprazole 20 mg PO DAILY 90 days oxycodone-acetaminophen 5-325 mg 1 tab PO Q6H PRN 28 days simethicone 180 mg PO BID 30 days tamsulosin 0.4 mg PO BEDTIME 90 days tizanidine 4 mg PO Q8H PRN warfarin 3.75 mg See Protocol PO DAILY HPI Comments Details: 09/26/24--FUArianna Nicole is followed for BPH symptoms. He is here with a family member who interprets for him. He states that he is not taking the tamsulosin because it made him go more frequently to the bathroom. He is taking another medication that he bought from the pharmacy. I have asked him to call with the name of the medication so we can add it to the chart. I have reviewed kidney and bladder ultrasound imaging. 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 No recent PSA. Discussed PSA screening. Review of chart: 06/23/24--Corey is a 74-year-old Chinese-speaking male. Certified spanish interpreter/translator utilized. The patient complains of obstructive voiding symptoms. AUA symptom score 32. The patient was started on tamsulosin in May by his PCP. He states that his urinary symptoms have improved somewhat. Comorbidity diabetes. Agree with continue tamsulosin. I will check imaging of the urinary tract. Bladder scan PVR 25 mL. Last PSA: 07/2023 0.44 PFSH Medical History Benign prostatic hyperplasia with nocturia Lumbar degenerative disc disease Obesity (BMI 30-39.9) Vitamin D deficiency Gout Gastric ulcer Superficial gastritis GERD without esophagitis Acquired hypothyroidism Pure hypercholesterolemia Benign essential hypertension Diabetes mellitus Paroxysmal atrial fibrillation Surgical History Hx of colonoscopy History of esophagogastroduodenoscopy (EGD) History of appendectomy Family History Father Medical history unknown Mother Medical history unknown Social History Housing: House Alcohol intake: former Patient Tobacco Use Status: Former Tobacco user e-Cigarette/Vaping Use: Never Used Second Hand Smoke Exposure: Yes service: No Current occupational status: disabled Cognitive needs: No Hearing needs: No Vision needs: No Review of Systems Const All systems reviewed & are unremarkable except as noted in HPI and below Reports no additional complaints Eyes Reports no additional complaints ENT Reports no additional complaints Card Reports no additional complaints Resp Reports no additional complaints GI Reports no additional complaints Reports as per HPI Musc Reports no additional complaints Skin/Breast Reports system reviewed and no additional complaints, except as documented Neuro Reports no additional complaints Psych Reports no additional complaints Endo Reports no additional complaints Marko/Lymph Reports no additional complaints Aller/Immun Reports no additional complaints Results AMB Urinalysis, Automated UA Leukoctes 0 Cleve/uL Last Edit by GROVER Umanzor on 09/26/24 10:02 UA Nitrite Negative Last Edit by GROVER Umanzor on 09/26/24 10:02 UA Urobilinogen 0.2 mg/dL Last Edit by GROVER Umanzor on 09/26/24 10:0 2 UA Protein 15 mg/dL Last Edit by GROVER Umanzor on 09/26/24 10:02 UA pH 6.0 Last Edit by GROVER Umanzor on 09/26/24 10:02 UA Blood 0 Jarett/uL Last Edit by GROVER Umanzor on 09/26/24 10:02 UA Specific [place] 1.020 Last Edit by GROVER Umanzor on 09/26/24 10: 02 UA Ketone Negative Last Edit by GROVER Umanzor on 09/26/24 10:02 UA Bilirubin 1 mg/dL Last Edit by GROVER Umanzor on 09/26/24 10:02 UA Glucose 0 mg/dL Last Edit by GROVER Umanzor on 09/26/24 10:02 Results Reviewed Results Reviewed: Laboratory Last Values Urine pH (Auto) 6.0 09/26/24 10:01 Specific [place] (Auto) 1.020 09/26/24 10:01 Urine Protein (Auto) 15 mg/dL 09/26/24 10:01 Glucose (UA)(Auto) 0 mg/dL 09/26/24 10:01 Urine Ketones (Auto) Negative 09/26/24 10:01 Urine Blood (Auto) 0 Jarett/uL 09/26/24 10:01 Urine Nitrite (Auto) Negative 09/26/24 10:01 Urine Bilirubin (Auto) 1 mg/dL 09/26/24 10:01 Urine Urobilinogen (Auto) 0.2 mg/dL 09/26/24 10:01 Leukocyte Esterase (Auto) 0 Cleve/uL 09/26/24 10:01 Assessment & Plan Assessment & Plan (1) BPH loc w urin obs/LUTS: Code(s): N40.1 - Benign prostatic hyperplasia with lower urinary tract symptoms Category: Medical (2) Urinary frequency: Code(s): R35.0 - Frequency of micturition Category: Medical Plan Urinary frequency. Comorbidity diabetes. . Last PSA: 07/2023 0.44 Orders: Orders Prostate Specific Antigen 09/19/24 Z12.5 - Encounter for screening for malignant neoplasm of prostate AMB Urinalysis Automated Today Z13.9 - Encounter for screening, unspecified Patient Instructions: The patient had an opportunity to ask questions regarding treatment plan. The patient expressed understanding and agreement with the above treatment plan. The patient is aware they should contact our office by phone for worsening of their current condition or the appearance of new symptoms. Compliance is encouraged with any medications and followup testing that is ordered. It is a privilege to be allowed the opportunity to participate in the urologic care of your patient. If you have any questions or concerns regarding treatment for the above conditions please do not hesitate to contact me. The office telephone contact is [phone]. This note is constructed in part using voice recognition software. While every effort has been made to ensure accuracy whitewater rafting guide errors may have been included. Yours sincerely, Frankie Longoria MD Coding Level of Care Code Est Pt Level 4 (50129) Diagnoses BPH loc w urin obs/LUTS N40.1 Urinary frequency R35.0
== END 2024-09-26 11:14 | disposition home or self-care (01) ==
PROVIDERS: PCP Internal Medicine; Visit Provider Urology
DX: N40.1 Benign prostatic hyperplasia with lower urinary tract symptoms (principal); R35.0 Frequency of micturition; Z13.9 Encounter for screening, unspecified
CPT/HCPCS: 99214

== ENCOUNTER → 2024-09-26 09:04 | Outpatient (BNVA) | payer OTHER, SELFPAY | PROVIDERS: PCP Internal Medicine; Visit Provider Urology | DX: N40.1 Benign prostatic hyperplasia with lower urinary tract symptoms (principal); N13.8 Other obstructive and reflux uropathy; R35.0 Frequency of micturition | CPT/HCPCS: 81003; 99212 ==

== ENCOUNTER 2024-09-27 08:49 | Outpatient (AMB) | payer OTHER, SELFPAY ==
[2024-09-27 08:58] LABS: Prothrombin Time Whole Bld POC 20.5 sec (11.1-13.5); ~PT, ~INR - Anti Coag Clinic 1.7 (0.9-1.1)
--- NOTE | 2024-09-27 09:02 | MHC.OFFVISCO ---
Intake Intake Visit Reasons: Anticoagulation Allergies No Known Allergies [No Known Allergies*] Allergy (Unknown, Verified 09/27/24 08:53) U Medication List - Last Reconciled 09/27/24 by Dee Blanco RN allopurinol TAKE 2 TABLETS IN THE MORNING AND 1 TABLET IN THE EVENING atorvastatin 80 mg PO BEDTIME 90 days blood sugar diagnostic ([employer]Touch Ultra Test strips) 1 strip miscellaneous DAILY blood-glucose meter ([employer] Ultra2 Meter kit) As directed daily cholecalciferol (vitamin D3) (Vitamin D3) 50 mcg PO DAILY 90 days cyanocobalamin (vitamin B-12) 1,000 mcg PO DAILY 90 days dronedarone (Multaq) 400 mg PO BID fluoxetine 20 mg PO DAILY fluticasone propionate 50 mcg/actuation (Flonase Allergy Relief) 2 sprays intranasal DAILY lancets ([employer] UltraSoft Lancets) As directed levothyroxine 100 mcg PO DAILY 90 days losartan 50 mg PO DAILY metformin ER 500 mg PO BID 90 days metoprolol succinate ER 25 mg PO DAILY 90 days mometasone 0.1% 1 appl topical DAILY PRN omeprazole 20 mg PO DAILY 90 days oxycodone-acetaminophen 5-325 mg 1 tab PO Q6H PRN 28 days simethicone 180 mg PO BID 30 days tamsulosin 0.4 mg PO BEDTIME 90 days tizanidine 4 mg PO Q8H PRN warfarin 3.75 mg See Protocol PO DAILY Nursing Note INR 1.7?out of therapeutic range of 2-3 Medications and supplements reviewed Patient status: well Medications or supplements: no changes Diet: usual diet for pt Denies any signs and symptoms of bleeding or clotting or unusual bruising Bleeding, bruising, clotting discussed Nutritional guidance given: to avoid greens and to have a serving of foods that raise the INR. Food list reviewed with pt Dose: increase today's dose to 7.5mg (3.75mg) and then resume usual dose of 3.75mg daily F/U INR Date : 2 weeks?? Patient verbalizing understanding of instructions given. 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
== END 2024-09-27 09:05 | disposition home or self-care (01) ==
LOC: HO.ACS 08:49
PROVIDERS: PCP Internal Medicine; Visit Provider Internal Medicine
DX: Z79.01 Long term (current) use of anticoagulants (principal)

== ENCOUNTER → 2024-09-27 08:49 | Outpatient (BNVA) | payer OTHER, SELFPAY | PROVIDERS: PCP Internal Medicine; Visit Provider Internal Medicine | DX: I48.0 Paroxysmal atrial fibrillation (principal); Z79.01 Long term (current) use of anticoagulants; Z51.81 Encounter for therapeutic drug level monitoring | CPT/HCPCS: 85610; 99211 ==

== ENCOUNTER 2024-10-01 08:55 | Outpatient (REF) | payer OTHER, SELFPAY ==
[2024-10-01 09:31] LABS: MANUAL DIFF FLAG NO
[2024-10-01 10:10] LABS: Basophils Percent Auto 0.4 % (0-2); Eosinophils Absolute Auto 0.2 X10*3/uL (0.0-0.4); Eosinophils Percent Auto 2.4 % (0-4); Hemoglobin 13.3 g/dl (14.0-18.0); Imm Gran Abs Auto 0.02 X10*3/uL (0.00-0.03); Imm Gran Pct Auto 0.2 % (0.0-0.4); Lymphocytes Percent Auto 23.9 % (20-40); Mean Corpuscular HGB Conc 32.4 g/dl (31.0-36.0); Mean Corpuscular Hemoglobin 26.7 pg (27.0-33.0); Mean Corpuscular Volume 82.3 fL (80.0-98.0); Mean Platelet Volume 10.5 fL (9.4-12.4); Monocytes Absolute Auto 0.6 X10*3/uL (0.1-1.2); Monocytes Percent Auto 6.6 % (2-11); Neutrophils Absolute Auto 5.6 x10*3/uL (2.0-8.3); Neutrophils Percent Auto 66.5 % (45-73); Platelet Count 221 X10*3/uL (160-400); Red Blood Count 4.98 X10*6/uL (4.60-5.80); Red Cell Distribution Width 13.8 % (11.0-16.0); White Blood Count 8.5 X10*3/uL (4.8-10.8)
[2024-10-01 11:03] LABS: Estimated Average Glucose 134 mg/dL; Hemoglobin A1C 158.1232 umol/L; Hemoglobin A1c % 6.3 % (<6.0); Total Hemoglobin (HGBA1C) 3486.5092 umol/L
[2024-10-01 11:15] LABS: Alanine Aminotransferase 27 U/L (0-40); Albumin Level 4.1 g/dL (3.5-5.0); Alkaline Phosphatase 44 U/L (39-117); Anion Gap 11 (12-20); Aspartate Amino Transferase 25 U/L (5-37); Bilirubin Total 0.8 mg/dL (0.0-1.0); Blood Urea Nitrogen 13 mg/dL (9-16); Calcium 8.9 mg/dL (8.4-10.2); Carbon Dioxide 28 mmol/L (22-29); Chloride 105 mmol/L (96-108); Cholesterol 128 mg/dL (<200); Estimated Glomerular Filt Rate > 60; Glucose Fasting 125 mg/dL (60-99); HDL Cholesterol 45 mg/dL (>40); LDL Cholesterol Calculated 66 mg/dL (<100); Potassium 4.2 mmol/L (3.3-5.1); Sodium 140 mmol/L (135-145); Total Protein 7.1 g/dL (6.5-8.0); Triglycerides 89 mg/dL (<150)
[2024-10-01 11:36] LABS: Prostate Specific Antigen 0.43 ng/mL (<0.05-4.0)
[2024-10-01 11:40] LABS: Free T4 (Free Thyroxine) 1.02 ng/dL (0.71-1.85); Thyroid Stimulating Hormone 1.34 uIU/mL (0.32-4.0); Vitamin D 25-OH Total 35.1 ng/mL (>30)
[2024-10-01 11:50] LABS: Appearance Urine Clear; Color Urine Dark Yellow; Glucose Urine UA Negative (Negative); Leukocyte Esterase Urine Trace (Negative); Nitrite Urine Negative (Negative); PH 5.5 (5.0-9.0); Specific Gravity - Urine 1.025 (1.005-1.025); UMIC TRIGGER UACC YES; Urine Blood Negative (Negative); Urine Ketones Trace mg/dL (Negative); Urine Protein Negative (Neg-Trace)
[2024-10-01 11:53] LABS: Bacteria Urine None Seen (None Seen); Hyaline Casts Urine 0-2 /LPF (0-2); RBC Urine 0-2 /HPF (0-2); WBC Urine 0-5 /HPF (0-5)
[2024-10-01 12:46] LABS: Creatinine Urine 277.03 mg/dL; Microalbum/Creatinine Ratio Ur 5.7 ug/mg cr (<30)
== END 2024-10-01 08:56 | disposition home or self-care (01) ==
LOC: HO.LAB 08:55
PROVIDERS: Urology; PCP Internal Medicine; Visit Provider Internal Medicine
DX: D64.9 Anemia, unspecified (principal); Z12.5 Encounter for screening for malignant neoplasm of prostate; E55.9 Vitamin D deficiency, unspecified; E78.00 Pure hypercholesterolemia, unspecified; E03.9 Hypothyroidism, unspecified; E11.9 Type 2 diabetes mellitus without complications
CPT/HCPCS: 36415; 80053; 80061; 81001; 82043; 82306; 82570; 83036; 84153; 84439; 84443; 85025

== ENCOUNTER 2024-10-05 14:17 | Outpatient (AMB) | payer OTHER, SELFPAY ==
[2024-10-05 14:35] VITALS: BP 118/76; PULSE 56; O2SAT 96; BMI 32.9
--- NOTE | 2024-10-05 14:35 | MHC.PC.OV ---
Vital Signs 10/05/24 14:35 Height 5 ft 6 in Weight 204 lb 2 oz BMI 32.9 BP 118/76 Blood Pressure Location Lt brachial Position Sitting Pulse 56 Pulse Source Pulse Oximeter Pulse Oximetry (%) 96 Oxygen Delivery Method Room Air Intake Visit Reasons: Follow Up Allergies No Known Allergies [No Known Allergies*] Allergy (Unknown, Verified 10/05/24 15:13) U Medication List - Last Reconciled 10/05/24 by Matheus Salgado MD allopurinol TAKE 2 TABLETS IN THE MORNING AND 1 TABLET IN THE EVENING atorvastatin 80 mg PO BEDTIME 90 days blood sugar diagnostic ([employer] Ultra Test strips) 1 strip miscellaneous DAILY blood-glucose meter ([employer] Ultra2 Meter kit) As directed daily cholecalciferol (vitamin D3) (Vitamin D3) 50 mcg PO DAILY 90 days cyanocobalamin (vitamin B-12) 1,000 mcg PO DAILY 90 days dronedarone (Multaq) 400 mg PO BID fluoxetine 20 mg PO DAILY fluticasone propionate 50 mcg/actuation (Flonase Allergy Relief) 2 sprays intranasal DAILY lancets ([employer] UltraSoft Lancets) As directed levothyroxine 100 mcg PO DAILY 90 days losartan 50 mg PO DAILY metformin ER 500 mg PO BID 90 days metoprolol succinate ER 25 mg PO DAILY 90 days mometasone 0.1% 1 appl topical DAILY PRN omeprazole 20 mg PO DAILY 90 days oxycodone-acetaminophen 5-325 mg 1 tab PO Q6H PRN 28 days simethicone 180 mg PO BID 30 days tamsulosin 0.4 mg PO BEDTIME 90 days tizanidine 4 mg PO Q8H PRN warfarin 3.75 mg See Protocol PO DAILY Tobacco use date assessed: 10/05/24 Fall risk assessment: No Falls in past year Last assessed Fall Risk: 10/05/24 Dental Screening Dental Screen Date: 10/05/24 Did you have a dental visit in the last 12 months?: Yes Did you have a dental problem in the last 6 months where you did not have access to dental care?: No Was dental information given to patient?: Patient has dentist HPI Follow Up HPI Details Patient comes in today for his follow up visit States that he feels okay Notes that his chronic low back pain and joint pains remain adequately controlled on his current Rx He denies any headaches or dizziness Denies any chest pains, no SOB No nausea/vomiting, no abdominal pain No change in bowel habits noted He needs a few of his Rx refilled He had his follow up labs done a few days ago - to discuss his results [facility] Medical History Benign prostatic hyperplasia with nocturia Lumbar degenerative disc disease Obesity (BMI 30-39.9) Vitamin D deficiency Gout Gastric ulcer Superficial gastritis GERD without esophagitis Acquired hypothyroidism Pure hypercholesterolemia Benign essential hypertension Diabetes mellitus Paroxysmal atrial fibrillation Surgical History Hx of colonoscopy History of esophagogastroduodenoscopy (EGD) History of appendectomy Family History Father Medical history unknown Mother Medical history unknown Social History Housing: House Alcohol intake: former Patient Tobacco Use Status: Former Tobacco user e-Cigarette/Vaping Use: Never Used Second Hand Smoke Exposure: Yes service: No Current occupational status: disabled Cognitive needs: No Hearing needs: No Vision needs: No Questionnaire PHQ-9 Over the last 2 weeks, how often have you been bothered by any of the following problems? 1. Little interest or pleasure in doing things: not at all 2. Feeling down, depressed, or hopeless: not at all 3. Trouble falling or staying asleep, or sleeping too much: not at all 4. Feeling tired or having little energy: not at all 5. Poor appetite or overeating: not at all 6. Feeling bad about yourself - or that you are a failure or have let yourself or your family down: not at all 7. Trouble concentrating on things, such as reading the newspaper or watching television: not at all 8. Moving or speaking so slowly that other people could have noticed. Or the opposite - being so fidgety or restless that you have been moving around a lot more than usual: not at all 9. Thoughts that you would be better off or of hurting yourself in some way: not at all Total score: 0 Depression Screening Interpretation: Negative Depression Screening Done: Yes 76229 - PHQ-9 Billing: Yes Source: Developed by Drs. Rikki Murry, Matthew Alcocer and colleagues, with an educational yonas from [employer]. Thrive Questionnaire Date Thrive assessed: 10/05/24 I am a: Patient What is your living situation today?: I have a steady place to live Within the past 12 months, did the food you bought not last and you didn't have the money to get more?: Never true Within the past 12 months, did you worry whether your food would run out before you got money to buy more?: Never true Do you have trouble paying for medicines?: No Do you have trouble getting transportation to medical appointments?: No Do you have trouble paying your heating and electricity bill?: No Do you have trouble taking care of your child, family member or friend?: No Do you have trouble with day-to-day activities such as bathing, preparing meals, shopping, managing finances, etc.?: No Are you currently unemployed and looking for a job?: No Are you interested in more education?: No Please select the resources that you would like help with: None Currently or been in a relationship where the following occur: No concerns reported THRIVE Score: 0 AUDIT C Alcohol Use Questionnaire (AUDIT-C) 1. How often do you have a drink containing alcohol?: Never 3. How often do you have six or more drinks on one occasion?: Never Total Score: 0 Score Reviewed/Action Taken: Yes ZAY-7 AMB Questionnaire ZAY-7 Date ZAY - 7 assessed: 10/05/24 Feeling nervous, anxious, or on edge: 0 = Not at all Not being able to stop or control worryin = Not at all Worrying too much about different things: 0 = Not at all Trouble relaxin = Not at all Being so restless that it is hard to sit still: 0 = Not at all Becoming easily annoyed or irritable: 0 = Not at all Feeling afraid as if something awful might happen: 0 = Not at all Total ZAY-7 score (0-4 normal; 5-9 mild; 10-14 moderate; 15-21 severe): 0 Source: Developed by Sangita Adames Kurt Kroenke and colleagues, with an educational yonas from [employer]. Review of Systems Const Denies chills, Denies fatigue, Denies fever(s) and Denies headache(s) ENT Denies dysphagia, Denies dizziness, Denies otalgia, Denies headache(s), Denies neck pain, Denies odynophagia and Denies sore throat Card Denies chest pain, Denies palpitations and Denies dyspnea Resp Denies cough, Denies dyspnea and Denies wheezing GI Denies abdominal pain, Denies constipation, Denies dysphagia, Denies diarrhea, Denies nausea, Denies odynophagia and Denies vomiting Denies dysuria, Denies nocturia and Denies urinary frequency Musc Reports back pain (over the lower back - chronic) and Denies neck pain Skin/Breast Denies rash Neuro Denies dizziness and Denies headache(s) Endo Denies fatigue and Denies palpitations Aller/Immun Denies wheezing Physical exam (Primary Care) Vital Signs: Last Vital Signs Pulse 56 10/05/24 14:35 BP 118/76 10/05/24 14:35 Pulse Ox 96 10/05/24 14:35 Oxygen Delivery Method Room Air 10/05/24 14:35 BMI result Body Mass Index 32.9 Tobacco/Smoking Status: Tobacco use Status Tobacco use date assessed 10/05/24 10/05/24 14:40 Patient Tobacco Use Status Former Tobacco user 10/05/24 14:40 e-Cigarette/Vaping Use Never Used 10/05/24 14:40 PHQ-9: PHQ-9 Score PHQ-9: Total score 0 10/05/24 14:40 Depression Screening Interpretation: Negative Thrive Assessment: Date of Thrive Assessment Date Thrive assessed 10/05/24 10/05/24 14:40 Currently or been in a relationship where the following occur: No concerns reported Const General: no acute distress and alert HENMT Ears: TM's normal bilaterally and EAC's normal Throat: Yes posterior oropharynx normal and Yes tonsils normal Neck Neck: Yes no lymphadenopathy and Yes supple Thyroid: Thyroid normal Resp Auscultation: clear to auscultation bilaterally, no rales and no wheezes Cardio Rate: regular rate Rhythm: regular rhythm Heart sounds: no murmurs GI Palpation (GI): Soft to palpation and nontender Auscultation: normal bowel sounds General: Yes no CVA tenderness Back/Spine/Pelvis Back: no CVA tenderness Thoracic/Lumbar Spine: lumbar spinal tenderness Skin Rashes: no rashes Extrem General: Yes no clubbing, cyanosis or edema Results Reviewed Results Reviewed: Laboratory Tests 09/26/24 10/01/24 10/01/24 10:01 09:28 09:30 WBC 8.5 Hgb 13.3 L Hct 41.0 L Plt Count 221 Sodium 140 Potassium 4.2 Creatinine 0.88 Estimated GFR > 60 Fasting Glucose 125 H Hemoglobin A1c % 6.3 H Calcium 8.9 Total Bilirubin 0.8 AST 25 ALT 27 Triglycerides 89 Cholesterol 128 LDL Cholesterol, Calc 66 HDL Cholesterol 45 Prostate Specific Ag 0.43 25-OH Vitamin D Total 35.1 TSH 1.34 Free T4 1.02 Urine pH 5.5 Ur Specific Wilbur 1.025 Urine Protein Negative Urine Glucose (UA) Negative Urine Blood Negative Urine Nitrite Negative Ur Leukocyte Esterase Trace H Leukocyte Esterase (Auto) 0 Microalb/Creat Ratio 5.7 Coding Level of Care Code Est Pt Level 4 (83826) Complex EM visit Add On G2211 Diagnoses Paroxysmal atrial fibrillation I48.0 Type 2 diabetes mellitus without complication, without long-term current use of insulin E11.9 Diabetes mellitus type: type 2 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: without termite control technician use Diabetes mellitus complication status: without complication Pure hypercholesterolemia E78.00 Benign essential hypertension I10 Acquired hypothyroidism E03.9 Superficial gastritis without hemorrhage, unspecified chronicity K29.30 Chronicity: unspecified Gastritis bleeding: without bleeding Idiopathic gout, unspecified chronicity, unspecified site M10.00 Gout site: unspecified site Gout etiology: idiopathic Chronicity: unspecified Degeneration of intervertebral disc of lumbar region with discogenic back pain M51.360 Disc-related pain type: discogenic back pain only Vitamin D deficiency E55.9 Memory impairment R41.3 Benign prostatic hyperplasia with nocturia N40.1; R35.1 Obesity (BMI 30-39.9) E66.9 Additional Codes PHQ-9 - 25601 - PHQ-9 Billing: Yes ([id number]) Assessment & Plan Assessment & Plan (1) Paroxysmal atrial fibrillation: Code(s): I48.0 - Paroxysmal atrial fibrillation Category: Medical Plan: Patient currently remains in sinus rhythm and is anticoagulated on Coumadin - he follows up with the Coumadin clinic regularly for PT/INR monitoring Continue Metoprolol ER 25 mg QD and Multaq 400 mg BID Follow up with cardiology as scheduled (2) Diabetes mellitus: Code(s): E11.9 - Type 2 diabetes mellitus without complications Category: Medical Qualifiers: Diabetes mellitus type: type 2 Diabetes mellitus half-way insulin use: without termite control technician use Diabetes mellitus complication status: without complication Qualified Code(s): E11.9 - Type 2 diabetes mellitus without complications Plan: His HgbA1c was at 6.3% on his labs done a few days ago (was previously at 6.0% a few months ago) - goal is <7.0% Reinforced diabetic diet Continue Metformin ER 500 mg BID (3) Pure hypercholesterolemia: Code(s): E78.00 - Pure hypercholesterolemia, unspecified Category: Medical Plan: Results of his labs done a few days ago reviewed and discussed with patient Reinforced low cholesterol diet Continue Atorvastatin 80 mg QD Will recheck his labs and fasting lipids in 3 months for follow-up (4) Benign essential hypertension: Code(s): I10 - Essential (primary) hypertension Category: Medical Plan: Reinforced low sodium diet - goal is systolic BP of at least 130 to 140 mm or less Continue Metoprolol ER 25 mg QD and Losartan 50 mg QD (5) Acquired hypothyroidism: Code(s): E03.9 - Hypothyroidism, unspecified Category: Medical Plan: His TFTs remain normal on his recent labs Continue Levothyroxine 100 mcg QD Will continue to monitor his TFTs regularly (6) Superficial gastritis: Comment: seen on EGD on 06/23/2017 Code(s): K29.60 - Other gastritis without bleeding Category: Medical Qualifiers: Chronicity: unspecified Gastritis bleeding: without bleeding Qualified Code(s): K29.30 - Chronic superficial gastritis without bleeding Plan: Dietary restrictions reinforced Continue Prilosec OTC 20 mg 2 tablets QD He had repeat colonoscopy done in April 2023 - recommend repeat colonoscopy in 5 years Follow up with GI as scheduled (7) Gout: Code(s): M10.9 - Gout, unspecified Category: Medical Qualifiers: Gout site: unspecified site Gout etiology: idiopathic Chronicity: unspecified Qualified Code(s): M10.00 - Idiopathic gout, unspecified site Plan: He remains asymptomatic with no acute gout flare ups since his last visit His serum uric acid level remains normal on his recent labs Reinforced low purine diet (8) Lumbar degenerative disc disease: Code(s): M51.36 - Other intervertebral disc degeneration, lumbar region Category: Medical Qualifiers: Disc-related pain type: discogenic back pain only Qualified Code(s): M51.360 - Other intervertebral disc degeneration, lumbar region with discogenic back pain only Plan: Reinforced activity and weight-lifting restrictions Continue Oxycodone-acetaminophen 5-325 mg Q 6 hours as needed for pain (9) Vitamin D deficiency: Code(s): E55.9 - Vitamin D deficiency, unspecified Category: Medical Plan: Continue Vitamin D3 2000 units QD (10) Memory impairment: Code(s): R41.3 - Other amnesia Category: Medical Plan: He was started on Fluoxetine for MCI and depression by neurology last year but patient could not tolerate Rx at 20 mg QD Follow up with neurology as scheduled (11) Benign prostatic hyperplasia with nocturia: Code(s): N40.1 - Benign prostatic hyperplasia with lower urinary tract symptoms; R35.1 - Nocturia Category: Medical Plan: His PSA was normal when last checked a few days ago Continue Tamsulosin 0.4 mg Q HS - states that his Rx has helped a lot with his nocturia Follow up with urology as scheduled (12) Obesity (BMI 30-39.9): Code(s): E66.9 - Obesity, unspecified Category: Medical Plan: Reinforced diet/exercise as tolerated/lose weight Plan Follow up in 3 months Orders: Orders Vitamin D 25-OH Total 3 Months E55.9 - Vitamin D deficiency, unspecified Complete Blood Count Auto Diff 3 Months D64.9 - Anemia, unspecified Comprehensive [place]. Panel Fast 3 Months E78.00 - Pure hypercholesterolemia, unspecified Microalbumin, Random (w Creat) 3 Months E11.9 - Type 2 diabetes mellitus without complications Uric Acid 3 Months M10.9 - Gout, unspecified Free T4 (Free Thyroxine) 3 Months E03.9 - Hypothyroidism, unspecified Thyroid Stimulating Hormone 3 Months E03.9 - Hypothyroidism, unspecified Hemoglobin A1c 3 Months E11.9 - Type 2 diabetes mellitus without complications Lipid Panel 3 Months E78.00 - Pure hypercholesterolemia, unspecified UA CC w/rflx Micro + Cult 3 Months R30.0 - Dysuria Medications: Refilled allopurinol TAKE 2 TABLETS IN THE MORNING AND 1 TABLET IN THE EVENING 270 tabs 1RF atorvastatin 80 mg PO BEDTIME 90 days 90 tabs 3RF I48.0 - Paroxysmal atrial fibrillation levothyroxine 100 mcg PO DAILY 90 days 90 tabs 1RF
== END 2024-10-05 15:49 | disposition home or self-care (01) ==
PROVIDERS: PCP Internal Medicine; Visit Provider Internal Medicine
DX: I48.0 Paroxysmal atrial fibrillation (principal); E11.9 Type 2 diabetes mellitus without complications; E78.00 Pure hypercholesterolemia, unspecified; I10 Essential (primary) hypertension; E03.9 Hypothyroidism, unspecified; K29.30 Chronic superficial gastritis without bleeding; M10.00 Idiopathic gout, unspecified site; M51.360 Other intervertebral disc degeneration, lumbar region with discogenic back pain only; E55.9 Vitamin D deficiency, unspecified; R41.3 Other amnesia; N40.1 Benign prostatic hyperplasia with lower urinary tract symptoms; R35.1 Nocturia

== ENCOUNTER → 2024-10-05 14:17 | Outpatient (BNVA) | payer OTHER, SELFPAY | PROVIDERS: PCP Internal Medicine; Visit Provider Internal Medicine | DX: I48.0 Paroxysmal atrial fibrillation (principal); E11.9 Type 2 diabetes mellitus without complications; E78.00 Pure hypercholesterolemia, unspecified; I10 Essential (primary) hypertension; E03.9 Hypothyroidism, unspecified; K29.30 Chronic superficial gastritis without bleeding; M10.00 Idiopathic gout, unspecified site; N40.1 Benign prostatic hyperplasia with lower urinary tract symptoms; E55.9 Vitamin D deficiency, unspecified; R35.1 Nocturia; R41.3 Other amnesia | CPT/HCPCS: 96127; 99212 ==

== ENCOUNTER 2024-10-11 08:52 | Outpatient (AMB) | payer OTHER, SELFPAY ==
[2024-10-11 08:59] LABS: Prothrombin Time Whole Bld POC 23.5 sec (11.1-13.5)
--- NOTE | 2024-10-11 09:06 | MHC.OFFVISCO ---
Intake Intake Visit Reasons: Anticoagulation Allergies No Known Allergies [No Known Allergies*] Allergy (Unknown, Verified 10/11/24 08:55) U Medication List - Last Reconciled 10/11/24 by Dee Blanco RN allopurinol TAKE 2 TABLETS IN THE MORNING AND 1 TABLET IN THE EVENING atorvastatin 80 mg PO BEDTIME 90 days blood sugar diagnostic ([employer] Ultra Test strips) 1 strip miscellaneous DAILY blood-glucose meter ([employer] Ultra2 Meter kit) As directed daily cholecalciferol (vitamin D3) (Vitamin D3) 50 mcg PO DAILY 90 days cyanocobalamin (vitamin B-12) 1,000 mcg PO DAILY 90 days dronedarone (Multaq) 400 mg PO BID fluoxetine 20 mg PO DAILY fluticasone propionate 50 mcg/actuation (Flonase Allergy Relief) 2 sprays intranasal DAILY lancets ([employer] UltraSoft Lancets) As directed levothyroxine 100 mcg PO DAILY 90 days losartan 50 mg PO DAILY metformin ER 500 mg PO BID 90 days metoprolol succinate ER 25 mg PO DAILY 90 days mometasone 0.1% 1 appl topical DAILY PRN omeprazole 20 mg PO DAILY 90 days oxycodone-acetaminophen 5-325 mg 1 tab PO Q6H PRN 28 days simethicone 180 mg PO BID 30 days tamsulosin 0.4 mg PO BEDTIME 90 days tizanidine 4 mg PO Q8H PRN warfarin 3.75 mg See Protocol PO DAILY Nursing Note Pt to [facility] accompanied by . spoke very good [place] and helped translate for pt. INR: 2.0 in therapeutic range of 2-3 Medications and supplements reviewed No changes in health, diet, medications, or supplements, Denies any signs and symptoms of bleeding or bruising or clotting. Bleeding, bruising, clotting discussed Nutritional guidance given to avoid greens the next 2 days and to have a serving of foods from the list that raises the INR. Food list discussed. Dose: 3.75mg daily F/U INR: 2 weeks Patient verbalizes understanding of instructions given Anti-Coag Initial Assessment Social Hx Patient Tobacco Use Status: Former Tobacco user alcohol intake: former Coding Level of Care Code Est Patient Level 1 Diagnoses Current use of anticoagulant therapy Z79.01 Assessment & Plan Assessment & Plan (1) Current use of anticoagulant therapy: Code(s): Z79.01 - [facility] (current) use of anticoagulants Category: Medical
== END 2024-10-11 09:10 | disposition home or self-care (01) ==
LOC: HO.ACS 08:52
PROVIDERS: PCP Internal Medicine; Visit Provider Internal Medicine
DX: Z79.01 Long term (current) use of anticoagulants (principal)

== ENCOUNTER → 2024-10-11 08:52 | Outpatient (BNVA) | payer OTHER, SELFPAY | PROVIDERS: PCP Internal Medicine; Visit Provider Internal Medicine | DX: I48.0 Paroxysmal atrial fibrillation (principal); Z79.01 Long term (current) use of anticoagulants; Z51.81 Encounter for therapeutic drug level monitoring | CPT/HCPCS: 85610; 99211 ==

== ENCOUNTER 2024-10-25 08:43 | Outpatient (AMB) | payer OTHER, SELFPAY ==
[2024-10-25 08:51] LABS: Prothrombin Time Whole Bld POC 24.2 sec (11.1-13.5)
--- NOTE | 2024-10-25 08:53 | MHC.OFFVISCO ---
Intake Intake Visit Reasons: Anticoagulation Allergies No Known Allergies [No Known Allergies*] Allergy (Unknown, Verified 10/25/24 08:45) U Medication List - Last Reconciled 10/25/24 by Dee Lin RN allopurinol TAKE 2 TABLETS IN THE MORNING AND 1 TABLET IN THE EVENING atorvastatin 80 mg PO BEDTIME 90 days blood sugar diagnostic ([employer] Ultra Test strips) 1 strip miscellaneous DAILY blood-glucose meter ([employer] Ultra2 Meter kit) As directed daily cholecalciferol (vitamin D3) (Vitamin D3) 50 mcg PO DAILY 90 days cyanocobalamin (vitamin B-12) 1,000 mcg PO DAILY 90 days dronedarone (Multaq) 400 mg PO BID fluoxetine 20 mg PO DAILY fluticasone propionate 50 mcg/actuation (Flonase Allergy Relief) 2 sprays intranasal DAILY lancets ([employer] UltraSoft Lancets) As directed levothyroxine 100 mcg PO DAILY 90 days losartan 50 mg PO DAILY metformin ER 500 mg PO BID 90 days metoprolol succinate ER 25 mg PO DAILY 90 days mometasone 0.1% 1 appl topical DAILY PRN omeprazole 20 mg PO DAILY 90 days oxycodone-acetaminophen 5-325 mg 1 tab PO Q6H PRN 28 days simethicone 180 mg PO BID 30 days tamsulosin 0.4 mg PO BEDTIME 90 days tizanidine 4 mg PO Q8H PRN warfarin 3.75 mg See Protocol PO DAILY Nursing Note Amb to [facility] feeling well no C/O Medications and supplements reviewed No changes in health, diet, medications, or supplements, Denies any unusual signs and symptoms of bleeding,bruising, or clotting. Bleeding, bruising, clotting discussed INR: 2.0 just in therapeutic range Dose: continue usual 3.75mg daily No geens today then balance diet and be consistent F/U INR: 2 weeks Patient verbalizes understanding of instructions given Anti-Coag Initial Assessment Social Hx Patient Tobacco Use Status: Former Tobacco user alcohol intake: former Coding Level of Care Code Est Patient Level 1 Diagnoses Current use of anticoagulant therapy Z79.01 Time Spent (min) 15 Assessment & Plan Assessment & Plan (1) Current use of anticoagulant therapy: Code(s): Z79.01 - [facility] (current) use of anticoagulants Category: Medical
== END 2024-10-25 09:01 | disposition home or self-care (01) ==
LOC: HO.ACS 08:43
PROVIDERS: PCP Internal Medicine; Visit Provider Internal Medicine
DX: Z79.01 Long term (current) use of anticoagulants (principal)

== ENCOUNTER → 2024-10-25 08:43 | Outpatient (BNVA) | payer OTHER, SELFPAY | PROVIDERS: PCP Internal Medicine; Visit Provider Internal Medicine | DX: I48.0 Paroxysmal atrial fibrillation (principal); Z79.01 Long term (current) use of anticoagulants; Z51.81 Encounter for therapeutic drug level monitoring | CPT/HCPCS: 85610; 99211 ==

== ENCOUNTER 2024-11-08 08:47 | Outpatient (AMB) | payer OTHER, SELFPAY ==
[2024-11-08 08:54] LABS: Prothrombin Time Whole Bld POC 31.9 sec (11.1-13.5); ~PT, ~INR - Anti Coag Clinic 2.7 (0.9-1.1)
--- NOTE | 2024-11-08 08:58 | MHC.OFFVISCO ---
Intake Intake Visit Reasons: Anticoagulation Allergies No Known Allergies [No Known Allergies*] Allergy (Unknown, Verified 11/08/24 08:50) U Medication List - Last Reconciled 11/08/24 by Dee Blanco RN allopurinol TAKE 2 TABLETS IN THE MORNING AND 1 TABLET IN THE EVENING atorvastatin 80 mg PO BEDTIME 90 days blood sugar diagnostic ([employer] Ultra Test strips) 1 strip miscellaneous DAILY blood-glucose meter ([employer] Ultra2 Meter kit) As directed daily cholecalciferol (vitamin D3) (Vitamin D3) 50 mcg PO DAILY 90 days cyanocobalamin (vitamin B-12) 1,000 mcg PO DAILY 90 days dronedarone (Multaq) 400 mg PO BID fluoxetine 20 mg PO DAILY fluticasone propionate 50 mcg/actuation (Flonase Allergy Relief) 2 sprays intranasal DAILY lancets ([employer] UltraSoft Lancets) As directed levothyroxine 100 mcg PO DAILY 90 days losartan 50 mg PO DAILY metformin ER 500 mg PO BID 90 days metoprolol succinate ER 25 mg PO DAILY 90 days mometasone 0.1% 1 appl topical DAILY PRN omeprazole 20 mg PO DAILY 90 days oxycodone-acetaminophen 5-325 mg 1 tab PO Q6H PRN 28 days simethicone 180 mg PO BID 30 days tamsulosin 0.4 mg PO BEDTIME 90 days tizanidine 4 mg PO Q8H PRN warfarin 3.75 mg See Protocol PO DAILY Nursing Note INR: 2.7 in therapeutic range of 2-3 Medications and supplements reviewed No changes in health, diet, medications, or supplements, Denies any signs and symptoms of bleeding or bruising or clotting. Bleeding, bruising, clotting discussed Nutritional guidance given Dose: 3.75mg daily F/U INR: 3 weeks Patient verbalizes understanding of instructions given Anti-Coag Initial Assessment Social Hx Patient Tobacco Use Status: Former Tobacco user alcohol intake: former Coding Level of Care Code Est Patient Level 1 Diagnoses Current use of anticoagulant therapy Z79.01 Assessment & Plan Assessment & Plan (1) Current use of anticoagulant therapy: Code(s): Z79.01 - [facility] (current) use of anticoagulants Category: Medical
== END 2024-11-08 08:59 | disposition home or self-care (01) ==
LOC: HO.ACS 08:47
PROVIDERS: PCP Internal Medicine; Visit Provider Internal Medicine
DX: Z79.01 Long term (current) use of anticoagulants (principal)

== ENCOUNTER → 2024-11-08 08:47 | Outpatient (BNVA) | payer OTHER, SELFPAY | PROVIDERS: PCP Internal Medicine; Visit Provider Internal Medicine | DX: I48.0 Paroxysmal atrial fibrillation (principal); Z79.01 Long term (current) use of anticoagulants; Z51.81 Encounter for therapeutic drug level monitoring | CPT/HCPCS: 85610; 99211 ==

== ENCOUNTER 2024-11-29 08:43 | Outpatient (AMB) | payer OTHER, SELFPAY ==
--- NOTE | 2024-11-29 09:01 | MHC.OFFVISCO ---
Intake Intake Visit Reasons: Anticoagulation Allergies No Known Allergies [No Known Allergies*] Allergy (Unknown, Verified 11/29/24 08:51) U Medication List - Last Reconciled 11/29/24 by Dee Lin RN allopurinol TAKE 2 TABLETS IN THE MORNING AND 1 TABLET IN THE EVENING atorvastatin 80 mg PO BEDTIME 90 days blood sugar diagnostic ([employer] Ultra Test strips) 1 strip miscellaneous DAILY blood-glucose meter ([employer] Ultra2 Meter kit) As directed daily cholecalciferol (vitamin D3) (Vitamin D3) 50 mcg PO DAILY 90 days cyanocobalamin (vitamin B-12) 1,000 mcg PO DAILY 90 days dronedarone (Multaq) 400 mg PO BID fluoxetine 20 mg PO DAILY fluticasone propionate 50 mcg/actuation (Flonase Allergy Relief) 2 sprays intranasal DAILY lancets ([employer] UltraSoft Lancets) As directed levothyroxine 100 mcg PO DAILY 90 days losartan 50 mg PO DAILY metformin ER 500 mg PO BID 90 days metoprolol succinate ER 25 mg PO DAILY 90 days mometasone 0.1% 1 appl topical DAILY PRN omeprazole 20 mg PO DAILY 90 days oxycodone-acetaminophen 5-325 mg 1 tab PO Q6H PRN 28 days simethicone 180 mg PO BID 30 days tamsulosin 0.4 mg PO BEDTIME 90 days tizanidine 4 mg PO Q8H PRN warfarin 3.75 mg See Protocol PO DAILY Nursing Note Amb to ACS feeling cold Medications and supplements reviewed No changes in health, diet, medications, or supplements, Denies any signs and symptoms of bleeding, bruising, or clotting. Bleeding, bruising, clotting discussed INR: 1.9 just below therapeutic range, thinks he may of had more greens salads Dose: increase dose today to 7.5mg (vs 3.75mg) then resume usual dosing tomorrow eat a balanced diet and be consistent F/U INR: 2 weeks Patient verbalizes understanding of instructions given Anti-Coag Initial Assessment Social Hx Patient Tobacco Use Status: Former Tobacco user alcohol intake: former Coding Level of Care Code Est Patient Level 1 Diagnoses Current use of anticoagulant therapy Z79.01 Time Spent (min) 15 Results AMB INR Fingerstick AMB INR Fingerstick 1.9 Last Edit by Dee Lin RN on 11/29/24 08:59 interface failure Assessment & Plan Assessment & Plan (1) Current use of anticoagulant therapy: Code(s): Z79.01 - intermediate (current) use of anticoagulants Category: Medical
[2024-11-29 09:04] LABS: Prothrombin Time Whole Bld POC 23.1 sec (11.1-13.5); ~PT, ~INR - Anti Coag Clinic 1.9 (0.9-1.1)
== END 2024-11-29 09:17 | disposition home or self-care (01) ==
LOC: HO.ACS 08:43
PROVIDERS: PCP Internal Medicine; Visit Provider Internal Medicine
DX: Z79.01 Long term (current) use of anticoagulants (principal)

== ENCOUNTER → 2024-11-29 08:43 | Outpatient (BNVA) | payer OTHER, SELFPAY | PROVIDERS: PCP Internal Medicine; Visit Provider Internal Medicine | DX: I48.0 Paroxysmal atrial fibrillation (principal); Z79.01 Long term (current) use of anticoagulants; Z51.81 Encounter for therapeutic drug level monitoring | CPT/HCPCS: 85610; 99211 ==

== ENCOUNTER 2024-12-12 11:05 | Outpatient (AMB) | payer OTHER, SELFPAY ==
--- NOTE | 2024-12-12 11:37 | MHC.OFFVIS ---
Vital Signs 12/12/24 11:39 Height 5 ft 6 in Weight 208 lb 8.917 oz BMI 33.7 BP 100/60 Blood Pressure Location Lt brachial Position Sitting Pulse 69 Pulse Source Monitor Intake Visit Reasons: 6 mth f/up Intake Note: 6 mth f/up Public Safety Police Required: No Public Safety Police Services: Public Safety Police Offered & Declined Public Safety Police Name: echo/spouse/welsh Accompanied by: Spouse Allergies No Known Allergies [No Known Allergies*] Allergy (Unknown, Verified 11/29/24 08:51) U Medication List - Last Reconciled 12/12/24 by Rakan Rosenbaum MD allopurinol TAKE 2 TABLETS IN THE MORNING AND 1 TABLET IN THE EVENING atorvastatin 80 mg PO BEDTIME 90 days blood sugar diagnostic ([employer] Ultra Test strips) 1 strip miscellaneous DAILY blood-glucose meter ([employer] Ultra2 Meter kit) As directed daily cholecalciferol (vitamin D3) (Vitamin D3) 50 mcg PO DAILY 90 days cyanocobalamin (vitamin B-12) 1,000 mcg PO DAILY 90 days dronedarone (Multaq) 400 mg PO BID fluoxetine 20 mg PO DAILY fluticasone propionate 50 mcg/actuation (Flonase Allergy Relief) 2 sprays intranasal DAILY lancets ([employer] UltraSoft Lancets) As directed levothyroxine 100 mcg PO DAILY 90 days losartan 50 mg PO DAILY metformin ER 500 mg PO BID 90 days metoprolol succinate ER 25 mg PO DAILY 90 days mometasone 0.1% 1 appl topical DAILY PRN omeprazole 20 mg PO DAILY 90 days oxycodone-acetaminophen 5-325 mg 1 tab PO Q6H PRN 28 days simethicone 180 mg PO BID 30 days tamsulosin 0.4 mg PO BEDTIME 90 days tizanidine 4 mg PO Q8H PRN warfarin 3.75 mg See Protocol PO DAILY HPI Comments Details: Pleasant 74-year-old gentleman who is referred to us for paroxysmal atrial fibrillation. He has known history of atrial fibrillation in the past. He has history of gout, GERD, hypothyroidism, hyperlipidemia, hypertension and diabetes. Referred him for echocardiography and Holter monitor. ECHO showed normal biventricular function. Holter showed that he had 29 minutes episodes of atrial fibrillation. His shared that he stops breathing in his sleep. He has snoring and apneic episodes. This goes along with his nighttime palpitations as sleep apnea can trigger atrial fibrillation at nighttime. He was referred for sleep study where snoring was noticed but he did not have any apneic spells. He returned for follow-up accompanied by his . He has been noticing some palpitations during the daytime. After discussion we started him on multaq. 05/18/23: He returns for follow-up. He has been using Multaq 400 mg twice a day. He is saying he has no palpitations. He is feeling great. No other concerns currently. Taking Coumadin for anticoagulation. 09/28/2023: He returns for follow-up. He has been doing well. He was referred for electrophysiology assessment and will be seeing EP. He is saying he has been doing well with Multaq and has no palpitations. He was previously getting nighttime palpitations due to atrial fibrillation. Blood pressure control is good. 04/13/24: He returns for follow-up. He has been doing well. No palpitations. Taking medications regularly. No bleeding concerns. Blood pressure is well controlled. 12/12/2024: He is here for follow-up. He is saying at nighttime he is getting some palpitations. During the day is fine. His EKGs showing atrial fibrillation. He has been on Multaq for many months and was doing okay until recently. No chest pain or shortness of breath. No fatigue. Taking warfarin 3.75 mg daily. [facility] Medical History Benign prostatic hyperplasia with nocturia Lumbar degenerative disc disease Obesity (BMI 30-39.9) Vitamin D deficiency Gout Gastric ulcer Superficial gastritis GERD without esophagitis Acquired hypothyroidism Pure hypercholesterolemia Benign essential hypertension Diabetes mellitus Paroxysmal atrial fibrillation Surgical History Hx of colonoscopy History of esophagogastroduodenoscopy (EGD) History of appendectomy Family History Father Medical history unknown Mother Medical history unknown Social History Housing: House Alcohol intake: former Patient Tobacco Use Status: Former Tobacco user e-Cigarette/Vaping Use: Never Used Second Hand Smoke Exposure: Yes service: No Current occupational status: disabled Cognitive needs: No Hearing needs: No Vision needs: No Review of Systems Const Denies chills, Denies fatigue, Denies fever(s), Denies frequent falls, Denies weakness, Denies weight gain and Denies weight loss ENT Denies dizziness Card Denies chest pain, Denies leg edema, Denies lightheadedness, Denies palpitations, Denies dyspnea and Denies dyspnea on exertion Resp Denies cough, Denies dyspnea and Denies dyspnea on exertion GI Denies hematochezia Musc Denies abnormal gait, Denies muscle weakness, Denies numbness, Denies radiating pain into limb and Denies tingling Neuro Denies abnormal gait, Denies dizziness, Denies frequent falls, Denies numbness, Denies tingling and Denies weakness Endo Denies fatigue and Denies palpitations Physical Exam Vital Signs: Last Vital Signs Pulse 69 12/12/24 11:39 BP 100/60 12/12/24 11:39 BMI result Body Mass Index 33.7 GENERAL APPEARANCE: in no acute distress, pleasant. NECK: no carotid bruit, no jugular venous distention. SKIN: no suspicious lesions, warm and dry. HEART: no murmurs, irregular rate and rhythm. LUNGS: clear to auscultation bilaterally. ABDOMEN: soft, nontender. EXTREMITIES: no edema. PERIPHERAL PULSES: equal. NEUROLOGIC: No gross deficits, AAO X 3 Office Procedures EKG Details: Atrial fibrillation 69 beats per minute, normal axis, QTC 435 milliseconds. [id number], Complete Assessment & Plan Assessment & Plan (1) Benign essential hypertension: Code(s): I10 - Essential (primary) hypertension Category: Medical (2) Paroxysmal atrial fibrillation: Code(s): I48.0 - Paroxysmal atrial fibrillation Category: Medical Plan Pleasant 74 year gentleman with hypertension and paroxysmal atrial fibrillation here for follow-up. He was doing well on Multaq till today when on presentation he is back in atrial fibrillation. He also has been experiencing nighttime palpitations which was his main issue previously. Stopping the Multaq. I am going to arrange stress Mibi for him. If stress test is okay then we can start him on flecainide and try to cardiovert him. If he does not do well with stress testing then amiodarone will be the next alternative. He is on Coumadin and due to interaction I am trying to avoid amiodarone. Follow-up in couple of months. Thank you for allowing me to participate in the care of your patient. Please feel free to contact me if you have any questions. Orders: Orders CA stress test Today I48.0 - Paroxysmal atrial fibrillation NM cardiolite stress test Today I48.0 - Paroxysmal atrial fibrillation Medications: Discontinued dronedarone (Multaq) must administer with a meal/food Discontinued Reason: Doctor's Order 400 mg PO BID 60 tabs 5RF I48.0 - Paroxysmal atrial fibrillation Coding Level of Care Code Est Pt Level 4 (88934) Diagnoses Benign essential hypertension I10 Paroxysmal atrial fibrillation I48.0 CPT Codes EKG - CPT: 02637-[id number], Complete ([id number])
[2024-12-12 11:39] VITALS: BP 100/60; PULSE 69; BMI 33.7
== END 2024-12-12 12:19 | disposition home or self-care (01) ==
PROVIDERS: PCP Internal Medicine; Visit Provider Internal Medicine Cardiovascular Disease
DX: I10 Essential (primary) hypertension (principal); I48.0 Paroxysmal atrial fibrillation
CPT/HCPCS: 93010; 99214

== ENCOUNTER → 2024-12-12 11:05 | Outpatient (BNVA) | payer OTHER, SELFPAY | PROVIDERS: PCP Internal Medicine; Visit Provider Internal Medicine Cardiovascular Disease | DX: I48.0 Paroxysmal atrial fibrillation (principal); I10 Essential (primary) hypertension; R00.2 Palpitations | CPT/HCPCS: 93005; 99212 ==

== ENCOUNTER 2024-12-13 08:54 | Outpatient (AMB) | payer OTHER, SELFPAY ==
--- NOTE | 2024-12-13 09:21 | MHC.OFFVISCO ---
Intake Intake Visit Reasons: Anticoagulation Allergies No Known Allergies [No Known Allergies*] Allergy (Unknown, Verified 12/13/24 09:14) U Medication List - Last Reconciled 12/13/24 by Dee Blanco RN allopurinol TAKE 2 TABLETS IN THE MORNING AND 1 TABLET IN THE EVENING atorvastatin 80 mg PO BEDTIME 90 days blood sugar diagnostic ([employer] Ultra Test strips) 1 strip miscellaneous DAILY blood-glucose meter ([employer] Ultra2 Meter kit) As directed daily cholecalciferol (vitamin D3) (Vitamin D3) 50 mcg PO DAILY 90 days cyanocobalamin (vitamin B-12) 1,000 mcg PO DAILY 90 days fluoxetine 20 mg PO DAILY fluticasone propionate 50 mcg/actuation (Flonase Allergy Relief) 2 sprays intranasal DAILY lancets ([employer] UltraSoft Lancets) As directed levothyroxine 100 mcg PO DAILY 90 days losartan 50 mg PO DAILY metformin ER 500 mg PO BID 90 days metoprolol succinate ER 25 mg PO DAILY 90 days mometasone 0.1% 1 appl topical DAILY PRN omeprazole 20 mg PO DAILY 90 days oxycodone-acetaminophen 5-325 mg 1 tab PO Q6H PRN 28 days simethicone 180 mg PO BID 30 days tamsulosin 0.4 mg PO BEDTIME 90 days tizanidine 4 mg PO Q8H PRN warfarin 3.75 mg See Protocol PO DAILY Nursing Note INR: 2.1 in therapeutic range of 2-3 Medications and supplements reviewed No changes in health, diet, medications, or supplements, Denies any signs and symptoms of bleeding or bruising or clotting. Bleeding, bruising, clotting discussed Nutritional guidance given to avoid greens today and to have a serving of food that raises the INR. Food list reviewed and pt states he will have tomatoes and grapes or melon. 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
[2024-12-13 09:27] LABS: Prothrombin Time Whole Bld POC 25.1 sec (11.1-13.5); ~PT, ~INR - Anti Coag Clinic 2.1 (0.9-1.1)
== END 2024-12-13 09:26 | disposition home or self-care (01) ==
LOC: HO.ACS 08:54
PROVIDERS: PCP Internal Medicine; Visit Provider Internal Medicine
DX: Z79.01 Long term (current) use of anticoagulants (principal)

== ENCOUNTER → 2024-12-13 08:54 | Outpatient (BNVA) | payer OTHER, SELFPAY | PROVIDERS: PCP Internal Medicine; Visit Provider Internal Medicine | DX: I48.0 Paroxysmal atrial fibrillation (principal); Z79.01 Long term (current) use of anticoagulants; Z51.81 Encounter for therapeutic drug level monitoring | CPT/HCPCS: 85610; 99211 ==

== ENCOUNTER 2025-01-03 08:52 | Outpatient (AMB) | payer OTHER, SELFPAY ==
--- NOTE | 2025-01-03 09:12 | MHC.OFFVISCO ---
Intake Intake Visit Reasons: Anticoagulation Allergies No Known Allergies [No Known Allergies*] Allergy (Unknown, Verified 01/03/25 09:09) U Medication List - Last Reconciled 01/03/25 by Yesica Spencer RN allopurinol TAKE 2 TABLETS IN THE MORNING AND 1 TABLET IN THE EVENING atorvastatin 80 mg PO BEDTIME 90 days blood sugar diagnostic ([employer] Ultra Test strips) 1 strip miscellaneous DAILY blood-glucose meter ([employer] Ultra2 Meter kit) As directed daily cholecalciferol (vitamin D3) (Vitamin D3) 50 mcg PO DAILY 90 days cyanocobalamin (vitamin B-12) 1,000 mcg PO DAILY 90 days fluoxetine 20 mg PO DAILY fluticasone propionate 50 mcg/actuation (Flonase Allergy Relief) 2 sprays intranasal DAILY lancets ([employer] UltraSoft Lancets) As directed levothyroxine 100 mcg PO DAILY 90 days losartan 50 mg PO DAILY metformin ER 500 mg PO BID 90 days metoprolol succinate ER 25 mg PO DAILY 90 days mometasone 0.1% 1 appl topical DAILY PRN omeprazole 20 mg PO DAILY 90 days oxycodone-acetaminophen 5-325 mg 1 tab PO Q6H PRN 28 days simethicone 180 mg PO BID 30 days tamsulosin 0.4 mg PO BEDTIME 90 days tizanidine 4 mg PO Q8H PRN warfarin 3.75 mg See Protocol PO DAILY Nursing Note INR 1.9-?? out of therapeutic range of 2-3 Medications and supplements reviewed Patient status: no c.o Medications or supplements: no changes Diet: appetite is good Denies any signs and symptoms of bleeding or clotting or unusual bruising Bleeding, bruising, clotting discussed Nutritional guidance given: no greens for 2 days, eat a red to raise Dose: 7.5mg today then cont 3.75mg x 7 F/U INR Date : 2 weeks? Patient verbalizing understanding of instructions given. Anti-Coag Initial Assessment Social Hx Patient Tobacco Use Status: Former Tobacco user alcohol intake: former Coding Level of Care Code Est Patient Level 1 Diagnoses Current use of anticoagulant therapy Z79.01 Assessment & Plan Assessment & Plan (1) Current use of anticoagulant therapy: Code(s): Z79.01 - snf (current) use of anticoagulants Category: Medical
[2025-01-03 09:14] LABS: Prothrombin Time Whole Bld POC 22.7 sec (11.1-13.5); ~PT, ~INR - Anti Coag Clinic 1.9 (0.9-1.1)
== END 2025-01-03 09:19 | disposition home or self-care (01) ==
LOC: HO.ACS 08:52
PROVIDERS: PCP Internal Medicine; Visit Provider Internal Medicine
DX: Z79.01 Long term (current) use of anticoagulants (principal)

== ENCOUNTER → 2025-01-03 08:52 | Outpatient (BNVA) | payer OTHER, SELFPAY | PROVIDERS: PCP Internal Medicine; Visit Provider Internal Medicine | DX: I48.0 Paroxysmal atrial fibrillation (principal); Z79.01 Long term (current) use of anticoagulants; Z51.81 Encounter for therapeutic drug level monitoring | CPT/HCPCS: 85610; 99211 ==

== ENCOUNTER 2025-01-17 08:59 | Outpatient (AMB) | payer OTHER, SELFPAY ==
[2025-01-17 09:18] LABS: Prothrombin Time Whole Bld POC 29.6 sec (11.1-13.5); ~PT, ~INR - Anti Coag Clinic 2.5 (0.9-1.1)
--- NOTE | 2025-01-17 09:22 | MHC.OFFVISCO ---
Intake Intake Visit Reasons: Anticoagulation Allergies No Known Allergies [No Known Allergies*] Allergy (Unknown, Verified 01/17/25 09:04) U Medication List - Last Reconciled 01/17/25 by Dee Blanco RN allopurinol TAKE 2 TABLETS IN THE MORNING AND 1 TABLET IN THE EVENING atorvastatin 80 mg PO BEDTIME 90 days blood sugar diagnostic ([employer] Ultra Test strips) 1 strip miscellaneous DAILY blood-glucose meter ([employer] Ultra2 Meter kit) As directed daily cholecalciferol (vitamin D3) (Vitamin D3) 50 mcg PO DAILY 90 days cyanocobalamin (vitamin B-12) 1,000 mcg PO DAILY 90 days fluoxetine 20 mg PO DAILY fluticasone propionate 50 mcg/actuation (Flonase Allergy Relief) 2 sprays intranasal DAILY lancets ([employer] UltraSoft Lancets) As directed levothyroxine 100 mcg PO DAILY 90 days losartan 50 mg PO DAILY metformin ER 500 mg PO BID 90 days metoprolol succinate ER 25 mg PO DAILY 90 days mometasone 0.1% 1 appl topical DAILY PRN omeprazole 20 mg PO DAILY 90 days oxycodone-acetaminophen 5-325 mg 1 tab PO Q6H PRN 28 days simethicone 180 mg PO BID 30 days tamsulosin 0.4 mg PO BEDTIME 90 days tizanidine 4 mg PO Q8H PRN warfarin 3.75 mg See Protocol PO DAILY Nursing Note INR: 2.5 in therapeutic range of 2-3 Pt accompanied by who states pt saw supervisor paper machine about a month ago and they took him off the Multaq. That was 12/12/24. This could lower the INR. Last 2 INR's have been low in therapeutic range or just under at 1.9 and 2.1. Will bring pt back for retest in 1 week to watch closer. Pt also states he will be having a stress test in March. Medications and supplements reviewed: changes as above No changes in health, diet, or supplements, Denies any signs and symptoms of bleeding or bruising or clotting. 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
== END 2025-01-17 09:28 | disposition home or self-care (01) ==
LOC: HO.ACS 08:59
PROVIDERS: PCP Internal Medicine; Visit Provider Internal Medicine
DX: Z79.01 Long term (current) use of anticoagulants (principal)

== ENCOUNTER → 2025-01-17 08:59 | Outpatient (BNVA) | payer OTHER, SELFPAY | PROVIDERS: PCP Internal Medicine; Visit Provider Internal Medicine | DX: I48.0 Paroxysmal atrial fibrillation (principal); Z79.01 Long term (current) use of anticoagulants; Z51.81 Encounter for therapeutic drug level monitoring | CPT/HCPCS: 85610; 99211 ==

== ENCOUNTER 2025-01-24 08:47 | Outpatient (AMB) | payer OTHER, SELFPAY ==
[2025-01-24 08:55] LABS: Prothrombin Time Whole Bld POC 23.1 sec (11.1-13.5); ~PT, ~INR - Anti Coag Clinic 1.9 (0.9-1.1)
--- NOTE | 2025-01-24 09:11 | MHC.OFFVISCO ---
Intake Intake Visit Reasons: Anticoagulation Allergies No Known Allergies [No Known Allergies*] Allergy (Unknown, Verified 01/24/25 08:48) U Medication List - Last Reconciled 01/24/25 by Dee Lin RN allopurinol TAKE 2 TABLETS IN THE MORNING AND 1 TABLET IN THE EVENING atorvastatin 80 mg PO BEDTIME 90 days blood sugar diagnostic ([employer] Ultra Test strips) 1 strip miscellaneous DAILY blood-glucose meter ([employer] Ultra2 Meter kit) As directed daily cholecalciferol (vitamin D3) (Vitamin D3) 50 mcg PO DAILY 90 days cyanocobalamin (vitamin B-12) 1,000 mcg PO DAILY 90 days fluoxetine 20 mg PO DAILY fluticasone propionate 50 mcg/actuation (Flonase Allergy Relief) 2 sprays intranasal DAILY lancets ([employer] UltraSoft Lancets) As directed levothyroxine 100 mcg PO DAILY 90 days losartan 50 mg PO DAILY metformin ER 500 mg PO BID 90 days metoprolol succinate ER 25 mg PO DAILY 90 days mometasone 0.1% 1 appl topical DAILY PRN omeprazole 20 mg PO DAILY 90 days oxycodone-acetaminophen 5-325 mg 1 tab PO Q6H PRN 28 days simethicone 180 mg PO BID 30 days tamsulosin 0.4 mg PO BEDTIME 90 days tizanidine 4 mg PO Q8H PRN warfarin 3.75 mg See Protocol PO DAILY Nursing Note Arrival: Patient arrives to [facility] accomp by family member feeling well. Status: Denies changes in health, diet, medications or supplements. SEDRICK dc'd 12/12 (watch for decrease in INR) Denies symptoms of bleeding, bruising or clotting. INR: 1.9 below therapeutic range (2.0-3.00 Dose: increase today to 7.5mg then resume 3.75mg daily- plan to increase weekly from 26.5mg to 30.0 pt instructed through adult family member to not take warfarin morning of next appointment 01/31 and bring warfarin in to appointment (as he takes in am 0800) will be monitoring INR frequently to adjust, they also have questions on the quantity of pills received recently Nutritional Guidance: NO GREENS today, ok for a red to help raise, then balance greens and reds in diet Review food list weekly, especially during the holidays, seasonal changes and celebrations. Continue to eat a consistent and balanced diet to keep INR in therapeutic range. Follow-up Appointment: Wednesday 01/31 0900 Patient and spouse verbalizes understanding of instructions given regarding dosing, diet and next follow-up appointment with read back. Anti-Coag Initial Assessment Social Hx Patient Tobacco Use Status: Former Tobacco user alcohol intake: former Coding Level of Care Code Est Patient Level 1 Diagnoses Current use of anticoagulant therapy Z79.01 Time Spent (min) 15 Assessment & Plan Assessment & Plan (1) Current use of anticoagulant therapy: Code(s): Z79.01 - USP (current) use of anticoagulants Category: Medical
== END 2025-01-24 09:26 | disposition home or self-care (01) ==
LOC: HO.ACS 08:47
PROVIDERS: PCP Internal Medicine; Visit Provider Internal Medicine
DX: Z79.01 Long term (current) use of anticoagulants (principal)

== ENCOUNTER → 2025-01-24 08:47 | Outpatient (BNVA) | payer OTHER, SELFPAY | PROVIDERS: PCP Internal Medicine; Visit Provider Internal Medicine | DX: I48.0 Paroxysmal atrial fibrillation (principal); Z79.01 Long term (current) use of anticoagulants; Z51.81 Encounter for therapeutic drug level monitoring | CPT/HCPCS: 85610; 99211 ==

== ENCOUNTER 2025-01-31 08:54 | Outpatient (AMB) | payer OTHER, SELFPAY ==
[2025-01-31 09:12] LABS: ~PT, ~INR - Anti Coag Clinic 2.8 (0.9-1.1)
--- NOTE | 2025-01-31 09:19 | MHC.OFFVISCO ---
Intake Intake Visit Reasons: Anticoagulation Allergies No Known Allergies [No Known Allergies*] Allergy (Unknown, Verified 01/31/25 09:07) U Medication List - Last Reconciled 01/31/25 by Genet Hough RN allopurinol TAKE 2 TABLETS IN THE MORNING AND 1 TABLET IN THE EVENING atorvastatin 80 mg PO BEDTIME 90 days blood sugar diagnostic ([email or web address] Ultra Test strips) 1 strip miscellaneous DAILY blood-glucose meter ([email or web address] Ultra2 Meter kit) As directed daily cholecalciferol (vitamin D3) (Vitamin D3) 50 mcg PO DAILY 90 days cyanocobalamin (vitamin B-12) 1,000 mcg PO DAILY 90 days fluoxetine 20 mg PO DAILY fluticasone propionate 50 mcg/actuation (Flonase Allergy Relief) 2 sprays intranasal DAILY lancets ([email or web address] UltraSoft Lancets) As directed levothyroxine 100 mcg PO DAILY 90 days losartan 50 mg PO DAILY metformin ER 500 mg PO BID 90 days metoprolol succinate ER 25 mg PO DAILY 90 days mometasone 0.1% 1 appl topical DAILY PRN omeprazole 20 mg PO DAILY 90 days oxycodone-acetaminophen 5-325 mg 1 tab PO Q6H PRN 28 days simethicone 180 mg PO BID 30 days tamsulosin 0.4 mg PO BEDTIME 90 days tizanidine 4 mg PO Q8H PRN warfarin 3.75 mg See Protocol PO DAILY Nursing Note INR: 2.8 in therapeutic range- he ate more reds to keep INR up Medications and supplements reviewed No changes in health, diet, medications, or supplements, Denies any signs and symptoms of bleeding or bruising or clotting. Bleeding, bruising, clotting discussed Nutritional guidance given - keep eating a mix of fruits and vegetables Dose: pt states taking 3.75mg daily - keep same dose as pt has been taking F/U INR: 2 weeks if stable then 3 weeks Patient verbalizes understanding of instructions given Anti-Coag Initial Assessment Social Hx Patient Tobacco Use Status: Former Tobacco user alcohol intake: former Questionnaires HAS-BLED Does the patient had uncontrolled Hypertension?: No Does the patient have renal disease?: No Does the patient have liver disease?: No Does the patient have a history of stroke?: No Has the patient had major bleeding or predisposition to bleeding?: Yes Does the patient have labile INRs?: No Is the patient over 65 years of age?: Yes Is the patient on medications that gives them a predisposition to bleeding?: Yes Does the patient use alcohol?: Yes HAS-BLED Score: 4 CHADSVASC Age: 66-74 Gender: Male Does the patient have a history of CHF?: No Does the patient have a history of Hypertension?: Yes Does the patient have a history of Stroke/TIA/Thromboembolism?: No Does the patient have a history of Vascular Disease (prior ND, PAD or aortic plaque)?: Yes Does the patient have a history of Diabetes?: Yes CHADS VACS Score: 4 Stephen Prediction Score Rsk VTE Active Cancer: No Previous VTE, excluding superficial vein thrombosis: No Reduced mobility: No Already known Thrombophilic Condition: No With-in last month Trauma and/or Surgery: No Elderly 70 year or older: Yes Heart and/or Respiratory Failure: No Acute Myocardial infarction and/or Ischemic Stroke: No Acute Infection and/or Rheumatologic Disorder: No Obesity (BMI 30 or greater): Yes Ongoing Hormonal Treatment: No Score: 2 Stephen Score less than 4; Low Risk of VTE Stephen Score 4 or greater; High Risk of VTE Coding Level of Care Code Est Patient Level 1 Diagnoses Current use of anticoagulant therapy Z79.01 Assessment & Plan Assessment & Plan (1) Current use of anticoagulant therapy: Code(s): Z79.01 - FPC (current) use of anticoagulants Category: Medical
== END 2025-01-31 09:20 | disposition home or self-care (01) ==
LOC: HO.ACS 08:54
PROVIDERS: PCP Internal Medicine; Visit Provider Internal Medicine
DX: Z79.01 Long term (current) use of anticoagulants (principal)

== ENCOUNTER → 2025-01-31 08:54 | Outpatient (BNVA) | payer OTHER, SELFPAY | PROVIDERS: PCP Internal Medicine; Visit Provider Internal Medicine | DX: I48.0 Paroxysmal atrial fibrillation (principal); Z79.01 Long term (current) use of anticoagulants; Z51.81 Encounter for therapeutic drug level monitoring | CPT/HCPCS: 85610; 99211 ==

== ENCOUNTER 2025-02-04 09:16 | Outpatient (REF) | payer OTHER, SELFPAY ==
[2025-02-04 09:29] LABS: MANUAL DIFF FLAG NO
[2025-02-04 10:12] LABS: Basophils Absolute Auto 0.1 X10*3/uL (0.0-0.2); Basophils Percent Auto 0.7 % (0-2); Eosinophils Absolute Auto 0.3 X10*3/uL (0.0-0.4); Eosinophils Percent Auto 4.1 % (0-4); Hematocrit 43.4 % (42.0-52.0); Hemoglobin 14.3 g/dl (14.0-18.0); Imm Gran Abs Auto 0.02 X10*3/uL (0.00-0.03); Imm Gran Pct Auto 0.3 % (0.0-0.4); Lymphocytes Absolute Auto 2.4 X10*3/uL (1.2-4.9); Lymphocytes Percent Auto 33.7 % (20-40); Mean Corpuscular HGB Conc 32.9 g/dl (31.0-36.0); Mean Corpuscular Hemoglobin 26.8 pg (27.0-33.0); Mean Corpuscular Volume 81.3 fL (80.0-98.0); Mean Platelet Volume 10.6 fL (9.4-12.4); Monocytes Absolute Auto 0.6 X10*3/uL (0.1-1.2); Neutrophils Absolute Auto 3.8 x10*3/uL (2.0-8.3); Neutrophils Percent Auto 53.2 % (45-73); Platelet Count 225 X10*3/uL (160-400); Red Blood Count 5.34 X10*6/uL (4.60-5.80); Red Cell Distribution Width 13.5 % (11.0-16.0); White Blood Count 7.1 X10*3/uL (4.8-10.8)
[2025-02-04 10:29] LABS: Appearance Urine Clear; Color Urine Yellow; Glucose Urine UA Negative (Negative); Leukocyte Esterase Urine Negative (Negative); Nitrite Urine Negative (Negative); PH 5.5 (5.0-9.0); UMIC TRIGGER UACC YES; Urine Blood Trace (Negative); Urine Ketones Trace mg/dL (Negative); Urine Protein Negative (Neg-Trace)
[2025-02-04 10:31] LABS: Estimated Average Glucose 148 mg/dL; Hemoglobin A1c % 6.8 % (<6.0)
[2025-02-04 10:38] LABS: Bacteria Urine None Seen (None Seen); Hyaline Casts Urine 0-2 /LPF (0-2); Squamous Epithelial Cell Urine 0-2 /HPF (0-2); WBC Urine 0-5 /HPF (0-5)
[2025-02-04 11:07] LABS: Alanine Aminotransferase 27 U/L (0-40); Albumin Level 4.1 g/dL (3.5-5.0); Alkaline Phosphatase 52 U/L (39-117); Anion Gap 11 (12-20); Aspartate Amino Transferase 23 U/L (5-37); Bilirubin Total 1.1 mg/dL (0.0-1.0); Blood Urea Nitrogen 11 mg/dL (9-16); Calcium 9.1 mg/dL (8.4-10.2); Carbon Dioxide 27 mmol/L (22-29); Chloride 105 mmol/L (96-108); Cholesterol 138 mg/dL (<200); Estimated Glomerular Filt Rate > 60; Glucose Fasting 118 mg/dL (60-99); HDL Cholesterol 39 mg/dL (>40); LDL Cholesterol Calculated 73 mg/dL (<100); Potassium 4.2 mmol/L (3.3-5.1); Sodium 139 mmol/L (135-145); Total Protein 7.9 g/dL (6.5-8.0); Triglycerides 130 mg/dL (<150); Uric Acid 5.1 mg/dL (3.4-7.0)
[2025-02-04 11:11] LABS: Creatinine Urine 216.12 mg/dL
[2025-02-04 11:25] LABS: Free T4 (Free Thyroxine) 1.11 ng/dL (0.71-1.85); Thyroid Stimulating Hormone 0.78 uIU/mL (0.32-4.0); Vitamin D 25-OH Total 41.1 ng/mL (>30)
== END 2025-02-04 09:17 | disposition home or self-care (01) ==
LOC: HO.LAB 09:16
PROVIDERS: PCP Internal Medicine; Visit Provider Internal Medicine
DX: D64.9 Anemia, unspecified (principal); E55.9 Vitamin D deficiency, unspecified; E78.00 Pure hypercholesterolemia, unspecified; M10.9 Gout, unspecified; E03.9 Hypothyroidism, unspecified; E11.9 Type 2 diabetes mellitus without complications
CPT/HCPCS: 36415; 80053; 80061; 81001; 81003; 82043; 82306; 82570; 83036; 84439; 84443; 84550; 85025

== ENCOUNTER 2025-02-09 09:10 | Outpatient (AMB) | payer OTHER, SELFPAY ==
[2025-02-09 09:16] VITALS: BP 110/82; PULSE 84; O2SAT 96; BMI 33.3
--- NOTE | 2025-02-09 09:16 | A.OFFPC_ITS ---
Vital Signs 02/09/25 09:16 Height 5 ft 6 in Weight 206 lb 8 oz BMI 33.3 BP 110/82 Blood Pressure Location Lt brachial Position Sitting Pulse 84 Pulse Source Pulse Oximeter Pulse Oximetry (%) 96 Oxygen Delivery Method Room Air Intake Visit Reasons: HTN, hypothyroidism, DM, hyperlipidemia Consulting Actuary Required: No Accompanied by: Self / Same As Patient Allergies No Known Allergies [No Known Allergies*] Allergy (Unknown, Verified 02/09/25 09:48) U Medication List - Last Reconciled 02/09/25 by Matheus Salgado MD allopurinol TAKE 2 TABLETS IN THE MORNING AND 1 TABLET IN THE EVENING atorvastatin 80 mg PO BEDTIME 90 days blood sugar diagnostic ([employer] Ultra Test strips) 1 strip miscellaneous DAILY blood-glucose meter ([employer] Ultra2 Meter kit) As directed daily cholecalciferol (vitamin D3) (Vitamin D3) 50 mcg PO DAILY 90 days cyanocobalamin (vitamin B-12) 1,000 mcg PO DAILY 90 days fluoxetine 20 mg PO DAILY fluticasone propionate 50 mcg/actuation (Flonase Allergy Relief) 2 sprays intranasal DAILY lancets ([employer] UltraSoft Lancets) As directed levothyroxine 100 mcg PO DAILY 90 days losartan 50 mg PO DAILY metformin ER 500 mg PO BID 90 days metoprolol succinate ER 25 mg PO DAILY 90 days mometasone 0.1% 1 appl topical DAILY PRN omeprazole 20 mg PO DAILY 90 days oxycodone-acetaminophen 5-325 mg 1 tab PO Q6H PRN 28 days simethicone 180 mg PO BID 30 days tamsulosin 0.4 mg PO BEDTIME 90 days tizanidine 4 mg PO Q8H PRN warfarin 3.75 mg See Protocol PO DAILY Tobacco use date assessed: 02/09/25 Fall risk assessment: No Falls in past year Last assessed Fall Risk: 02/09/25 Dental Screening Dental Screen Date: 02/09/25 Did you have a dental visit in the last 12 months?: Yes Did you have a dental problem in the last 6 months where you did not have access to dental care?: No Was dental information given to patient?: Patient has dentist HPI HTN, hypothyroidism, DM, hyperlipidemia HPI Details Patient comes in today for his follow up visit States that he feels okay Relates that his chronic low back pain and joint pains remain adequately controlled on his current Rx and he will need his pain med Rx refilled today He denies any headaches or dizziness Denies any chest pains, no SOB although he was found to be in atrial fibrillation during his recent cardiology follow up with Dr. Rosenbaum a couple of months ago No nausea/vomiting, no abdominal pain No change in bowel habits noted Needs a few of his Rx refilled additionally He had his follow up labs done a few days ago - to discuss his results [facility] Medical History Benign prostatic hyperplasia with nocturia Lumbar degenerative disc disease Obesity (BMI 30-39.9) Vitamin D deficiency Gout Gastric ulcer Superficial gastritis GERD without esophagitis Acquired hypothyroidism Pure hypercholesterolemia Benign essential hypertension Diabetes mellitus Paroxysmal atrial fibrillation Surgical History Hx of colonoscopy History of esophagogastroduodenoscopy (EGD) History of appendectomy Family History Father Medical history unknown Mother Medical history unknown Social History Housing: House Alcohol intake: former Patient Tobacco Use Status: Former Tobacco user e-Cigarette/Vaping Use: Never Used Second Hand Smoke Exposure: Yes service: No Current occupational status: disabled Cognitive needs: No Hearing needs: No Vision needs: No Questionnaire PHQ-9 Over the last 2 weeks, how often have you been bothered by any of the following problems? 1. Little interest or pleasure in doing things: not at all 2. Feeling down, depressed, or hopeless: not at all 3. Trouble falling or staying asleep, or sleeping too much: not at all 4. Feeling tired or having little energy: not at all 5. Poor appetite or overeating: not at all 6. Feeling bad about yourself - or that you are a failure or have let yourself or your family down: not at all 7. Trouble concentrating on things, such as reading the newspaper or watching television: not at all 8. Moving or speaking so slowly that other people could have noticed. Or the opposite - being so fidgety or restless that you have been moving around a lot more than usual: not at all 9. Thoughts that you would be better off or of hurting yourself in some way: not at all Total score: 0 Depression Screening Interpretation: Negative Depression Screening Done: Yes 93090 - PHQ-9 Billing: Yes Source: Developed by Drs. Rikki Murry, Sangita Mays, Matthew Devi and colleagues, with an educational yonas from [employer]. Thrive Questionnaire Date Thrive assessed: 02/09/25 I am a: Patient What is your living situation today?: I have a steady place to live Within the past 12 months, did the food you bought not last and you didn't have the money to get more?: Never true Within the past 12 months, did you worry whether your food would run out before you got money to buy more?: Never true Do you have trouble paying for medicines?: No Do you have trouble getting transportation to medical appointments?: No Do you have trouble paying your heating and electricity bill?: No Do you have trouble taking care of your child, family member or friend?: No Do you have trouble with day-to-day activities such as bathing, preparing meals, shopping, managing finances, etc.?: No Are you currently unemployed and looking for a job?: No Are you interested in more education?: No Please select the resources that you would like help with: None Currently or been in a relationship where the following occur: No concerns reported THRIVE Score: 0 AUDIT C Alcohol Use Questionnaire (AUDIT-C) 1. How often do you have a drink containing alcohol?: Never 3. How often do you have six or more drinks on one occasion?: Never Total Score: 0 Score Reviewed/Action Taken: Yes ZAY-7 AMB Questionnaire ZAY-7 Date ZAY - 7 assessed: 02/09/25 Feeling nervous, anxious, or on edge: 0 = Not at all Not being able to stop or control worryin = Not at all Worrying too much about different things: 0 = Not at all Trouble relaxin = Not at all Being so restless that it is hard to sit still: 0 = Not at all Becoming easily annoyed or irritable: 0 = Not at all Feeling afraid as if something awful might happen: 0 = Not at all Total ZAY-7 score (0-4 normal; 5-9 mild; 10-14 moderate; 15-21 severe): 0 Source: Developed by Drs. Rikki Murry, Sangita Mays, Matthew Devi and colleagues, with an educational yonas from [employer]. Review of Systems Const Denies chills, Denies fatigue, Denies fever(s) and Denies headache(s) ENT Denies dysphagia, Denies dizziness, Denies otalgia, Denies headache(s), Denies neck pain, Denies odynophagia and Denies sore throat Card Denies chest pain, Denies palpitations and Denies dyspnea Resp Denies chest congestion, Denies cough and Denies dyspnea GI Denies abdominal pain, Denies constipation, Denies dysphagia, Denies diarrhea, Denies nausea, Denies odynophagia and Denies vomiting Denies difficulty urinating, Denies dysuria, Denies nocturia and Denies urinary frequency Musc Reports back pain (over the lower back - chronic) and Denies neck pain Skin/Breast Denies rash Neuro Denies dizziness and Denies headache(s) Endo Denies fatigue and Denies palpitations Physical exam (Primary Care) Vital Signs: Last Vital Signs Pulse 84 02/09/25 09:16 BP 110/82 02/09/25 09:16 Pulse Ox 96 02/09/25 09:16 Oxygen Delivery Method Room Air 02/09/25 09:16 BMI result Body Mass Index 33.3 Tobacco/Smoking Status: Tobacco use Status Tobacco use date assessed 02/09/25 02/09/25 09:22 Patient Tobacco Use Status Former Tobacco user 02/09/25 09:22 e-Cigarette/Vaping Use Never Used 02/09/25 09:22 PHQ-9: PHQ-9 Score PHQ-9: Total score 0 02/09/25 09:23 Depression Screening Interpretation: Negative Thrive Assessment: Date of Thrive Assessment Date Thrive assessed 02/09/25 02/09/25 09:22 Currently or been in a relationship where the following occur: No concerns reported Const General: no acute distress and alert HENMT Ears: TM's normal bilaterally and EAC's normal Throat: Yes posterior oropharynx normal and Yes tonsils normal Neck Neck: Yes supple and No lymphadenopathy Thyroid: Thyroid normal Resp Auscultation: clear to auscultation bilaterally, no rales and no wheezes Cardio Rate: regular rate Rhythm: regular rhythm Heart sounds: no murmurs GI Palpation (GI): Soft to palpation and nontender Auscultation: normal bowel sounds General: Yes no CVA tenderness Back/Spine/Pelvis Back: no CVA tenderness Thoracic/Lumbar Spine: lumbar spinal tenderness Skin Rashes: no rashes Extrem General: Yes no clubbing, cyanosis or edema Results Reviewed Results Reviewed: Laboratory Tests 02/04/25 02/04/25 09:27 09:30 WBC 7.1 Hgb 14.3 Hct 43.4 Plt Count 225 Sodium 139 Potassium 4.2 Creatinine 0.81 Estimated GFR > 60 Fasting Glucose 118 H Hemoglobin A1c % 6.8 H Uric Acid 5.1 Calcium 9.1 AST 23 ALT 27 Triglycerides 130 Cholesterol 138 LDL Cholesterol, Calc 73 HDL Cholesterol 39 L 25-OH Vitamin D Total 41.1 TSH 0.78 Free T4 1.11 Ur Specific [place] 1.020 Urine Protein Negative Urine Glucose (UA) Negative Urine Blood Trace H Urine Nitrite Negative Ur Leukocyte Esterase Negative Microalb/Creat Ratio 6.0 Coding Level of Care Code Est Pt Level 4 (85575) Complex EM visit Add On G2211 Diagnoses Paroxysmal atrial fibrillation I48.0 Type 2 diabetes mellitus without complication, without long-term current use of insulin E11.9 Diabetes mellitus type: type 2 Diabetes mellitus detention insulin use: without detention use Diabetes mellitus complication status: without complication Pure hypercholesterolemia E78.00 Benign essential hypertension I10 Acquired hypothyroidism E03.9 Superficial gastritis without hemorrhage, unspecified chronicity K29.30 Chronicity: unspecified Gastritis bleeding: without bleeding Idiopathic gout, unspecified chronicity, unspecified site M10.00 Gout site: unspecified site Gout etiology: idiopathic Chronicity: unspecified Degeneration of intervertebral disc of lumbar region with discogenic back pain M51.360 Disc-related pain type: discogenic back pain only Vitamin D deficiency E55.9 Memory impairment R41.3 Benign prostatic hyperplasia with nocturia N40.1; R35.1 Obesity (BMI 30-39.9) E66.9 Additional Codes PHQ-9 - 94460 - PHQ-9 Billing: Yes ([id number]) Assessment & Plan Assessment & Plan (1) Paroxysmal atrial fibrillation: Code(s): I48.0 - Paroxysmal atrial fibrillation Category: Medical Plan: Patient is currently in sinus rhythm although he was reportedly in atrial fibrillation during his cardiology follow up appointment with Dr. Rosenbaum a couple of months ago He remains anticoagulated on Coumadin and he follows up with the Coumadin clinic regularly for PT/INR monitoring Continue Metoprolol ER 25 mg QD and Multaq 400 mg BID for now He is being sent for stress echo for further work ups in anticipation of cardioversion Follow up with cardiology as scheduled (2) Diabetes mellitus: Code(s): E11.9 - Type 2 diabetes mellitus without complications Category: Medical Qualifiers: Diabetes mellitus type: type 2 Diabetes mellitus detention insulin use: without detention use Diabetes mellitus complication status: without complication Qualified Code(s): E11.9 - Type 2 diabetes mellitus without complications Plan: His HgbA1c was at 6.8% on his labs done a few days ago (was previously at 6.3% a few months ago) - goal is <7.0% Reinforced diabetic diet Patient states that he is starting to walk again now that the weather is starting to turn warmer and is hoping that this will help get his diabetes back under control Continue Metformin ER 500 mg BID for now but patient is advised that we will have to adjust his medication dosage or start him on additional Rx if his diabetes control does not improve over the next few months (3) Pure hypercholesterolemia: Code(s): E78.00 - Pure hypercholesterolemia, unspecified Category: Medical Plan: Results of his labs done a few days ago reviewed and discussed with patient Reinforced low cholesterol diet Continue Atorvastatin 80 mg QD Will recheck his labs and fasting lipids in 3 months for follow-up (4) Benign essential hypertension: Code(s): I10 - Essential (primary) hypertension Category: Medical Plan: Reinforced low sodium diet - goal is systolic BP of at least 130 to 140 mm or less Continue Metoprolol ER 25 mg QD and Losartan 50 mg QD (Rx refilled) (5) Acquired hypothyroidism: Code(s): E03.9 - Hypothyroidism, unspecified Category: Medical Plan: His TFTs remain normal on his recent labs Continue Levothyroxine 100 mcg QD - Rx refilled Will continue to monitor his TFTs regularly (6) Superficial gastritis: Comment: seen on EGD on 06/23/2017 Code(s): K29.60 - Other gastritis without bleeding Category: Medical Qualifiers: Chronicity: unspecified Gastritis bleeding: without bleeding Qualified Code(s): K29.30 - Chronic superficial gastritis without bleeding Plan: Dietary restrictions reinforced Continue Prilosec OTC 20 mg 2 tablets QD He had repeat colonoscopy done in April 2023 - recommend repeat colonoscopy in 5 years (2027) Follow up with GI as scheduled (7) Gout: Code(s): M10.9 - Gout, unspecified Category: Medical Qualifiers: Gout site: unspecified site Gout etiology: idiopathic Chronicity: unspecified Qualified Code(s): M10.00 - Idiopathic gout, unspecified site Plan: He remains asymptomatic with no acute gout flare ups since his last visit His serum uric acid level remains normal on his recent labs Reinforced low purine diet (8) Lumbar degenerative disc disease: Code(s): M51.36 - Other intervertebral disc degeneration, lumbar region Category: Medical Qualifiers: Disc-related pain type: discogenic back pain only Qualified Code(s): M51.360 - Other intervertebral disc degeneration, lumbar region with discogenic back pain only Plan: Reinforced activity and weight-lifting restrictions Continue Tizanidine 4 mg Q 8 hours PRN and Oxycodone-acetaminophen 5-325 mg Q 6 hours as needed for pain - Rx refilled (9) Vitamin D deficiency: Code(s): E55.9 - Vitamin D deficiency, unspecified Category: Medical Plan: Continue Vitamin D3 2000 units QD (10) Memory impairment: Code(s): R41.3 - Other amnesia Category: Medical Plan: He was started on Fluoxetine for MCI and depression by neurology a couple of years ago but patient could not tolerate Rx at 20 mg QD Follow up with neurology as scheduled (11) Benign prostatic hyperplasia with nocturia: Code(s): N40.1 - Benign prostatic hyperplasia with lower urinary tract symptoms; R35.1 - Nocturia Category: Medical Plan: His PSA was normal when last checked a few days ago Continue Tamsulosin 0.4 mg Q HS - states that his Rx has helped a lot with his nocturia Follow up with urology as scheduled (12) Obesity (BMI 30-39.9): Code(s): E66.9 - Obesity, unspecified Category: Medical Plan: Reinforced diet/exercise as tolerated/lose weight Plan Follow up in 3 months Orders: Orders Lipid Panel 06/04/25 E78.00 - Pure hypercholesterolemia, unspecified Comprehensive [place]. Panel Fast 06/04/25 E78.00 - Pure hypercholesterolemia, unspecified Hemoglobin A1c 06/04/25 E11.9 - Type 2 diabetes mellitus without complications Uric Acid 06/04/25 M10.9 - Gout, unspecified UA CC w/rflx Micro + Cult 06/04/25 R30.0 - Dysuria Thyroid Stimulating Hormone 06/04/25 E03.9 - Hypothyroidism, unspecified Complete Blood Count Auto Diff 06/04/25 D64.9 - Anemia, unspecified Microalbumin, Random (w Creat) 06/04/25 E11.9 - Type 2 diabetes mellitus without complications Free T4 (Free Thyroxine) 06/04/25 E03.9 - Hypothyroidism, unspecified Vitamin D 25-OH Total 06/04/25 E55.9 - Vitamin D deficiency, unspecified Vitamin B12 and Folate 06/04/25 E53.8 - Deficiency of other specified B group vitamins Medications: Refilled atorvastatin 80 mg PO BEDTIME 90 days 90 tabs 3RF I48.0 - Paroxysmal atrial fibrillation losartan 50 mg PO DAILY 90 tabs 0RF cholecalciferol (vitamin D3) (Vitamin D3) 50 mcg PO DAILY 90 days 90 caps 3RF levothyroxine 100 mcg PO DAILY 90 days 90 tabs 1RF warfarin 3.75 mg See Protocol PO DAILY 45 tabs 7RF oxycodone-acetaminophen 5-325 mg partial refill upon request 1 tab PO Q6H 28 days PRN 112 tabs 0RF pain
== END 2025-02-09 10:06 | disposition home or self-care (01) ==
LOC: HO.HMCH 09:11
PROVIDERS: PCP Internal Medicine; Visit Provider Internal Medicine
DX: I48.0 Paroxysmal atrial fibrillation (principal); E11.9 Type 2 diabetes mellitus without complications; E78.00 Pure hypercholesterolemia, unspecified; I10 Essential (primary) hypertension; E03.9 Hypothyroidism, unspecified; K29.30 Chronic superficial gastritis without bleeding; M10.00 Idiopathic gout, unspecified site; M51.360 Other intervertebral disc degeneration, lumbar region with discogenic back pain only; E55.9 Vitamin D deficiency, unspecified; R41.3 Other amnesia; N40.1 Benign prostatic hyperplasia with lower urinary tract symptoms; R35.1 Nocturia

== ENCOUNTER → 2025-02-09 09:10 | Outpatient (BNVA) | payer OTHER, SELFPAY | PROVIDERS: PCP Internal Medicine; Visit Provider Internal Medicine | DX: I48.0 Paroxysmal atrial fibrillation (principal); E11.9 Type 2 diabetes mellitus without complications; E78.00 Pure hypercholesterolemia, unspecified; E03.9 Hypothyroidism, unspecified; I10 Essential (primary) hypertension; K29.30 Chronic superficial gastritis without bleeding; M10.00 Idiopathic gout, unspecified site; M51.360 Other intervertebral disc degeneration, lumbar region with discogenic back pain only; E55.9 Vitamin D deficiency, unspecified; R41.3 Other amnesia; N40.1 Benign prostatic hyperplasia with lower urinary tract symptoms; R35.1 Nocturia; E66.9 Obesity, unspecified | CPT/HCPCS: 96127; 99212 ==

== ENCOUNTER 2025-02-14 08:47 | Outpatient (AMB) | payer OTHER, SELFPAY ==
--- NOTE | 2025-02-14 09:01 | MHC.OFFVISCO ---
Intake Intake Visit Reasons: Anticoagulation Allergies No Known Allergies [No Known Allergies*] Allergy (Unknown, Verified 02/14/25 08:50) U Medication List - Last Reconciled 02/14/25 by Dee Blanco RN allopurinol TAKE 2 TABLETS IN THE MORNING AND 1 TABLET IN THE EVENING atorvastatin 80 mg PO BEDTIME 90 days blood sugar diagnostic ([employer] Ultra Test strips) 1 strip miscellaneous DAILY blood-glucose meter ([employer] Ultra2 Meter kit) As directed daily cholecalciferol (vitamin D3) (Vitamin D3) 50 mcg PO DAILY 90 days cyanocobalamin (vitamin B-12) 1,000 mcg PO DAILY 90 days fluoxetine 20 mg PO DAILY fluticasone propionate 50 mcg/actuation (Flonase Allergy Relief) 2 sprays intranasal DAILY lancets ([employer] UltraSoft Lancets) As directed levothyroxine 100 mcg PO DAILY 90 days losartan 50 mg PO DAILY metformin ER 500 mg PO BID 90 days metoprolol succinate ER 25 mg PO DAILY 90 days mometasone 0.1% 1 appl topical DAILY PRN omeprazole 20 mg PO DAILY 90 days oxycodone-acetaminophen 5-325 mg 1 tab PO Q6H PRN 28 days simethicone 180 mg PO BID 30 days tamsulosin 0.4 mg PO BEDTIME 90 days tizanidine 4 mg PO Q8H PRN warfarin 3.75 mg See Protocol PO DAILY Nursing Note INR: 2.5 in therapeutic range 2-3 Medications and supplements reviewed No changes in health, diet, medications, or supplements, Denies any signs and symptoms of bleeding or bruising or clotting. Bleeding, bruising, clotting discussed Nutritional guidance given Dose: 3.75mg daily F/U INR: 2 weeks Patient verbalizes understanding of instructions given Anti-Coag Initial Assessment Social Hx Patient Tobacco Use Status: Former Tobacco user alcohol intake: former Coding Level of Care Code Est Patient Level 1 Diagnoses Current use of anticoagulant therapy Z79.01 Results AMB INR Fingerstick AMB INR Fingerstick 2.5 Last Edit by Dee Blanco RN on 02/14/25 09:00 interface delay Assessment & Plan Assessment & Plan (1) Current use of anticoagulant therapy: Code(s): Z79.01 - assisted (current) use of anticoagulants Category: Medical
[2025-02-14 09:04] LABS: ~PT, ~INR - Anti Coag Clinic 2.5 (0.9-1.1)
== END 2025-02-14 09:05 | disposition home or self-care (01) ==
LOC: HO.ACS 08:47
PROVIDERS: PCP Internal Medicine; Visit Provider Internal Medicine Medical Oncology
DX: Z79.01 Long term (current) use of anticoagulants (principal)

== ENCOUNTER → 2025-02-14 08:47 | Outpatient (BNVA) | payer OTHER, SELFPAY | PROVIDERS: PCP Internal Medicine; Visit Provider Internal Medicine Medical Oncology | DX: I48.0 Paroxysmal atrial fibrillation (principal); Z51.81 Encounter for therapeutic drug level monitoring; Z79.01 Long term (current) use of anticoagulants | CPT/HCPCS: 85610; 99211 ==

== ENCOUNTER 2025-02-28 09:09 | Outpatient (AMB) | payer OTHER, SELFPAY ==
[2025-02-28 09:18] LABS: Prothrombin Time Whole Bld POC 22.4 sec (11.1-13.5); ~PT, ~INR - Anti Coag Clinic 1.9 (0.9-1.1)
--- NOTE | 2025-02-28 09:23 | MHC.OFFVISCO ---
Intake Intake Visit Reasons: Anticoagulation Allergies No Known Allergies [No Known Allergies*] Allergy (Unknown, Verified 02/28/25 09:13) U Medication List - Last Reconciled 02/28/25 by Genet Hough RN allopurinol TAKE 2 TABLETS IN THE MORNING AND 1 TABLET IN THE EVENING atorvastatin 80 mg PO BEDTIME 90 days blood sugar diagnostic ([employer] Ultra Test strips) 1 strip miscellaneous DAILY blood-glucose meter ([employer] Ultra2 Meter kit) As directed daily cholecalciferol (vitamin D3) (Vitamin D3) 50 mcg PO DAILY 90 days cyanocobalamin (vitamin B-12) 1,000 mcg PO DAILY 90 days fluoxetine 20 mg PO DAILY fluticasone propionate 50 mcg/actuation (Flonase Allergy Relief) 2 sprays intranasal DAILY lancets ([employer] UltraSoft Lancets) As directed levothyroxine 100 mcg PO DAILY 90 days losartan 50 mg PO DAILY metformin ER 500 mg PO BID 90 days metoprolol succinate ER 25 mg PO DAILY 90 days mometasone 0.1% 1 appl topical DAILY PRN omeprazole 20 mg PO DAILY 90 days oxycodone-acetaminophen 5-325 mg 1 tab PO Q6H PRN 28 days simethicone 180 mg PO BID 30 days tamsulosin 0.4 mg PO BEDTIME 90 days tizanidine 4 mg PO Q8H PRN warfarin 3.75 mg See Protocol PO DAILY Nursing Note INR: 1.9 in therapeutic range- Stated he had more greens past few weeks Medications and supplements reviewed No changes in health,, medications, or supplements, Denies any signs and symptoms of bleeding or bruising or clotting. 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
== END 2025-02-28 09:28 | disposition home or self-care (01) ==
LOC: HO.ACS 09:09
PROVIDERS: PCP Internal Medicine; Visit Provider Internal Medicine Medical Oncology
DX: Z79.01 Long term (current) use of anticoagulants (principal)

== ENCOUNTER → 2025-02-28 09:09 | Outpatient (BNVA) | payer OTHER, SELFPAY | PROVIDERS: PCP Internal Medicine; Visit Provider Internal Medicine Medical Oncology | DX: I48.0 Paroxysmal atrial fibrillation (principal); Z79.01 Long term (current) use of anticoagulants; Z51.81 Encounter for therapeutic drug level monitoring | CPT/HCPCS: 85610; 99211 ==

== ENCOUNTER 2025-03-14 08:55 | Outpatient (AMB) | payer OTHER, SELFPAY ==
[2025-03-14 09:12] LABS: Prothrombin Time Whole Bld POC 36.2 sec (11.1-13.5)
--- NOTE | 2025-03-14 09:18 | MHC.OFFVISCO ---
Intake Intake Visit Reasons: Anticoagulation Allergies No Known Allergies [No Known Allergies*] Allergy (Unknown, Verified 03/14/25 09:06) U Medication List - Last Reconciled 03/14/25 by Genet Hough RN allopurinol TAKE 2 TABLETS IN THE MORNING AND 1 TABLET IN THE EVENING atorvastatin 80 mg PO BEDTIME 90 days blood sugar diagnostic ([employer] Ultra Test strips) 1 strip miscellaneous DAILY blood-glucose meter ([employer] Ultra2 Meter kit) As directed daily cholecalciferol (vitamin D3) (Vitamin D3) 50 mcg PO DAILY 90 days cyanocobalamin (vitamin B-12) 1,000 mcg PO DAILY 90 days fluoxetine 20 mg PO DAILY fluticasone propionate 50 mcg/actuation (Flonase Allergy Relief) 2 sprays intranasal DAILY lancets ([employer] UltraSoft Lancets) As directed levothyroxine 100 mcg PO DAILY 90 days losartan 50 mg PO DAILY metformin ER 500 mg PO BID 90 days metoprolol succinate ER 25 mg PO DAILY 90 days mometasone 0.1% 1 appl topical DAILY PRN omeprazole 20 mg PO DAILY 90 days oxycodone-acetaminophen 5-325 mg 1 tab PO Q6H PRN 28 days simethicone 180 mg PO BID 30 days tamsulosin 0.4 mg PO BEDTIME 90 days tizanidine 4 mg PO Q8H PRN warfarin 3.75 mg See Protocol PO DAILY Nursing Note INR: 3.0 in therapeutic range Medications and supplements reviewed- pt states no new medications or supplements No changes in health, diet, medications, or supplements, Denies any signs and symptoms of bleeding or bruising or clotting. Bleeding, bruising, clotting discussed Nutritional guidance given - review food list eat greens today and weekly Dose: keep same dose 3.75mg daily F/U INR: 3 weeks Patient verbalizes understanding of instructions given Anti-Coag Initial Assessment Social Hx Patient Tobacco Use Status: Former Tobacco user alcohol intake: former Coding Level of Care Code Est Patient Level 1 Diagnoses Current use of anticoagulant therapy Z79.01 Results AMB INR Fingerstick AMB INR Fingerstick 3.0 Last Edit by Genet Hough RN on 03/14/25 09:14 manual entry Assessment & Plan Assessment & Plan (1) Current use of anticoagulant therapy: Code(s): Z79.01 - long-term (current) use of anticoagulants Category: Medical
== END 2025-03-14 09:20 | disposition home or self-care (01) ==
LOC: HO.ACS 08:55
PROVIDERS: PCP Internal Medicine; Visit Provider Internal Medicine Medical Oncology
DX: Z79.01 Long term (current) use of anticoagulants (principal)

== ENCOUNTER → 2025-03-14 08:55 | Outpatient (BNVA) | payer OTHER, SELFPAY | PROVIDERS: PCP Internal Medicine; Visit Provider Internal Medicine Medical Oncology | DX: I48.0 Paroxysmal atrial fibrillation (principal); Z79.01 Long term (current) use of anticoagulants; Z51.81 Encounter for therapeutic drug level monitoring | CPT/HCPCS: 85610; 99211 ==

== ENCOUNTER 2025-04-04 08:44 | Outpatient (AMB) | payer OTHER, SELFPAY ==
[2025-04-04 08:52] LABS: Prothrombin Time Whole Bld POC 38.8 sec (11.1-13.5); ~PT, ~INR - Anti Coag Clinic 3.2 (0.9-1.1)
--- NOTE | 2025-04-04 09:03 | MHC.OFFVISCO ---
Intake Intake Visit Reasons: Anticoagulation Allergies No Known Allergies [No Known Allergies*] Allergy (Unknown, Verified 04/04/25 08:47) U Medication List - Last Reconciled 04/04/25 by Simi Leon RN allopurinol TAKE 2 TABLETS IN THE MORNING AND 1 TABLET IN THE EVENING atorvastatin 80 mg PO BEDTIME 90 days blood sugar diagnostic ([employer] Ultra Test strips) 1 strip miscellaneous DAILY blood-glucose meter ([employer] Ultra2 Meter kit) As directed daily cholecalciferol (vitamin D3) (Vitamin D3) 50 mcg PO DAILY 90 days cyanocobalamin (vitamin B-12) 1,000 mcg PO DAILY 90 days fluoxetine 20 mg PO DAILY fluticasone propionate 50 mcg/actuation (Flonase Allergy Relief) 2 sprays intranasal DAILY lancets ([employer] UltraSoft Lancets) As directed levothyroxine 100 mcg PO DAILY 90 days losartan 50 mg PO DAILY metformin ER 500 mg PO BID 90 days metoprolol succinate ER 25 mg PO DAILY 90 days mometasone 0.1% 1 appl topical DAILY PRN omeprazole 20 mg PO DAILY 90 days oxycodone-acetaminophen 5-325 mg 1 tab PO Q6H PRN 28 days simethicone 180 mg PO BID 30 days tamsulosin 0.4 mg PO BEDTIME 90 days tizanidine 4 mg PO Q8H PRN warfarin 3.75 mg See Protocol PO DAILY Nursing Note NO CP,SOB,DIET/MED CHANGES,FALLS OR SXOF BLEEDING. CONTINUE PRESENT DOSE AND FOLLOW-UP IN 3 WEEKS. GREEN TODAY GOOD UNDERSTANDING OF DOSING INSTR. Anti-Coag Initial Assessment Social Hx Patient Tobacco Use Status: Former Tobacco user alcohol intake: former Coding Level of Care Code Est Patient Level 1 Diagnoses Current use of anticoagulant therapy Z79.01 Assessment & Plan Assessment & Plan (1) Current use of anticoagulant therapy: Code(s): Z79.01 - [facility] (current) use of anticoagulants Category: Medical
== END 2025-04-04 09:05 | disposition home or self-care (01) ==
LOC: HO.ACS 08:44
PROVIDERS: PCP Internal Medicine; Visit Provider Internal Medicine Medical Oncology
DX: Z79.01 Long term (current) use of anticoagulants (principal)

== ENCOUNTER → 2025-04-04 08:44 | Outpatient (BNVA) | payer OTHER, SELFPAY | PROVIDERS: PCP Internal Medicine; Visit Provider Internal Medicine Medical Oncology | DX: I48.0 Paroxysmal atrial fibrillation (principal); Z79.01 Long term (current) use of anticoagulants; Z51.81 Encounter for therapeutic drug level monitoring | CPT/HCPCS: 85610; 99211 ==

== ENCOUNTER → 2025-04-07 09:02 | Outpatient (REF) | payer OTHER, SELFPAY ==
--- NOTE | 2025-04-07 09:06 | CA_ITS ---
Acquisition Time: 2025-04-07 09:26:40 Total Exercise Time: 00:05:31 Test Indications: Palpitations Medications: SEE H&P Protocol: JORDY Max HR: 150 BPM 102% of Pred: 147 BPM Max BP: 142/62 mmHG Max Work Load: 4.6 METS Exercise stress test with exercise 5 mins 31 secs of Jordy Protocol, held at Stage 1, achieving 104% MPHR, without any anginal symptoms, with isolated PVCs, with normotensive response to exercise. Afib at baseline. No EKG changes with exercise meeting criteria for ischemia. In recovery, HR improved and continues to feel good. Nuclear images pending. Test reviewed with Dr. Rosenbaum. Referred By: Rakan Rosenbaum Electronically Signed By: Brandon Velasquez
== END ==
LOC: HO.CARD 09:02
PROVIDERS: PCP Internal Medicine; Visit Provider Internal Medicine Cardiovascular Disease
DX: I48.0 Paroxysmal atrial fibrillation (principal)
CPT/HCPCS: 93017

== ENCOUNTER → 2025-04-07 09:06 | Outpatient (BNV) | payer OTHER, SELFPAY | PROVIDERS: PCP Internal Medicine | DX: I48.0 Paroxysmal atrial fibrillation (principal) | CPT/HCPCS: 78452; 93016; 93018 ==

== ENCOUNTER 2025-04-19 09:19 | Outpatient (AMB) | payer OTHER, SELFPAY ==
--- NOTE | 2025-04-19 09:43 | A.OFFVIS_ITS ---
Vital Signs 04/19/25 09:46 Height 5 ft 6 in Weight 205 lb 14.588 oz BMI 33.2 BP 120/70 Blood Pressure Location Lt brachial Position Sitting Pulse 77 Pulse Source Monitor Intake Visit Reasons: f/up after testing Intake Note: f/up-testing- MIBI Knuckle Bender Required: Yes Knuckle Bender Language: Flight Reservations Manager Name: voyce/persian/ravindraa Accompanied by: Spouse Allergies No Known Allergies [No Known Allergies*] Allergy (Unknown, Verified 04/04/25 08:47) U Medication List - Last Reconciled 04/19/25 by Rakan Rosenbaum MD allopurinol TAKE 2 TABLETS IN THE MORNING AND 1 TABLET IN THE EVENING atorvastatin 80 mg PO BEDTIME 90 days blood sugar diagnostic ([employer] Ultra Test strips) 1 strip miscellaneous DAILY blood-glucose meter ([employer] Ultra2 Meter kit) As directed daily cholecalciferol (vitamin D3) (Vitamin D3) 50 mcg PO DAILY 90 days cyanocobalamin (vitamin B-12) 1,000 mcg PO DAILY 90 days flecainide 50 mg PO Q12H fluoxetine 20 mg PO DAILY fluticasone propionate 50 mcg/actuation (Flonase Allergy Relief) 2 sprays intranasal DAILY lancets ([employer] UltraSoft Lancets) As directed levothyroxine 100 mcg PO DAILY 90 days losartan 50 mg PO DAILY metformin ER 500 mg PO BID 90 days metoprolol succinate ER 25 mg PO DAILY 90 days mometasone 0.1% 1 appl topical DAILY PRN omeprazole 20 mg PO DAILY 90 days oxycodone-acetaminophen 5-325 mg 1 tab PO Q6H PRN 28 days simethicone 180 mg PO BID 30 days tamsulosin 0.4 mg PO BEDTIME 90 days tizanidine 4 mg PO Q8H PRN warfarin 3.75 mg See Protocol PO DAILY HPI Comments Details: Pleasant 74-year-old gentleman who is referred to us for paroxysmal atrial fibrillation. He has known history of atrial fibrillation in the past. He has history of gout, GERD, hypothyroidism, hyperlipidemia, hypertension and diabetes. Referred him for echocardiography and Holter monitor. ECHO showed normal biventricular function. Holter showed that he had 29 minutes episodes of atrial fibrillation. His shared that he stops breathing in his sleep. He has snoring and apneic episodes. This goes along with his nighttime palpitations as sleep apnea can trigger atrial fibrillation at nighttime. He was referred for sleep study where snoring was noticed but he did not have any apneic spells. He returned for follow-up accompanied by his . He has been noticing some palpitations during the daytime. After discussion we started him on multaq. 05/18/23: He returns for follow-up. He has been using Multaq 400 mg twice a day. He is saying he has no palpitations. He is feeling great. No other concerns currently. Taking Coumadin for anticoagulation. 09/28/2023: He returns for follow-up. He has been doing well. He was referred for electrophysiology assessment and will be seeing EP. He is saying he has been doing well with Multaq and has no palpitations. He was previously getting nighttime palpitations due to atrial fibrillation. Blood pressure control is good. 04/13/24: He returns for follow-up. He has been doing well. No palpitations. Taking medications regularly. No bleeding concerns. Blood pressure is well controlled. 12/12/2024: He is here for follow-up. He is saying at nighttime he is getting some palpitations. During the day is fine. His EKGs showing atrial fibrillation. He has been on Multaq for many months and was doing okay until recently. No chest pain or shortness of breath. No fatigue. Taking warfarin 3.75 mg daily. 04/19/2025: Here for follow-up. He underwent stress testing which was normal and he was started on flecainide. Our plan was to perform cardioversion on him. His EKGs in the office currently is showing atrial flutter with 4-1 conduction. He is saying that he has been feeling quite good and has no palpitations. The nighttime symptoms have also improved. We discussed about cardioversion and the wishes to talk to her family before deciding. [facility] Medical History Benign prostatic hyperplasia with nocturia Lumbar degenerative disc disease Obesity (BMI 30-39.9) Vitamin D deficiency Gout Gastric ulcer Superficial gastritis GERD without esophagitis Acquired hypothyroidism Pure hypercholesterolemia Benign essential hypertension Diabetes mellitus Paroxysmal atrial fibrillation Surgical History Hx of colonoscopy History of esophagogastroduodenoscopy (EGD) History of appendectomy Family History Father Medical history unknown Mother Medical history unknown Social History Housing: House Alcohol intake: former Patient Tobacco Use Status: Former Tobacco user e-Cigarette/Vaping Use: Never Used Second Hand Smoke Exposure: Yes service: No Current occupational status: disabled Cognitive needs: No Hearing needs: No Vision needs: No Review of Systems Const Denies chills, Denies fatigue, Denies fever(s), Denies frequent falls, Denies weakness, Denies weight gain and Denies weight loss ENT Denies dizziness Card Denies chest pain, Denies leg edema, Denies lightheadedness, Denies palpitations, Denies dyspnea and Denies dyspnea on exertion Resp Denies cough, Denies dyspnea and Denies dyspnea on exertion GI Denies hematochezia Musc Denies abnormal gait, Denies muscle weakness, Denies numbness, Denies radiating pain into limb and Denies tingling Neuro Denies abnormal gait, Denies dizziness, Denies frequent falls, Denies numbness, Denies tingling and Denies weakness Endo Denies fatigue and Denies palpitations Physical Exam Vital Signs: Last Vital Signs Pulse 77 04/19/25 09:46 BP 120/70 04/19/25 09:46 BMI result Body Mass Index 33.2 GENERAL APPEARANCE: in no acute distress, pleasant. NECK: no carotid bruit, no jugular venous distention. SKIN: no suspicious lesions, warm and dry. HEART: no murmurs, regular rate and rhythm. LUNGS: clear to auscultation bilaterally. ABDOMEN: soft, nontender. EXTREMITIES: no edema. PERIPHERAL PULSES: equal. NEUROLOGIC: No gross deficits, AAO X 3 Office Procedures EKG Details: Atrial flutter with 4-1 block 77 beats per minute, normal axis, poor R-wave progression and can not rule out septal infarct, QTC 491 milliseconds. [id number], Complete Assessment & Plan Assessment & Plan (1) Paroxysmal atrial fibrillation: Code(s): I48.0 - Paroxysmal atrial fibrillation Category: Medical (2) Atrial flutter: Code(s): I48.92 - Unspecified atrial flutter Category: Medical Plan Pleasant 74-year-old gentleman who is here for follow-up. He has background history of hypertension and paroxysmal atrial fibrillation. He was on Multaq but had recurrent atrial fibrillation. Multaq was stopped and he was referred for exercise stress test. Stress test was normal and was started on flecainide 50 mg twice a day and our plan was to perform cardioversion. He is here and is in atrial flutter 4-1 conduction currently. He is saying his symptoms have improved significantly. I discussed with the patient and about cardioversion that we should try to achieve sinus rhythm specially with atrial flutter which can sometimes be difficult to control (although he is fairly well controlled currently). He does not have any heart failure symptoms or any other concerning symptoms right now. Nighttime symptoms have improved also. The wishes to talk to children before deciding about cardioversion. They will discuss and get back to us. Thank you for allowing me to participate in the care of your patient. Please feel free to contact me if you have any questions. Coding Level of Care Code Est Pt Level 4 (68048) Diagnoses Paroxysmal atrial fibrillation I48.0 Atrial flutter I48.92 CPT Codes EKG - CPT: 48831-[id number], Complete ([id number])
[2025-04-19 09:46] VITALS: BP 120/70; PULSE 77; BMI 33.2
== END 2025-04-19 10:22 | disposition home or self-care (01) ==
LOC: HO.HCS 09:20
PROVIDERS: PCP Internal Medicine; Visit Provider Internal Medicine Cardiovascular Disease
DX: I48.0 Paroxysmal atrial fibrillation (principal); I48.92 Unspecified atrial flutter
CPT/HCPCS: 93010; 99214

== ENCOUNTER → 2025-04-19 09:19 | Outpatient (BNVA) | payer OTHER, SELFPAY | PROVIDERS: PCP Internal Medicine; Visit Provider Internal Medicine Cardiovascular Disease | DX: I48.0 Paroxysmal atrial fibrillation (principal); I48.92 Unspecified atrial flutter; I10 Essential (primary) hypertension; E11.9 Type 2 diabetes mellitus without complications; Z87.891 Personal history of nicotine dependence | CPT/HCPCS: 93005; 99212 ==

== ENCOUNTER 2025-04-25 08:56 | Outpatient (AMB) | payer OTHER, SELFPAY ==
[2025-04-25 09:04] LABS: Prothrombin Time Whole Bld POC 34.6 sec (11.1-13.5); ~PT, ~INR - Anti Coag Clinic 2.9 (0.9-1.1)
--- NOTE | 2025-04-25 09:05 | MHC.OFFVISCO ---
Intake Intake Visit Reasons: Anticoagulation Allergies No Known Allergies [No Known Allergies*] Allergy (Unknown, Verified 04/25/25 08:56) U Medication List - Last Reconciled 04/25/25 by Dee Blanco RN allopurinol TAKE 2 TABLETS IN THE MORNING AND 1 TABLET IN THE EVENING atorvastatin 80 mg PO BEDTIME 90 days blood sugar diagnostic ([employer] Ultra Test strips) 1 strip miscellaneous DAILY blood-glucose meter ([employer] Ultra2 Meter kit) As directed daily cholecalciferol (vitamin D3) (Vitamin D3) 50 mcg PO DAILY 90 days cyanocobalamin (vitamin B-12) 1,000 mcg PO DAILY 90 days flecainide 50 mg PO Q12H fluoxetine 20 mg PO DAILY fluticasone propionate 50 mcg/actuation (Flonase Allergy Relief) 2 sprays intranasal DAILY lancets ([employer] UltraSoft Lancets) As directed levothyroxine 100 mcg PO DAILY 90 days losartan 50 mg PO DAILY metformin ER 500 mg PO BID 90 days metoprolol succinate ER 25 mg PO DAILY 90 days mometasone 0.1% 1 appl topical DAILY PRN omeprazole 20 mg PO DAILY 90 days oxycodone-acetaminophen 5-325 mg 1 tab PO Q6H PRN 28 days simethicone 180 mg PO BID 30 days tamsulosin 0.4 mg PO BEDTIME 90 days tizanidine 4 mg PO Q8H PRN warfarin 3.75 mg See Protocol PO DAILY Nursing Note INR: 2.9 in therapeutic range of 203 Medications and supplements reviewed. Started Flecainide-no reaction with warfarin. No changes in health, diet, or supplements, Denies any signs and symptoms of bleeding or bruising or clotting. Bleeding, bruising, clotting discussed Nutritional guidance given Dose: continue same dose of 3.75mg daily F/U INR: 3 weeks Patient verbalizes understanding of instructions given Anti-Coag Initial Assessment Social Hx Patient Tobacco Use Status: Former Tobacco user alcohol intake: former Coding Level of Care Code Est Patient Level 1 Diagnoses Current use of anticoagulant therapy Z79.01 Assessment & Plan Assessment & Plan (1) Current use of anticoagulant therapy: Code(s): Z79.01 - snf (current) use of anticoagulants Category: Medical
== END 2025-04-25 09:08 | disposition home or self-care (01) ==
LOC: HO.ACS 08:56
PROVIDERS: PCP Internal Medicine; Visit Provider Internal Medicine Medical Oncology
DX: Z79.01 Long term (current) use of anticoagulants (principal)

== ENCOUNTER → 2025-04-25 08:56 | Outpatient (BNVA) | payer OTHER, SELFPAY | PROVIDERS: PCP Internal Medicine; Visit Provider Internal Medicine Medical Oncology | DX: I48.0 Paroxysmal atrial fibrillation (principal); Z79.01 Long term (current) use of anticoagulants; Z51.81 Encounter for therapeutic drug level monitoring | CPT/HCPCS: 85610; 99211 ==

== ENCOUNTER 2025-05-16 08:33 | Outpatient (AMB) | payer OTHER, SELFPAY ==
--- OUTSIDE RECORDS SUMMARY | 2025-05-16 08:41 | XMS_ITS | Patient Health Record ---
[facility] Address [address] [place] [id number] Care Team Providers Care Rv Service Technician Name Role Phone Raleigh Gunn Jr Reason For Referral No Information Plan Of Treatment No Information
[2025-05-16 08:56] LABS: Prothrombin Time Whole Bld POC 38.3 sec (11.1-13.5); ~PT, ~INR - Anti Coag Clinic 3.2 (0.9-1.1)
--- NOTE | 2025-05-16 08:57 | MHC.OFFVISCO ---
Intake Intake Visit Reasons: Anticoagulation Allergies No Known Allergies (No Known Allergies*) Allergy (Unknown, Verified 04/25/25 08:56) U Medication List - Last Reconciled 05/16/25 by Dee Blanco RN allopurinol TAKE 2 TABLETS IN THE MORNING AND 1 TABLET IN THE EVENING atorvastatin 80 mg PO BEDTIME 90 days blood sugar diagnostic ([employer] Ultra Test strips) 1 strip miscellaneous DAILY blood-glucose meter ([employer] Ultra2 Meter kit) As directed daily cholecalciferol (vitamin D3) (Vitamin D3) 50 mcg PO DAILY 90 days cyanocobalamin (vitamin B-12) 1,000 mcg PO DAILY 90 days flecainide 50 mg PO Q12H fluoxetine 20 mg PO DAILY fluticasone propionate 50 mcg/actuation (Flonase Allergy Relief) 2 sprays intranasal DAILY lancets ([employer] UltraSoft Lancets) As directed levothyroxine 100 mcg PO DAILY 90 days losartan 50 mg PO DAILY metformin ER 500 mg PO BID 90 days metoprolol succinate ER 25 mg PO DAILY 90 days mometasone 0.1% 1 appl topical DAILY PRN omeprazole 20 mg PO DAILY 90 days oxycodone-acetaminophen 5-325 mg 1 tab PO Q6H PRN 28 days simethicone 180 mg PO BID 30 days tamsulosin 0.4 mg PO BEDTIME 90 days tizanidine 4 mg PO Q8H PRN warfarin 3.75 mg See Protocol PO DAILY Nursing Note INR: 3.2 in therapeutic range of 2-3 Medications and supplements reviewed No changes in health, diet, medications, or supplements, Denies any signs and symptoms of bleeding or bruising or clotting. 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
== END 2025-05-16 09:05 | disposition home or self-care (01) ==
LOC: HO.ACS 08:33
PROVIDERS: PCP Internal Medicine; Visit Provider Internal Medicine Medical Oncology
DX: Z79.01 Long term (current) use of anticoagulants (principal)

== ENCOUNTER → 2025-05-16 08:33 | Outpatient (BNVA) | payer OTHER, SELFPAY | PROVIDERS: PCP Internal Medicine; Visit Provider Internal Medicine Medical Oncology | DX: Z00.00 Encounter for general adult medical examination without abnormal findings (principal); I10 Essential (primary) hypertension; I48.0 Paroxysmal atrial fibrillation; E78.00 Pure hypercholesterolemia, unspecified; E11.9 Type 2 diabetes mellitus without complications; E03.9 Hypothyroidism, unspecified; E66.9 Obesity, unspecified; E55.9 Vitamin D deficiency, unspecified; K21.9 Gastro-esophageal reflux disease without esophagitis; M10.00 Idiopathic gout, unspecified site; M51.360 Other intervertebral disc degeneration, lumbar region with discogenic back pain only; D12.6 Benign neoplasm of colon, unspecified; Z51.81 Encounter for therapeutic drug level monitoring; Z79.01 Long term (current) use of anticoagulants; Z79.899 Other long term (current) drug therapy; Z13.31 Encounter for screening for depression | CPT/HCPCS: 83036; 85610; 96127; 99211; 99397 ==

== ENCOUNTER 2025-05-16 12:43 | Outpatient (AMB) | payer OTHER, SELFPAY ==
--- NOTE | 2025-05-16 12:51 | MHC.PC.OV ---
Vital Signs 05/16/25 12:52 Height 5 ft 6 in Weight 197 lb 6 oz BMI 31.9 BP 104/60 Blood Pressure Location Lt brachial Position Sitting Pulse 76 Pulse Source Pulse Oximeter Temp 97.3 F Temp Source Temporal Artery Scan Pulse Oximetry (%) 96 Oxygen Delivery Method Room Air Intake Visit Reasons: annual exam Application Specialist Required: Yes Application Specialist Language: Dice Table Person Name: mariela/[id number] Allergies No Known Allergies (No Known Allergies*) Allergy (Unknown, Verified 05/16/25 13:16) U Tobacco use date assessed: 05/16/25 Fall risk assessment: 2 + Falls in past year Last assessed Fall Risk: 05/16/25 Dental Screening Dental Screen Date: 05/16/25 Did you have a dental visit in the last 12 months?: Yes Did you have a dental problem in the last 6 months where you did not have access to dental care?: No Was dental information given to patient?: Patient has dentist HPI annual exam HPI Details Dentist: up to date Eye:up to date Snellen: Right: Left: Corrected vision: yes, glasses to read STI screening: Colonoscopy: 2022-to repeat in 5 years Pap Smer: PHQ-9: Flu:usually takes annually COVID:x2 Tdap: due next year, completed in 2016 Diet: Exercise: a1c done in office: bilateral knee pain: asking for allopurinol, not to much pain had sleep studies x2 and they came out normal PFSH Medical History Benign prostatic hyperplasia with nocturia Lumbar degenerative disc disease Obesity (BMI 30-39.9) Vitamin D deficiency Gout Gastric ulcer Superficial gastritis GERD without esophagitis Acquired hypothyroidism Pure hypercholesterolemia Benign essential hypertension Diabetes mellitus Paroxysmal atrial fibrillation Surgical History Hx of colonoscopy History of esophagogastroduodenoscopy (EGD) History of appendectomy Family History Father Medical history unknown Mother Medical history unknown Social History Housing: House Alcohol intake: former Patient Tobacco Use Status: Former Tobacco user e-Cigarette/Vaping Use: Never Used Second Hand Smoke Exposure: Yes service: No Current occupational status: disabled Cognitive needs: No Hearing needs: No Vision needs: No Questionnaire PHQ-9 Over the last 2 weeks, how often have you been bothered by any of the following problems? 1. Little interest or pleasure in doing things: not at all 2. Feeling down, depressed, or hopeless: not at all 3. Trouble falling or staying asleep, or sleeping too much: not at all 4. Feeling tired or having little energy: not at all 5. Poor appetite or overeating: not at all 6. Feeling bad about yourself - or that you are a failure or have let yourself or your family down: not at all 7. Trouble concentrating on things, such as reading the newspaper or watching television: not at all 8. Moving or speaking so slowly that other people could have noticed. Or the opposite - being so fidgety or restless that you have been moving around a lot more than usual: not at all 9. Thoughts that you would be better off or of hurting yourself in some way: not at all Total score: 0 Depression Screening Interpretation: Negative Depression Screening Done: Yes Source: Developed by Drs. Rikki Murry, Sangita Mays, Matthew Devi and colleagues, with an educational yonas from [employer]. Thrive Questionnaire Date Thrive assessed: 02/09/25 I am a: Patient What is your living situation today?: I have a steady place to live Within the past 12 months, did the food you bought not last and you didn't have the money to get more?: Never true Within the past 12 months, did you worry whether your food would run out before you got money to buy more?: Never true Do you have trouble paying for medicines?: No Do you have trouble getting transportation to medical appointments?: No Do you have trouble paying your heating and electricity bill?: No Do you have trouble taking care of your child, family member or friend?: No Do you have trouble with day-to-day activities such as bathing, preparing meals, shopping, managing finances, etc.?: No Are you currently unemployed and looking for a job?: No Are you interested in more education?: No Please select the resources that you would like help with: None Currently or been in a relationship where the following occur: No concerns reported THRIVE Score: 0 AUDIT C Alcohol Use Questionnaire (AUDIT-C) 1. How often do you have a drink containing alcohol?: Never 3. How often do you have six or more drinks on one occasion?: Never Total Score: 0 ZAY-7 AMB Questionnaire ZAY-7 Date ZAY - 7 assessed: 02/09/25 Feeling nervous, anxious, or on edge: 0 = Not at all Not being able to stop or control worryin = Not at all Worrying too much about different things: 0 = Not at all Trouble relaxin = Not at all Being so restless that it is hard to sit still: 0 = Not at all Becoming easily annoyed or irritable: 0 = Not at all Feeling afraid as if something awful might happen: 0 = Not at all Total ZAY-7 score (0-4 normal; 5-9 mild; 10-14 moderate; 15-21 severe): 0 Source: Developed by Drs. Rikki Murry, Sangita Mays, Matthew Devi and colleagues, with an educational yonas from [employer]. Physical exam (Primary Care) Vital Signs: Last Vital Signs Temp 97.3 F 05/16/25 12:52 Pulse 76 05/16/25 12:52 BP 104/60 05/16/25 12:52 Pulse Ox 96 05/16/25 12:52 Oxygen Delivery Method Room Air 05/16/25 12:52 BMI result Body Mass Index 31.9 Tobacco/Smoking Status: Tobacco use Status Tobacco use date assessed 05/16/25 05/16/25 12:53 Patient Tobacco Use Status Former Tobacco user 05/16/25 12:51 e-Cigarette/Vaping Use Never Used 05/16/25 12:51 PHQ-9: PHQ-9 Score PHQ-9: Total score 0 05/16/25 12:53 Depression Screening Interpretation: Negative Thrive Assessment: Date of Thrive Assessment Date Thrive assessed 02/09/25 05/16/25 12:51 Currently or been in a relationship where the following occur: No concerns reported Results AMB INR Fingerstick AMB INR Fingerstick 3.2 Last Edit by Dee Blanco RN on 05/16/25 08:56 interface delay AMB Hemoglobin A1c AMB Hemoglobin A1c 6.6 % Last Edit by Taniya Peters CMA on 05/16/25 13:04 Results Reviewed Results Reviewed: Laboratory Last Values Hgb A1c (Clinic) 6.6 % (4.0-6.0) H 05/16/25 13:00 Coding Assessment & Plan Assessment & Plan Orders: Orders AMB Hemoglobin A1c Today Z13.9 - Encounter for screening, unspecified Complete Blood Count Auto Diff 3 Months E03.9 - Hypothyroidism, unspecified, E11.9 - Type 2 diabetes mellitus without complications, E55.9 - Vitamin D deficiency, unspecified, E66.9 - Obesity, unspecified, E78.00 - Pure hypercholesterolemia, unspecified, I10 - Essential (primary) hypertension, I48.0 - Paroxysmal atrial fibrillation, I48.92 - Unspecified atrial flutter, K21.9 - Gastro-esophageal reflux disease without esophagitis, M10.00 - Idiopathic gout, unspecified site, Z79.01 - nursing home (current) use of anticoagulants Comprehensive Commerce. Panel Fast 3 Months E03.9 - Hypothyroidism, unspecified, E11.9 - Type 2 diabetes mellitus without complications, E55.9 - Vitamin D deficiency, unspecified, E66.9 - Obesity, unspecified, E78.00 - Pure hypercholesterolemia, unspecified, I10 - Essential (primary) hypertension, I48.0 - Paroxysmal atrial fibrillation, I48.92 - Unspecified atrial flutter, K21.9 - Gastro-esophageal reflux disease without esophagitis, M10.00 - Idiopathic gout, unspecified site, Z79.01 - nursing home (current) use of anticoagulants Uric Acid 3 Months E03.9 - Hypothyroidism, unspecified, E55.9 - Vitamin D deficiency, unspecified, E66.9 - Obesity, unspecified, E78.00 - Pure hypercholesterolemia, unspecified, I10 - Essential (primary) hypertension, I48.0 - Paroxysmal atrial fibrillation, I48.92 - Unspecified atrial flutter, K21.9 - Gastro-esophageal reflux disease without esophagitis, M10.00 - Idiopathic gout, unspecified site Lipid Panel 3 Months E03.9 - Hypothyroidism, unspecified, E11.9 - Type 2 diabetes mellitus without complications, E55.9 - Vitamin D deficiency, unspecified, E66.9 - Obesity, unspecified, E78.00 - Pure hypercholesterolemia, unspecified, I10 - Essential (primary) hypertension, I48.0 - Paroxysmal atrial fibrillation, I48.92 - Unspecified atrial flutter, K21.9 - Gastro-esophageal reflux disease without esophagitis, M10.00 - Idiopathic gout, unspecified site, Z79.01 - nursing home (current) use of anticoagulants TSH reflex Free T4 3 Months E03.9 - Hypothyroidism, unspecified, E11.9 - Type 2 diabetes mellitus without complications, E55.9 - Vitamin D deficiency, unspecified, E66.9 - Obesity, unspecified, E78.00 - Pure hypercholesterolemia, unspecified, I10 - Essential (primary) hypertension, I48.0 - Paroxysmal atrial fibrillation, I48.92 - Unspecified atrial flutter, K21.9 - Gastro-esophageal reflux disease without esophagitis, M10.00 - Idiopathic gout, unspecified site, 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 UA CC w/rflx Micro + Cult 3 Months E03.9 - Hypothyroidism, unspecified, E11.9 - Type 2 diabetes mellitus without complications, E55.9 - Vitamin D deficiency, unspecified, E66.9 - Obesity, unspecified, E78.00 - Pure hypercholesterolemia, unspecified, I10 - Essential (primary) hypertension, I48.0 - Paroxysmal atrial fibrillation, I48.92 - Unspecified atrial flutter, K21.9 - Gastro-esophageal reflux disease without esophagitis, M10.00 - Idiopathic gout, unspecified site, 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 Vitamin D 25-OH Total 3 Months E03.9 - Hypothyroidism, unspecified, E11.9 - Type 2 diabetes mellitus without complications, E55.9 - Vitamin D deficiency, unspecified, E66.9 - Obesity, unspecified, E78.00 - Pure hypercholesterolemia, unspecified, I10 - Essential (primary) hypertension, I48.0 - Paroxysmal atrial fibrillation, I48.92 - Unspecified atrial flutter, K21.9 - Gastro-esophageal reflux disease without esophagitis, M10.00 - Idiopathic gout, unspecified site, 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9 - Type 2 diabetes mellitus without complications, E55.9 - Vitamin D deficiency, unspecified, E66.9 - Obesity, unspecified, E78.00 - Pure hypercholesterolemia, unspecified, I10 - Essential (primary) hypertension, I48.0 - Paroxysmal atrial fibrillation, I48.92 - Unspecified atrial flutter, K21.9 - Gastro-esophageal reflux disease without esophagitis, M10.00 - Idiopathic gout, unspecified site, Z79.01 - nursing home (current) use of anticoagulants Medications: Refilled allopurinol TAKE 2 TABLETS IN THE MORNING AND 1 TABLET IN THE EVENING 270 tabs 1RF
[2025-05-16 12:52] VITALS: BP 104/60; PULSE 76; TEMP 36.3; O2SAT 96; BMI 31.9
== END 2025-05-16 13:52 | disposition home or self-care (01) ==
LOC: HO.HMCH 12:44
PROVIDERS: PCP Internal Medicine
DX: Z13.9 Encounter for screening, unspecified (principal)

== ENCOUNTER 2025-06-06 08:46 | Outpatient (AMB) | payer OTHER, SELFPAY ==
[2025-06-06 08:54] LABS: Prothrombin Time Whole Bld POC 27.4 sec (11.1-13.5); ~PT, ~INR - Anti Coag Clinic 2.3 (0.9-1.1)
--- NOTE | 2025-06-06 08:55 | MHC.OFFVISCO ---
Intake Intake Visit Reasons: Anticoagulation Allergies No Known Allergies (No Known Allergies*) Allergy (Unknown, Verified 06/06/25 08:49) U Medication List - Last Reconciled 06/06/25 by Dee Blanco RN allopurinol TAKE 2 TABLETS IN THE MORNING AND 1 TABLET IN THE EVENING atorvastatin 80 mg PO BEDTIME 90 days blood sugar diagnostic (CDP Ultra Test strips) 1 strip miscellaneous DAILY blood-glucose meter (CDP Ultra2 Meter kit) As directed daily cholecalciferol (vitamin D3) (Vitamin D3) 50 mcg PO DAILY 90 days cyanocobalamin (vitamin B-12) 1,000 mcg PO DAILY 90 days flecainide 50 mg PO Q12H fluoxetine 20 mg PO DAILY fluticasone propionate 50 mcg/actuation (Flonase Allergy Relief) 2 sprays intranasal DAILY lancets (CDP UltraSoft Lancets) As directed levothyroxine 100 mcg PO DAILY 90 days losartan 50 mg PO DAILY metformin ER 500 mg PO BID 90 days metoprolol succinate ER 25 mg PO DAILY 90 days mometasone 0.1% 1 appl topical DAILY PRN omeprazole 20 mg PO DAILY 90 days oxycodone-acetaminophen 5-325 mg 1 tab PO Q6H PRN 28 days simethicone 180 mg PO BID 30 days tamsulosin 0.4 mg PO BEDTIME 90 days tizanidine 4 mg PO Q8H PRN warfarin 3.75 mg See Protocol PO DAILY Nursing Note INR: 2.3 in therapeutic range of 2-3 Medications and supplements reviewed No changes in health, diet, medications, or supplements, Denies any signs and symptoms of bleeding or bruising or clotting. Bleeding, bruising, clotting discussed Nutritional guidance given Dose: 3.75mg daily F/U INR: 3 weeks Patient verbalizes understanding of instructions given Anti-Coag Initial Assessment Social Hx Patient Tobacco Use Status: Former Tobacco user alcohol intake: former Coding Level of Care Code Est Patient Level 1 Diagnoses Current use of anticoagulant therapy Z79.01 Assessment & Plan Assessment & Plan (1) Current use of anticoagulant therapy: Code(s): Z79.01 - alf (current) use of anticoagulants Category: Medical
--- OUTSIDE RECORDS SUMMARY | 2025-06-06 09:06 | XMS_ITS | Patient Health Record ---
[facility] Address [address] [place] [id number] Care Team Providers Care Solution Director Name Role Phone Raleigh Gunn Jr Reason For Referral No Information Plan Of Treatment No Information
== END 2025-06-06 08:58 | disposition home or self-care (01) ==
LOC: HO.ACS 08:46
PROVIDERS: PCP Internal Medicine; Visit Provider Internal Medicine Medical Oncology
DX: Z79.01 Long term (current) use of anticoagulants (principal)

== ENCOUNTER → 2025-06-06 08:46 | Outpatient (BNVA) | payer OTHER, SELFPAY | PROVIDERS: PCP Internal Medicine; Visit Provider Internal Medicine Medical Oncology | DX: I48.0 Paroxysmal atrial fibrillation (principal); Z79.01 Long term (current) use of anticoagulants; Z51.81 Encounter for therapeutic drug level monitoring | CPT/HCPCS: 85610; 99211 ==

== ENCOUNTER 2025-06-14 06:49 | Outpatient (REF) | payer OTHER, SELFPAY ==
--- OUTSIDE RECORDS SUMMARY | 2025-06-14 06:51 | XMS_ITS | Patient Health Record ---
[facility] Address [address] [place] [id number] Care Team Providers Care Middleware Consultant Name Role Phone Raleigh Gunn Jr Reason For Referral No Information Plan Of Treatment No Information
[2025-06-14 07:03] LABS: MANUAL DIFF FLAG NO
[2025-06-14 07:12] LABS: Hematocrit 40.4 % (42.0-52.0); Hemoglobin 13.3 g/dl (14.0-18.0); Imm Gran Abs Auto 0.06 X10*3/uL (0.00-0.03); Imm Gran Pct Auto 0.7 % (0.0-0.4); Lymphocytes Absolute Auto 2.5 X10*3/uL (1.2-4.9); Mean Corpuscular HGB Conc 32.9 g/dl (31.0-36.0); Mean Corpuscular Hemoglobin 27.2 pg (27.0-33.0); Mean Corpuscular Volume 82.6 fL (80.0-98.0); NRBC Abs Auto 0.000 X10*3/uL (0.0-0.012); NRBC Pct Auto 0.0 /100WBC (0.0-0.2); Platelet Count 217 X10*3/uL (160-400); Red Blood Count 4.89 X10*6/uL (4.60-5.80); White Blood Count 8.7 X10*3/uL (4.8-10.8)
[2025-06-14 07:22] LABS: Hemoglobin A1C 163.4207 umol/L; Total Hemoglobin (HGBA1C) 3453.0428 umol/L
[2025-06-14 07:34] LABS: Alanine Aminotransferase 24 U/L (0-40); Albumin Level 4.3 g/dL (3.5-5.0); Alkaline Phosphatase 55 U/L (39-117); Anion Gap 12 (12-20); Aspartate Amino Transferase 28 U/L (5-37); Blood Urea Nitrogen 14 mg/dL (9-16); Calcium 9.0 mg/dL (8.4-10.2); Carbon Dioxide 26 mmol/L (22-29); Chloride 107 mmol/L (96-108); Cholesterol 113 mg/dL (<200); Estimated Glomerular Filt Rate > 60; HDL Cholesterol 35 mg/dL (>40); Potassium 3.8 mmol/L (3.3-5.1); Sodium 141 mmol/L (135-145); Total Protein 7.2 g/dL (6.5-8.0); Triglycerides 80 mg/dL (<150); Uric Acid 5.4 mg/dL (3.4-7.0)
[2025-06-14 07:48] LABS: Free T4 (Free Thyroxine) 1.14 ng/dL (0.71-1.85); Thyroid Stimulating Hormone 0.51 uIU/mL (0.32-4.0)
[2025-06-14 07:58] LABS: Folate 13.8 ng/mL (> or = 4.0); Vitamin B12 619 pg/mL (200-900)
[2025-06-14 08:11] LABS: Appearance Urine Clear; Glucose Urine UA Negative (Negative); PH 5.5 (5.0-9.0); Specific Gravity - Urine 1.025 (1.005-1.025); UMIC TRIGGER UACC YES
[2025-06-14 08:13] LABS: Prostate Specific Antigen 0.91 ng/mL (<0.05-4.0)
[2025-06-14 17:04] LABS: Microalbum/Creatinine Ratio Ur 7.5 ug/mg cr (<30)
== END 2025-06-14 06:50 | disposition home or self-care (01) ==
LOC: HO.LAB 06:49
PROVIDERS: PCP Internal Medicine; Visit Provider Urology
DX: E11.9 Type 2 diabetes mellitus without complications (principal); E78.00 Pure hypercholesterolemia, unspecified; M10.9 Gout, unspecified; D64.9 Anemia, unspecified; E03.9 Hypothyroidism, unspecified; E53.8 Deficiency of other specified B group vitamins; E55.9 Vitamin D deficiency, unspecified; Z12.5 Encounter for screening for malignant neoplasm of prostate
CPT/HCPCS: 36415; 80053; 80061; 81001; 82043; 82306; 82570; 82607; 82746; 83036; 84153; 84439; 84443; 84550; 85025

== ENCOUNTER 2025-06-16 08:51 | Outpatient (AMB) | payer OTHER, SELFPAY ==
[2025-06-16 08:53] VITALS: BP 116/82; PULSE 76; O2SAT 98; BMI 31.5
--- NOTE | 2025-06-16 08:53 | MHC.PC.OV ---
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 Required: No Accompanied by: Self / Same As Patient Allergies No Known Allergies (No Known Allergies*) Allergy (Unknown, Verified 06/16/25 09:29) U Medication List - Last Reconciled 06/16/25 by Matheus Salgado MD allopurinol TAKE 2 TABLETS IN THE MORNING AND 1 TABLET IN THE EVENING atorvastatin 80 mg PO BEDTIME 90 days blood sugar diagnostic ([facility] Ultra Test strips) 1 strip miscellaneous DAILY blood-glucose meter ([facility] Ultra2 Meter kit) As directed daily cholecalciferol (vitamin D3) (Vitamin D3) 50 mcg PO DAILY 90 days cyanocobalamin (vitamin B-12) 1,000 mcg PO DAILY 90 days flecainide 50 mg PO Q12H fluoxetine 20 mg PO DAILY fluticasone propionate 50 mcg/actuation (Flonase Allergy Relief) 2 sprays intranasal DAILY lancets ([facility] UltraSoft Lancets) As directed levothyroxine 100 mcg PO DAILY 90 days losartan 50 mg PO DAILY metformin ER 500 mg PO BID 90 days metoprolol succinate ER 25 mg PO DAILY 90 days mometasone 0.1% 1 appl topical DAILY PRN omeprazole 20 mg PO DAILY 90 days oxycodone-acetaminophen 5-325 mg 1 tab PO Q6H PRN 28 days simethicone 180 mg PO BID 30 days tamsulosin 0.4 mg PO BEDTIME 90 days tizanidine 4 mg PO Q8H PRN warfarin 3.75 mg See Protocol PO DAILY Tobacco use date assessed: 06/16/25 Fall risk assessment: No Falls in past year Last assessed Fall Risk: 06/16/25 Dental Screening Dental Screen Date: 06/16/25 Did you have a dental visit in the last 12 months?: Yes Did you have a dental problem in the last 6 months where you did not have access to dental care?: No Was dental information given to patient?: Patient has dentist HPI Follow Up HPI Details Patient comes in today for his follow up visit States that he feels okay He denies any headaches or dizziness Denies any chest pains or palpitations, no increased SOB No nausea/vomiting, no abdominal pain No change in bowel habits noted Relates that his chronic low back pain and joint pains remain adequately controlled on his current Rx Needs his Losartan Rx refilled today He had his follow up labs done a couple of days ago - to discuss his results [facility] Medical History Benign prostatic hyperplasia with nocturia Lumbar degenerative disc disease Obesity (BMI 30-39.9) Vitamin D deficiency Gout Gastric ulcer Superficial gastritis GERD without esophagitis Acquired hypothyroidism Pure hypercholesterolemia Benign essential hypertension Diabetes mellitus Paroxysmal atrial fibrillation Surgical History Hx of colonoscopy History of esophagogastroduodenoscopy (EGD) History of appendectomy Family History Father Medical history unknown Mother Medical history unknown Social History Housing: House Alcohol intake: former Patient Tobacco Use Status: Former Tobacco user e-Cigarette/Vaping Use: Never Used Second Hand Smoke Exposure: Yes service: No Current occupational status: disabled Cognitive needs: No Hearing needs: No Vision needs: No Questionnaire PHQ-9 Over the last 2 weeks, how often have you been bothered by any of the following problems? 1. Little interest or pleasure in doing things: not at all 2. Feeling down, depressed, or hopeless: not at all 3. Trouble falling or staying asleep, or sleeping too much: not at all 4. Feeling tired or having little energy: not at all 5. Poor appetite or overeating: not at all 6. Feeling bad about yourself - or that you are a failure or have let yourself or your family down: not at all 7. Trouble concentrating on things, such as reading the newspaper or watching television: not at all 8. Moving or speaking so slowly that other people could have noticed. Or the opposite - being so fidgety or restless that you have been moving around a lot more than usual: not at all 9. Thoughts that you would be better off or of hurting yourself in some way: not at all Total score: 0 Depression Screening Interpretation: Negative Depression Screening Done: Yes 21755 - PHQ-9 Billing: Yes Source: Developed by Drs. Rikki Murry, Sangita Mays, Matthew Devi and colleagues, with an educational yonas from [employer]. Thrive Questionnaire Date Thrive assessed: 06/16/25 I am a: Patient What is your living situation today?: I have a steady place to live Within the past 12 months, did the food you bought not last and you didn't have the money to get more?: Never true Within the past 12 months, did you worry whether your food would run out before you got money to buy more?: Never true Do you have trouble paying for medicines?: No Do you have trouble getting transportation to medical appointments?: No Do you have trouble paying your heating and electricity bill?: No Do you have trouble taking care of your child, family member or friend?: No Do you have trouble with day-to-day activities such as bathing, preparing meals, shopping, managing finances, etc.?: No Are you currently unemployed and looking for a job?: No Are you interested in more education?: No Please select the resources that you would like help with: None Currently or been in a relationship where the following occur: No concerns reported THRIVE Score: 0 AUDIT C Alcohol Use Questionnaire (AUDIT-C) 1. How often do you have a drink containing alcohol?: Never 3. How often do you have six or more drinks on one occasion?: Never Total Score: 0 Score Reviewed/Action Taken: Yes ZAY-7 AMB Questionnaire ZAY-7 Date ZAY - 7 assessed: 06/16/25 Feeling nervous, anxious, or on edge: 0 = Not at all Not being able to stop or control worryin = Not at all Worrying too much about different things: 0 = Not at all Trouble relaxin = Not at all Being so restless that it is hard to sit still: 0 = Not at all Becoming easily annoyed or irritable: 0 = Not at all Feeling afraid as if something awful might happen: 0 = Not at all Total ZAY-7 score (0-4 normal; 5-9 mild; 10-14 moderate; 15-21 severe): 0 Source: Developed by Sangita Adames, Matthew Devi and colleagues, with an educational yonas from [employer]. Review of Systems Const Denies chills, Denies fatigue, Denies fever(s) and Denies headache(s) ENT Denies dysphagia, Denies dizziness, Denies otalgia, Denies headache(s), Denies neck pain, Denies odynophagia and Denies sore throat Card Denies chest pain, Denies palpitations and Denies dyspnea Resp Denies chest congestion, Denies cough and Denies dyspnea GI Denies abdominal pain, Denies constipation, Denies dysphagia, Denies diarrhea, Denies nausea, Denies odynophagia and Denies vomiting Denies difficulty urinating, Denies dysuria, Denies nocturia and Denies urinary frequency Musc Reports back pain (over the lower back - chronic) and Denies neck pain Skin/Breast Denies rash Neuro Denies dizziness and Denies headache(s) Endo Denies fatigue and Denies palpitations Physical exam (Primary Care) Vital Signs: Last Vital Signs Pulse 76 06/16/25 08:53 BP 116/82 06/16/25 08:53 Pulse Ox 98 06/16/25 08:53 Oxygen Delivery Method Room Air 06/16/25 08:53 BMI result Body Mass Index 31.5 Tobacco/Smoking Status: Tobacco use Status Tobacco use date assessed 06/16/25 06/16/25 08:57 Patient Tobacco Use Status Former Tobacco user 06/16/25 08:57 e-Cigarette/Vaping Use Never Used 06/16/25 08:57 PHQ-9: PHQ-9 Score PHQ-9: Total score 0 06/16/25 08:57 Depression Screening Interpretation: Negative Thrive Assessment: Date of Thrive Assessment Date Thrive assessed 06/16/25 06/16/25 08:57 Currently or been in a relationship where the following occur: No concerns reported Const General: no acute distress and alert HENMT Ears: TM's normal bilaterally and EAC's normal Throat: Yes posterior oropharynx normal and Yes tonsils normal Neck Neck: Yes supple and No lymphadenopathy Thyroid: Thyroid normal Resp Auscultation: clear to auscultation bilaterally, no rales and no wheezes Cardio Rate: regular rate Rhythm: regular rhythm Heart sounds: no murmurs GI Palpation (GI): Soft to palpation and nontender Auscultation: normal bowel sounds General: Yes no CVA tenderness Back/Spine/Pelvis Back: no CVA tenderness Thoracic/Lumbar Spine: lumbar spinal tenderness Skin Rashes: no rashes Extrem General: Yes no clubbing, cyanosis or edema Results Reviewed Results Reviewed: Laboratory Tests 06/14/25 06/14/25 06/14/25 06:53 06:55 07:01 WBC 8.7 Hgb 13.3 L Hct 40.4 L Plt Count 217 Sodium 141 Potassium 3.8 Creatinine 0.82 Estimated GFR > 60 Fasting Glucose 137 H Hemoglobin A1c % 6.5 H Uric Acid 5.4 Calcium 9.0 AST 28 ALT 24 Triglycerides 80 Cholesterol 113 LDL Cholesterol, Calc 62 HDL Cholesterol 35 L Prostate Specific Ag 0.91 Vitamin B12 619 25-OH Vitamin D Total 50.6 TSH 0.51 Free T4 1.14 Ur Specific [place] 1.025 Urine Protein Negative Urine Glucose (UA) Negative Urine Blood Trace H Urine Nitrite Negative Ur Leukocyte Esterase Trace H Microalb/Creat Ratio 7.5 Coding Level of Care Code Est Pt Level 4 (89095) Diagnoses Paroxysmal atrial fibrillation I48.0 Type 2 diabetes mellitus without complication, without long-term current use of insulin E11.9 Diabetes mellitus type: type 2 Diabetes mellitus computer terminal operator insulin use: without detention use Diabetes mellitus complication status: without complication Pure hypercholesterolemia E78.00 Benign essential hypertension I10 Acquired hypothyroidism E03.9 Superficial gastritis without hemorrhage, unspecified chronicity K29.30 Chronicity: unspecified Gastritis bleeding: without bleeding Idiopathic gout, unspecified chronicity, unspecified site M10.00 Gout site: unspecified site Gout etiology: idiopathic Chronicity: unspecified Degeneration of intervertebral disc of lumbar region with discogenic back pain M51.360 Disc-related pain type: discogenic back pain only Vitamin D deficiency E55.9 Memory impairment R41.3 Benign prostatic hyperplasia with nocturia N40.1; R35.1 Obesity (BMI 30-39.9) E66.9 Additional Codes PHQ-9 - 22381 - PHQ-9 Billing: Yes ([id number]) Assessment & Plan Assessment & Plan (1) Paroxysmal atrial fibrillation: Code(s): I48.0 - Paroxysmal atrial fibrillation Category: Medical Plan: Patient currently remains in sinus rhythm - he was reportedly found to be in atrial fibrillation during his cardiology follow up with Dr. Rosenbaum earlier this year He remains anticoagulated on Coumadin and he follows up with the Coumadin clinic regularly for PT/INR monitoring Continue Metoprolol ER 25 mg QD and Fleicanide 50 mg Q 12 hours Stress testing done a couple of months ago (March 2025) came out normal; nuclear imaging / cardiolite stress testing also came out normal - myocardial perfusion imaging study shows normal myocardial perfusion and gated LVEF is at 61% Stress testing was done in anticipation of cardioversion, which patient will likely be undergoing soon Follow up with cardiology as scheduled (2) Diabetes mellitus: Code(s): E11.9 - Type 2 diabetes mellitus without complications Category: Medical Qualifiers: Diabetes mellitus type: type 2 Diabetes mellitus detention insulin use: without computer terminal operator use Diabetes mellitus complication status: without complication Qualified Code(s): E11.9 - Type 2 diabetes mellitus without complications Plan: His HgbA1c was at 6.5% on his labs done a couple of days ago (was previously at 6.8% a few months ago) - goal is <7.0% Reinforced diabetic diet Continue Metformin ER 500 mg BID (3) Pure hypercholesterolemia: Code(s): E78.00 - Pure hypercholesterolemia, unspecified Category: Medical Plan: Results of his labs done a couple of days ago reviewed and discussed with patient Reinforced low cholesterol diet Continue Atorvastatin 80 mg QD Will recheck his labs and fasting lipids in 3 months for follow-up (4) Benign essential hypertension: Code(s): I10 - Essential (primary) hypertension Category: Medical Plan: Reinforced low sodium diet - goal is systolic BP of at least 130 to 140 mm or less Continue Metoprolol ER 25 mg QD and Losartan 50 mg QD (Rx refilled) (5) Acquired hypothyroidism: Code(s): E03.9 - Hypothyroidism, unspecified Category: Medical Plan: His TFTs remain normal on his recent labs Continue Levothyroxine 100 mcg QD Will continue to monitor his TFTs regularly (6) Superficial gastritis: Comment: seen on EGD on 06/23/2017 Code(s): K29.60 - Other gastritis without bleeding Category: Medical Qualifiers: Chronicity: unspecified Gastritis bleeding: without bleeding Qualified Code(s): K29.30 - Chronic superficial gastritis without bleeding Plan: Dietary restrictions reinforced Continue Prilosec OTC 20 mg 2 tablets QD He had repeat colonoscopy done in April 2023; recommend repeat colonoscopy in 5 years (2027) Follow up with GI as scheduled (7) Gout: Code(s): M10.9 - Gout, unspecified Category: Medical Qualifiers: Gout site: unspecified site Gout etiology: idiopathic Chronicity: unspecified Qualified Code(s): M10.00 - Idiopathic gout, unspecified site Plan: Reinforced low purine diet - his serum uric acid remains normal on his recent labs Patient remains asymptomatic with no acute gout flare ups since his last visit (8) Lumbar degenerative disc disease: Code(s): M51.36 - Other intervertebral disc degeneration, lumbar region Category: Medical Qualifiers: Disc-related pain type: discogenic back pain only Qualified Code(s): M51.360 - Other intervertebral disc degeneration, lumbar region with discogenic back pain only Plan: Reinforced activity and weight-lifting restrictions Continue Tizanidine 4 mg Q 8 hours PRN and Oxycodone-acetaminophen 5-325 mg Q 6 hours as needed for pain (9) Vitamin D deficiency: Code(s): E55.9 - Vitamin D deficiency, unspecified Category: Medical Plan: Continue Vitamin D3 2000 units QD (10) Memory impairment: Code(s): R41.3 - Other amnesia Category: Medical Plan: He was started on Fluoxetine for MCI and depression by neurology a couple of years ago but patient could not tolerate Rx at 20 mg QD Follow up with neurology as scheduled (11) Benign prostatic hyperplasia with nocturia: Code(s): N40.1 - Benign prostatic hyperplasia with lower urinary tract symptoms; R35.1 - Nocturia Category: Medical Plan: His PSA was normal when last checked a few days ago Continue Tamsulosin 0.4 mg Q HS - states that his Rx has helped a lot with his nocturia Follow up with urology as scheduled - has appt coming up later this morning (12) Obesity (BMI 30-39.9): Code(s): E66.9 - Obesity, unspecified Category: Medical Plan: Reinforced diet/exercise as tolerated/lose weight - he has been able to lose a good amount of weight over the past few months Plan Follow up in 3 months Orders: Orders Lipid Panel 3 Months E78.00 - Pure hypercholesterolemia, unspecified Microalbumin, Random (w Creat) 3 Months E11.9 - Type 2 diabetes mellitus without complications Thyroid Stimulating Hormone 3 Months E03.9 - Hypothyroidism, unspecified Vitamin D 25-OH Total 3 Months E55.9 - Vitamin D deficiency, unspecified Complete Blood Count Auto Diff 3 Months D64.9 - Anemia, unspecified [place]. Panel Fast 3 Months E78.00 - Pure hypercholesterolemia, unspecified Free T4 (Free Thyroxine) 3 Months E03.9 - Hypothyroidism, unspecified Hemoglobin A1c 3 Months E11.9 - Type 2 diabetes mellitus without complications UA CC w/rflx Micro + Cult 3 Months R30.0 - Dysuria Uric Acid 3 Months M10.9 - Gout, unspecified Medications: Refilled losartan 50 mg PO DAILY 90 tabs 0RF
--- OUTSIDE RECORDS SUMMARY | 2025-06-16 09:03 | XMS_ITS | Patient Health Record ---
Author Organization [facility] Address [address] [place] [id number] Care Team Providers Care Scenic Arts Supervisor Name Role Phone Raleigh Gunn Jr Reason For Referral No Information Plan Of Treatment No Information
== END 2025-06-16 09:37 | disposition home or self-care (01) ==
LOC: HO.HMCH 08:52
PROVIDERS: PCP Internal Medicine; Visit Provider Internal Medicine
DX: I48.0 Paroxysmal atrial fibrillation (principal); E11.9 Type 2 diabetes mellitus without complications; E78.00 Pure hypercholesterolemia, unspecified; I10 Essential (primary) hypertension; E03.9 Hypothyroidism, unspecified; K29.30 Chronic superficial gastritis without bleeding; M10.00 Idiopathic gout, unspecified site; M51.360 Other intervertebral disc degeneration, lumbar region with discogenic back pain only; E55.9 Vitamin D deficiency, unspecified; R41.3 Other amnesia; N40.1 Benign prostatic hyperplasia with lower urinary tract symptoms; R35.1 Nocturia; E66.9 Obesity, unspecified

== ENCOUNTER 2025-06-16 08:51 | Outpatient (REF) | payer OTHER, SELFPAY | END 2025-06-16 08:52 | disposition home or self-care (01) | LOC: HO.LNP 08:51 | PROVIDERS: Urology; PCP Internal Medicine; Visit Provider Internal Medicine | DX: R31.9 Hematuria, unspecified (principal); I48.0 Paroxysmal atrial fibrillation; E11.9 Type 2 diabetes mellitus without complications; E78.00 Pure hypercholesterolemia, unspecified; E03.9 Hypothyroidism, unspecified; I10 Essential (primary) hypertension; K29.30 Chronic superficial gastritis without bleeding; M51.360 Other intervertebral disc degeneration, lumbar region with discogenic back pain only; E55.9 Vitamin D deficiency, unspecified; R41.3 Other amnesia; N40.1 Benign prostatic hyperplasia with lower urinary tract symptoms; R35.1 Nocturia; E66.9 Obesity, unspecified; Z68.31 Body mass index [BMI] 31.0-31.9, adult; Z87.891 Personal history of nicotine dependence; Z71.3 Dietary counseling and surveillance | CPT/HCPCS: 81003; 88112; 96127; 99212 ==

== ENCOUNTER 2025-06-16 10:46 | Outpatient (AMB) | payer OTHER, SELFPAY ==
--- NOTE | 2025-06-16 10:54 | A.OFFVIS_ITS ---
Intake Visit Reasons: PSA follow up Intake Note: Patient is present for follow up/PSA * 10-01-24 PSA: 0.43 Urology Med: Tamsulosin Antibiotic Allergies: None Blood Thinner: Warfarin PVR:0ml Fruit Thinner Machine Operator Required: No Allergies No Known Allergies (No Known Allergies*) Allergy (Unknown, Verified 06/16/25 11:00) U HPI Comments Details: 06/16/25--Corey is a 74-year-old male who is here for follow-up he had PSA done on 06/14/2025 that was 0.91 ng/mL History of Present Illness - The patient is a 75-year-old male presenting with follow-up for Benign Prostatic Hyperplasia (BPH). - The patient is on tamsulosin 0.4 mg daily for BPH symptoms. - A urinalysis indicated hematuria, and a renal ultrasound revealed bilateral renal cysts. - The patient has a significant history of tobacco use. - He has been using an unidentified [id number] medication for urinary frequency, which he has been advised to discontinue. Results - Urinalysis: 1 plus blood - Renal Ultrasound (09/19/24): Bilateral renal cysts Plan - Schedule CT urogram and urine cytology for further evaluation of hematuria. - Plan for office cystoscopy to further investigate urinary symptoms. - Advise the patient to discontinue the [id number] medication until further review. 09/26/24--FU. Nicole is followed for BPH symptoms. He is here with a family member who interprets for him. He states that he is not taking the tamsulosin because it made him go more frequently to the bathroom. He is taking another medication that he bought from the pharmacy. I have asked him to call with the name of the medication so we can add it to the chart. I have reviewed kidney and bladder ultrasound imaging. Press Supervisor pending renal US 09/19/24- imaging-bilateral kidney cysts negative for renal calculi bladder US 09/21/24-bladder unremarkable, bladder PVR 27.5 mL, estimated prostate size 45.3 mL. No recent PSA. Discussed PSA screening. 06/23/24--Corey is a 74-year-old Nauruan-speaking male. 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 The patient complains of obstructive voiding symptoms. AUA symptom score 32. The patient was started on tamsulosin in May by his PCP. He states that his urinary symptoms have improved somewhat. Comorbidity diabetes. Agree with continue tamsulosin. I will check imaging of the urinary tract. Bladder scan PVR 25 mL. Last PSA: 07/2023 0.44 PFSH Medical History Benign prostatic hyperplasia with nocturia Lumbar degenerative disc disease Obesity (BMI 30-39.9) Vitamin D deficiency Gout Gastric ulcer Superficial gastritis GERD without esophagitis Acquired hypothyroidism Pure hypercholesterolemia Benign essential hypertension Diabetes mellitus Paroxysmal atrial fibrillation Surgical History Hx of colonoscopy History of esophagogastroduodenoscopy (EGD) History of appendectomy Family History Father Medical history unknown Mother Medical history unknown Social History Housing: House Alcohol intake: former Patient Tobacco Use Status: Former Tobacco user e-Cigarette/Vaping Use: Never Used Second Hand Smoke Exposure: Yes service: No Current occupational status: disabled Cognitive needs: No Hearing needs: No Vision needs: No Results AMB Urinalysis, Automated UA Leukoctes 0 Cleve/uL Last Edit by Guera Estrada on 06/16/25 13:24 UA Nitrite Negative Last Edit by Guera Estrada on 06/16/25 13:24 UA Urobilinogen 0.2 mg/dL Last Edit by Guera Estrada on 06/16/25 13:24 UA Protein 0 mg/dL Last Edit by Guera Estrada on 06/16/25 13:24 UA pH 6.0 Last Edit by Guera Estrada on 06/16/25 13:24 UA Blood 25 Jarett/uL Last Edit by Guera Estrada on 06/16/25 13:24 UA Specific [place] 1.015 Last Edit by Guera Estrada on 06/16/25 13:24 UA Ketone Negative Last Edit by Guera Estrada on 06/16/25 13:24 UA Bilirubin 0 mg/dL Last Edit by Guera Estrada on 06/16/25 13:24 UA Glucose 0 mg/dL Last Edit by Guera Estrada on 06/16/25 13:24 Assessment & Plan Assessment & Plan (1) Hematuria: Code(s): R31.9 - Hematuria, unspecified Category: Medical Orders: Orders AMB Urinalysis Automated Today Z13.9 - Encounter for screening, unspecified AMB Post Void Residual by ultrasound Today R31.9 - Hematuria, unspecified CT urogram Today R31.9 - Hematuria, unspecified Coding Diagnoses Hematuria R31.9
== END 2025-06-16 11:59 | disposition home or self-care (01) ==
LOC: HO.HUSH 10:47
PROVIDERS: PCP Internal Medicine; Visit Provider Urology
DX: Z13.9 Encounter for screening, unspecified (principal)

== ENCOUNTER 2025-06-27 08:36 | Outpatient (AMB) | payer OTHER, SELFPAY ==
--- OUTSIDE RECORDS SUMMARY | 2025-06-27 08:51 | XMS_ITS | Patient Health Record ---
Author Organization [facility] Address [address] [place] [id number] Care Team Providers Care Non Ferrous Material Handler Name Role Phone Raleigh Gunn Jr Reason For Referral No Information Plan Of Treatment No Information
[2025-06-27 08:53] LABS: Prothrombin Time Whole Bld POC 16.3 sec (11.1-13.5); ~PT, ~INR - Anti Coag Clinic 1.4 (0.9-1.1)
--- NOTE | 2025-06-27 09:07 | MHC.OFFVISCO ---
Intake Intake Visit Reasons: Anticoagulation Allergies No Known Allergies (No Known Allergies*) Allergy (Unknown, Verified 06/27/25 08:45) U Medication List - Last Reconciled 06/27/25 by Genet Hough RN allopurinol TAKE 2 TABLETS IN THE MORNING AND 1 TABLET IN THE EVENING atorvastatin 80 mg PO BEDTIME 90 days blood sugar diagnostic ([facility] [facility] Ultra Test strips) 1 strip miscellaneous DAILY blood-glucose meter ([employer] [facility] Ultra2 Meter kit) As directed daily cholecalciferol (vitamin D3) (Vitamin D3) 50 mcg PO DAILY 90 days cyanocobalamin (vitamin B-12) 1,000 mcg PO DAILY 90 days flecainide 50 mg PO Q12H fluoxetine 20 mg PO DAILY fluticasone propionate 50 mcg/actuation (Flonase Allergy Relief) 2 sprays intranasal DAILY lancets ([facility] [employer] [facility] UltraSoft Lancets) As directed levothyroxine 100 mcg PO DAILY 90 days losartan 50 mg PO DAILY metformin ER 500 mg PO BID 90 days metoprolol succinate ER 25 mg PO DAILY 90 days mometasone 0.1% 1 appl topical DAILY PRN omeprazole 20 mg PO DAILY 90 days oxycodone-acetaminophen 5-325 mg 1 tab PO Q6H PRN 28 days simethicone 180 mg PO BID 30 days tamsulosin 0.4 mg PO BEDTIME 90 days tizanidine 4 mg PO Q8H PRN warfarin 3.75 mg See Protocol PO DAILY Nursing Note INR 1.3 out of therapeutic range Medications and supplements reviewed Patient status: denies any missed doses ? if diet related - he said he had some greens but didnt sound enough to make INR drop that extreme He is aware that he is at risk for clotting or stroke when his INR is subtherapeutic and will go to ER with any symptoms Medications or supplements: states no changes Diet: good - appears well nourished Denies any signs and symptoms of bleeding or clotting or unusual bruising Bleeding, bruising, clotting discussed Nutritional guidance given: avoid all greens x 3 days,eat orange and reds to help raise the INR Dose: 11.25 mg today 7.5mg thu and recheck ( usual dose is 3.75mg daily ) F/U INR Date : 06/29/25 ?? Patient verbalizing understanding of instructions given This msg will be sent to PCP with pt status and plan of care Anti-Coag Initial Assessment Social Hx Patient Tobacco Use Status: Former Tobacco user alcohol intake: former Coding Level of Care Code Est Patient Level 1 Diagnoses Current use of anticoagulant therapy Z79.01 Results AMB INR Fingerstick AMB INR Fingerstick 1.3 Last Edit by Genet Hough RN on 06/27/25 08:54 Assessment & Plan Assessment & Plan (1) Current use of anticoagulant therapy: Code(s): Z79.01 - alf (current) use of anticoagulants Category: Medical
== END 2025-06-27 09:12 | disposition home or self-care (01) ==
LOC: HO.ACS 08:36
PROVIDERS: PCP Internal Medicine; Visit Provider Internal Medicine Medical Oncology
DX: Z79.01 Long term (current) use of anticoagulants (principal)

== ENCOUNTER → 2025-06-27 08:36 | Outpatient (BNVA) | payer OTHER, SELFPAY | PROVIDERS: PCP Internal Medicine; Visit Provider Internal Medicine Medical Oncology | DX: Z51.81 Encounter for therapeutic drug level monitoring (principal); Z79.01 Long term (current) use of anticoagulants | CPT/HCPCS: 85610; 99211 ==

== ENCOUNTER 2025-06-29 09:07 | Outpatient (AMB) | payer OTHER, SELFPAY ==
[2025-06-29 09:26] LABS: Prothrombin Time Whole Bld POC 33.0 sec (11.1-13.5); ~PT, ~INR - Anti Coag Clinic 2.7 (0.9-1.1)
--- OUTSIDE RECORDS SUMMARY | 2025-06-29 09:28 | XMS_ITS | Patient Health Record ---
Author Organization [facility] Address [address] [place] [id number] Care Team Providers Care Kaiawhina Kohanga Reo Name Role Phone Raleigh Gunn Jr [phone] Reason For Referral No Information Plan Of Treatment No Information
--- NOTE | 2025-06-29 09:29 | MHC.OFFVISCO ---
Intake Intake Visit Reasons: Anticoagulation Allergies No Known Allergies (No Known Allergies*) Allergy (Unknown, Verified 06/29/25 09:22) U Medication List - Last Reconciled 06/29/25 by Dee Blanco RN allopurinol TAKE 2 TABLETS IN THE MORNING AND 1 TABLET IN THE EVENING atorvastatin 80 mg PO BEDTIME 90 days blood sugar diagnostic ([employer] Ultra Test strips) 1 strip miscellaneous DAILY blood-glucose meter ([employer] Ultra2 Meter kit) As directed daily cholecalciferol (vitamin D3) (Vitamin D3) 50 mcg PO DAILY 90 days cyanocobalamin (vitamin B-12) 1,000 mcg PO DAILY 90 days flecainide 50 mg PO Q12H fluoxetine 20 mg PO DAILY fluticasone propionate 50 mcg/actuation (Flonase Allergy Relief) 2 sprays intranasal DAILY lancets ([employer] UltraSoft Lancets) As directed levothyroxine 100 mcg PO DAILY 90 days losartan 50 mg PO DAILY metformin ER 500 mg PO BID 90 days metoprolol succinate ER 25 mg PO DAILY 90 days mometasone 0.1% 1 appl topical DAILY PRN omeprazole 20 mg PO DAILY 90 days oxycodone-acetaminophen 5-325 mg 1 tab PO Q6H PRN 28 days simethicone 180 mg PO BID 30 days tamsulosin 0.4 mg PO BEDTIME 90 days tizanidine 4 mg PO Q8H PRN warfarin 3.75 mg See Protocol PO DAILY Nursing Note INR: 2.7 in therapeutic range of 2-3 Medications and supplements reviewed No changes in health, diet, medications, or supplements, Denies any signs and symptoms of bleeding or bruising or clotting. Bleeding, bruising, clotting discussed Nutritional guidance given Dose: 3.75mg daily F/U INR: 07/11/25 Patient verbalizes understanding of instructions given Anti-Coag Initial Assessment Social Hx Patient Tobacco Use Status: Former Tobacco user alcohol intake: former Coding Level of Care Code Est Patient Level 1 Diagnoses Current use of anticoagulant therapy Z79.01 Assessment & Plan Assessment & Plan (1) Current use of anticoagulant therapy: Code(s): Z79.01 - MCFP (current) use of anticoagulants Category: Medical
== END 2025-06-29 09:31 | disposition home or self-care (01) ==
LOC: HO.ACS 09:07
PROVIDERS: PCP Internal Medicine; Visit Provider Internal Medicine Medical Oncology
DX: Z79.01 Long term (current) use of anticoagulants (principal)

== ENCOUNTER → 2025-06-29 09:07 | Outpatient (BNVA) | payer OTHER, SELFPAY | PROVIDERS: PCP Internal Medicine; Visit Provider Internal Medicine Medical Oncology | DX: Z51.81 Encounter for therapeutic drug level monitoring (principal); Z79.01 Long term (current) use of anticoagulants | CPT/HCPCS: 85610; 99211 ==

== ENCOUNTER 2025-07-11 08:35 | Outpatient (AMB) | payer OTHER, SELFPAY ==
--- OUTSIDE RECORDS SUMMARY | 2025-07-11 08:46 | XMS_ITS | Patient Health Record ---
Author [facility] Address [address] [place] [id number] Care Team Providers Care Utility Locator Name Role Phone Raleigh Gunn Jr Reason For Referral No Information Plan Of Treatment No Information
[2025-07-11 08:53] LABS: Prothrombin Time Whole Bld POC 31.2 sec (11.1-13.5); ~PT, ~INR - Anti Coag Clinic 2.6 (0.9-1.1)
--- NOTE | 2025-07-11 08:56 | MHC.OFFVISCO ---
Intake Intake Visit Reasons: Anticoagulation Allergies No Known Allergies (No Known Allergies*) Allergy (Unknown, Verified 07/11/25 08:47) U Medication List - Last Reconciled 07/11/25 by Genet Hough RN allopurinol TAKE 2 TABLETS IN THE MORNING AND 1 TABLET IN THE EVENING atorvastatin 80 mg PO BEDTIME 90 days blood sugar diagnostic ([employer] Ultra Test strips) 1 strip miscellaneous DAILY blood-glucose meter ([employer] Ultra2 Meter kit) As directed daily cholecalciferol (vitamin D3) (Vitamin D3) 50 mcg PO DAILY 90 days cyanocobalamin (vitamin B-12) 1,000 mcg PO DAILY 90 days flecainide 50 mg PO Q12H fluoxetine 20 mg PO DAILY fluticasone propionate 50 mcg/actuation (Flonase Allergy Relief) 2 sprays intranasal DAILY lancets ([employer] UltraSoft Lancets) As directed levothyroxine 100 mcg PO DAILY 90 days losartan 50 mg PO DAILY metformin ER 500 mg PO BID 90 days metoprolol succinate ER 25 mg PO DAILY 90 days mometasone 0.1% 1 appl topical DAILY PRN omeprazole 20 mg PO DAILY 90 days oxycodone-acetaminophen 5-325 mg 1 tab PO Q6H PRN 28 days simethicone 180 mg PO BID 30 days tamsulosin 0.4 mg PO BEDTIME 90 days tizanidine 4 mg PO Q8H PRN warfarin 3.75 mg See Protocol PO DAILY Nursing Note INR: 2.6 in therapeutic range Medications and supplements reviewed No changes in health, diet, medications, or supplements, Denies any signs and symptoms of bleeding or bruising or clotting. 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
== END 2025-07-11 08:57 | disposition home or self-care (01) ==
LOC: HO.ACS 08:35
PROVIDERS: PCP Internal Medicine; Visit Provider Internal Medicine Medical Oncology
DX: Z79.01 Long term (current) use of anticoagulants (principal)

== ENCOUNTER → 2025-07-11 08:35 | Outpatient (BNVA) | payer OTHER, SELFPAY | PROVIDERS: PCP Internal Medicine; Visit Provider Internal Medicine Medical Oncology | DX: Z51.81 Encounter for therapeutic drug level monitoring (principal); Z79.01 Long term (current) use of anticoagulants | CPT/HCPCS: 85610; 99211 ==

== ENCOUNTER 2025-08-01 08:29 | Outpatient (AMB) | payer OTHER, SELFPAY ==
[2025-08-01 09:05] LABS: Prothrombin Time Whole Bld POC 43.2 sec (11.1-13.5); ~PT, ~INR - Anti Coag Clinic 3.6 (0.9-1.1)
--- NOTE | 2025-08-01 09:10 | MHC.OFFVISCO ---
Intake Intake Visit Reasons: Anticoagulation Allergies No Known Allergies (No Known Allergies*) Allergy (Unknown, Verified 08/01/25 09:01) U Medication List - Last Reconciled 08/01/25 by Dee Blanco RN allopurinol TAKE 2 TABLETS IN THE MORNING AND 1 TABLET IN THE EVENING atorvastatin 80 mg PO BEDTIME 90 days blood sugar diagnostic ([employer] Ultra Test strips) 1 strip miscellaneous DAILY blood-glucose meter ([employer] Ultra2 Meter kit) As directed daily cholecalciferol (vitamin D3) (Vitamin D3) 50 mcg PO DAILY 90 days cyanocobalamin (vitamin B-12) 1,000 mcg PO DAILY 90 days flecainide 50 mg PO Q12H fluoxetine 20 mg PO DAILY fluticasone propionate 50 mcg/actuation (Flonase Allergy Relief) 2 sprays intranasal DAILY lancets ([employer] UltraSoft Lancets) As directed levothyroxine 100 mcg PO DAILY 90 days losartan 50 mg PO DAILY metformin ER 500 mg PO BID 90 days metoprolol succinate ER 25 mg PO DAILY 90 days mometasone 0.1% 1 appl topical DAILY PRN omeprazole 20 mg PO DAILY 90 days oxycodone-acetaminophen 5-325 mg 1 tab PO Q6H PRN 28 days simethicone 180 mg PO BID 30 days tamsulosin 0.4 mg PO BEDTIME 90 days tizanidine 4 mg PO Q8H PRN warfarin 3.75 mg See Protocol PO DAILY Nursing Note INR: 3.6 out of therapeutic range of 2-3 Medications and supplements reviewed No changes in health, diet, medications, or supplements, Denies any signs and symptoms of bleeding or bruising or clotting. 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
--- OUTSIDE RECORDS SUMMARY | 2025-08-01 10:04 | XMS_ITS | Patient Health Record ---
Author Organization [facility] Address [address] [place] [id number] Care Team Providers Care Refractory Products Supervisor Name Role Phone Raleigh Gunn Jr Reason For Referral No Information Plan Of Treatment No Information
== END 2025-08-01 09:17 | disposition home or self-care (01) ==
LOC: HO.ACS 08:29
PROVIDERS: PCP Internal Medicine; Visit Provider Internal Medicine Medical Oncology
DX: Z79.01 Long term (current) use of anticoagulants (principal)

== ENCOUNTER → 2025-08-01 08:29 | Outpatient (BNVA) | payer OTHER, SELFPAY | PROVIDERS: PCP Internal Medicine; Visit Provider Internal Medicine Medical Oncology | DX: Z51.81 Encounter for therapeutic drug level monitoring (principal); Z79.01 Long term (current) use of anticoagulants | CPT/HCPCS: 85610; 99211 ==

== ENCOUNTER 2025-08-15 08:38 | Outpatient (AMB) | payer OTHER, SELFPAY ==
[2025-08-15 08:52] LABS: Prothrombin Time Whole Bld POC 16.3 sec (11.1-13.5); ~PT, ~INR - Anti Coag Clinic 1.4 (0.9-1.1)
--- NOTE | 2025-08-15 09:03 | MHC.OFFVISCO ---
Intake Intake Visit Reasons: Anticoagulation Allergies No Known Allergies (No Known Allergies*) Allergy (Unknown, Verified 08/15/25 08:46) U Medication List - Last Reconciled 08/15/25 by Genet Hough RN allopurinol TAKE 2 TABLETS IN THE MORNING AND 1 TABLET IN THE EVENING atorvastatin 80 mg PO BEDTIME 90 days blood sugar diagnostic ([employer] Ultra Test strips) 1 strip miscellaneous DAILY blood-glucose meter ([employer] Ultra2 Meter kit) As directed daily cholecalciferol (vitamin D3) (Vitamin D3) 50 mcg PO DAILY 90 days cyanocobalamin (vitamin B-12) 1,000 mcg PO DAILY 90 days flecainide 50 mg PO Q12H fluoxetine 20 mg PO DAILY fluticasone propionate 50 mcg/actuation (Flonase Allergy Relief) 2 sprays intranasal DAILY lancets ([employer] UltraSoft Lancets) As directed levothyroxine 100 mcg PO DAILY 90 days losartan 50 mg PO DAILY metformin ER 500 mg PO BID 90 days metoprolol succinate ER 25 mg PO DAILY 90 days mometasone 0.1% 1 appl topical DAILY PRN omeprazole 20 mg PO DAILY 90 days oxycodone-acetaminophen 5-325 mg 1 tab PO Q6H PRN 28 days simethicone 180 mg PO BID 30 days tamsulosin 0.4 mg PO BEDTIME 90 days tizanidine 4 mg PO Q8H PRN warfarin 3.75 mg See Protocol PO DAILY Nursing Note INR: 1.4 out therapeutic range Medications and supplements reviewed No changes in health, medications, or supplements, Previous INR was 3.6 a warfarin dose was held and pt over compensated with eating too many greens Denies any signs and symptoms of bleeding or bruising or clotting. Bleeding, bruising, clotting discussed Nutritional guidance given - avoid greens x 3 days, eat orange and reds today to help raise the INR *Pt instructed to go to the ER with any chest pain or headaches due to low INR risk of clotting - Dose: 7.5mg today then 3.75mg x 6 days F/U INR: 1 week per pt request Patient verbalizes understanding of instructions given Anti-Coag Initial Assessment Social Hx Patient Tobacco Use Status: Former Tobacco user alcohol intake: former Coding Level of Care Code Est Patient Level 1 Diagnoses Current use of anticoagulant therapy Z79.01 Results AMB INR Fingerstick AMB INR Fingerstick 1.4 Last Edit by Genet Hough RN on 08/15/25 08:52 md notified Genet Hough 08/15/25 08:52 manual entry Assessment & Plan Assessment & Plan (1) Current use of anticoagulant therapy: Code(s): Z79.01 - long-term (current) use of anticoagulants Category: Medical
--- OUTSIDE RECORDS SUMMARY | 2025-08-15 09:04 | XMS_ITS | Patient Health Record ---
Author Organization [facility] Address [address] [place] [phone] Care Team Providers Care Unemployment Inspector Name Role Phone Raleigh Gunn Jr Reason For Referral No Information Plan Of Treatment No Information
== END 2025-08-15 09:55 | disposition home or self-care (01) ==
LOC: HO.ACS 08:38
PROVIDERS: PCP Internal Medicine; Visit Provider Internal Medicine Medical Oncology
DX: Z79.01 Long term (current) use of anticoagulants (principal)

== ENCOUNTER → 2025-08-15 08:38 | Outpatient (BNVA) | payer OTHER, SELFPAY | PROVIDERS: PCP Internal Medicine; Visit Provider Internal Medicine Medical Oncology | DX: Z51.81 Encounter for therapeutic drug level monitoring (principal); Z79.01 Long term (current) use of anticoagulants | CPT/HCPCS: 85610; 99211 ==

== ENCOUNTER 2025-08-22 08:26 | Outpatient (AMB) | payer OTHER, SELFPAY ==
[2025-08-22 08:40] LABS: Prothrombin Time Whole Bld POC 22.5 sec (11.1-13.5); ~PT, ~INR - Anti Coag Clinic 1.9 (0.9-1.1)
--- NOTE | 2025-08-22 08:48 | MHC.OFFVISCO ---
Intake Intake Visit Reasons: Anticoagulation Allergies No Known Allergies (No Known Allergies*) Allergy (Unknown, Verified 08/22/25 08:35) U Medication List - Last Reconciled 08/22/25 by Genet Hough RN allopurinol TAKE 2 TABLETS IN THE MORNING AND 1 TABLET IN THE EVENING atorvastatin 80 mg PO BEDTIME 90 days blood sugar diagnostic ([employer] Ultra Test strips) 1 strip miscellaneous DAILY blood-glucose meter ([employer] Ultra2 Meter kit) As directed daily cholecalciferol (vitamin D3) (Vitamin D3) 50 mcg PO DAILY 90 days cyanocobalamin (vitamin B-12) 1,000 mcg PO DAILY 90 days flecainide 50 mg PO Q12H fluoxetine 20 mg PO DAILY fluticasone propionate 50 mcg/actuation (Flonase Allergy Relief) 2 sprays intranasal DAILY lancets ([employer] UltraSoft Lancets) As directed levothyroxine 100 mcg PO DAILY 90 days losartan 50 mg PO DAILY metformin ER 500 mg PO BID 90 days metoprolol succinate ER 25 mg PO DAILY 90 days mometasone 0.1% 1 appl topical DAILY PRN omeprazole 20 mg PO DAILY 90 days oxycodone-acetaminophen 5-325 mg 1 tab PO Q6H PRN 28 days simethicone 180 mg PO BID 30 days tamsulosin 0.4 mg PO BEDTIME 90 days tizanidine 4 mg PO Q8H PRN warfarin 3.75 mg See Protocol PO DAILY Nursing Note INR 1.9 Still out of therapeutic range from previous INR 1.4 frm which he stated he had a lot of greens Medications and supplements reviewed Patient status: appearing well and offers no complaints - stated he ate a lot of tomatoes Medications or supplements: no changes per pt Diet: good Denies any signs and symptoms of bleeding or clotting or unusual bruising Bleeding, bruising, clotting discussed Nutritional guidance given: avoid greens 2 more days then eat a mix of fruits and vegetables Dose: 7.5mg again today then resume 3.75mg daily - it may be possible he may require an increased weekly dose - f/u again next week to make sure INR is therapeutic F/U INR Date : 08/23/25Thu next week due to holiday Patient verbalizing understanding of instructions given. 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
--- OUTSIDE RECORDS SUMMARY | 2025-08-22 08:55 | XMS_ITS | Patient Health Record ---
Author Organization [facility] Address [address] [place] [phone] Care Team Providers Care Supervisor Frame Assembly Name Role Phone Raleigh Gunn Jr Reason For Referral No Information Plan Of Treatment No Information
== END 2025-08-22 08:52 | disposition home or self-care (01) ==
LOC: HO.ACS 08:26
PROVIDERS: PCP Internal Medicine; Visit Provider Internal Medicine Medical Oncology
DX: Z79.01 Long term (current) use of anticoagulants (principal)

== ENCOUNTER → 2025-08-22 08:26 | Outpatient (BNVA) | payer OTHER, SELFPAY | PROVIDERS: PCP Internal Medicine; Visit Provider Internal Medicine Medical Oncology | DX: Z51.81 Encounter for therapeutic drug level monitoring (principal); Z79.01 Long term (current) use of anticoagulants | CPT/HCPCS: 85610; 99211 ==

== ENCOUNTER 2025-08-26 08:34 | Outpatient (REF) | payer OTHER, SELFPAY ==
--- OUTSIDE RECORDS SUMMARY | 2025-08-26 08:39 | XMS_ITS | Patient Health Record ---
Author Organization [facility] Address [address] [place] [phone] Care Team Providers Care Weed Control Inspector Name Role Phone Raleigh Gunn Jr Reason For Referral No Information Plan Of Treatment No Information
[2025-08-26 08:58] LABS: MANUAL DIFF FLAG NO
[2025-08-26 10:18] LABS: Hematocrit 42.3 % (42.0-52.0); Hemoglobin 13.4 g/dl (14.0-18.0); Imm Gran Abs Auto 0.01 X10*3/uL (0.00-0.03); Imm Gran Pct Auto 0.2 % (0.0-0.4); Lymphocytes Absolute Auto 2.1 X10*3/uL (1.2-4.9); Mean Corpuscular HGB Conc 31.7 g/dl (31.0-36.0); Mean Corpuscular Hemoglobin 26.3 pg (27.0-33.0); Mean Corpuscular Volume 82.9 fL (80.0-98.0); NRBC Abs Auto 0.000 X10*3/uL (0.0-0.012); NRBC Pct Auto 0.0 /100WBC (0.0-0.2); Platelet Count 198 X10*3/uL (160-400); Red Blood Count 5.10 X10*6/uL (4.60-5.80); White Blood Count 6.1 X10*3/uL (4.8-10.8)
[2025-08-26 11:02] LABS: Appearance Urine Clear; Glucose Urine UA Negative (Negative); PH 5.5 (5.0-9.0); Specific Gravity - Urine 1.025 (1.005-1.025); UMIC TRIGGER UACC YES
[2025-08-26 11:36] LABS: Microalbum/Creatinine Ratio Ur 7.8 ug/mg cr (<30)
[2025-08-26 12:16] LABS: Alanine Aminotransferase 19 U/L (0-40); Albumin Level 4.2 g/dL (3.5-5.0); Alkaline Phosphatase 57 U/L (39-117); Anion Gap 12 (12-20); Aspartate Amino Transferase 24 U/L (5-37); Blood Urea Nitrogen 12 mg/dL (9-16); Calcium 8.8 mg/dL (8.4-10.2); Carbon Dioxide 27 mmol/L (22-29); Chloride 105 mmol/L (96-108); Cholesterol 116 mg/dL (<200); Estimated Glomerular Filt Rate > 60; Free T4 (Free Thyroxine) 1.35 ng/dL (0.71-1.85); HDL Cholesterol 39 mg/dL (>40); Potassium 3.5 mmol/L (3.3-5.1); Sodium 140 mmol/L (135-145); Thyroid Stimulating Hormone 0.02 uIU/mL (0.32-4.0); Total Protein 7.0 g/dL (6.5-8.0); Triglycerides 83 mg/dL (<150); Uric Acid 4.8 mg/dL (3.4-7.0)
== END 2025-08-26 08:35 | disposition home or self-care (01) ==
LOC: HO.LAB 08:34
PROVIDERS: PCP Internal Medicine; Visit Provider Internal Medicine
DX: E11.9 Type 2 diabetes mellitus without complications (principal); E55.9 Vitamin D deficiency, unspecified; M10.9 Gout, unspecified; R30.0 Dysuria; E03.9 Hypothyroidism, unspecified; E78.00 Pure hypercholesterolemia, unspecified; D64.9 Anemia, unspecified
CPT/HCPCS: 36415; 80053; 80061; 81001; 81003; 82043; 82306; 82570; 83036; 84439; 84443; 84550; 85025

== ENCOUNTER 2025-08-28 09:54 | Outpatient (AMB) | payer OTHER, SELFPAY ==
--- OUTSIDE RECORDS SUMMARY | 2025-08-28 10:04 | XMS_ITS | Patient Health Record ---
Author Organization [facility] Address [address] [place] [phone] Care Team Providers Care Air Intelligence Specialist Name Role Phone Raleigh Gunn Jr [phone] Reason For Referral No Information Plan Of Treatment No Information
[2025-08-28 10:17] VITALS: BP 136/80; PULSE 79; O2SAT 98; BMI 30.2
--- NOTE | 2025-08-28 10:17 | A.OFFPC_ITS ---
Vital Signs 08/28/25 10:17 Height 5 ft 6 in Weight 187 lb BMI 30.2 BP 136/80 Blood Pressure Location Lt brachial Position Sitting Pulse 79 Pulse Source Pulse Oximeter Pulse Oximetry (%) 98 Oxygen Delivery Method Room Air Intake Visit Reasons: afib/dm/hypothyroid with Dr. 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: No Accompanied by: Self / Same As Patient Allergies No Known Allergies (No Known Allergies*) Allergy (Unknown, Verified 08/28/25 11:08) U Medication List - Last Reconciled 08/28/25 by Matheus Salgado MD allopurinol TAKE 2 TABLETS IN THE MORNING AND 1 TABLET IN THE EVENING atorvastatin 80 mg PO BEDTIME 90 days blood sugar diagnostic ([employer] Ultra Test strips) 1 strip miscellaneous DAILY blood-glucose meter ([employer] Ultra2 Meter kit) As directed daily cholecalciferol (vitamin D3) (Vitamin D3) 50 mcg PO DAILY 90 days cyanocobalamin (vitamin B-12) 1,000 mcg PO DAILY 90 days flecainide 50 mg PO Q12H fluoxetine 20 mg PO DAILY fluticasone propionate 50 mcg/actuation (Flonase Allergy Relief) 2 sprays intranasal DAILY lancets ([employer] UltraSoft Lancets) As directed levothyroxine 100 mcg PO DAILY 90 days losartan 50 mg PO DAILY metformin ER 500 mg PO BID 90 days metoprolol succinate ER 25 mg PO DAILY 90 days mometasone 0.1% 1 appl topical DAILY PRN omeprazole 20 mg PO DAILY 90 days oxycodone-acetaminophen 5-325 mg 1 tab PO Q6H PRN 28 days simethicone 180 mg PO BID 30 days tamsulosin 0.4 mg PO BEDTIME 90 days tizanidine 4 mg PO Q8H PRN warfarin 3.75 mg See Protocol PO DAILY Tobacco use date assessed: 08/28/25 Fall risk assessment: No Falls in past year Last assessed Fall Risk: 08/28/25 Dental Screening Dental Screen Date: 08/28/25 Did you have a dental visit in the last 12 months?: Yes Did you have a dental problem in the last 6 months where you did not have access to dental care?: No Was dental information given to patient?: Patient has dentist HPI afib/dm/hypothyroid with Dr. Salgado HPI Details Patient comes in today for his follow up visit States that he has been experiencing on and off hoarseness lately He is concerned that his hoarseness may be due to his thyroid and admits that for the past couple of days, he increased his Levothyroxine dose on his own to 1.5 tablets (150 mcg) QD States that he feels okay otherwise He denies any headaches or dizziness; denies any sore throat or any trouble swallowing Denies any chest pains or palpitations, no increased SOB No nausea/vomiting, no abdominal pain No change in bowel habits noted States that his chronic low back pain and joint pains remain adequately controlled on his current Rx He had his follow up labs done a couple of days ago - to discuss his results [facility] Medical History Benign prostatic hyperplasia with nocturia Lumbar degenerative disc disease Obesity (BMI 30-39.9) Vitamin D deficiency Gout Gastric ulcer Superficial gastritis GERD without esophagitis Acquired hypothyroidism Pure hypercholesterolemia Benign essential hypertension Diabetes mellitus Paroxysmal atrial fibrillation Surgical History Hx of colonoscopy History of esophagogastroduodenoscopy (EGD) History of appendectomy Family History Father Medical history unknown Mother Medical history unknown Social History Housing: House Alcohol intake: former Patient Tobacco Use Status: Former Tobacco user e-Cigarette/Vaping Use: Never Used Second Hand Smoke Exposure: Yes service: No Current occupational status: disabled Cognitive needs: No Hearing needs: No Vision needs: No Questionnaire PHQ-9 Over the last 2 weeks, how often have you been bothered by any of the following problems? 1. Little interest or pleasure in doing things: not at all 2. Feeling down, depressed, or hopeless: not at all 3. Trouble falling or staying asleep, or sleeping too much: not at all 4. Feeling tired or having little energy: not at all 5. Poor appetite or overeating: not at all 6. Feeling bad about yourself - or that you are a failure or have let yourself or your family down: not at all 7. Trouble concentrating on things, such as reading the newspaper or watching television: not at all 8. Moving or speaking so slowly that other people could have noticed. Or the opposite - being so fidgety or restless that you have been moving around a lot more than usual: not at all 9. Thoughts that you would be better off or of hurting yourself in some wa y: not at all Total score: 0 Depression Screening Interpretation: Negative Depression Screening Done: Yes 12108 - PHQ-9 Billing: Yes Source: Developed by Drs. Rikki Murry, Sangita Mays, Matthew Devi and colleagues, with an educational yonas from [employer]. Thrive Questionnaire Date Thrive assessed: 08/28/25 I am a: Patient What is your living situation today?: I have a steady place to live Within the past 12 months, did the food you bought not last and you didn't have the money to get more?: Never true Within the past 12 months, did you worry whether your food would run out before you got money to buy more?: Never true Do you have trouble paying for medicines?: No Do you have trouble getting transportation to medical appointments?: No Do you have trouble paying your heating and electricity bill?: No Do you have trouble taking care of your child, family member or friend?: No Do you have trouble with day-to-day activities such as bathing, preparing meals, shopping, managing finances, etc.?: No Are you currently unemployed and looking for a job?: No Are you interested in more education?: No Please select the resources that you would like help with: None Currently or been in a relationship where the following occur: No concerns reported THRIVE Score: 0 AUDIT C Alcohol Use Questionnaire (AUDIT-C) 1. How often do you have a drink containing alcohol?: Never 3. How often do you have six or more drinks on one occasion?: Never Total Score: 0 Score Reviewed/Action Taken: Yes ZAY-7 AMB Questionnaire ZAY-7 Date ZAY - 7 assessed: 06/16/25 Feeling nervous, anxious, or on edge: 0 = Not at all Not being able to stop or control worryin = Not at all Worrying too much about different things: 0 = Not at all Trouble relaxin = Not at all Being so restless that it is hard to sit still: 0 = Not at all Becoming easily annoyed or irritable: 0 = Not at all Feeling afraid as if something awful might happen: 0 = Not at all Total ZAY-7 score (0-4 normal; 5-9 mild; 10-14 moderate; 15-21 severe): 0 Source: Developed by Drs. Rikki Murry, Sangita Mays, Matthew Devi and colleagues, with an educational yonas from [employer]. Review of Systems Const Denies chills, Denies fatigue, Denies fever(s) and Denies headache(s) ENT Denies dysphagia, Denies dizziness, Denies otalgia, Denies headache(s), Reports hoarseness (on and off lately), Denies neck pain, Denies odynophagia and Denies sore throat Card Denies chest pain, Denies palpitations and Denies dyspnea Resp Denies chest congestion, Denies cough and Denies dyspnea GI Denies abdominal pain, Denies constipation, Denies dysphagia, Denies diarrhea, Denies nausea, Denies odynophagia and Denies vomiting Denies difficulty urinating, Denies dysuria, Denies nocturia and Denies urinary frequency Musc Reports back pain (over the lower back - chronic) and Denies neck pain Skin/Breast Denies rash Neuro Denies dizziness and Denies headache(s) Endo Denies fatigue and Denies palpitations Physical exam (Primary Care) Vital Signs: Last Vital Signs Pulse 79 08/28/25 10:17 BP 136/80 08/28/25 10:17 Pulse Ox 98 08/28/25 10:17 Oxygen Delivery Method Room Air 08/28/25 10:17 BMI result Body Mass Index 30.2 Tobacco/Smoking Status: Tobacco use Status Tobacco use date assessed 08/28/25 08/28/25 10:39 Patient Tobacco Use Status Former Tobacco user 08/28/25 10:19 e-Cigarette/Vaping Use Never Used 08/28/25 10:19 PHQ-9: PHQ-9 Score PHQ-9: Total score 0 08/28/25 10:19 Depression Screening Interpretation: Negative Thrive Assessment: Date of Thrive Assessment Date Thrive assessed 06/16/25 08/28/25 10:19 Currently or been in a relationship where the following occur: No concerns reported Const General: no acute distress and alert HENMT Ears: TM's normal bilaterally and EAC's normal Throat: Yes posterior oropharynx normal, Yes tonsils normal and No postnasal drainage Neck Neck: Yes supple and No lymphadenopathy Thyroid: Thyroid normal and nontender Resp Auscultation: clear to auscultation bilaterally, no rales and no wheezes Cardio Rate: regular rate Rhythm: regular rhythm Heart sounds: no murmurs GI Palpation (GI): Soft to palpation and nontender Auscultation: normal bowel sounds General: Yes no CVA tenderness Back/Spine/Pelvis Back: no CVA tenderness Thoracic/Lumbar Spine: lumbar spinal tenderness Skin Rashes: no rashes Extrem General: Yes no clubbing, cyanosis or edema Results Reviewed Results Reviewed: Laboratory Tests 08/26/25 08:53 WBC 6.1 Hgb 13.4 L Hct 42.3 Plt Count 198 Sodium 140 Potassium 3.5 Creatinine 0.78 Estimated GFR > 60 Fasting Glucose 122 H Hemoglobin A1c % 6.9 H Uric Acid 4.8 Calcium 8.8 AST 24 ALT 19 Triglycerides 83 Cholesterol 116 LDL Cholesterol, Calc 61 HDL Cholesterol 39 L 25-OH Vitamin D Total 50.1 TSH 0.02 L Free T4 1.35 Ur Specific [place] 1.025 Urine Protein Negative Urine Glucose (UA) Negative Urine Blood Small (1+) H Urine Nitrite Negative Ur Leukocyte Esterase Trace H Microalb/Creat Ratio 7.8 Coding Level of Care Code Est Pt Level 4 (90063) Diagnoses Paroxysmal atrial fibrillation I48.0 Type 2 diabetes mellitus without complication, without long-term current use of insulin E11.9 Diabetes mellitus type: type 2 Diabetes mellitus correction insulin use: without correction use Diabetes mellitus complication status: without complication Pure hypercholesterolemia E78.00 Benign essential hypertension I10 Acquired hypothyroidism E03.9 Hoarseness R49.0 Superficial gastritis without hemorrhage, unspecified chronicity K29.30 Chronicity: unspecified Gastritis bleeding: without bleeding Idiopathic gout, unspecified chronicity, unspecified site M10.00 Gout site: unspecified site Gout etiology: idiopathic Chronicity: unspecified Degeneration of intervertebral disc of lumbar region with discogenic back pain M51.360 Disc-related pain type: discogenic back pain only Vitamin D deficiency E55.9 Memory impairment R41.3 Benign prostatic hyperplasia with nocturia N40.1; R35.1 Obesity (BMI 30-39.9) E66.9 Additional Codes PHQ-9 - 60412 - PHQ-9 Billing: Yes ([id number]) Assessment & Plan Assessment & Plan (1) Paroxysmal atrial fibrillation: Code(s): I48.0 - Paroxysmal atrial fibrillation Category: Medical Plan: Patient currently remains in sinus rhythm - he was reportedly found to be in atrial fibrillation during his cardiology follow up with Dr. Rosenbaum earlier this year He remains anticoagulated on Coumadin and he follows up with the Coumadin clinic regularly for PT/INR monitoring Continue Metoprolol ER 25 mg QD and Fleicanide 50 mg Q 12 hours Stress testing done a couple of months ago (March 2025) came out normal; nuclear imaging / cardiolite stress testing also came out normal - myocardial perfusion imaging study shows normal myocardial perfusion and gated LVEF is at 61% Stress testing was done in anticipation of cardioversion, which patient will likely be undergoing soon Follow up with cardiology as scheduled (2) Diabetes mellitus: Code(s): E11.9 - Type 2 diabetes mellitus without complications Category: Medical Qualifiers: Diabetes mellitus type: type 2 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 mellitus 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 insulin use: without 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 use Diabetes mellitus complication status: without complication Qualified Code(s): E11.9 - Type 2 diabetes mellitus without complications Plan: His HgbA1c was at 6.9% on his labs done a couple of days ago (was previously at 6.5% a few months ago) - goal is <7.0% Reinforced diabetic diet Continue Metformin ER 500 mg BID (3) Pure hypercholesterolemia: Code(s): E78.00 - Pure hypercholesterolemia, unspecified Category: Medical Plan: Results of his labs done a couple of days ago reviewed and discussed with patient Reinforced low cholesterol diet Continue Atorvastatin 80 mg QD Will recheck his labs and fasting lipids in 3 months for follow-up (4) Benign essential hypertension: Code(s): I10 - Essential (primary) hypertension Category: Medical Plan: Reinforced low sodium diet - goal is systolic BP of at least 130 to 140 mm or less Continue Metoprolol ER 25 mg QD and Losartan 50 mg QD (5) Acquired hypothyroidism: Code(s): E03.9 - Hypothyroidism, unspecified Category: Medical Plan: His free T4 level remains normal on his recent labs; TSH is still suppressed Continue Levothyroxine 100 mcg QD for now - patient is advised that his recent hoarseness most likely has nothing to do with his thyroid and he should refrain from adjusting the dosage of his medications on his own Will at least send him for thyroid US for further evaluation Will continue to monitor his TFTs regularly (6) Hoarseness: Code(s): R49.0 - Dysphonia Category: Medical Plan: Will send patient for upper GI series for further evaluation (7) Superficial gastritis: Comment: seen on EGD on 06/23/2017 Code(s): K29.60 - Other gastritis without bleeding Category: Medical Qualifiers: Chronicity: unspecified Gastritis bleeding: without bleeding Qualified Code(s): K29.30 - Chronic superficial gastritis without bleeding Plan: Dietary restrictions reinforced Continue Prilosec OTC 20 mg 2 tablets QD Follow up with GI as scheduled (8) Gout: Code(s): M10.9 - Gout, unspecified Category: Medical Qualifiers: Gout site: unspecified site Gout etiology: idiopathic Chronicity: unspecified Qualified Code(s): M10.00 - Idiopathic gout, unspecified site Plan: Reinforced low purine diet - his serum uric acid remains normal on his recent labs Patient remains asymptomatic with no acute gout flare ups since his last visit (9) Lumbar degenerative disc disease: Code(s): M51.36 - Other intervertebral disc degeneration, lumbar region Category: Medical Qualifiers: Disc-related pain type: discogenic back pain only Qualified Code(s): M51.360 - Other intervertebral disc degeneration, lumbar region with discogenic back pain only Plan: Reinforced activity and weight-lifting restrictions Continue Tizanidine 4 mg Q 8 hours PRN and Oxycodone-acetaminophen 5-325 mg Q 6 hours as needed for pain (10) Vitamin D deficiency: Code(s): E55.9 - Vitamin D deficiency, unspecified Category: Medical Plan: Continue Vitamin D3 2000 units QD (11) Memory impairment: Code(s): R41.3 - Other amnesia Category: Medical Plan: He was started on Fluoxetine for MCI and depression by neurology a couple of years ago but patient could not tolerate Rx at 20 mg QD Follow up with neurology as scheduled (12) Benign prostatic hyperplasia with nocturia: Code(s): N40.1 - Benign prostatic hyperplasia with lower urinary tract symptoms; R35.1 - Nocturia Category: Medical Plan: His PSA was normal when last checked a few months ago Continue Tamsulosin 0.4 mg Q HS - states that his Rx has helped a lot with his nocturia Follow up with urology as scheduled - has appt coming up later this morning (13) Obesity (BMI 30-39.9): Code(s): E66.9 - Obesity, unspecified Category: Medical Plan: Reinforced diet/exercise as tolerated/lose weight Plan Follow up in 3 months Orders: Orders [place] upper GI series Today R13.10 - Dysphagia, unspecified, R49.0 - Dysphonia Hemoglobin A1c 3 Months E11.9 - Type 2 diabetes mellitus without complications Lipid Panel 3 Months E78.00 - Pure hypercholesterolemia, unspecified Microalbumin, Random (w Creat) 3 Months E11.9 - Type 2 diabetes mellitus without complications Complete Blood Count Auto Diff 3 Months D64.9 - Anemia, unspecified Free T4 (Free Thyroxine) 3 Months E03.9 - Hypothyroidism, unspecified US thyroid Today E03.9 - Hypothyroidism, unspecified, R49.0 - Dysphonia Comprehensive [place]. Panel Fast 3 Months E78.00 - Pure hypercholesterolemia, unspecified Thyroid Stimulating Hormone 3 Months E03.9 - Hypothyroidism, unspecified Triiodothyronine T3 Total 3 Months R79.89 - Other specified abnormal findings of blood chemistry UA CC w/rflx Micro + Cult 3 Months R30.0 - Dysuria Vitamin D 25-OH Total 3 Months E55.9 - Vitamin D deficiency, unspecified Vitamin B12 and Folate 3 Months E53.8 - Deficiency of other specified B group vitamins
== END 2025-08-28 11:23 | disposition home or self-care (01) ==
LOC: HO.HMCH 09:55
PROVIDERS: PCP Internal Medicine; Visit Provider Internal Medicine
DX: I48.0 Paroxysmal atrial fibrillation (principal); E11.9 Type 2 diabetes mellitus without complications; E78.00 Pure hypercholesterolemia, unspecified; I10 Essential (primary) hypertension; E03.9 Hypothyroidism, unspecified; R49.0 Dysphonia; K29.30 Chronic superficial gastritis without bleeding; M10.00 Idiopathic gout, unspecified site; M51.360 Other intervertebral disc degeneration, lumbar region with discogenic back pain only; E55.9 Vitamin D deficiency, unspecified; R41.3 Other amnesia; N40.1 Benign prostatic hyperplasia with lower urinary tract symptoms; R35.1 Nocturia; E66.9 Obesity, unspecified

== ENCOUNTER → 2025-08-28 09:54 | Outpatient (BNVA) | payer OTHER, SELFPAY | PROVIDERS: PCP Internal Medicine; Visit Provider Internal Medicine | DX: I48.0 Paroxysmal atrial fibrillation (principal); E11.9 Type 2 diabetes mellitus without complications; E78.00 Pure hypercholesterolemia, unspecified; I10 Essential (primary) hypertension; E03.9 Hypothyroidism, unspecified; R49.0 Dysphonia; K29.30 Chronic superficial gastritis without bleeding; M10.00 Idiopathic gout, unspecified site; M51.360 Other intervertebral disc degeneration, lumbar region with discogenic back pain only; E55.9 Vitamin D deficiency, unspecified; R41.3 Other amnesia; N40.1 Benign prostatic hyperplasia with lower urinary tract symptoms; R35.1 Nocturia; E66.9 Obesity, unspecified; Z68.30 Body mass index [BMI] 30.0-30.9, adult | CPT/HCPCS: 96127; 99212 ==

== ENCOUNTER 2025-08-31 09:04 | Outpatient (AMB) | payer OTHER, SELFPAY ==
[2025-08-31 09:09] LABS: Prothrombin Time Whole Bld POC 58.5 sec (11.1-13.5); ~PT, ~INR - Anti Coag Clinic 4.9 (0.9-1.1)
--- NOTE | 2025-08-31 09:15 | MHC.OFFVISCO ---
Intake Intake Visit Reasons: Anticoagulation Allergies No Known Allergies (No Known Allergies*) Allergy (Unknown, Verified 08/31/25 09:05) U Medication List - Last Reconciled 08/31/25 by Dee Blanco RN allopurinol TAKE 2 TABLETS IN THE MORNING AND 1 TABLET IN THE EVENING atorvastatin 80 mg PO BEDTIME 90 days blood sugar diagnostic ([employer] Ultra Test strips) 1 strip miscellaneous DAILY blood-glucose meter ([employer] Ultra2 Meter kit) As directed daily cholecalciferol (vitamin D3) (Vitamin D3) 50 mcg PO DAILY 90 days cyanocobalamin (vitamin B-12) 1,000 mcg PO DAILY 90 days flecainide 50 mg PO Q12H fluoxetine 20 mg PO DAILY fluticasone propionate 50 mcg/actuation (Flonase Allergy Relief) 2 sprays intranasal DAILY lancets ([employer] UltraSoft Lancets) As directed levothyroxine 100 mcg PO DAILY 90 days losartan 50 mg PO DAILY metformin ER 500 mg PO BID 90 days metoprolol succinate ER 25 mg PO DAILY 90 days mometasone 0.1% 1 appl topical DAILY PRN omeprazole 20 mg PO DAILY 90 days oxycodone-acetaminophen 5-325 mg 1 tab PO Q6H PRN 28 days simethicone 180 mg PO BID 30 days tamsulosin 0.4 mg PO BEDTIME 90 days tizanidine 4 mg PO Q8H PRN warfarin 3.75 mg See Protocol PO DAILY Nursing Note INR: 4.9?out of therapeutic range of 2-3 Medications and supplements reviewed Patient status: feels well, no S/S of bleeding Pt believes his diet may have caused the increase in INR Medications or supplements: no changes Diet: too many reds Denies any signs and symptoms of bleeding or clotting or unusual bruising Bleeding, bruising, clotting discussed Nutritional guidance given: to have a serving of greens today. Pt states he will have broccoli. Dose: pt took warfarin today so will hold tomorrow's dose of 3.75mg then he will take 3.75mg daily F/U INR Date: 09/04/25?? Patient verbalizing understanding of instructions given. Anti-Coag Initial Assessment Social Hx Patient Tobacco Use Status: Former Tobacco user alcohol intake: former Coding Level of Care Code Est Patient Level 1 Diagnoses Current use of anticoagulant therapy Z79.01 Results AMB INR Fingerstick AMB INR Fingerstick 4.9 Last Edit by Dee Blanco RN on 08/31/25 09:10 Assessment & Plan Assessment & Plan (1) Current use of anticoagulant therapy: Code(s): Z79.01 - emt intermediate (current) use of anticoagulants Category: Medical
--- OUTSIDE RECORDS SUMMARY | 2025-08-31 10:05 | XMS_ITS | Patient Health Record ---
Author Organization [facility] Address [address] [place] [id number] Care Team Providers Care Resolution Expert Name Role Phone Raleigh Gunn Jr [phone] Reason For Referral No Information Plan Of Treatment No Information
== END 2025-08-31 09:18 | disposition home or self-care (01) ==
LOC: HO.ACS 09:04
PROVIDERS: PCP Internal Medicine; Visit Provider Internal Medicine Medical Oncology
DX: Z79.01 Long term (current) use of anticoagulants (principal)

== ENCOUNTER → 2025-08-31 09:04 | Outpatient (BNVA) | payer OTHER, SELFPAY | PROVIDERS: PCP Internal Medicine; Visit Provider Internal Medicine Medical Oncology | DX: I48.0 Paroxysmal atrial fibrillation (principal); Z51.81 Encounter for therapeutic drug level monitoring; Z79.01 Long term (current) use of anticoagulants | CPT/HCPCS: 85610; 99211 ==

== ENCOUNTER 2025-09-04 08:56 | Outpatient (AMB) | payer OTHER, SELFPAY ==
[2025-09-04 09:27] LABS: Prothrombin Time Whole Bld POC 29.6 sec (11.1-13.5); ~PT, ~INR - Anti Coag Clinic 2.5 (0.9-1.1)
--- NOTE | 2025-09-04 09:36 | MHC.OFFVISCO ---
Intake Intake Visit Reasons: Anticoagulation Allergies No Known Allergies (No Known Allergies*) Allergy (Unknown, Verified 09/04/25 09:20) U Medication List - Last Reconciled 09/04/25 by Genet Hough RN allopurinol TAKE 2 TABLETS IN THE MORNING AND 1 TABLET IN THE EVENING atorvastatin 80 mg PO BEDTIME 90 days blood sugar diagnostic ([employer] Ultra Test strips) 1 strip miscellaneous DAILY blood-glucose meter ([employer] Ultra2 Meter kit) As directed daily cholecalciferol (vitamin D3) (Vitamin D3) 50 mcg PO DAILY 90 days cyanocobalamin (vitamin B-12) 1,000 mcg PO DAILY 90 days flecainide 50 mg PO Q12H fluoxetine 20 mg PO DAILY fluticasone propionate 50 mcg/actuation (Flonase Allergy Relief) 2 sprays intranasal DAILY lancets ([employer] UltraSoft Lancets) As directed levothyroxine 100 mcg PO DAILY 90 days losartan 50 mg PO DAILY metformin ER 500 mg PO BID 90 days metoprolol succinate ER 25 mg PO DAILY 90 days mometasone 0.1% 1 appl topical DAILY PRN omeprazole 20 mg PO DAILY 90 days oxycodone-acetaminophen 5-325 mg 1 tab PO Q6H PRN 28 days simethicone 180 mg PO BID 30 days tamsulosin 0.4 mg PO BEDTIME 90 days tizanidine 4 mg PO Q8H PRN warfarin 3.75 mg See Protocol PO DAILY Nursing Note INR: 2.5 in therapeutic range Medications and supplements reviewed No changes in health, diet, medications, or supplements, UNCERTAIN as to why INR has been so labile- denies any alcohol or major diet changes, he has been taking more tylenol for occ headaches - enc to to discuss with PCP, 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 Bleeding, bruising, clotting discussed Nutritional guidance given - eat 3 servings of greens / week and eat a mix of fruits and vegetables Dose: 3.75mg daiy F/U INR: weekly to q 2weeks until INR remains stable Patient verbalizes understanding of instructions given Anti-Coag Initial Assessment Social Hx Patient Tobacco Use Status: Former Tobacco user alcohol intake: former Coding Level of Care Code Est Patient Level 1 Diagnoses Current use of anticoagulant therapy Z79.01 Assessment & Plan Assessment & Plan (1) Current use of anticoagulant therapy: Code(s): Z79.01 - longterm (current) use of anticoagulants Category: Medical
== END 2025-09-04 09:41 | disposition home or self-care (01) ==
LOC: HO.ACS 08:56
PROVIDERS: PCP Internal Medicine; Visit Provider Internal Medicine Medical Oncology
DX: Z79.01 Long term (current) use of anticoagulants (principal)

== ENCOUNTER → 2025-09-04 08:56 | Outpatient (BNVA) | payer OTHER, SELFPAY | PROVIDERS: PCP Internal Medicine; Visit Provider Internal Medicine Medical Oncology | DX: I48.20 Chronic atrial fibrillation, unspecified (principal); Z51.81 Encounter for therapeutic drug level monitoring; Z79.01 Long term (current) use of anticoagulants | CPT/HCPCS: 85610; 99211 ==

== ENCOUNTER 2025-09-18 09:31 | Outpatient (AMB) | payer OTHER, SELFPAY ==
[2025-09-18 10:01] LABS: Prothrombin Time Whole Bld POC 42.1 sec (11.1-13.5); ~PT, ~INR - Anti Coag Clinic 3.5 (0.9-1.1)
--- OUTSIDE RECORDS SUMMARY | 2025-09-18 10:49 | XMS_ITS | Patient Health Record ---
Author Organization [facility] Address [address] [place] [id number] Care Team Providers Care Mail Weigher Name Role Phone Raleigh Gunn Jr Reason For Referral No Information Plan Of Treatment No Information
--- NOTE | 2025-09-18 11:28 | MHC.OFFVISCO ---
Intake Intake Visit Reasons: Anticoagulation Allergies No Known Allergies (No Known Allergies*) Allergy (Unknown, Verified 09/18/25 09:44) U Medication List - Last Reconciled 09/18/25 by Genet Hough RN allopurinol TAKE 2 TABLETS IN THE MORNING AND 1 TABLET IN THE EVENING atorvastatin 80 mg PO BEDTIME 90 days blood sugar diagnostic (SpareTime Ultra Test strips) 1 strip miscellaneous DAILY blood-glucose meter (SpareTime Ultra2 Meter kit) As directed daily cholecalciferol (vitamin D3) (Vitamin D3) 50 mcg PO DAILY 90 days cyanocobalamin (vitamin B-12) 1,000 mcg PO DAILY 90 days flecainide 50 mg PO Q12H fluoxetine 20 mg PO DAILY fluticasone propionate 50 mcg/actuation (Flonase Allergy Relief) 2 sprays intranasal DAILY lancets (SpareTime UltraSoft Lancets) As directed levothyroxine 100 mcg PO DAILY 90 days losartan 50 mg PO DAILY metformin ER 500 mg PO BID 90 days metoprolol succinate ER 25 mg PO DAILY 90 days mometasone 0.1% 1 appl topical DAILY PRN omeprazole 20 mg PO DAILY 90 days oxycodone-acetaminophen 5-325 mg 1 tab PO Q6H PRN 28 days simethicone 180 mg PO BID 30 days tamsulosin 0.4 mg PO BEDTIME 90 days tizanidine 4 mg PO Q8H PRN warfarin 3.75 mg See Protocol PO DAILY Nursing Note pt came with today- she has not been coming due to her health concerns and recent bout with flu INR 3.5 out of therapeutic range Medications and supplements reviewed Patient status: states he did not have the greens discussed last week Medications or supplements: no recent changes Diet: little less per Denies any signs and symptoms of bleeding or clotting or unusual bruising Bleeding, bruising, clotting discussed Nutritional guidance given: 3 greens per week Dose: already took today's dose, hold tomorrow's dose then resume 3.75mg daily F/U INR Date: 10?days Patient and verbalizing understanding of instructions given and diet recommendations. 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
== END 2025-09-18 10:41 | disposition home or self-care (01) ==
LOC: HO.ACS 09:31
PROVIDERS: PCP Internal Medicine; Visit Provider Internal Medicine Medical Oncology
DX: Z79.01 Long term (current) use of anticoagulants (principal)

== ENCOUNTER → 2025-09-18 09:31 | Outpatient (BNVA) | payer OTHER, SELFPAY | PROVIDERS: PCP Internal Medicine; Visit Provider Internal Medicine Medical Oncology | DX: Z79.01 Long term (current) use of anticoagulants (principal) | CPT/HCPCS: 85610; 99211 ==

== ENCOUNTER 2025-09-21 12:42 | Outpatient (AMB) | payer OTHER, SELFPAY ==
--- NOTE | 2025-09-21 13:16 | MHC.OFFVIS ---
Intake Visit Reasons: Cystoscopy/CT Intake Note: Patient is present for a cystoscopy/CT Urology Med: Tamsulosin, Allopurinol Antibiotic Allergies: None Blood Thinner: Warfarin Lot#:[id number] Exp:04/24/28 Drone Software Development Engineer Required: No Allergies No Known Allergies (No Known Allergies*) Allergy (Unknown, Verified 09/21/25 13:33) U HPI Comments Details: 09/21/25--Corey is here for office cystoscopy. History of Present Illness The patient is a 75-year-old male presenting with hematuria. He has a history of smoking, which he ceased approximately 20 years ago. The patient is also being followed for Benign Prostatic Hyperplasia (BPH). He reports urinary urgency, with frequent urination occurring every minute, and is currently taking tamsulosin for management. Results - Cystoscopy: No lesions observed in the bladder - PSA- 06/14/25--0.91 ng/mL Plan 1. Hematuria - Plan to reorder CT urogram for evaluation of the upper urinary tract. 2. Benign Prostatic Hyperplasia (Bph) - Continue tamsulosin 3. Urinary Urgency --vesicare 5 mg daily 06/16/25--Corey is a 74-year-old male who is here for follow-up he had PSA done on 06/14/2025 that was 0.91 ng/mL History of Present Illness - The patient is a 75-year-old male presenting with follow-up for Benign Prostatic Hyperplasia (BPH). - The patient is on tamsulosin 0.4 mg daily for BPH symptoms. - A urinalysis indicated hematuria, and a renal ultrasound revealed bilateral renal cysts. - The patient has a significant history of tobacco use. - He has been using an unidentified yxzc-bdq-uwlvons medication for urinary frequency, which he has been advised to discontinue. Results - Urinalysis: 1 plus blood - Renal Ultrasound (09/19/24): Bilateral renal cysts Plan - Schedule CT urogram and urine cytology for further evaluation of hematuria. - Plan for office cystoscopy to further investigate urinary symptoms. - Advise the patient to discontinue the mngf-qvr-hevgtsy medication until further review. 09/26/24--FU. Nicole is followed for BPH symptoms. He is here with a family member who interprets for him. He states that he is not taking the tamsulosin because it made him go more frequently to the bathroom. He is taking another medication that he bought from the pharmacy. I have asked him to call with the name of the medication so we can add it to the chart. I have reviewed kidney and bladder ultrasound imaging. Facility Maintenance Technician pending renal US 09/19/24- imaging-bilateral kidney cysts negative for renal calculi bladder US 09/21/24-bladder unremarkable, bladder PVR 27.5 mL, estimated prostate size 45.3 mL. No recent PSA. Discussed PSA screening. 06/23/24--Corey is a 74-year-old Paraguayan-speaking male. 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 The patient complains of obstructive voiding symptoms. AUA symptom score 32. The patient was started on tamsulosin in May by his PCP. He states that his urinary symptoms have improved somewhat. Comorbidity diabetes. Agree with continue tamsulosin. I will check imaging of the urinary tract. Bladder scan PVR 25 mL. Last PSA: 07/2023 0.44 PFSH Medical History Benign prostatic hyperplasia with nocturia Lumbar degenerative disc disease Obesity (BMI 30-39.9) Vitamin D deficiency Gout Gastric ulcer Superficial gastritis GERD without esophagitis Acquired hypothyroidism Pure hypercholesterolemia Benign essential hypertension Diabetes mellitus Paroxysmal atrial fibrillation Surgical History Hx of colonoscopy History of esophagogastroduodenoscopy (EGD) History of appendectomy Family History Father Medical history unknown Mother Medical history unknown Social History Housing: House Alcohol intake: former Patient Tobacco Use Status: Former Tobacco user e-Cigarette/Vaping Use: Never Used Second Hand Smoke Exposure: Yes service: No Current occupational status: disabled Cognitive needs: No Hearing needs: No Vision needs: No Review of Systems Const All systems reviewed & are unremarkable except as noted in HPI and below Reports no additional complaints Eyes Reports no additional complaints ENT Reports no additional complaints Card Reports no additional complaints Resp Reports no additional complaints GI Reports no additional complaints Reports as per HPI Musc Reports no additional complaints Skin/Breast Reports system reviewed and no additional complaints, except as documented Neuro Reports no additional complaints Psych Reports no additional complaints Endo Reports no additional complaints Marko/Lymph Reports no additional complaints Aller/Immun Reports no additional complaints Office Procedures Cystoscopy Consent Discussed risk and benefit or proposed procedure with the patient. Information consent for procedure given to the patient. Discussed technical aspects, risks, benefits and alternatives in full. Addressed all of the patient's questions and concerns regarding the procedure. The patient demonstrated knowledge and understanding. They wish to proceed with this procedure. Preparation The patient was prepped in the usual manner. A solution professional was present and in the room. Genitalia was prepped with betadine solution in a sterile manner. Lidocaine Jelly 2% was placed into the urethra and 16Fr flexible Olympus cystoscope was inserted into the meatus after adequate lubrication. Procedure Time out per protocol performed. The flexible cystoscope is passed transurethrally: The bladder was inspected in its entirety with utilization retroflexion displaying: Tumor(s): no suspicious bladder lesions visualized Trabeculation: Mucosal Erthema:Mild Orifices: normal shape and position Urethra: normal Cystoscopy findings: prostatic urethra non obstructive bulbous urethra WNL, no suspicious bladder lesions visualized [id number] DISPOSABLE SCOPE URO-G FLEXIBLE SCOPE Procedure code (CPT) selection complete Office Meds lidocaine HCl 2 % mucosal jelly in applicator Performing Provider: Frankie Longoria MD Performing Location: [facility] Administered by: Kaitlin Knowles RN on 09/21/25 13:49 Dose Route Admin Location Dispensed Lot Number Expiration Date NDC Curb And Gutter Laborer 10 mL intra-urethral 20 mL nitrofurantoin monohydrate/macrocrystals 100 mg capsule Performing Provider: Frankie Longoria MD Performing Location: [facility] Administered by: Kaitlin Knowles RN on 09/21/25 13:49 Dose Route Admin Location Dispensed Lot Number Expiration Date NDC Curb And Gutter Laborer 100 mg PO 1 cap Comments: Coumadin and Cipro had interaction- medication switched to Macrobid instead. phenazopyridine 200 mg tablet Performing Provider: Frankie Longoria MD Performing Location: [facility] Administered by: Kaitlin Knowles RN on 09/21/25 13:49 Dose Route Admin Location Dispensed Lot Number Expiration Date NDC Curb And Gutter Laborer 200 mg PO 1 tab Assessment & Plan Assessment & Plan (1) Hematuria: Code(s): R31.9 - Hematuria, unspecified Category: Medical (2) Urinary frequency: Code(s): R35.0 - Frequency of micturition Category: Medical (3) BPH loc w urin obs/LUTS: Code(s): N40.1 - Benign prostatic hyperplasia with lower urinary tract symptoms Category: Medical Plan Plan 1. Hematuria - Plan to reorder CT urogram for evaluation of the upper urinary tract. 2. Benign Prostatic Hyperplasia (Bph) - Continue tamsulosin 3. Urinary Urgency --vesicare 5 mg daily Orders: Orders AMB Cystoscopy Today R31.9 - Hematuria, unspecified Blood Urea Nitrogen Today R31.9 - Hematuria, unspecified Creatinine Today R31.9 - Hematuria, unspecified Medications: New solifenacin (Vesicare) 5 mg PO DAILY 30 tabs 5RF Refilled tamsulosin 0.4 mg PO BEDTIME 90 caps 3RF 90 days N40.1 - Benign prostatic hyperplasia with lower urinary tract symptoms, R35.1 - Nocturia Patient Instructions: The patient had an opportunity to ask questions regarding treatment plan. The patient expressed understanding and agreement with the above treatment plan. The patient is aware they should contact our office by phone for worsening of their current condition or the appearance of new symptoms. Compliance is encouraged with any medications and followup testing that is ordered. It is a privilege to be allowed the opportunity to participate in the urologic care of your patient. If you have any questions or concerns regarding treatment for the above conditions please do not hesitate to contact me. The office telephone contact is [phone]. This note is constructed in part using voice recognition software. While every effort has been made to ensure accuracy electromedical equipment repairer errors may have been included. Yours sincerely, Frankie Longoria MD Scribe Plan - Not visible on output: Patient was informed and verbally consented to the use of an ambient scribe for clinic note documentation during this visit. Coding Level of Care Code Est Pt Level 4 (97632) Diagnoses Hematuria R31.9 Urinary frequency R35.0 BPH loc w urin obs/LUTS N40.1 CPT Codes Cystoscopy - CPT: [id number] ([id number])
--- OUTSIDE RECORDS SUMMARY | 2025-09-21 15:31 | XMS_ITS | Patient Health Record ---
Author Organization [facility] Address [address] [place] [id number] Care Team Providers Care Stitch Bonding Machine Operator Name Role Phone Raleigh Gunn Jr [phone] Reason For Referral No Information Plan Of Treatment No Information
== END 2025-09-21 14:22 | disposition home or self-care (01) ==
LOC: HO.HUSH 12:42
PROVIDERS: PCP Internal Medicine; Visit Provider Urology
DX: R31.9 Hematuria, unspecified (principal); N40.1 Benign prostatic hyperplasia with lower urinary tract symptoms; R35.0 Frequency of micturition; Z13.9 Encounter for screening, unspecified
CPT/HCPCS: 52000

== ENCOUNTER → 2025-09-21 12:42 | Outpatient (BNVA) | payer OTHER, SELFPAY | PROVIDERS: PCP Internal Medicine; Visit Provider Urology | DX: R31.9 Hematuria, unspecified (principal); N40.1 Benign prostatic hyperplasia with lower urinary tract symptoms; R35.0 Frequency of micturition | CPT/HCPCS: 52000; 81003 ==

== ENCOUNTER 2025-09-26 09:41 | Outpatient (AMB) | payer OTHER, SELFPAY ==
[2025-09-26 09:53] LABS: Prothrombin Time Whole Bld POC 35.1 sec (11.1-13.5); ~PT, ~INR - Anti Coag Clinic 2.9 (0.9-1.1)
--- NOTE | 2025-09-26 10:01 | MHC.OFFVISCO ---
Intake Intake Visit Reasons: Anticoagulation Allergies No Known Allergies (No Known Allergies*) Allergy (Unknown, Verified 09/21/25 13:33) U Nursing Note Pt came to appt with today INR: 2.9 in therapeutic range Medications and supplements reviewed No changes in health, diet, medications, or supplements, Denies any signs and symptoms of bleeding or bruising or clotting. Bleeding, bruising, clotting discussed Nutritional guidance given- 3 greens / week plus cont to eat a mix of other fruits and vegetables, it is ok to eat addison as long as you have your greens Dose: keep same dose 3.75mg daily F/U INR: 2 weeks Patient verbalizes understanding of instructions given Anti-Coag Initial Assessment Social Hx Patient Tobacco Use Status: Former Tobacco user alcohol intake: former Coding Level of Care Code Est Patient Level 1 Diagnoses Current use of anticoagulant therapy Z79.01 Results AMB INR Fingerstick AMB INR Fingerstick 2.9 Last Edit by Genet Hough RN on 09/26/25 09:55 manual entry Assessment & Plan Assessment & Plan (1) Current use of anticoagulant therapy: Code(s): Z79.01 - terminal press operator (current) use of anticoagulants Category: Medical
--- OUTSIDE RECORDS SUMMARY | 2025-09-26 10:52 | XMS_ITS | Patient Health Record ---
[facility] Organization [facility] Address [address] [place] [id number] Care Team Providers Care Vice President Quality Name Role Phone Raleigh Gunn Jr [phone] Reason For Referral No Information Plan Of Treatment No Information
== END 2025-09-26 10:04 | disposition home or self-care (01) ==
LOC: HO.ACS 09:41
PROVIDERS: PCP Internal Medicine; Visit Provider Internal Medicine Medical Oncology
DX: Z79.01 Long term (current) use of anticoagulants (principal)

== ENCOUNTER → 2025-09-26 09:41 | Outpatient (BNVA) | payer OTHER, SELFPAY | PROVIDERS: PCP Internal Medicine; Visit Provider Internal Medicine Medical Oncology | DX: Z79.01 Long term (current) use of anticoagulants (principal) | CPT/HCPCS: 85610; 99211 ==

== ENCOUNTER 2025-10-10 09:04 | Outpatient (AMB) | payer OTHER, SELFPAY ==
[2025-10-10 09:32] LABS: Prothrombin Time Whole Bld POC 28.1 sec (11.1-13.5); ~PT, ~INR - Anti Coag Clinic 2.3 (0.9-1.1)
--- NOTE | 2025-10-10 09:35 | MHC.OFFVISCO ---
Intake Intake Visit Reasons: Anticoagulation Allergies No Known Allergies (No Known Allergies*) Allergy (Unknown, Verified 10/10/25 09:25) U Medication List - Last Reconciled 10/10/25 by Genet Hough RN allopurinol TAKE 2 TABLETS IN THE MORNING AND 1 TABLET IN THE EVENING atorvastatin 80 mg PO BEDTIME 90 days blood sugar diagnostic (TigerTrade Ultra Test strips) 1 strip miscellaneous DAILY blood-glucose meter (TigerTrade Ultra2 Meter kit) As directed daily cholecalciferol (vitamin D3) (Vitamin D3) 50 mcg PO DAILY 90 days cyanocobalamin (vitamin B-12) 1,000 mcg PO DAILY 90 days flecainide 50 mg PO Q12H fluoxetine 20 mg PO DAILY fluticasone propionate 50 mcg/actuation (Flonase Allergy Relief) 2 sprays intranasal DAILY lancets (TigerTrade UltraSoft Lancets) As directed levothyroxine 100 mcg PO DAILY 90 days losartan 50 mg PO DAILY metformin ER 500 mg PO BID 90 days metoprolol succinate ER 25 mg PO DAILY 90 days mometasone 0.1% 1 appl topical DAILY PRN omeprazole 20 mg PO DAILY 90 days oxycodone-acetaminophen 5-325 mg 1 tab PO Q6H PRN 28 days simethicone 180 mg PO BID 30 days solifenacin (Vesicare) 5 mg PO DAILY tamsulosin 0.4 mg PO BEDTIME 90 days tizanidine 4 mg PO Q8H PRN warfarin 3.75 mg See Protocol PO DAILY Nursing Note INR: 2.3 in therapeutic range Medications and supplements reviewed No changes in health, diet, medications, or supplements, Denies any signs and symptoms of bleeding or bruising or clotting. Bleeding, bruising, clotting discussed Nutritional guidance given Dose: 3.75MG DAILY F/U INR: 2 WEEKS Patient verbalizes understanding of instructions given Anti-Coag Initial Assessment Social Hx Patient Tobacco Use Status: Former Tobacco user alcohol intake: former Coding Level of Care Code Est Patient Level 1 Diagnoses Current use of anticoagulant therapy Z79.01 Assessment & Plan Assessment & Plan (1) Current use of anticoagulant therapy: Code(s): Z79.01 - rn long term care (current) use of anticoagulants Category: Medical
== END 2025-10-10 09:37 | disposition home or self-care (01) ==
LOC: HO.ACS 09:04
PROVIDERS: PCP Internal Medicine; Visit Provider Internal Medicine Medical Oncology
DX: Z79.01 Long term (current) use of anticoagulants (principal)

== ENCOUNTER → 2025-10-10 09:04 | Outpatient (BNVA) | payer OTHER, SELFPAY | PROVIDERS: PCP Internal Medicine; Visit Provider Internal Medicine Medical Oncology | DX: I48.0 Paroxysmal atrial fibrillation (principal); Z51.81 Encounter for therapeutic drug level monitoring; Z79.01 Long term (current) use of anticoagulants | CPT/HCPCS: 85610; 99211 ==

== ENCOUNTER 2025-10-20 08:19 | Outpatient (AMB) | payer OTHER, SELFPAY ==
[2025-10-20 08:22] VITALS: BP 104/62; PULSE 71; BMI 31.7
--- NOTE | 2025-10-20 08:22 | MHC.OFFVIS ---
Vital Signs 10/20/25 08:22 Height 5 ft 6 in Weight 196 lb 3.382 oz BMI 31.7 BP 104/62 Blood Pressure Location Lt brachial Position Sitting Pulse 71 Pulse Source Monitor Intake Visit Reasons: r/s- 3 mth f/up km Parachute Rigger Required: No Parachute Rigger Services: Parachute Rigger Offered & Declined Senior Technical Analyst: Senior Technical Analyst Present Allergies No Known Allergies (No Known Allergies*) Allergy (Unknown, Verified 10/20/25 08:24) U Medication List - Last Reconciled 10/20/25 by SHAHZAD Ann allopurinol TAKE 2 TABLETS IN THE MORNING AND 1 TABLET IN THE EVENING atorvastatin 80 mg PO BEDTIME 90 days blood sugar diagnostic (Interactivo Ultra Test strips) 1 strip miscellaneous DAILY blood-glucose meter (Interactivo Ultra2 Meter kit) As directed daily cholecalciferol (vitamin D3) (Vitamin D3) 50 mcg PO DAILY 90 days cyanocobalamin (vitamin B-12) 1,000 mcg PO DAILY 90 days flecainide 50 mg PO Q12H fluoxetine 20 mg PO DAILY lancets (Interactivo UltraSoft Lancets) As directed levothyroxine 100 mcg PO DAILY 90 days losartan 50 mg PO DAILY metformin ER 500 mg PO BID 90 days metoprolol succinate ER 25 mg PO DAILY 90 days mometasone 0.1% 1 appl topical DAILY PRN omeprazole 20 mg PO DAILY 90 days oxycodone-acetaminophen 5-325 mg 1 tab PO Q6H PRN 28 days simethicone 180 mg PO BID 30 days solifenacin (Vesicare) 5 mg PO DAILY tamsulosin 0.4 mg PO BEDTIME 90 days tizanidine 4 mg PO Q8H PRN warfarin 3.75 mg See Protocol PO DAILY HPI HPI r/s- 3 mth f/up km: Details: The patient is a 75 year old male presenting for follow-up of paroxysmal atrial fibrillation. He is currently treated with flecainide for rhythm control. At his last visit, his EKG showed atrial flutter with a heart rate of 77. Cardioversion was discussed, but the patient decided to further discuss with family due to hearing about a negative outcome in another individual. Past medical history is significant for hypertension, hyperlipidemia, diabetes, hypothyroidism, and GERD. His brother reportedly from a heart condition. His last echocardiogram in 2021 showed an ejection fraction of 60-65% with mild mitral regurgitation and a normal right ventricle. A nuclear stress test last spring was normal, showing 5.5 minutes of exercise with no anginal symptoms or ischemic EKG changes, normal myocardial perfusion imaging. Since his last visit in April, he reports feeling much better and denies chest pain or rapid heartbeats, no shortness of breath. His sleep schedule is erratic, and he does most of his sleeping between 1p - 8p. He is adherent to his medications, including Coumadin, for which he attends the coumadin clinic. [facility] Medical History Benign prostatic hyperplasia with nocturia Lumbar degenerative disc disease Obesity (BMI 30-39.9) Vitamin D deficiency Gout Gastric ulcer Superficial gastritis GERD without esophagitis Acquired hypothyroidism Pure hypercholesterolemia Benign essential hypertension Diabetes mellitus Paroxysmal atrial fibrillation Surgical History Hx of colonoscopy History of esophagogastroduodenoscopy (EGD) History of appendectomy Family History Father Medical history unknown Mother Medical history unknown Social History Housing: House Alcohol intake: former Patient Tobacco Use Status: Former Tobacco user e-Cigarette/Vaping Use: Never Used Second Hand Smoke Exposure: Yes service: No Current occupational status: disabled Cognitive needs: No Hearing needs: No Vision needs: No Review of Systems Const All systems reviewed & are unremarkable except as noted in HPI and below ENT Denies dizziness Card Denies chest pain, Denies chest pain at rest, Denies chest pain with activity, Denies rapid heart rate, Denies pedal edema, Denies edema, Denies leg edema, Denies lightheadedness, Denies palpitations, Denies dyspnea, Denies dyspnea on exertion and Denies orthopnea Resp Denies cough, Denies dyspnea and Denies dyspnea on exertion GI Denies hematochezia and Denies change in stool character Musc Denies abnormal gait, Denies limited range of motion, Denies muscle cramps, Denies muscle weakness, Denies numbness, Denies radiating pain into limb, Denies stiffness and Denies tingling Neuro Denies abnormal gait, Denies dizziness, Denies numbness and Denies tingling Endo Denies palpitations Physical Exam Vital Signs: Last Vital Signs Pulse 71 10/20/25 08:22 BP 104/62 10/20/25 08:22 BMI result Body Mass Index 31.7 Const General: cooperative, healthy appearing, comfortable and no acute distress Orientation/consciousness: patient oriented x3 Neck Neck: Yes normal visual inspection Resp Effort & Inspection: normal respiratory effort Auscultation: clear to auscultation bilaterally, no crackles, no rales, no rhonchi and no wheezes Cardio Rate: regular rate Rhythm: abnormal rhythm Heart sounds: S1 normal heart sound present, S2 normal heart sound present, no gallops, no murmurs and no rubs Neuro General: patient oriented x3 Extrem General: Yes normal to inspection, No no pedal edema and No calf tenderness Psych Appearance: grossly normal Mental Status: mental status grossly normal Speech and movement: Normal speech and movement present Office Procedures EKG Details: Today, read by me, atrial fibrillation, septal Q-wave, rate 71, QTC 432 milliseconds [id number], Complete Assessment & Plan Assessment & Plan (1) Persistent atrial fibrillation: Code(s): I48.19 - Other persistent atrial fibrillation Category: Medical Plan: History of paroxysmal atrial fibrillation. He has been on flecainide and had recurrent atrial fibrillation noted last visit. Cardioversion was discussed. He did not agree to undergo the procedure and is still reluctant at this time. His EKG today is showing atrial fibrillation, rate 71. This is likely persistent AFib which is currently asymptomatic. Will have him stop flecainide, continue metoprolol. Continue Coumadin for anticoagulation, INR goal 2-3. Follows with the [facility]. Will check a Holter monitor to assess AFib rate control. Will update echocardiogram to re-evaluate EF and check atrial sizes. Cardiology follow-up 3-4 months, sooner if needed (2) Benign essential hypertension: Code(s): I10 - Essential (primary) hypertension Category: Medical Plan: Blood pressure goal less than 130/80. Well controlled. (3) Current use of anticoagulant therapy: Code(s): Z79.01 - terminal system operator (current) use of anticoagulants Category: Medical Plan: On Coumadin. Plan I explained to the patient and his that his heart is in an irregular rhythm called atrial fibrillation. I recommended we stop the flecainide and continue his other medications, including metoprolol. To further evaluate his heart, I have ordered a heart monitor and a heart ultrasound (echocardiogram). I reassured them that his risk for a heart attack is not high, as his stress test last spring was normal. I informed them that our scheduling department will call them to set up these tests and provided written instructions for the medication change. He will follow up with Dr. Rosenbaum in 3-4 months. Orders: Orders ECG 3 day holter monitor Today I48.0 - Paroxysmal atrial fibrillation CA echo transthoracic complete Today I48.0 - Paroxysmal atrial fibrillation Medications: Discontinued flecainide Discontinued Reason: Doctor's Order 50 mg PO Q12H 180 tabs 3RF Patient Instructions: - You can stop taking your flecainide medicine. - Continue taking all of your other medicines as prescribed, especially your metoprolol and Coumadin (blood thinner). - Our scheduling office will call you to schedule two tests: a heart monitor and an ultrasound of your heart (echocardiogram). - Follow up in 3-4 mo - sooner if needed Patient was informed and verbally consented to the use of an ambient scribe for clinic note documentation during this visit. Visit time spent on chart review, interview, assessment, orders, documentation. Coding Level of Care Code Est Pt Level 4 (43097) Complex visit Add On G2211 Diagnoses Persistent atrial fibrillation I48.19 Benign essential hypertension I10 Current use of anticoagulant therapy Z79.01 CPT Codes EKG - CPT: 49924-[id number], Complete ([id number]) Time Spent (min) 28
== END 2025-10-20 08:48 | disposition home or self-care (01) ==
LOC: HO.HCS 08:20
PROVIDERS: PCP Internal Medicine; Visit Provider Nurse Practitioner Family
DX: I48.19 Other persistent atrial fibrillation (principal); I10 Essential (primary) hypertension; Z79.01 Long term (current) use of anticoagulants
CPT/HCPCS: 93010; 99214; G2211

== ENCOUNTER → 2025-10-20 08:19 | Outpatient (BNVA) | payer OTHER, SELFPAY | PROVIDERS: PCP Internal Medicine; Visit Provider Nurse Practitioner Family | DX: I10 Essential (primary) hypertension (principal); I48.19 Other persistent atrial fibrillation; Z79.01 Long term (current) use of anticoagulants | CPT/HCPCS: 93005; 99212 ==

== ENCOUNTER 2025-10-24 09:04 | Outpatient (AMB) | payer OTHER, SELFPAY ==
--- NOTE | 2025-10-24 09:21 | MHC.OFFVISCO ---
Intake Intake Visit Reasons: Anticoagulation Allergies No Known Allergies (No Known Allergies*) Allergy (Unknown, Verified 10/24/25 09:14) U Medication List - Last Reconciled 10/24/25 by Genet Hough RN allopurinol TAKE 2 TABLETS IN THE MORNING AND 1 TABLET IN THE EVENING atorvastatin 80 mg PO BEDTIME 90 days blood sugar diagnostic ([employer] Ultra Test strips) 1 strip miscellaneous DAILY blood-glucose meter ([employer] Ultra2 Meter kit) As directed daily cholecalciferol (vitamin D3) (Vitamin D3) 50 mcg PO DAILY 90 days cyanocobalamin (vitamin B-12) 1,000 mcg PO DAILY 90 days fluoxetine 20 mg PO DAILY lancets ([employer] UltraSoft Lancets) As directed levothyroxine 100 mcg PO DAILY 90 days losartan 50 mg PO DAILY metformin ER 500 mg PO BID 90 days metoprolol succinate ER 25 mg PO DAILY 90 days mometasone 0.1% 1 appl topical DAILY PRN omeprazole 20 mg PO DAILY 90 days oxycodone-acetaminophen 5-325 mg 1 tab PO Q6H PRN 28 days simethicone 180 mg PO BID 30 days solifenacin (Vesicare) 5 mg PO DAILY tamsulosin 0.4 mg PO BEDTIME 90 days tizanidine 4 mg PO Q8H PRN warfarin 3.75 mg See Protocol PO DAILY Nursing Note INR 1.9 out of therapeutic range s/p Thanksgiving Medications and supplements reviewed Patient status: may have had more greens than usual Medications or supplements: reports no changes Diet: good appetite Denies any signs and symptoms of bleeding or clotting or unusual bruising Bleeding, bruising, clotting discussed Nutritional guidance given: avoid greens x 2 days eat foods to help raise the INR- pt able to verbalize 3 foods that can raise the INR Dose: keep same dose F/U INR Date: 2 weeks ?? Patient verbalizing understanding of instructions given. Anti-Coag Initial Assessment Social Hx Patient Tobacco Use Status: Former Tobacco user alcohol intake: former Coding Level of Care Code Est Patient Level 1 Diagnoses Current use of anticoagulant therapy Z79.01 Results AMB INR Fingerstick AMB INR Fingerstick 1.9 Last Edit by Genet Hough RN on 10/24/25 09:22 manual entry ongoing failed interfacing Assessment & Plan Assessment & Plan (1) Current use of anticoagulant therapy: Code(s): Z79.01 - termination clerk (current) use of anticoagulants Category: Medical
[2025-10-25 08:29] LABS: Prothrombin Time Whole Bld POC 22.6 sec (11.1-13.5); ~PT, ~INR - Anti Coag Clinic 1.9 (0.9-1.1)
== END 2025-10-24 09:29 | disposition home or self-care (01) ==
LOC: HO.ACS 09:04
PROVIDERS: PCP Internal Medicine; Visit Provider Internal Medicine Medical Oncology
DX: Z79.01 Long term (current) use of anticoagulants (principal)

== ENCOUNTER → 2025-10-24 09:04 | Outpatient (BNVA) | payer OTHER, SELFPAY | PROVIDERS: PCP Internal Medicine; Visit Provider Internal Medicine Medical Oncology | DX: I48.0 Paroxysmal atrial fibrillation (principal); Z51.81 Encounter for therapeutic drug level monitoring; Z79.01 Long term (current) use of anticoagulants | CPT/HCPCS: 85610; 99211 ==

== ENCOUNTER 2025-11-07 09:19 | Outpatient (AMB) | payer OTHER, SELFPAY ==
[2025-11-07 09:37] LABS: Prothrombin Time Whole Bld POC 29.3 sec (11.1-13.5); ~PT, ~INR - Anti Coag Clinic 2.4 (0.9-1.1)
--- NOTE | 2025-11-07 09:38 | MHC.OFFVISCO ---
Intake Intake Visit Reasons: Anticoagulation Allergies No Known Allergies (No Known Allergies*) Allergy (Unknown, Verified 11/07/25 09:33) U Medication List - Last Reconciled 11/07/25 by Dee Blanco RN allopurinol TAKE 2 TABLETS IN THE MORNING AND 1 TABLET IN THE EVENING atorvastatin 80 mg PO BEDTIME 90 days blood sugar diagnostic ([employer] Ultra Test strips) 1 strip miscellaneous DAILY blood-glucose meter ([employer] Ultra2 Meter kit) As directed daily cholecalciferol (vitamin D3) (Vitamin D3) 50 mcg PO DAILY 90 days cyanocobalamin (vitamin B-12) 1,000 mcg PO DAILY 90 days fluoxetine 20 mg PO DAILY lancets ([employer] UltraSoft Lancets) As directed levothyroxine 100 mcg PO DAILY 90 days losartan 50 mg PO DAILY metformin ER 500 mg PO BID 90 days metoprolol succinate ER 25 mg PO DAILY 90 days mometasone 0.1% 1 appl topical DAILY PRN omeprazole 20 mg PO DAILY 90 days oxycodone-acetaminophen 5-325 mg 1 tab PO Q6H PRN 28 days simethicone 180 mg PO BID 30 days solifenacin (Vesicare) 5 mg PO DAILY tamsulosin 0.4 mg PO BEDTIME 90 days tizanidine 4 mg PO Q8H PRN warfarin 3.75 mg See Protocol PO DAILY Nursing Note INR: 2.4 in therapeutic range 2-3 Medications and supplements reviewed No changes in health, diet, medications, or supplements, Denies any signs and symptoms of bleeding or bruising or clotting. Bleeding, bruising, clotting discussed Nutritional guidance given Dose: 3.75mg daily F/U INR: 2 weeks Patient verbalizes understanding of instructions given Anti-Coag Initial Assessment Social Hx Patient Tobacco Use Status: Former Tobacco user alcohol intake: former Coding Level of Care Code Est Patient Level 1 Diagnoses Current use of anticoagulant therapy Z79.01 Assessment & Plan Assessment & Plan (1) Current use of anticoagulant therapy: Code(s): Z79.01 - penitentiary (current) use of anticoagulants Category: Medical
--- OUTSIDE RECORDS SUMMARY | 2025-11-07 10:04 | XMS_ITS | Patient Health Record ---
Author Organization [facility] Address [address] [place] [id number] Care Team Providers Care Cheesemaker Name Role Phone Raleigh Gunn Jr Reason For Referral No Information Plan Of Treatment No Information
== END 2025-11-07 09:40 | disposition home or self-care (01) ==
LOC: HO.ACS 09:19
PROVIDERS: PCP Internal Medicine; Visit Provider Internal Medicine Medical Oncology
DX: Z79.01 Long term (current) use of anticoagulants (principal)

== ENCOUNTER → 2025-11-07 09:19 | Outpatient (BNVA) | payer OTHER, SELFPAY | PROVIDERS: PCP Internal Medicine; Visit Provider Internal Medicine Medical Oncology | DX: Z79.01 Long term (current) use of anticoagulants (principal) | CPT/HCPCS: 85610; 99211 ==